=== PATIENT | male | born 1985 | race Caucasian/White ===

== ENCOUNTER 2016-10-29 08:37 | Outpatient (CLI) | payer BC ==
[~2016-10-29] VITALS: Ht 182.9 cm; Wt 132.0 kg
[~2016-10-29 08:37] MED LIST: BENZ-13 PO; CALC-80 PO; CEFD300C3 PO; CLON0.123 PO; CLON0.5T60 PO; D-ME118S7 PO; LAMO150T3 PO; LEVE100015 PO; LEVE750T16 PO; LEVO50TA PO; ONDA4TAB8 PO; PHEN-633 PO
[2016-10-29 08:52] VITALS: BP 123/71
[2016-10-29] MEDS ORDERED: CLON0.5T3 PO (09:10)
[2016-10-29] MEDS ORDERED: DOXY25TA50 PO (09:10)
[2016-10-29] MEDS ORDERED: OMG1KC PO (09:10)
[2016-10-29] MEDS ORDERED: METF500T4 PO (09:10)
[2016-10-29 09:19] LABS: BASOPHILS % (AUTO) 1 % (0-10); EOSINOPHILS # (AUTO) 0.1 10^3/uL (0.0-0.3); EOSINOPHILS % (AUTO) 2 % (0-10); LYMPHOCYTES # (AUTO) 1.7 X 10^3 (1.0-4.0); LYMPHOCYTES % (AUTO) 26 % (12-44); MEAN CORPUSCULAR HEMOGLOBIN 28 PG (25-34); MEAN CORPUSCULAR HGB CONC 34 G/DL (32-36); MEAN CORPUSCULAR VOLUME 84 FL (80-99); MEAN PLATELET VOLUME 9.5 FL (7.4-10.4); MONOCYTES # (AUTO) 0.6 X 10^3 (0.0-1.0); MONOCYTES % (AUTO) 9 % (0-12); NEUTROPHILS # (AUTO) 4.1 X 10^3 (1.8-7.8); NEUTROPHILS % (AUTO) 62 % (42-75); PLATELET COUNT 314 10^3/uL (130-400); RED BLOOD COUNT 4.58 10^6/uL (4.35-5.85); WHITE BLOOD COUNT 6.6 10^3/uL (4.3-11.0)
== END 2016-10-29 09:05 | disposition home or self-care (01) ==
LOC: PREOP 08:37
PROVIDERS: ATTEND Surgery
DX: Z01.812 Encounter for preprocedural laboratory examination (principal); Z11.2 Encounter for screening for other bacterial diseases; K42.9 Umbilical hernia without obstruction or gangrene
CPT/HCPCS: 36415; 85025; 87081

== ENCOUNTER 2016-10-31 09:27 | Day surgery (SDC) | payer BC ==
[~2016-10-31] VITALS: Ht 182.9 cm; Wt 132.0 kg
[~2016-10-31 09:27] MED LIST changes: +CLON0.5T3 PO; +DOXY25TA50 PO; +METF500T4 PO; +OMG1KC PO
[2016-10-31] MEDS ORDERED: ceFAZolin 2 GM/NS 50 ML IV ONE (09:45)
[2016-10-31 09:49] VITALS: BP 129/81
--- OUTSIDE RECORDS SUMMARY | 2016-10-31 09:51 | XMS REPORT | Continuity of Care Document ---
Author Author [facility] Organization [facility] Address Unknown Phone Unavailable Care Team Providers Care Paper Roll Machine Operator Name Role Phone GAVI HAAS MD PCP Insurance Providers Payer Name Policy Number Subscriber Name Relationship [facility] [id number] Gianni Tna 18 Self / Same As Patient Advance Directives Directive Response Recorded Date/Time Advance Directives No 10/29/16 8:49am Resuscitation Status Full Code 10/29/16 8:49am Problems Active Problems Medical Problem Onset Date Status Bronchitis Unknown Acute Facial contusion Unknown Acute Hypothyroidism Unknown Acute Nausea & vomiting Unknown Acute Seizure Unknown Acute Seizure Unknown Acute Subtherapeutic serum dilantin level Unknown Acute Thyroid dysfunction Unknown Acute Upper respiratory infection Unknown Acute Medications Current Home Medications Medication Dose Units Route Directions Days/Qty Instructions Start Date Lamotrigine 150 Mg 150 Mg Oral Every 12 Hours 09/12/15 Levothyroxine Sodium 50 Mcg 50 Mcg Oral Daily 09/12/15 Levetiracetam 1,000 Mg 1,000 Mg Oral Twice A Day take with 5oomg tab for 1500mg total 12/19/15 Clonazepam 0.5 Mg 0.5-1 Mg Oral Twice A Day take 1 (.5mg) tab in am take 2 (.5mg) tab in pm 10/29/16 Metformin Hcl 500 Mg 500 Mg Oral Twice A Day 10/29/16 Doxylamine Succinate 25 Mg 25 Mg Oral Bedtime 10/29/16 [place] 3 Polyunsat Fatty Acids 1,000 Mg 1,000 Mg Oral Twice A Day Past Home Medications Medication Directions Ordered Status Clonazepam (Klonopin) 0.125 Mg/Tab Tab.rapdis, 1 Each Oral Three Times A Day 03/18/14 Discontinued Levetiracetam 750 Mg Tablet, 1 Each Oral Twice A Day 03/18/14 Discontinued Levetiracetam 1,000 Mg Tablet, 1 Each Oral Twice A Day for Seizure Activity 03/18/14 Discontinued Clonazepam (Klonopin 0.5 Mg) 0.5 Mg/Tab Tab.rapdis, 1 Each Oral Three Times A Day for Seizure Activity 03/18/14 Discontinued Cefdinir (Omnicef) 300 Mg Capsule, 300 Mg Oral Twice A Day for For Infection 09/12/15 Discontinued Benzonatate 100 Mg Capsule, 1-2 Tab Oral Three Times A Day for Cough Discontinued D-Methorphan Hb/Prometh Hcl 118 Ml Syrup, 1-2 Tsp Oral Every 4HRS for Cough 09/12/15 Discontinued Ondansetron 4 Mg Tab.rapdis, 4 Mg Oral Every 6 Hours as needed for Nausea Discontinued Social History Social History Problem Response Recorded Date/Time Alcohol Use Denies Use 01/27/2016 9:00pm Recreational Drug Use No 01/27/2016 9:00pm Recent Foreign Travel No 10/29/2016 8:53am Recent Infectious Disease Exposure No 10/29/2016 8:53am Sexually Transmitted Disease No 10/29/2016 8:49am Smoking Status Former Smoker 10/29/2016 8:49am Recent Hopitalizations No 10/29/2016 8:49am Sexually Transmitted Disease No 10/29/2016 8:49am Query Response Start Date Stop Date Smoking Status Former Smoker Hospital Discharge Instructions No hospital discharge instructions. Plan of Care Discharge Date 10/29/16 9:05am Prescriptions See Medication Section Functional Status No functional status results. Allergies, Adverse Reactions, Alerts No known allergies. Immunizations No immunization records. Vital Signs Acute Vital Signs Vital Response Date/Time Pulse Rate (adult) 71 bpm (60 - 90) 10/29/2016 8:52am O2 Sat by Pulse Oximetry 97 % (88 - 100) 10/29/2016 8:52am Blood Pressure 123/71 mm Hg 10/29/2016 8:52am Blood Pressure Mean 88 mm Hg 10/29/2016 8:52am Pain Numeric Pain Scale 0-No Pain 10/29/2016 8:52am Height (Feet) 6 feet 10/29/2016 8:53am Height (Inches) 0.00 inches 10/29/2016 8:53am Height (Calculated Centimeters) 182.348197 cm 10/29/2016 8:53am Weight (Pounds) 291 pounds 10/29/2016 8:53am Weight (Ounces) 0.0 oz 10/29/2016 8:53am Weight (Calculated Grams) 987454.38 gm 10/29/2016 8:53am Weight (Calculated Kilograms) 131.727355 kilograms 10/29/2016 8:53am Calculated BMI 39.5 10/29/2016 8:53am Results No known relevant diagnostic tests, laboratory data and/or discharge summary. Procedures No known history of procedures. Encounters Encounter Location Arrival/Admit Date Discharge/Depart Date Attending Provider Departed Clinic [facility] 10/29/16 8:37am 10/29/16 9: 05am ROMERO SANFORD DO
--- OUTSIDE RECORDS SUMMARY | 2016-10-31 09:51 | XMS REPORT | Continuity of Care Document ---
Author Author [facility] Organization [facility] Address Unknown Phone Unavailable Care Team Providers Care Chairman & Ceo Name Role Phone GAVI HAAS MD PCP Insurance Providers Payer Name Policy Number Subscriber Name Relationship [facility] [id number] Gianni Tan 18 Self / Same As Patient Advance [...] 25 Mg 25 Mg Oral Bedtime 10/29/16 [place] 3 Polyunsat Fatty Acids 1,000 Mg 1,000 [...] 0.00 inches 10/29/2016 8:53am Height (Calculated Centimeters) 182.483984 cm 10/29/2016 8:53am Weight (Pounds) 291 pounds 10/29/2016 8:53am Weight (Ounces) 0.0 oz 10/29/2016 8:53am Weight (Calculated Grams) 755900.38 gm 10/29/2016 8:53am Weight (Calculated Kilograms) 131.650293 kilograms 10/29/2016 8:53am Calculated BMI 39.5 10/29/2016 8:53am Results No known relevant diagnostic tests, laboratory data and/or discharge summary. Procedures No known history of procedures. Encounters Encounter Location Arrival/Admit Date Discharge/Depart Date Attending Provider Departed Clinic [facility] 10/29/16 8:37am 10/29/16 9: 05am ROMERO SANFORD DO
[2016-10-31] MEDS ORDERED: BUPIVACAINE 0.5% 30 ML (SENSORCAINE) VIAL ONE (10:05)
[2016-10-31] MEDS ORDERED: LIDOCAINE 1% INJ 20 ML (XYLOCAINE) VIAL ONE (10:06)
[2016-10-31] MEDS ORDERED: LACTATED RINGERS 1,000 ML IV PRN (10:17)
[2016-10-31] MEDS ORDERED: ROCURONIUM 50 MG/5 ML (ZEMURON) VIAL IV ONE ×2 (10:59→11:21)
[2016-10-31] MEDS ORDERED: ONDANSETRON 4 MG/2 ML (SDV) Z0FRAN ONE (10:59)
[2016-10-31] MEDS ORDERED: fentaNYL INJECTION 250 MCG/5 ML AMP ONE (10:59)
[2016-10-31] MEDS ORDERED: MIDAZOLAM 2 MG/2 ML (VERSED) VIAL ONE (10:59)
[2016-10-31] MEDS ORDERED: LACTATED RINGERS 1,000 ML IV ONE ×2 (10:59→12:27)
[2016-10-31] MEDS ORDERED: proPOfol 200 MG/20 ML (DIPRIVAN) VIAL IV ONE (10:59)
--- NOTE | 2016-10-31 11:22 | Progress Note-Pre Operative ---
Pre-Operative Progress Note H&P Reviewed The H&P was reviewed, patient examined and no changes noted. Date H&P Reviewed: Oct 31, 2016 Time H&P Reviewed: 11:00 Pre-Operative Diagnosis: umbilical hernia ROMERO SANFORD DO Oct 31, 2016 11:22 am
--- NOTE | 2016-10-31 12:25 | Progress Note-Post Operative ---
Post-Operative Progess Note Seal Extrusion Operator Marino Patricia Pre-Operative Diagnosis umbilical hernia Post-Operative Diagnosis same Post-Op Procedure Note Date of Procedure: Oct 31, 2016 Name of Procedure: laparoscopic umbilical hernia repair Procedure Note/Findings see note Anesthesia Type general Estimated blood loss (mL): ROMERO Marquez DO Oct 31, 2016 12:25
[2016-10-31] MEDS ORDERED: DOCU-143 PO (12:26)
[2016-10-31] MEDS ORDERED: HYDR-3812 PO (12:26)
[2016-10-31] MEDS ORDERED: SEVOFLURANE (ULTANE) 15 ML INHAL SOLN ONE (12:27)
--- NOTE | 2016-10-31 12:28 | Discharge Inst-Simple/Standard ---
Discharge Inst-Standard Discharge Medications New, Converted or Re-Newed RX: RX on Chart Patient Instructions/Follow Up Plan of Care/Instructions/FU: 2-3 weeks Jason Activity as Tolerated: No Discharge Diet: Regular Diet Other Inst to Patient Follow up Appt: Make appointment for 2-3 week. Instructions: No lifting greater than 10 pounds. No strenuous activity. May shower in 24 hours, no tub bath or soaking. Use incentive spirometer at home as directed. No Smoking Skin/Wound Care: May remove bandages in 48 hours. You need to leave the white strips over incision on they will fall off on their own. Symptoms to Report: Appetite Changes, Extremity Discoloration, Numbness/Tingling, Swelling Increased , Bleeding Excessive, Eyesight Changes, Pain Increased, Urine Color Change, Constipation(Persistent), Fever over 101 degree F, Pain/Pressure in chest, Urinating Difficulty, Cough Up/Vomit Blood, Heart Beat Irreg/Pounding, Pain/ Pressure in jaw, Vaginal Bleeding Increase, Cramps in feet or legs, Lightheadedness, Pain/Pressure in shoulder, Diarrhea(Persistent), Memory Changes Suddenly, Questions/Concerns, Weight gain consecutive days, Dizziness/ Fainting, Nausea/Vomiting, Shortness of Breath, Weight gain over 2 pounds If questions or concerns contact your physician Or seek help at emergency department. ROMERO SANFORD DO Oct 31, 2016 12:27
[2016-10-31] MEDS ORDERED: HYDROcodone/APAP 5 MG/325 MG (LORTAB) TAB PO PRN (12:30)
[2016-10-31] MEDS ORDERED: ONDANSETRON 4 MG/2 ML (SDV) Z0FRAN IV PRN (12:45)
[2016-10-31] MEDS ORDERED: KETOROLAC 30 MG/ML VIAL IV SCH (12:45)
[2016-10-31] MEDS: morphine INJ 10 MG/ML 1ML (SYR OR VIAL) IV PRN ×2 (12:54→13:04)
[2016-10-31 13:35] VITALS: BP 130/70
[2016-10-31 14:05] VITALS: BP 130/71
[2016-10-31 14:35] VITALS: BP 137/71
[2016-10-31 14:50] VITALS: BP 137/71
--- NOTE | 2016-11-04 08:13 | OPERATIVE REPORT ---
PROCEDURE PHYSICIAN: ROMERO GOMEZ DATE OF PROCEDURE: 10/31/2016 PREOPERATIVE DIAGNOSIS: Umbilical hernia. POSTOPERATIVE DIAGNOSIS: Umbilical hernia. PROCEDURE: Laparoscopic incisional hernia repair using 4.5 inch Echo mesh. SURGEON: Dr. Gomez. PASTEURIZER: Nuria Patricia to assist in retraction, dissection, and closure. ANESTHESIA: General. ESTIMATED BLOOD LOSS: Minimal. COMPLICATIONS: None. INDICATIONS: The patient is a 31-year-old male with an umbilical hernia, which has continued to increase in size and cause discomfort. The patient was explained the risk and benefits of the procedure and wished to proceed with the procedure. Consent was signed on the chart. PROCEDURE: The patient was taken to the operating suite. He was prepped and draped in sterile fashion. A surgical pause was performed. A 5 mm incision was made in the left upper quadrant. Veress needle was inserted into the abdomen and pneumoperitoneum was achieved. Under direct visualization of the laparoscope, a 12 mm trocar was placed in the left lower quadrant and a 5 mm trocars was placed in the right upper quadrant. The hernia defect was visualized at the umbilicus. Harmonic was used to take down the peritoneum and also of the falciform ligament. Using 0 Vicryl and the Del-Sabina, the umbilical defect was closed through a stab incision. The 4.5 Echo mesh was inserted in the abdomen and grasped with the Del-Sabina through the stab incision at the umbilicus. The balloon was insufflated using the secure tacker, a peripheral ring was created. Once this was done the balloon was removed and an inner crown was placed on the mesh as well. Adequate coverage was present. The 12 mm trocar was then removed. The defect was closed using 0 Vicryl with Endo Close. The abdomen was irrigated with copious amounts of irrigation. The abdomen was desufflated and the trocars were removed. The trocars were removed. Total of 20 mL of 0.5% Marcaine and 1% lidocaine 50:50 ratio was used to anesthetize the trocar sites. The skin was then closed using 4-0 Vicryl in a subcuticular fashion. The abdomen was then washed and dried and Mastisol and Steri-Strips were applied. Sterile bandages were applied. The patient tolerated the procedure well without any complications and taken to recovery room in stable condition. Job ID: [id number] Dictated Date: 10/31/2016 14:32:30 Hand Paint Mixer Date: 11/04/2016 08:04:33 / kathryn
== END 2016-10-31 14:50 | disposition home or self-care (01) ==
LOC: SDC 09:27
PROVIDERS: ATTEND Surgery
DX: K42.9 Umbilical hernia without obstruction or gangrene (principal); E11.9 Type 2 diabetes mellitus without complications; Z79.84 Long term (current) use of oral hypoglycemic drugs
CPT/HCPCS: 82962; 94664

== ENCOUNTER 2016-12-12 20:24 | Emergency (ER) | payer BC ==
[~2016-12-12] VITALS: Ht 182.9 cm; Wt 127.5 kg
[~2016-12-12 20:24] MED LIST changes: +DOCU-143 PO; +HYDR-3812 PO
--- OUTSIDE RECORDS SUMMARY | 2016-12-12 20:28 | XMS REPORT | Continuity of Care Document ---
Author Author [facility] Organization [facility] Address Unknown Phone Unavailable Care Team Providers Care Gun Numberer Name Role Phone GAVI HAAS MD PCP Insurance Providers Payer Name Policy Number Subscriber Name Relationship [facility] [id number] Gianni Tan 18 Self / Same As [...] 25 Mg 25 Mg Oral Bedtime 10/29/16 [place] 3 Polyunsat Fatty Acids 1,000 Mg 1,000 [...] 0.00 inches 10/29/2016 8:53am Height (Calculated Centimeters) 182.048818 cm 10/29/2016 8:53am Weight (Pounds) 291 pounds 10/29/2016 8:53am Weight (Ounces) 0.0 oz 10/29/2016 8:53am Weight (Calculated Grams) 918176.38 gm 10/29/2016 8:53am Weight (Calculated Kilograms) 131.810068 kilograms 10/29/2016 8:53am Calculated BMI 39.5 10/29/2016 8:53am Results No known relevant diagnostic tests, laboratory data and/or discharge summary. Procedures No known history of procedures. Encounters Encounter Location Arrival/Admit Date Discharge/Depart Date Attending Provider Departed Clinic [facility] 10/29/16 8:37am 10/29/16 9: 05am ROMERO SANFORD DO
[2016-12-12] MEDS ORDERED: NS IV 1000 ML 1,000 ML IV ONE (20:34)
[2016-12-12 20:54] LABS: BASOPHILS % (AUTO) 0 % (0-10); EOSINOPHILS # (AUTO) 0.1 10^3/uL (0.0-0.3); EOSINOPHILS % (AUTO) 1 % (0-10); LYMPHOCYTES # (AUTO) 1.5 X 10^3 (1.0-4.0); LYMPHOCYTES % (AUTO) 16 % (12-44); MEAN CORPUSCULAR HEMOGLOBIN 28 PG (25-34); MEAN CORPUSCULAR HGB CONC 34 G/DL (32-36); MEAN CORPUSCULAR VOLUME 82 FL (80-99); MEAN PLATELET VOLUME 9.5 FL (7.4-10.4); MONOCYTES # (AUTO) 0.6 X 10^3 (0.0-1.0); MONOCYTES % (AUTO) 6 % (0-12); NEUTROPHILS # (AUTO) 7.3 X 10^3 (1.8-7.8); NEUTROPHILS % (AUTO) 76 % (42-75); PLATELET COUNT 355 10^3/uL (130-400); RED BLOOD COUNT 4.86 10^6/uL (4.35-5.85); RED CELL DISTRIBUTION WIDTH 13.5 % (10.0-14.5); WHITE BLOOD COUNT 9.5 10^3/uL (4.3-11.0)
--- NOTE | 2016-12-12 21:07 | Diagnostic Imaging Report ---
Procedure: CT head without contrast. Technique: Multiple contiguous axial images were obtained through the brain without the use of intravenous contrast. Indication: Headache, possible seizure. Comparison: 01/27/2016. Discussion: No adverse interval change. No intracranial hemorrhage, mass, midline shift, or hydrocephalus. The ventricles and sulci are normal size and configuration for age. The visualized orbits, paranasal sinuses, mastoid air cells, and calvarium are unremarkable. Impression: Negative head CT. Dictated by: Dictated on workstation # [id number]
--- NOTE | 2016-12-12 21:12 | ED Neurological Problem ---
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 REPORTS CAME HOME ET FOUND ON FLOOR. REPORTS SHE ASKED HIM WHY HE WAS ON THE FLOOR ET PT REPORTED "I THOUGHT I'D LAY DOWN" BUT DOES NOT REMEMBER LYING DOWN. REPORTS PT FORGOT TO TAKE MEDS THIS AM. PETECHIAE NOTED AROUND EYES. REPORTS PT DID TAKE A DOSE AT 1930 ET IS DUE FOR ANOTHER DOSE AT 2130. Nursing Sepsis Screen: No Definite Risk Source: patient Exam Limitations: no limitations History of Present Illness Time seen by provider: 20:50 Initial Comments Here with report of possible seizure. found him on the floor. He missed his morning dose of seizure medicines. He does note that he has bruising to the bilateral edges of the tongue consistent with seizures. He does have a seizure disorder. Denies any pain or other concerns. is concerned because she did not witness the seizure and patient admits that he probably did hit his head. Denies nausea or vomiting. He did take his seizure medicines now and is feeling better. He has medications at home. reports he was confused for a little while but is more macular normal. She reports that all of this is consistent with his seizures. Timing/Duration: 1 hour Severity: mild Associated Symptoms: No confusion, No fever/chills, No muscle spasms, No nausea /vomiting, seizuresNo slurred speech, No weakness Allergies and Home Medications Allergies Coded Allergies: No Known Drug Allergies (Unverified , 03/18/14) Home Medications Clonazepam 0.5 Mg Tablet 0.5-1 MG PO BID (Reported) take 1 (.5mg) tab in am take 2 (.5mg) tab in pm Docusate Sodium 100 Mg Capsule #60 100 MG PO BID Prescribed by: ROMERO SANFORD on 10/31/16 1226 Hydrocodone/Acetaminophen 1 Each Tablet #30 1-2 TAB PO Q6H PRN PRN Prescribed by: ROMERO SANFORD on 10/31/16 1226 Lamotrigine 150 Mg Tablet 150 MG PO Q12H (Reported) Levetiracetam 1,000 Mg Tablet 1,000 MG PO BID (Reported) take with 5oomg tab for 1500mg total Levothyroxine Sodium 50 Mcg Tablet 50 MCG PO DAILY (Reported) Metformin HCl 500 Mg Tablet 500 MG PO BID (Reported) [place] 3 Polyunsat Fatty Acids 1,000 Mg Cap 1,000 MG PO BID (Reported) Constitutional: see HPINo chills, No fever Ears, Nose, Mouth, Throat: see HPI Respiratory: no symptoms reported Cardiovascular: no symptoms reported Gastrointestinal: no symptoms reported Musculoskeletal: no symptoms reported Skin: no symptoms reported Psychiatric/Neurological: See HPI Headache Tonic Clonic Seizures All Other Systems Reviewed Negative Unless Noted: Yes Past Pxnbork-Gbdeta-Fgzjxa Hx Patient Social History Alcohol Use: Denies Use Recreational Drug Use: No Smoking Status: Former Smoker Recent Foreign Travel: No Contact w/Someone Who Travel: No Recent Infectious Disease Expo: No Recent Hopitalizations: No Immunizations Up To Date Tetanus Booster (TDap): Unknown Date of Influenza Vaccine: May 30, 2015 Seasonal Allergies Seasonal Allergies: Yes Surgeries HX Surgeries: No Respiratory Hx Respiratory Disorders: Yes Respiratory Disorders: Sleep Apnea Cardiovascular Hx Cardiac Disorders: No Neurological Hx Neurological Disorders: Yes (last seizure one yr ago) Neurological Disorders: Seizure Disorder Reproductive System Hx Reproductive Disorders: No Sexually Transmitted Disease: No Genitourinary Hx Genitourinary Disorders: No Gastrointestinal Hx Gastrointestinal Disorders: No (umb hernia) Musculoskeletal Hx Musculoskeletal Disorders: No Endocrine Hx Endocrine Disorders: Yes (pre=diabetes) Endocrine Disorders: Hypothyroidsim, Diabetes, Non-Insulin dep HEENT HX ENT Disorders: No Cancer Hx Cancer: No Psychosocial Hx Psychiatric Problems: Yes Behavioral Health Disorders: Anxiety Integumentary HX Skin/Integumentary Disorder: No Blood Transfusions Hx Blood Disorders: No Reviewed Nursing Assessment Reviewed/Agree w Nursing PMH: Yes Family Medical History Significant Family History: No Pertinent Family Hx Physical Exam Vital Signs Vital Sign - Last 12Hours 12/12/16 20:26 Temp 98.2 Pulse 90 Resp 20 B/P 119/82 Pulse Ox 97 O2 Delivery Room Air Capillary Refill : Less Than 3 Seconds General Appearance: WD/WN no apparent distress HEENT: PERRL/EOMI pharynx normal other (abrasion/bruising to the lateral edge of the tongue bilaterally.) Neck: full range of motion supple Respiratory: lungs clear normal breath sounds Cardiovascular: regular rate, rhythm no murmur Gastrointestinal: non tender soft Back: normal inspection no CVA tenderness no vertebral tenderness Extremities: non-tender normal inspection 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: alert normal mood/affect oriented x 3 Crainal Nerves: normal hearing normal speech Motor/Sensory: no motor deficit no sensory deficit Skin: normal color warm/dry Focused Exam Lactic Acid Level Laboratory Tests Test 12/12/16 20:45 Alanine Aminotransferase (ALT/SGPT) 101U/L (0-55) H Albumin 4.5G/DL (3.2-4.5) Alkaline Phosphatase 116U/L (40-136) Anion Gap 11MMOL/L (5-14) Aspartate Amino Transf (AST/SGOT) 47U/L (5-34) H BUN/Creatinine Ratio 17 Blood Urea Nitrogen 15MG/DL (7-18) Calcium Level 9.6MG/DL (8.5-10.1) Carbon Dioxide Level 22MMOL/L (21-32) Chloride Level 106MMOL/L (98-107) Creatinine 0.87MG/DL (0.60-1.30) Estimat Glomerular Filtration Rate > 60 Glucose Level 165MG/DL (70-105) H Magnesium Level 2.4MG/DL (1.8-2.4) Potassium Level 4.3MMOL/L (3.6-5.0) Sodium Level 139MMOL/L (135-145) Total Bilirubin 0.2MG/DL (0.1-1.0) Total Protein 7.6G/DL (6.4-8.2) Progress/Results/Core Measures Results/Orders Lab Results Laboratory Tests Test 12/12/16 20:45 Range/Units Alanine Aminotransferase (ALT/SGPT) 101 H 0-55 U/L Albumin 4.5 3.2-4.5 G/DL Alkaline Phosphatase 116 40-136 U/L Anion Gap 11 5-14 MMOL/L Aspartate Amino Transf (AST/SGOT) 47 H 5-34 U/L BUN/Creatinine Ratio 17 Basophils # (Auto) 0.0 0.0-0.1 10^3/uL Basophils (%) (Auto) 0 0-10 % Blood Urea Nitrogen 15 7-18 MG/DL Calcium Level 9.6 8.5-10.1 MG/DL Carbon Dioxide Level 22 21-32 MMOL/L Chloride Level 106 98-107 MMOL/L Creatinine 0.87 0.60-1.30 MG/DL Eosinophils # (Auto) 0.1 0.0-0.3 10^3/uL Eosinophils (%) (Auto) 1 0-10 % Estimat Glomerular Filtration Rate > 60 Glucose Level 165 H 70-105 MG/DL Hematocrit 40 40-54 % Hemoglobin 13.5 13.3-17.7 G/DL Lymphocytes # (Auto) 1.5 1.0-4.0 X 10^3 Lymphocytes (%) (Auto) 16 12-44 % Magnesium Level 2.4 1.8-2.4 MG/DL Mean Corpuscular Hemoglobin 28 25-34 PG Mean Corpuscular Hemoglobin Concent 34 32-36 G/DL Mean Corpuscular Volume 82 80-99 FL Mean Platelet Volume 9.5 7.4-10.4 FL Monocytes # (Auto) 0.6 0.0-1.0 X 10^3 Monocytes (%) (Auto) 6 0-12 % Neutrophils # (Auto) 7.3 1.8-7.8 X 10^3 Neutrophils (%) (Auto) 76 H 42-75 % Platelet Count 355 130-400 10^3/uL Potassium Level 4.3 3.6-5.0 MMOL/L Red Blood Count 4.86 4.35-5.85 10^6/uL Red Cell Distribution Width 13.5 10.0-14.5 % Sodium Level 139 135-145 MMOL/L Total Bilirubin 0.2 0.1-1.0 MG/DL Total Protein 7.6 6.4-8.2 G/DL White Blood Count 9.5 4.3-11.0 10^3/uL My Orders Orders-EDUAR URIARTE MD Cbc With Automated Diff (12/12/16 20:34) Comprehensive Metabolic Panel (12/12/16 20:34) Magnesium (12/12/16 20:34) Ct Head Wo (12/12/16 20:34) Saline Lock/Iv-Start (12/12/16 20:34) Ns Iv 1000 Ml (Sodium Chloride 0.9%) (12/12/16 20:34) Medications Given in ED Current Medications Medications Dose Ordered Sig/Warren Route Start Time Stop Time Status Last Admin Dose Admin Sodium Chloride 1,000 ml @ 0 mls/hr Q0M ONCE IV 12/12/16 20:34 12/12/16 20:35 DC 12/12/16 20:47 1,000 MLS/HR Vital Signs/I&O Vital Sign - Last 12Hours 12/12/16 20:26 Temp 98.2 Pulse 90 Resp 20 B/P 119/82 Pulse Ox 97 O2 Delivery Room Air Blood Pressure Mean: 94 Progress Note : Progress Note Seen and evaluated. IV, labs, normal saline [address] head ordered. Monitor patient. No return of seizures. Discharged home with return precautions. Patient and family verbalize understanding instructions and agreement with plan. Diagnostic Imaging Diagonstic Imaging: CT Plain Films/CT/US/NM/MRI: head Comments NAME: HAFSA GOSS [facility] REC#: [id number] PT STATUS: REG ER : 1985 PHYSICIAN: EDUAR URIARTE MD ADMIT DATE: 12/12/16/ER Signed Date of Exam: 12/12/16 CT HEAD WO Procedure: CT head without contrast. Technique: Multiple contiguous axial images were obtained through the brain without the use of intravenous contrast. Indication: Headache, possible seizure. Comparison: 01/27/2016. Discussion: No adverse interval change. No intracranial hemorrhage, mass, midline shift, or hydrocephalus. The ventricles and sulci are normal size and configuration for age. The visualized orbits, paranasal sinuses, mastoid air cells, and calvarium are unremarkable. Impression: Negative head CT. Dictated by: Dictated on workstation # [id number] Dict: 12/12/162102 Trans: 12/12/162141 [facility] [id number] Interpreted by: RED HSU MD Electronically signed by:RED HSU MD 12/12/162143 Departure Impression Impression: Primary Impression: Seizure Disposition: 01 HOME, SELF-CARE Condition: Improved Departure-Patient Inst. Decision time for Depature: 21:11 Referrals: GAVI HAAS MD (PCP/Family) Primary Care Physician Patient Instructions: Epilepsy in Adults Add. Discharge Instructions: All discharge instructions reviewed with patient and/or family. Voiced understanding. Take your medications as directed. Drink plenty of fluids. Follow-up with your doctor in a few days for recheck. Return for worse pain, fever, vomiting, weakness, breathing problems, persistent seizures or other concerns as needed. EDUAR URIARTE MD Dec 12, 2016 21:12
[2016-12-12 21:13] LABS: ALANINE AMINOTRANSFERASE 101 U/L (0-55); ALBUMIN 4.5 G/DL (3.2-4.5); ANION GAP 11 MMOL/L (5-14); ASPARTATE AMINO TRANSFERASE 47 U/L (5-34); BILIRUBIN,TOTAL 0.2 MG/DL (0.1-1.0); BLOOD UREA NITROGEN 15 MG/DL (7-18); BUN/CREATININE RATIO 17; CALCIUM 9.6 MG/DL (8.5-10.1); CARBON DIOXIDE 22 MMOL/L (21-32); CHLORIDE 106 MMOL/L (98-107); CREATININE SERUM 0.87 MG/DL (0.60-1.30); GFR ESTIMATED > 60; GLUCOSE 165 MG/DL (70-105); MAGNESIUM 2.4 MG/DL (1.8-2.4); POTASSIUM 4.3 MMOL/L (3.6-5.0); SODIUM 139 MMOL/L (135-145); TOTAL PROTEIN 7.6 G/DL (6.4-8.2)
[2016-12-12 22:02] VITALS: BP 126/68
== END 2016-12-12 22:02 | disposition home or self-care (01) ==
LOC: EDUNIT# 20:24 → ER 20:25
DX: G40.909 Epilepsy, unspecified, not intractable, without status epilepticus (principal); E11.9 Type 2 diabetes mellitus without complications; Z79.84 Long term (current) use of oral hypoglycemic drugs; Z79.899 Other long term (current) drug therapy
CPT/HCPCS: 36415; 70450; 80053; 83735; 85025; 96360

== ENCOUNTER 2017-05-06 21:56 | Emergency (ER) | payer BC ==
[~2017-05-06] VITALS: Ht 182.9 cm; Wt 129.3 kg
--- NOTE | 2017-05-06 22:19 | ED Neurological Problem ---
General Chief Complaint: Neurological Problems Stated Complaint: SEIZURE Source: patient, EMS Exam Limitations: no limitations History of Present Illness Time seen by provider: 22:10 Initial Comments Patient presents to the ER by EMS with chief complaint of found down at the back room of [facility] where he was working ton[employer]INTOIT. No one witnessed him go down but he does have a pertinent history of seizure disorder. EMS reports that they checked a blood sugar of 188 [address] route and he was postictal but coming around by the time they arrived. 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 He is seen by a neurologist at [place] and his primary doctor is in [place]. He reports no recent cough cold fevers chills shortness of breath nausea or diarrhea. His gives a history that he has not had his meds tonight because her still work and he is on Lamictal 150 mg, clonazepam twice a day 1 mg, Keppra 1500 mg. He has been on these meds for a few years stable. He has an appointment to see his neurologist in 2 days. She also was not aware of any changes in his health recently. He is also prediabetic. Patient states he did chip a tooth a few weeks ago and is been trying to find a dentist to treat this but it does not hurt last several days and is had no fevers chills or discharge from the mouth. It is not tender presently. Allergies and Home Medications Allergies Coded Allergies: No Known Drug Allergies (Unverified , 03/18/14) Home Medications Clonazepam 0.5 Mg Tablet, 0.5-1 MG PO BID, (Reported) take 1 (.5mg) tab in am take 2 (.5mg) tab in pm Lamotrigine 150 Mg Tablet, 150 MG PO Q12H, (Reported) Levetiracetam 1,000 Mg Tablet, 1,000 MG PO BID, (Reported) take with 5oomg tab for 1500mg total Levothyroxine Sodium 50 Mcg Tablet, 50 MCG PO DAILY, (Reported) Metformin HCl 500 Mg Tablet, 500 MG PO BID, (Reported) [place] 3 Polyunsat Fatty Acids 1,000 Mg Cap, 1,000 MG PO BID, (Reported) Constitutional: No chills, No diaphoresis, No dizziness, No fever, No malaise, No weakness Eyes: Denies Blindness, Denies Blurred Vision Ears, Nose, Mouth, Throat: denies ear pain, denies nose pain, denies nose discharge Respiratory: No cough, No short of breath Cardiovascular: No chest pain, No palpitations Gastrointestinal: No constipation, No diarrhea, No nausea, No vomiting Genitourinary: No discharge, No dysuria Musculoskeletal: No back pain, No joint pain Skin: No pruritus, No rash Psychiatric/Neurological: Denies Headache, Denies Numbness Past Eoejvmy-Sfgfuo-Czjfjq Hx Patient Social History Alcohol Use: Denies Use Recreational Drug Use: No Smoking Status: Former Smoker Recent Hopitalizations: No Immunizations Up To Date Tetanus Booster (TDap): Unknown Date of Influenza Vaccine: May 30, 2015 Seasonal Allergies Seasonal Allergies: Yes Surgeries HX Surgeries: No Respiratory Hx Respiratory Disorders: Yes Respiratory Disorders: Sleep Apnea Cardiovascular Hx Cardiac Disorders: No Neurological Hx Neurological Disorders: Yes (last seizure one yr ago) Neurological Disorders: Seizure Disorder Reproductive System Hx Reproductive Disorders: No Sexually Transmitted Disease: No Genitourinary Hx Genitourinary Disorders: No Gastrointestinal Hx Gastrointestinal Disorders: No (umb hernia) Musculoskeletal Hx Musculoskeletal Disorders: No Endocrine Hx Endocrine Disorders: Yes (pre=diabetes) Endocrine Disorders: Hypothyroidsim, Diabetes, Non-Insulin dep HEENT HX ENT Disorders: No Cancer Hx Cancer: No Psychosocial Hx Psychiatric Problems: Yes Behavioral Health Disorders: Anxiety Integumentary HX Skin/Integumentary Disorder: No Blood Transfusions Hx Blood Disorders: No Family Medical History Significant Family History: No Pertinent Family Hx Physical Exam Vital Signs Vital Sign - Last 12Hours 05/06/17 22:10 Temp 98.0 Pulse 91 Resp 18 B/P (MAP) 136/84 Pulse Ox 97 O2 Delivery Room Air Capillary Refill : General Appearance: WD/WN, no apparent distress HEENT: PERRL/EOMI, normal ENT inspection, pharynx normal Neck: non-tender, supple, normal inspection Respiratory: lungs clear, normal breath sounds Cardiovascular: normal peripheral pulses, regular rate, rhythm Gastrointestinal: non tender, soft Extremities: non-tender, normal capillary refill 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: alert, oriented x 3 Skin: normal color, warm/dry Progress/Results/Core Measures Results/Orders Lab Results Laboratory Tests Test 05/06/17 22:00 Range/Units White Blood Count 8.7 4.3-11.0 10^3/uL Red Blood Count 4.68 4.35-5.85 10^6/uL Hemoglobin 13.0 L 13.3-17.7 G/DL Hematocrit 39 L 40-54 % Mean Corpuscular Volume 84 80-99 FL Mean Corpuscular Hemoglobin 28 25-34 PG Mean Corpuscular Hemoglobin Concent 33 32-36 G/DL Red Cell Distribution Width 12.9 10.0-14.5 % Platelet Count 368 130-400 10^3/uL Mean Platelet Volume 10.0 7.4-10.4 FL Neutrophils (%) (Auto) 55 42-75 % Lymphocytes (%) (Auto) 35 12-44 % Monocytes (%) (Auto) 8 0-12 % Eosinophils (%) (Auto) 1 0-10 % Basophils (%) (Auto) 1 0-10 % Neutrophils # (Auto) 4.8 1.8-7.8 X 10^3 Lymphocytes # (Auto) 3.1 1.0-4.0 X 10^3 Monocytes # (Auto) 0.7 0.0-1.0 X 10^3 Eosinophils # (Auto) 0.1 0.0-0.3 10^3/uL Basophils # (Auto) 0.0 0.0-0.1 10^3/uL Sodium Level 141 135-145 MMOL/L Potassium Level 3.9 3.6-5.0 MMOL/L Chloride Level 109 H 98-107 MMOL/L Carbon Dioxide Level 15 L 21-32 MMOL/L Anion Gap 17 H 5-14 MMOL/L Blood Urea Nitrogen 13 7-18 MG/DL Creatinine 0.82 0.60-1.30 MG/DL Estimat Glomerular Filtration Rate > 60 BUN/Creatinine Ratio 16 Glucose Level 168 H 70-105 MG/DL Calcium Level 9.6 8.5-10.1 MG/DL Total Bilirubin 0.3 0.1-1.0 MG/DL Aspartate Amino Transf (AST/SGOT) 22 5-34 U/L Alanine Aminotransferase (ALT/SGPT) 48 0-55 U/L Alkaline Phosphatase 99 40-136 U/L Total Protein 7.6 6.4-8.2 GM/DL Albumin 4.4 3.2-4.5 GM/DL Phenytoin (Dilantin) Level < 0.5 L 10.0-20.0 UG/ML My Orders Orders - ASHU MATSON Waqas Cbc With Automated Diff (05/06/17 22:11) Comprehensive Metabolic Panel (05/06/17 22:11) Phenytoin (Dilantin) (05/06/17 22:11) Chest Pa/Lat (2 View) (05/06/17 22:11) Lamotrigine Tablet (Lamictal Tablet) (05/06/17 22:45) Levetiracetam Tablet (Keppra Tablet) (05/06/17 22:45) Clonazepam Tablet (Klonopin Tablet) (05/06/17 22:45) Medications Given in ED Current Medications Medications Dose Ordered Sig/Warren Route Start Time Stop Time Status Last Admin Dose Admin Clonazepam 1 mg ONCE ONCE PO 05/06/17 22:45 05/06/17 22:47 DC 05/06/17 23:03 1 MG Lamotrigine 150 mg ONCE ONCE PO 05/06/17 22:45 05/06/17 22:47 DC 05/06/17 23:03 150 MG Levetiracetam 1,500 mg ONCE ONCE PO 05/06/17 22:45 05/06/17 22:47 DC 05/06/17 23:03 1,500 MG Vital Signs/I&O Vital Sign - Last 12Hours 05/06/17 22:10 Temp 98.0 Pulse 91 Resp 18 B/P (MAP) 136/84 Pulse Ox 97 O2 Delivery Room Air Progress Note : Time: 23:24 Progress Note Patient's back to baseline he has a planned visit with his neurologist less than 2 days. We'll leave his medicine doses alone and let him follow-up with neurology. No evidence on his labs of anything acutely concerning. Diagnostic Imaging Diagonstic Imaging: Xray Plain Films/CT/US/NM/MRI: chest Comments No acute cardiopulmonary processes Reviewed: Reviewed by Me Departure Impression Impression: Primary Impression: Seizures Disposition: HOME, SELF-CARE Condition: Improved Departure-Patient Inst. Decision time for Depature: 23:24 Referrals: GAVI HAAS MD (PCP/Family) Primary Care Physician Patient Instructions: Seizures, Adult (DC) Add. Discharge Instructions: Follow-up with the neurologist at your planned appointment on , . Return to the ER if you're having any further worsening symptoms. All discharge instructions reviewed with patient and/or family. Voiced understanding. Work/School Note: Work Release Form Date Seen in the Emergency Department: May 06, 2017 Return to Work: May 07, 2017 Restrictions: No Restrictions Copy Copies To 1: GAVI HAAS MD, TITUS J May 06, 2017 22:19
[2017-05-06 22:23] LABS: BASOPHILS % (AUTO) 1 % (0-10); EOSINOPHILS # (AUTO) 0.1 10^3/uL (0.0-0.3); EOSINOPHILS % (AUTO) 1 % (0-10); LYMPHOCYTES # (AUTO) 3.1 X 10^3 (1.0-4.0); LYMPHOCYTES % (AUTO) 35 % (12-44); MEAN CORPUSCULAR HEMOGLOBIN 28 PG (25-34); MEAN CORPUSCULAR HGB CONC 33 G/DL (32-36); MEAN CORPUSCULAR VOLUME 84 FL (80-99); MONOCYTES # (AUTO) 0.7 X 10^3 (0.0-1.0); MONOCYTES % (AUTO) 8 % (0-12); NEUTROPHILS # (AUTO) 4.8 X 10^3 (1.8-7.8); NEUTROPHILS % (AUTO) 55 % (42-75); PLATELET COUNT 368 10^3/uL (130-400); RED BLOOD COUNT 4.68 10^6/uL (4.35-5.85); RED CELL DISTRIBUTION WIDTH 12.9 % (10.0-14.5); WHITE BLOOD COUNT 8.7 10^3/uL (4.3-11.0)
[2017-05-06 22:33] LABS: ALANINE AMINOTRANSFERASE 48 U/L (0-55); ALBUMIN 4.4 GM/DL (3.2-4.5); ANION GAP 17 MMOL/L (5-14); ASPARTATE AMINO TRANSFERASE 22 U/L (5-34); BILIRUBIN,TOTAL 0.3 MG/DL (0.1-1.0); BLOOD UREA NITROGEN 13 MG/DL (7-18); BUN/CREATININE RATIO 16; CALCIUM 9.6 MG/DL (8.5-10.1); CARBON DIOXIDE 15 MMOL/L (21-32); CHLORIDE 109 MMOL/L (98-107); CREATININE SERUM 0.82 MG/DL (0.60-1.30); GFR ESTIMATED > 60; GLUCOSE 168 MG/DL (70-105); POTASSIUM 3.9 MMOL/L (3.6-5.0); SODIUM 141 MMOL/L (135-145); TOTAL PROTEIN 7.6 GM/DL (6.4-8.2)
[2017-05-06] MEDS ORDERED: clonazePAM 1 MG (KlonoPIN) TAB PO ONE (22:45)
[2017-05-06] MEDS ORDERED: LEVETIRACETAM 1,000 MG (KEPPRA) TABLET PO ONE (22:45)
[2017-05-06 23:30] VITALS: BP 133/80
--- NOTE | 2017-05-07 06:06 | Diagnostic Imaging Report ---
INDICATION: Seizure. COMPARISON: None FINDINGS: 2 views of the chest are obtained. Heart size is normal. The pulmonary vessels appear unremarkable. There is no pneumothorax, mediastinal widening or pleural fluid. The lungs are clear. The osseous structures appear unremarkable. IMPRESSION: Negative chest. Dictated by: Dictated on workstation # [id number]
== END 2017-05-06 23:30 | disposition home or self-care (01) ==
LOC: EDUNIT# 21:56 → ER 21:56
DX: G40.909 Epilepsy, unspecified, not intractable, without status epilepticus (principal); G47.30 Sleep apnea, unspecified; E03.9 Hypothyroidism, unspecified; E11.9 Type 2 diabetes mellitus without complications; F41.9 Anxiety disorder, unspecified; Z79.84 Long term (current) use of oral hypoglycemic drugs; Z87.891 Personal history of nicotine dependence
CPT/HCPCS: 36415; 71020; 80053; 80185; 85025; 99283

== ENCOUNTER 2017-06-22 16:36 | Emergency (ER) | payer BC ==
[~2017-06-22] VITALS: Ht 182.9 cm; Wt 136.1 kg
[2017-06-22] MEDS ORDERED: LORazepam 1 MG (ATIVAN) TAB PO ONE (17:30)
[2017-06-22] MEDS ORDERED: LEVETIRACETAM 1,000 MG (KEPPRA) TABLET PO ONE (17:30)
--- NOTE | 2017-06-22 17:58 | ED General ---
General Chief Complaint: Neurological Problems Stated Complaint: SEIZURE Nursing Triage Note: PT STATES HAD SEIZURE AT ABOUT 1600 TODAY, PT HAS HX SEIZURES, STATES MISSED LAST NITES AND THIS AM DOSE OF MEDS. Nursing Sepsis Screen: No Definite Risk Source of Information: Patient Exam Limitations: No Limitations History of Present Illness Time Seen by Provider: 17:52 Initial Comments This [age] white male presents after having had 2 seizures today. The patient did not take his normal Lamictal, Keppra, and benzodiazepine. Patient is in the process of leaving his home as his is him and he was under significant stress today. Patient denies associated headache, stiff neck, photophobia, shortness of breath , productive cough, palpitations, chest pain, nausea, vomiting, or diarrhea. The patient has been in good control of his seizures when he takes his medication. Allergies and Home Medications Allergies Coded Allergies: No Known Drug Allergies (Unverified , 03/18/14) Home Medications Clonazepam 0.5 Mg Tablet, 0.5-1 MG PO BID, (Reported) take 1 (.5mg) tab in am take 2 (.5mg) tab in pm Lamotrigine 150 Mg Tablet, 150 MG PO Q12H, (Reported) Levetiracetam 1,000 Mg Tablet, 1,000 MG PO BID, (Reported) take with 5oomg tab for 1500mg total Levothyroxine Sodium 50 Mcg Tablet, 50 MCG PO DAILY, (Reported) Metformin HCl 500 Mg Tablet, 500 MG PO BID, (Reported) [place] 3 Polyunsat Fatty Acids 1,000 Mg Cap, 1,000 MG PO BID, (Reported) Constitutional: No chills, No fever EENTM: No vision loss Respiratory: No cough Cardiovascular: No chest pain Gastrointestinal: No abdominal pain Genitourinary: no symptoms reported Musculoskeletal: No back pain, No muscle pain Skin: No change in color Psychiatric/Neurological: Anxiety, Seizure Hematologic/Lymphatic: No Symptoms Reported Immunological/Allergic: no symptoms reported Past Rrwuuop-Yofiur-Ocuopx Hx Patient Social History Alcohol Use: Denies Use Recreational Drug Use: No Smoking Status: Former Smoker Former Smoker, Quit: Oct 29, 2009 Recent Foreign Travel: No Contact w/Someone Who Travel: No Recent Infectious Disease Expo: No Recent Hopitalizations: No Physical Abuse: No Sexual Abuse: No Immunizations Up To Date Tetanus Booster (TDap): Unknown Date of Influenza Vaccine: May 30, 2015 Seasonal Allergies Seasonal Allergies: Yes Surgeries History of Surgeries: No Respiratory History of Respiratory Disorde: Yes Respiratory Disorders: Sleep Apnea Currently Using CPAP: Yes Cardiovascular History of Cardiac Disorders: No Neurological History of Neurological Disord: Yes Neurological Disorders: Seizure Disorder Reproductive System Hx Reproductive Disorders: No Sexually Transmitted Disease: No Genitourinary History of Genitourinary Disor: No Gastrointestinal History of Gastrointestinal Di: No (umb hernia) Musculoskeletal History of Musculoskeletal Dis: No Endocrine History of Endocrine Disorders: Yes (pre=diabetes) Endocrine Disorders: Hypothyroidsim, Diabetes, Non-Insulin dep HEENT History of HEENT Disorders: No Cancer History of Cancer: No Psychosocial History of Psychiatric Problem: Yes Behavioral Health Disorders: Anxiety Suicide Risk Score: 0 Integumentary History of Skin or Integumenta: No Blood Transfusions History of Blood Disorders: No Reviewed Nursing Assessment Reviewed/Agree w Nursing PMH: Yes Family Medical History Significant Family History: No Pertinent Family Hx Physical Exam Vital Signs Vital Sign - Last 12Hours 06/22/17 17:00 Temp 95.5 Pulse 75 Resp 18 B/P (MAP) 131/81 Pulse Ox 95 Capillary Refill : Less Than 3 Seconds General Appearance: No Apparent Distress, WD/WN, Anxious Eyes: Bilateral Eye Normal Inspection HEENT: PERRL/EOMI, Normal ENT Inspection Neck: Normal Inspection Cardiovascular: Regular Rate, Rhythm Extremity: Normal Capillary Refill 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: Alert, Oriented x3, No Motor/Sensory Deficits, Normal Mood/Affect Skin: Normal Color, Warm/Dry Progress/Results/Core Measures Results/Orders My Orders Orders - CARLOS MEDLEY MD Levetiracetam Tablet (Keppra Tablet) (06/22/17 17:30) Lorazepam Tablet (Ativan Tablet) (06/22/17 17:30) Lamotrigine Tablet (Lamictal Tablet) (06/22/17 17:30) Medications Given in ED Current Medications Medications Dose Ordered Sig/Warren Route Start Time Stop Time Status Last Admin Dose Admin Lamotrigine 100 mg ONCE ONCE PO 06/22/17 17:30 06/22/17 17:31 DC 06/22/17 17:50 100 MG Levetiracetam 1,000 mg ONCE ONCE PO 06/22/17 17:30 06/22/17 17:31 DC 06/22/17 17:50 1,000 MG Lorazepam 1 mg ONCE ONCE PO 06/22/17 17:30 06/22/17 17:31 DC 06/22/17 17:50 1 MG Vital Signs/I&O Vital Sign - Last 12Hours 06/22/17 17:00 Temp 95.5 Pulse 75 Resp 18 B/P (MAP) 131/81 Pulse Ox 95 Blood Pressure Mean: 98 Progress Note : Time: 17:55 Progress Note Patient was given doses of his Keppra, Lamictal, and a dose of benzodiazepine ( m 1 mg). Departure Impression Impression: Primary Impression: Seizure Disposition: 01 HOME, SELF-CARE Condition: Improved Departure-Patient Inst. Decision time for Depature: 17:57 Referrals: GAVI HAAS MD (PCP/Family) Primary Care Physician Patient Instructions: Seizures, Adult (DC) Add. Discharge Instructions: Take your evening seizure medications as prescribed. Continue with her seizure medications as prescribed tomorrow. All discharge instructions reviewed with patient and/or family. Voiced understanding. CARLOS MEDLEY MD Jun 22, 2017 17:57
[2017-06-22 18:04] VITALS: BP 128/72
== END 2017-06-22 18:07 | disposition home or self-care (01) ==
LOC: EDUNIT# 16:36 → ER 16:39
DX: G40.909 Epilepsy, unspecified, not intractable, without status epilepticus (principal); F41.9 Anxiety disorder, unspecified; E03.9 Hypothyroidism, unspecified; E11.9 Type 2 diabetes mellitus without complications; G47.30 Sleep apnea, unspecified; Z91.14 Patient's other noncompliance with medication regimen; Z87.891 Personal history of nicotine dependence; Z79.84 Long term (current) use of oral hypoglycemic drugs
CPT/HCPCS: 99283

== ENCOUNTER 2017-08-23 13:58 | Emergency (ER) | payer BC ==
[~2017-08-23] VITALS: Ht 182.9 cm; Wt 127.0 kg
[2017-08-23] MEDS ORDERED: NS IV 1000 ML 1,000 ML IV ONE (14:06)
--- NOTE | 2017-08-23 14:14 | ED Neurological Problem ---
General Chief Complaint: Neurological Problems Stated Complaint: SEIZURE Source: patient, EMS Exam Limitations: no limitations History of Present Illness Time seen by provider: 14:00 Initial Comments Patient present to ER by EMS with chief complaint that EMS was called to scene because he was found laying face down in a ditch unresponsive. EMS was on a arrived he was acting postictal not really answering much his blood sugar is 164. Patient gives history that he is with a history of seizures and on lamotrigine, Keppra and lorazepam. He states that today he forgot to take his medications. He does not member where he was going or what he was doing or where he was. He says his face is a little tender and his tongue feels swollen like he bit it. No incontinence of urine. He is a smoker and states she has a regular cough but has not been short of breath or anything unusual. He says that he has diarrhea but he's had that for years. He thinks he has asthma although is states she's never been formally diagnosed with this. He does not use any kind of breathing treatments. He is on metformin for diabetes. Allergies and Home Medications Allergies Coded Allergies: No Known Drug Allergies (Unverified , 03/18/14) Home Medications Clonazepam 0.5 Mg Tablet, 0.5-1 MG PO BID, (Reported) take 1 (.5mg) tab in am take 2 (.5mg) tab in pm Lamotrigine 150 Mg Tablet, 150 MG PO Q12H, (Reported) Levetiracetam 1,000 Mg Tablet, 1,000 MG PO BID, (Reported) take with 5oomg tab for 1500mg total Levothyroxine Sodium 50 Mcg Tablet, 50 MCG PO DAILY, (Reported) Metformin HCl 500 Mg Tablet, 500 MG PO BID, (Reported) [place] 3 Polyunsat Fatty Acids 1,000 Mg Cap, 1,000 MG PO BID, (Reported) Constitutional: No chills, No diaphoresis, No fever, No malaise Eyes: Denies Blindness, Denies Blurred Vision, Denies Drainage Ears, Nose, Mouth, Throat: denies ear pain, denies ear discharge Respiratory: cough, No phlegm, No short of breath Cardiovascular: No chest pain, No palpitations Gastrointestinal: No abdominal pain, No constipation, diarrhea, No nausea, No vomiting Genitourinary: No discharge, No dysuria Musculoskeletal: No back pain, No joint pain Skin: No pruritus, No rash Past Wswwcax-Gammhv-Qugaxi Hx Patient Social History Smoking Status: Current Everyday Smoker Type Used: Cigarettes Former Smoker, Quit: Oct 29, 2009 Recent Hopitalizations: No Immunizations Up To Date Tetanus Booster (TDap): Unknown Date of Influenza Vaccine: May 30, 2015 Seasonal Allergies Seasonal Allergies: Yes Surgeries History of Surgeries: No Respiratory History of Respiratory Disorde: Yes Respiratory Disorders: Sleep Apnea Currently Using CPAP: Yes Cardiovascular History of Cardiac Disorders: No Neurological History of Neurological Disord: Yes Neurological Disorders: Seizure Disorder Reproductive System Hx Reproductive Disorders: No Sexually Transmitted Disease: No Genitourinary History of Genitourinary Disor: No Gastrointestinal History of Gastrointestinal Di: No (umb hernia) Musculoskeletal History of Musculoskeletal Dis: No Endocrine History of Endocrine Disorders: Yes (pre=diabetes) Endocrine Disorders: Hypothyroidsim, Diabetes, Non-Insulin dep HEENT History of HEENT Disorders: No Cancer History of Cancer: No Psychosocial History of Psychiatric Problem: Yes Behavioral Health Disorders: Anxiety Integumentary History of Skin or Integumenta: No Blood Transfusions History of Blood Disorders: No Family Medical History Significant Family History: No Pertinent Family Hx Physical Exam Vital Signs Vital Sign - Last 12Hours 08/23/17 13:58 Temp 97.1 Pulse 84 Resp 18 B/P (MAP) 175/70 Pulse Ox 94 Capillary Refill : General Appearance: WD/WN (slightly postictal appearing), no apparent distress HEENT: PERRL/EOMI, normal ENT inspection, TMs normal, pharynx normal Neck: non-tender, normal inspection Respiratory: chest non-tender, lungs clear, normal breath sounds Cardiovascular: normal peripheral pulses, regular rate, rhythm, no edema Peripheral Pulses: 2+ Radial Pulses (R), 2+ Radial Pulses (L) Gastrointestinal: normal bowel sounds, non tender, soft Extremities: normal range of motion, non-tender, normal inspection, no pedal edema 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: alert, oriented x 3, other Crainal Nerves: normal hearing, normal speech, PERRL Coordination/Gait: normal finger to nose, normal gait Motor/Sensory: no motor deficit, no sensory deficit Skin: other (few scattered small abrasions superficially to the face and some bruising face. All very minor and no tenderness to palpation.) Progress/Results/Core Measures Results/Orders Lab Results Laboratory Tests Test 08/23/17 14:25 08/23/17 15:02 Range/Units White Blood Count 8.4 4.3-11.0 10^3/uL Red Blood Count 4.68 4.35-5.85 10^6/uL Hemoglobin 13.2 L 13.3-17.7 G/DL Hematocrit 39 L 40-54 % Mean Corpuscular Volume 84 80-99 FL Mean Corpuscular Hemoglobin 28 25-34 PG Mean Corpuscular Hemoglobin Concent 34 32-36 G/DL Red Cell Distribution Width 13.1 10.0-14.5 % Platelet Count 330 130-400 10^3/uL Mean Platelet Volume 9.7 7.4-10.4 FL Neutrophils (%) (Auto) 80 H 42-75 % Lymphocytes (%) (Auto) 11 L 12-44 % Monocytes (%) (Auto) 8 0-12 % Eosinophils (%) (Auto) 1 0-10 % Basophils (%) (Auto) 0 0-10 % Neutrophils # (Auto) 6.7 1.8-7.8 X 10^3 Lymphocytes # (Auto) 1.0 1.0-4.0 X 10^3 Monocytes # (Auto) 0.6 0.0-1.0 X 10^3 Eosinophils # (Auto) 0.1 0.0-0.3 10^3/uL Basophils # (Auto) 0.0 0.0-0.1 10^3/uL Sodium Level 137 135-145 MMOL/L Potassium Level 4.4 3.6-5.0 MMOL/L Chloride Level 105 98-107 MMOL/L Carbon Dioxide Level 19 L 21-32 MMOL/L Anion Gap 13 5-14 MMOL/L Blood Urea Nitrogen 13 7-18 MG/DL Creatinine 0.80 0.60-1.30 MG/DL Estimat Glomerular Filtration Rate > 60 BUN/Creatinine Ratio 16 Glucose Level 139 H 70-105 MG/DL Calcium Level 9.5 8.5-10.1 MG/DL Total Bilirubin 0.5 0.1-1.0 MG/DL Aspartate Amino Transf (AST/SGOT) 16 5-34 U/L Alanine Aminotransferase (ALT/SGPT) 25 0-55 U/L Alkaline Phosphatase 87 40-136 U/L Total Protein 7.5 6.4-8.2 GM/DL Albumin 4.2 3.2-4.5 GM/DL Urine Color YELLOW Urine Clarity CLEAR Urine pH 6 5-9 Urine Specific [place] 1.020 1.016-1.022 Urine Protein 2+ H NEGATIVE Urine Glucose (UA) NEGATIVE NEGATIVE Urine Ketones NEGATIVE NEGATIVE Urine Nitrite NEGATIVE NEGATIVE Urine Bilirubin NEGATIVE NEGATIVE Urine Urobilinogen NORMAL NORMAL MG/DL Urine Leukocyte Esterase NEGATIVE NEGATIVE Urine RBC (Auto) 1+ H NEGATIVE Urine RBC 0-2 /HPF Urine WBC NONE /HPF Urine Squamous Epithelial Cells 0-2 /HPF Urine Crystals NONE /LPF Urine Bacteria NONE /HPF Urine Casts NONE /LPF Urine Mucus NEGATIVE /LPF Urine Culture Indicated NO Urine Opiates Screen NEGATIVE NEGATIVE Urine Oxycodone Screen NEGATIVE NEGATIVE Urine Methadone Screen NEGATIVE NEGATIVE Urine Propoxyphene Screen NEGATIVE NEGATIVE Urine Barbiturates Screen NEGATIVE NEGATIVE Ur Tricyclic Antidepressants Screen NEGATIVE NEGATIVE Urine Phencyclidine Screen NEGATIVE NEGATIVE Urine Amphetamines Screen NEGATIVE NEGATIVE Urine Methamphetamines Screen NEGATIVE NEGATIVE Urine Benzodiazepines Screen NEGATIVE NEGATIVE Urine Cocaine Screen NEGATIVE NEGATIVE Urine Cannabinoids Screen NEGATIVE NEGATIVE My Orders Orders - ASHU MATSON Cbc With Automated Diff (08/23/17 14:06) Comprehensive Metabolic Panel (08/23/17 14:06) Drug Screen Stat (Urine) (08/23/17 14:06) Ua Culture If Indicated (08/23/17 14:06) Chest Pa/Lat (2 View) (08/23/17 14:06) Saline Lock/Iv-Start (08/23/17 14:06) Ns Iv 1000 Ml (Sodium Chloride 0.9%) (08/23/17 14:06) Levetiracetam Injection (Keppra Injectio (08/23/17 18:00) Levetiracetam Injection (Keppra Injectio (08/23/17 14:30) Medications Given in ED Current Medications Medications Dose Ordered Sig/Warren Route Start Time Stop Time Status Last Admin Dose Admin Levetiracetam 1000 mg/Sodium Chloride 110 ml @ 440 mls/hr PC ONCE IV 08/23/17 18:00 08/23/17 18:14 08/23/17 14:49 440 MLS/HR Sodium Chloride 1,000 ml @ 0 mls/hr Q0M ONCE IV 08/23/17 14:06 08/23/17 14:09 DC 08/23/17 14:49 1,000 MLS/HR Vital Signs/I&O Vital Sign - Last 12Hours 08/23/17 13:58 Temp 97.1 Pulse 84 Resp 18 B/P (MAP) 175/70 Pulse Ox 94 Intake and Output 08/24/17 00:00 Intake Total 1506 ml Balance 1506 ml Progress Note #1: Time: 14:14 Progress Note Consistent with having a seizure unattended. His injuries seem low energy and a per EMS with a fall from standing only. We'll obtain chest x-ray blood work looking for evidence of any infection amount of pushed him over the edge but his history of missing his medications this morning might explain it. Progress Note #2: Time: 15:52 Progress Note Mental status now back to baseline per family at the bedside. He is received his Keppra IV. He has scripts for refills and plan to follow up with primary care physician. Diagnostic Imaging Diagonstic Imaging: Xray Plain Films/CT/US/NM/MRI: chest (2v) Comments VIA [place], [place] NAME: HAFSA GOSS [facility] REC#: [id number] PT STATUS: REG ER : 1985 PHYSICIAN: ASHU MATSON MD ADMIT DATE: 08/23/17/ER Draft Date of Exam:08/23/17 CHEST PA/LAT (2 VIEW) Indication: Seizure EXAMINATION: PA and lateral views of the chest. FINDINGS: The heart size and vascularity are normal. Lungs are clear. There is no effusion. There is no acute bony abnormality. IMPRESSION: No acute abnormality is seen. There is no change from 05/06/2017. Dictated on workstation # [id number] Dict: 08/23/17 1433 Trans: 08/23/17 1435 [facility] [id number] Interpreted by: FRANKLYN DRAKE MD Electronically signed by: Reviewed: Reviewed by Me Departure Impression Impression: Primary Impression: Seizure Disposition: 01 HOME, SELF-CARE Condition: Improved Departure-Patient Inst. Decision time for Depature: 15:58 Referrals: GAVI HAAS MD (PCP/Family) Primary Care Physician Patient Instructions: Seizures, Adult (DC) Add. Discharge Instructions: Continue taking her medications as prescribed. Drink plenty of fluids. On the morning call Dr. Haas's office and get an appointment to be seen to discuss medication dosages as well as your thyroid questions. Return to the ER if you have any concerns stitches chest pain shortness of breath or fever above 102.5. All discharge instructions reviewed with patient and/or family. Voiced understanding. Copy Copies To 1: GAVI HAAS MD, TITUS J Aug 23, 2017 14:14
[2017-08-23] MEDS ORDERED: LEVETIRACETAM 500 MG/5 ML (KEPPRA) VIAL IV ONE (14:30)
--- NOTE | 2017-08-23 14:35 | Diagnostic Imaging Report ---
Indication: Seizure EXAMINATION: PA and lateral views of the chest. FINDINGS: The heart size and vascularity are normal. Lungs are clear. There is no effusion. There is no acute bony abnormality. IMPRESSION: No acute abnormality is seen. There is no change from 05/06/2017. Dictated by: Dictated on workstation # [id number]
[2017-08-23 14:36] LABS: BASOPHILS % (AUTO) 0 % (0-10); EOSINOPHILS # (AUTO) 0.1 10^3/uL (0.0-0.3); EOSINOPHILS % (AUTO) 1 % (0-10); LYMPHOCYTES % (AUTO) 11 % (12-44); MEAN CORPUSCULAR HEMOGLOBIN 28 PG (25-34); MEAN CORPUSCULAR HGB CONC 34 G/DL (32-36); MEAN CORPUSCULAR VOLUME 84 FL (80-99); MEAN PLATELET VOLUME 9.7 FL (7.4-10.4); MONOCYTES # (AUTO) 0.6 X 10^3 (0.0-1.0); MONOCYTES % (AUTO) 8 % (0-12); NEUTROPHILS # (AUTO) 6.7 X 10^3 (1.8-7.8); NEUTROPHILS % (AUTO) 80 % (42-75); PLATELET COUNT 330 10^3/uL (130-400); RED BLOOD COUNT 4.68 10^6/uL (4.35-5.85); RED CELL DISTRIBUTION WIDTH 13.1 % (10.0-14.5); WHITE BLOOD COUNT 8.4 10^3/uL (4.3-11.0)
[2017-08-23 15:04] LABS: ALANINE AMINOTRANSFERASE 25 U/L (0-55); ALBUMIN 4.2 GM/DL (3.2-4.5); ANION GAP 13 MMOL/L (5-14); ASPARTATE AMINO TRANSFERASE 16 U/L (5-34); BILIRUBIN,TOTAL 0.5 MG/DL (0.1-1.0); BLOOD UREA NITROGEN 13 MG/DL (7-18); BUN/CREATININE RATIO 16; CALCIUM 9.5 MG/DL (8.5-10.1); CARBON DIOXIDE 19 MMOL/L (21-32); CHLORIDE 105 MMOL/L (98-107); GFR ESTIMATED > 60; GLUCOSE 139 MG/DL (70-105); POTASSIUM 4.4 MMOL/L (3.6-5.0); SODIUM 137 MMOL/L (135-145); TOTAL PROTEIN 7.5 GM/DL (6.4-8.2)
[2017-08-23 15:10] LABS: BILIRUBIN,URINE NEGATIVE (NEGATIVE); KETONES,URINE NEGATIVE (NEGATIVE); LEUKOCYTE ESTERASE ,URINE NEGATIVE (NEGATIVE); NITRITE,URINE NEGATIVE (NEGATIVE); PH,URINE 6 (5-9); PROTEIN,URINE 2+ (NEGATIVE); UROBILINOGEN,URINE NORMAL (NORMAL)
[2017-08-23 15:17] LABS: SQUAMOUS EPITHELIAL CELL,UR 0-2 /HPF
[2017-08-23 16:00] VITALS: BP 175/70
[2017-08-23] MEDS ORDERED: LEVETIRACETAM INJECTION 1,000 MG in NS (IVPB) 100 ML IV ONE (18:00)
== END 2017-08-23 16:00 ==
LOC: ER 13:58 → EDUNIT# 13:58 → ER 16:00
DX: G40.909 Epilepsy, unspecified, not intractable, without status epilepticus (principal); G47.30 Sleep apnea, unspecified; E03.9 Hypothyroidism, unspecified; E11.9 Type 2 diabetes mellitus without complications; F41.9 Anxiety disorder, unspecified; F17.210 Nicotine dependence, cigarettes, uncomplicated; Z79.84 Long term (current) use of oral hypoglycemic drugs
CPT/HCPCS: 36415; 71020; 80053; 80306; 81000; 85025

== ENCOUNTER 2017-09-10 10:27 | Emergency (ER) | payer BC ==
[~2017-09-10] VITALS: Ht 177.8 cm; Wt 113.4 kg
[2017-09-10] MEDS ORDERED: NS IV 1000 ML 1,000 ML IV ONE (10:47)
[2017-09-10 10:52] LABS: BASOPHILS % (AUTO) 0 % (0-10); EOSINOPHILS # (AUTO) 0.3 10^3/uL (0.0-0.3); EOSINOPHILS % (AUTO) 3 % (0-10); LYMPHOCYTES # (AUTO) 3.4 X 10^3 (1.0-4.0); LYMPHOCYTES % (AUTO) 31 % (12-44); MEAN CORPUSCULAR HEMOGLOBIN 29 PG (25-34); MEAN CORPUSCULAR HGB CONC 33 G/DL (32-36); MEAN CORPUSCULAR VOLUME 86 FL (80-99); MEAN PLATELET VOLUME 10.1 FL (7.4-10.4); MONOCYTES # (AUTO) 0.9 X 10^3 (0.0-1.0); MONOCYTES % (AUTO) 8 % (0-12); NEUTROPHILS # (AUTO) 6.4 X 10^3 (1.8-7.8); NEUTROPHILS % (AUTO) 58 % (42-75); PLATELET COUNT 402 10^3/uL (130-400); RED BLOOD COUNT 4.95 10^6/uL (4.35-5.85); RED CELL DISTRIBUTION WIDTH 13.2 % (10.0-14.5)
[2017-09-10] MEDS ORDERED: lamoTRIgine 25 MG (LaMICtal) TAB PO ONE (11:00)
[2017-09-10 11:06] LABS: ALANINE AMINOTRANSFERASE 24 U/L (0-55); ALBUMIN 4.4 GM/DL (3.2-4.5); ALCOHOL < 10 MG/DL (<10); ANION GAP 19 MMOL/L (5-14); ASPARTATE AMINO TRANSFERASE 16 U/L (5-34); BILIRUBIN,TOTAL 0.2 MG/DL (0.1-1.0); BLOOD UREA NITROGEN 13 MG/DL (7-18); BUN/CREATININE RATIO 15; CALCIUM 9.7 MG/DL (8.5-10.1); CARBON DIOXIDE 16 MMOL/L (21-32); CHLORIDE 102 MMOL/L (98-107); CREATINE KINASE 120 U/L (30-200); CREATININE SERUM 0.89 MG/DL (0.60-1.30); GFR ESTIMATED > 60; GLUCOSE 148 MG/DL (70-105); POTASSIUM 4.6 MMOL/L (3.6-5.0); SODIUM 137 MMOL/L (135-145); TOTAL PROTEIN 8.1 GM/DL (6.4-8.2)
[2017-09-10 11:27] LABS: THYROID STIMULATING HORMONE 4.27 UIU/ML (0.35-4.94)
[2017-09-10 12:19] LABS: BILIRUBIN,URINE NEGATIVE (NEGATIVE); KETONES,URINE 1+ (NEGATIVE); LEUKOCYTE ESTERASE ,URINE NEGATIVE (NEGATIVE); NITRITE,URINE NEGATIVE (NEGATIVE); PH,URINE 5 (5-9); PROTEIN,URINE 2+ (NEGATIVE); UROBILINOGEN,URINE NORMAL (NORMAL)
[2017-09-10 12:20] LABS: SQUAMOUS EPITHELIAL CELL,UR RARE /HPF
--- NOTE | 2017-09-10 13:37 | ED Neurological Problem ---
General Chief Complaint: Neurological Problems Stated Complaint: SEIZURE Nursing Triage Note: ARRIVED VIA EMS FROM FRIENDS HOME. PT HAD AN APPX 3 MIN GRANDMAL SIIZURE. ALERT UPON ARRIVAL ET SLOW TO ANSWER. STATES HE HAS NOT TAKEN HIS MEDICATION TODAY OR YESTERDAY. DENIES PAIN. PETICHIAE NOTICED ON TOP OF HEAD. Nursing Sepsis Screen: No Definite Risk Source: patient, EMS, old records Exam Limitations: no limitations History of Present Illness Time seen by provider: 10:31 Initial Comments This 31-year-old young man presents to the emergency room via EMS after having a seizure at a friend's home. He has known seizure history and takes medication for it. However, he did not take his medication yesterday or today stating he misplaced it. Patient was also seen a few weeks ago for the same presentation and was noncompliant with his medications at that time as well. The seizure was generalized and lasted about 3 minutes. It occurred in the bathroom. Patient denies any injury. EMS reports no evidence of injury on their assessment or by assessment of the scene. EMS reports patient was extremely postictal upon their arrival but his mentation has improved in route. Patient is noted to have petechiae on his face and scalp. He is fully alert and oriented on arrival. Patient was not hypoglycemic per EMS. Allergies and Home Medications Allergies Coded Allergies: No Known Drug Allergies (Unverified , 03/18/14) Home Medications Clonazepam 0.5 Mg Tablet, 0.5-1 MG PO BID, (Reported) take 1 (.5mg) tab in am take 2 (.5mg) tab in pm Lamotrigine 150 Mg Tablet, 150 MG PO Q12H, (Reported) Levetiracetam 1,000 Mg Tablet, 1,000 MG PO BID, (Reported) take with 5oomg tab for 1500mg total Levothyroxine Sodium 50 Mcg Tablet, 50 MCG PO DAILY, (Reported) Metformin HCl 500 Mg Tablet, 500 MG PO BID, (Reported) Lovilia 3 Polyunsat Fatty Acids 1,000 Mg Cap, 1,000 MG PO BID, (Reported) Constitutional: no symptoms reported Eyes: No Symptoms Reported Ears, Nose, Mouth, Throat: no symptoms reported Respiratory: no symptoms reported Cardiovascular: no symptoms reported Gastrointestinal: no symptoms reported Genitourinary: no symptoms reported Musculoskeletal: no symptoms reported Skin: see HPI Psychiatric/Neurological: See HPI Endocrine: No Symptoms Reported Past Cokrlmj-Dpjush-Auecnu Hx Patient Social History Type Used: Cigarettes Former Smoker, Quit: Oct 29, 2009 Recent Foreign Travel: No Contact w/Someone Who Travel: No Recent Infectious Disease Expo: No Recent Hopitalizations: No Immunizations Up To Date Tetanus Booster (TDap): Unknown Date of Influenza Vaccine: May 30, 2015 Seasonal Allergies Seasonal Allergies: Yes Surgeries History of Surgeries: No Respiratory History of Respiratory Disorde: Yes Respiratory Disorders: Sleep Apnea Currently Using CPAP: Yes Cardiovascular History of Cardiac Disorders: No Neurological History of Neurological Disord: Yes Neurological Disorders: Seizure Disorder Reproductive System Hx Reproductive Disorders: No Sexually Transmitted Disease: No Genitourinary History of Genitourinary Disor: No Gastrointestinal History of Gastrointestinal Di: Yes (umb hernia) Musculoskeletal History of Musculoskeletal Dis: No Endocrine History of Endocrine Disorders: Yes (pre=diabetes) Endocrine Disorders: Hypothyroidsim, Diabetes, Non-Insulin dep HEENT History of HEENT Disorders: No Cancer History of Cancer: No Psychosocial History of Psychiatric Problem: Yes Behavioral Health Disorders: Anxiety Integumentary History of Skin or Integumenta: No Blood Transfusions History of Blood Disorders: No Family Medical History Significant Family History: No Pertinent Family Hx Physical Exam Vital Signs Vital Sign - Last 12Hours 09/10/17 10:27 Temp 98.0 Pulse 84 Resp 18 B/P (MAP) 125/86 (99) Pulse Ox 92 Capillary Refill : Less Than 3 Seconds General Appearance: WD/WN, no apparent distress HEENT: PERRL/EOMI, pharynx normal, other (petechiae on the face and scalp) Neck: normal inspection Respiratory: lungs clear, normal breath sounds, no respiratory distress, no accessory muscle use Cardiovascular: regular rate, rhythm, no edema, no murmur Gastrointestinal: normal bowel sounds, non tender, soft Extremities: normal inspection, no pedal edema 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, no motor/sensory deficits, alert, normal mood/affect, oriented x 3 Crainal Nerves: normal hearing, normal speech, PERRL Motor/Sensory: no motor deficit, no sensory deficit Skin: normal color, warm/dry Progress/Results/Core Measures Results/Orders Lab Results Laboratory Tests Test 09/10/17 10:34 09/10/17 11:55 Range/Units White Blood Count 11.0 4.3-11.0 10^3/uL Red Blood Count 4.95 4.35-5.85 10^6/uL Hemoglobin 14.1 13.3-17.7 G/DL Hematocrit 43 40-54 % Mean Corpuscular Volume 86 80-99 FL Mean Corpuscular Hemoglobin 29 25-34 PG Mean Corpuscular Hemoglobin Concent 33 32-36 G/DL Red Cell Distribution Width 13.2 10.0-14.5 % Platelet Count 402 H 130-400 10^3/uL Mean Platelet Volume 10.1 7.4-10.4 FL Neutrophils (%) (Auto) 58 42-75 % Lymphocytes (%) (Auto) 31 12-44 % Monocytes (%) (Auto) 8 0-12 % Eosinophils (%) (Auto) 3 0-10 % Basophils (%) (Auto) 0 0-10 % Neutrophils # (Auto) 6.4 1.8-7.8 X 10^3 Lymphocytes # (Auto) 3.4 1.0-4.0 X 10^3 Monocytes # (Auto) 0.9 0.0-1.0 X 10^3 Eosinophils # (Auto) 0.3 0.0-0.3 10^3/uL Basophils # (Auto) 0.0 0.0-0.1 10^3/uL Sodium Level 137 135-145 MMOL/L Potassium Level 4.6 3.6-5.0 MMOL/L Chloride Level 102 98-107 MMOL/L Carbon Dioxide Level 16 L 21-32 MMOL/L Anion Gap 19 H 5-14 MMOL/L Blood Urea Nitrogen 13 7-18 MG/DL Creatinine 0.89 0.60-1.30 MG/DL Estimat Glomerular Filtration Rate > 60 BUN/Creatinine Ratio 15 Glucose Level 148 H 70-105 MG/DL Calcium Level 9.7 8.5-10.1 MG/DL Total Bilirubin 0.2 0.1-1.0 MG/DL Aspartate Amino Transf (AST/SGOT) 16 5-34 U/L Alanine Aminotransferase (ALT/SGPT) 24 0-55 U/L Alkaline Phosphatase 89 40-136 U/L Total Creatine Kinase 120 30-200 U/L Total Protein 8.1 6.4-8.2 GM/DL Albumin 4.4 3.2-4.5 GM/DL Thyroid Stimulating Hormone (TSH) 4.27 0.35-4.94 UIU/ML Free Thyroxine 0.94 0.70-1.48 NG/DL TSH [facility] Testing 4.27 0.35-4.94 UIU/ML Serum Alcohol < 10 <10 MG/DL Urine Color YELLOW Urine Clarity CLEAR Urine pH 5 5-9 Urine Specific [place] 1.025 H 1.016-1.022 Urine Protein 2+ H NEGATIVE Urine Glucose (UA) NEGATIVE NEGATIVE Urine Ketones 1+ H NEGATIVE Urine Nitrite NEGATIVE NEGATIVE Urine Bilirubin NEGATIVE NEGATIVE Urine Urobilinogen NORMAL NORMAL MG/DL Urine Leukocyte Esterase NEGATIVE NEGATIVE Urine RBC (Auto) 2+ H NEGATIVE Urine RBC 0-2 /HPF Urine WBC NONE /HPF Urine Squamous Epithelial Cells RARE /HPF Urine Crystals NONE /LPF Urine Bacteria NEGATIVE /HPF Urine Casts NONE /LPF Urine Mucus NEGATIVE /LPF Urine Culture Indicated NO Urine Opiates Screen NEGATIVE NEGATIVE Urine Oxycodone Screen NEGATIVE NEGATIVE Urine Methadone Screen NEGATIVE NEGATIVE Urine Propoxyphene Screen NEGATIVE NEGATIVE Urine Barbiturates Screen NEGATIVE NEGATIVE Ur Tricyclic Antidepressants Screen NEGATIVE NEGATIVE Urine Phencyclidine Screen NEGATIVE NEGATIVE Urine Amphetamines Screen POSITIVE H NEGATIVE Urine Methamphetamines Screen NEGATIVE NEGATIVE Urine Benzodiazepines Screen POSITIVE H NEGATIVE Urine Cocaine Screen NEGATIVE NEGATIVE Urine Cannabinoids Screen POSITIVE H NEGATIVE My Orders Orders - CHAPO ESCALANTE MD Levetiracetam Injection (Keppra Injectio (09/10/17 21:00) Lamotrigine Tablet (Lamictal Tablet) (09/10/17 10:45) Saline Lock/Iv-Start (09/10/17 10:47) Ns Iv 1000 Ml (Sodium Chloride 0.9%) (09/10/17 10:47) Alcohol (09/10/17 10:47) Cbc With Automated Diff (09/10/17 10:47) Comprehensive Metabolic Panel (09/10/17 10:47) Creatine Kinase (09/10/17 10:47) Drug Screen Stat (Urine) (09/10/17 10:47) Thyroid Analyzer (09/10/17 10:47) Ua Culture If Indicated (09/10/17 10:47) Thyroid Stimulating Hormone (09/10/17 10:49) Free T4 (Free Thyroxine) (09/10/17 10:49) Lamotrigine Tablet (Lamictal Tablet) (09/10/17 11:00) Lamotrigine Tablet (Lamictal Tablet) (09/10/17 11:00) Medications Given in ED Current Medications Medications Dose Ordered Sig/Warren Route Start Time Stop Time Status Last Admin Dose Admin Levetiracetam 1000 mg/Sodium Chloride 110 ml @ 440 mls/hr Q12HR ONCE IV 09/10/17 21:00 09/10/17 21:00 DC 09/10/17 11:01 440 MLS/HR Vital Signs/I&O Vital Sign - Last 12Hours 09/10/17 09/10/17 10:27 13:45 Temp 98.0 Pulse 84 75 Resp 18 20 B/P (MAP) 125/86 (99) Pulse Ox 92 98 Blood Pressure Mean: 99 Progress Note : Progress Note Patient was given an IV dose of Keppra and an oral dose of Lamictal to prevent recurrent seizure. Patient states he does know where his medication is and can restart it today. There was no further seizure like activity in the emergency room. She also received a liter of IV fluids. Workup was unremarkable with the exception of positive marijuana drug screen. Departure Impression Impression: Primary Impression: Seizure Disposition: 01 HOME, SELF-CARE Condition: Improved Departure-Patient Inst. Decision time for Depature: 13:36 Referrals: GAVI HAAS MD (PCP/Family) Primary Care Physician Patient Instructions: Seizures, Adult (DC) Add. Discharge Instructions: Follow-up with your primary care provider and/or neurologist as soon as possible. Stay strictly compliant with your medication regimen. Return to care if you have any problems or concerns. All discharge instructions reviewed with patient and/or family. Voiced understanding. Copy Copies To 1: GAVI HAAS MD, JOSHUA T MD Sep 10, 2017 13:37
[2017-09-10 13:45] VITALS: BP 120/80
[2017-09-10] MEDS ORDERED: LEVETIRACETAM INJECTION 1,000 MG in NS (IVPB) 100 ML IV ONE (21:00)
== END 2017-09-10 13:45 | disposition home or self-care (01) ==
LOC: EDUNIT# 10:27 → ER 10:31
DX: G40.909 Epilepsy, unspecified, not intractable, without status epilepticus (principal); E03.9 Hypothyroidism, unspecified; E11.9 Type 2 diabetes mellitus without complications; G47.30 Sleep apnea, unspecified; F41.9 Anxiety disorder, unspecified; Z87.19 Personal history of other diseases of the digestive system; Z87.891 Personal history of nicotine dependence; Z79.84 Long term (current) use of oral hypoglycemic drugs
CPT/HCPCS: 36415; 80053; 80306; 80320; 81000; 82550; 84439; 84443; 85025

== ENCOUNTER 2017-10-12 20:36 | Emergency (ER) | payer OTHER, BC ==
[~2017-10-12] VITALS: Ht 182.9 cm; Wt 113.4 kg
[~2017-10-12 20:36] MED LIST changes: +ACHD5005 PO; -HYDR-3812 PO
--- OUTSIDE RECORDS SUMMARY | 2017-10-12 21:01 | XMS REPORT | Continuity of Care Document ---
Author Author [facility] Organization [facility] Address Unknown Phone Unavailable Allergies Active Description Code Type Severity Reaction Onset Reported/Identified Relationship to Patient Clinical Status Yes No Known Drug Allergies [id number] Drug Allergy Unknown N/A 03/18/2014 Medications There is no data. Problems Date Dx Coded Attending Type Code Diagnosis Diagnosed By 03/18/2014 KITA OSCAR DO Ot 780.39 05/05/2015 Ot 246.9 DISORDER OF THYROID NOS 05/05/2015 Ot 345.90 EPILEPSY UNSPEC W/O MENTION INTRACTABLE 05/05/2015 Ot V58.69 OTH MED,LT, CURRENT USE 09/12/2015 GAVI ACEVEDO DO Ot J06.9 ACUTE UPPER RESPIRATORY INFECTION, UNSPE 09/12/2015 GAVI ACEVEDO DO Ot J40 BRONCHITIS, NOT SPECIFIED ACUTE OR CH 10/06/2015 KAREN HUNTER DO Ot N46.9 10/18/2015 KAREN HUNTER DO Ot N46.9 11/18/2015 DANNA DELGADO, SAYDA Jimenez Ot G40.909 EPILEPSY, UNSP, NOT INTRACTABLE, WITHOUT 11/18/2015 DANNA DELGADO, SAYDA Jimenez Ot G47.33 OBSTRUCTIVE SLEEP APNEA (ADULT) (PEDIATR 12/19/2015 BORIS DELGADO, CHAPO T Ot E03.9 HYPOTHYROIDISM, UNSPECIFIED 12/19/2015 CHAPO ESCALANTE MD T Ot G40.909 EPILEPSY, UNSP, NOT INTRACTABLE, WITHOUT 12/19/2015 CHAPO ESCALANTE MD Ot Z79.899 OTHER NURSING HOME (CURRENT) DRUG THERAPY 12/19/2015 KAREN HUNTER DO Ot N46.9 12/20/2015 CHAPO ESCALANTE MD Ot E03.9 12/20/2015 CHAPO ESCALANTE MD Ot G40.909 12/20/2015 CHAPO ESCALANTE MD Ot Z79.899 12/21/2015 BORIS DELGADO, CHAPO [place] Ot E03.9 12/21/2015 BORIS DELGADO, CHAPO [place] Ot G40.909 12/21/2015 BORIS DELGADO, CHAPO T Ot Z79.899 01/27/2016 CECILE DELGADO, JAYSHREE A Ot G40.409 OTH GENERALIZED EPILEPSY, NOT INTRACTABL 01/27/2016 CECILE DELGADO, JAYSHREE A Ot S00.512A ABRASION OF ORAL CAVITY, INITIAL ENCOUNT 01/27/2016 CECILE DELGADO, JAYSHREE A Ot S00.81XA ABRASION OF OTHER PART OF HEAD, INITIAL 01/27/2016 CECILE DELGADO, JAYSHREE A Ot W19.XXXA UNSPECIFIED FALL, INITIAL ENCOUNTER 01/27/2016 CECILE DELGADO, JAYSHREE A Ot Y92.[address] SING[facility]ILY [facility] 01/27/2016 CECILE DELGADO, JAYSHREE A Ot Y99.8 OTHER EXTERNAL CAUSE STATUS 01/29/2016 JAYSHREE HUBER MD A Ot G40.409 OTH GENERALIZED EPILEPSY, NOT INTRACTABL 01/29/2016 CECILE DELGADO, JAYSHREE A Ot S00.512A ABRASION OF ORAL CAVITY, INITIAL ENCOUNT 01/29/2016 CECILE DELGADO, JAYSHREE A Ot S00.81XA ABRASION OF OTHER PART OF HEAD, INITIAL 01/29/2016 CECILE DELGADO, JAYSHREE A Ot W19.XXXA UNSPECIFIED FALL, INITIAL ENCOUNTER 01/29/2016 CECILE DELGADO, JAYSHREE A Ot Y92.[address] SINGLE[facility]ILY [facility] 01/29/2016 CECILE DELGADO, JAYSHREE A Ot Y99.8 OTHER EXTERNAL CAUSE STATUS 02/03/2016 DANNA DELGADO, SAYDA Jimenez Ot G47.33 OBSTRUCTIVE SLEEP APNEA (ADULT) (PEDIATR 02/07/2016 SAYDA CLAY MD Ot G47.33 OBSTRUCTIVE SLEEP APNEA (ADULT) (PEDIATR 02/10/2016 SAYDA CLAY MD Ot G47.33 OBSTRUCTIVE SLEEP APNEA (ADULT) (PEDIATR 08/19/2016 KAREN HUNTER DO Ot N46.9 MALE INFERTILITY, UNSPECIFIED 08/19/2016 DANO DELGADO, ASHU Alan Ot E03.9 HYPOTHYROIDISM, UNSPECIFIED 08/19/2016 DANO DELGADO, ASHU Alan Ot E78.5 HYPERLIPIDEMIA, UNSPECIFIED 08/19/2016 DANO DELGADO, ASHU J Ot G40.909 EPILEPSY, UNSP, NOT INTRACTABLE, WITHOUT 08/19/2016 DANO DELGADO, ASHU J Ot G47.30 SLEEP APNEA, UNSPECIFIED 08/19/2016 DANO DELGADO, ASHU J Ot R11.2 NAUSEA WITH VOMITING, UNSPECIFIED 08/19/2016 KALI MATSON MDUS J Ot R73.03 PREDIABETES 08/19/2016 DANO DELGADO, ASHU J Ot Z79.899 OTHER NURSING HOME (CURRENT) DRUG THERAPY 08/21/2016 KALI MATSON MDUS J Ot E03.9 HYPOTHYROIDISM, UNSPECIFIED 08/21/2016 DANO DELGADO, ASHU J Ot E78.5 HYPERLIPIDEMIA, UNSPECIFIED 08/21/2016 KALI MATSON MDUS J Ot G40.909 EPILEPSY, UNSP, NOT INTRACTABLE, WITHOUT 08/21/2016 DANO DELGADO, ASHU J Ot G47.30 SLEEP APNEA, UNSPECIFIED 08/21/2016 KALI MATSON MDUS J Ot R11.2 NAUSEA WITH VOMITING, UNSPECIFIED 08/21/2016 KALI MATSON MDUS J Ot R73.03 PREDIABETES 08/21/2016 KALI MATSON MDUS J Ot Z79.899 OTHER PERITONEAL DIALYSIS REGISTERED NURSE (CURRENT) DRUG THERAPY 10/29/2016 ROMERO SANFORD DO Ot K42.9 UMBILICAL HERNIA WITHOUT OBSTRUCTION OR 10/29/2016 ROMERO SANFORD DO Ot Z01.812 ENCOUNTER FOR PREPROCEDURAL LABORATORY E 10/29/2016 ROMERO SANFORD DO Ot Z11.2 ENCOUNTER FOR SCREENING FOR OTHER BACTER 10/30/2016 ROMERO SANFORD DO Ot K42.9 UMBILICAL HERNIA WITHOUT OBSTRUCTION OR 10/30/2016 ROMERO SANFORD DO Ot Z01.812 ENCOUNTER FOR PREPROCEDURAL LABORATORY E 10/30/2016 ROMERO SANFORD DO Ot Z11.2 ENCOUNTER FOR SCREENING FOR OTHER BACTER 10/31/2016 ROMERO SANFORD DO Ot E11.9 TYPE 2 DIABETES MELLITUS WITHOUT COMPLIC 10/31/2016 ROMERO SANFORD DO Ot K42.9 UMBILICAL HERNIA WITHOUT OBSTRUCTION OR 10/31/2016 ROMERO SANFORD DO Ot Z79.84 NURSING HOME (CURRENT) USE OF ORAL HYPOGLYC 11/04/2016 ROMERO SANFORD DO Ot E11.9 TYPE 2 DIABETES MELLITUS WITHOUT COMPLIC 11/04/2016 SANFORD DO, ROMERO D Ot K42.9 UMBILICAL HERNIA WITHOUT OBSTRUCTION OR 11/04/2016 SANFORD DO, ROMERO D Ot Z79.84 NURSING HOME (CURRENT) USE OF ORAL HYPOGLYC 11/05/2016 SANFORD DO, ROMERO D Ot E11.9 TYPE 2 DIABETES MELLITUS WITHOUT COMPLIC 11/05/2016 SANFORD DO, ROMERO D Ot K42.9 UMBILICAL HERNIA WITHOUT OBSTRUCTION OR 11/05/2016 SANFORD DO, ROMERO D Ot Z79.84 NURSING HOME (CURRENT) USE OF ORAL HYPOGLYC 11/22/2016 HUNTER DO, KAREN C Ot N46.9 MALE INFERTILITY, UNSPECIFIED 12/11/2016 HUNTER DO, KAREN C Ot N46.9 MALE INFERTILITY, UNSPECIFIED 12/12/2016 HUNTER DO, KAREN C Ot N46.9 MALE INFERTILITY, UNSPECIFIED 12/12/2016 EDUAR URIARTE MD, Ot E11.9 TYPE 2 DIABETES MELLITUS WITHOUT COMPLIC 12/12/2016 EDUAR URIARTE MD Ot G40.909 EPILEPSY, UNSP, NOT INTRACTABLE, WITHOUT 12/12/2016 EDUAR URIARTE MD Ot Z79.84 NURSING HOME (CURRENT) USE OF ORAL HYPOGLYC 12/12/2016 EDUAR URIARTE MD Ot Z79.899 OTHER NURSING HOME (CURRENT) DRUG THERAPY 12/16/2016 EDUAR URIARTE MD, Ot E11.9 TYPE 2 DIABETES MELLITUS WITHOUT COMPLIC 12/16/2016 EDUAR URIARTE MD Ot G40.909 EPILEPSY, UNSP, NOT INTRACTABLE, WITHOUT 12/16/2016 EDUAR URIARTE MD Ot Z79.84 PERITONEAL DIALYSIS REGISTERED NURSE (CURRENT) USE OF ORAL HYPOGLYC 12/16/2016 EDUAR URIARTE MD Ot Z79.899 OTHER NURSING HOME (CURRENT) DRUG THERAPY 02/03/2017 HUNTER DO, KAREN C Ot N46.9 MALE INFERTILITY, UNSPECIFIED 03/21/2017 HUNTER DO, KAREN C Ot N46.9 MALE INFERTILITY, UNSPECIFIED 05/06/2017 HUNTER DO, KAREN C Ot N46.9 MALE INFERTILITY, UNSPECIFIED 05/06/2017 DANO DELGADO, ASHU Alan Ot E03.9 HYPOTHYROIDISM, UNSPECIFIED 05/06/2017 ASHU MATSON MD Ot E11.9 TYPE 2 DIABETES MELLITUS WITHOUT COMPLIC 05/06/2017 DANO DELGADO, ASHU Alan Ot F41.9 ANXIETY DISORDER, UNSPECIFIED 05/06/2017 DANO DELGADO, ASHU Alan Ot G40.909 EPILEPSY, UNSP, NOT INTRACTABLE, WITHOUT 05/06/2017 DANO DELGADO, ASHU Alan Ot G47.30 SLEEP APNEA, UNSPECIFIED 05/06/2017 DANO DELGADO, ASHU Alan Ot R56.9 UNSPECIFIED CONVULSIONS 05/06/2017 DANO DELGADO, ASHU Alan Ot Z79.84 NURSING HOME (CURRENT) USE OF ORAL HYPOGLYC 05/06/2017 ASHU MATSON MD Ot Z87.891 PERSONAL HISTORY OF NICOTINE DEPENDENCE 05/06/2017 HUNTER DO KAREN C Ot N46.9 MALE INFERTILITY, UNSPECIFIED 05/11/2017 HUNTER DO KAREN C Ot N46.9 MALE INFERTILITY, UNSPECIFIED 05/26/2017 HUNETR DO KAREN C Ot N46.9 MALE INFERTILITY, UNSPECIFIED 06/22/2017 FRANKLIN HUNTER DOA C Ot N46.9 MALE INFERTILITY, UNSPECIFIED 06/22/2017 GALINDO DELGADO, CARLOS Tavera Ot E03.9 HYPOTHYROIDISM, UNSPECIFIED 06/22/2017 GALINDO DELGADO, CARLOS Tavera Ot E11.9 TYPE 2 DIABETES MELLITUS WITHOUT COMPLIC 06/22/2017 GALINDO DELGADO, CARLOS Tavera Ot F41.9 ANXIETY DISORDER, UNSPECIFIED 06/22/2017 GALINDO DELGADO, CARLOS Tavera Ot G40.909 EPILEPSY, UNSP, NOT INTRACTABLE, WITHOUT 06/22/2017 GALINDO DELGADO, CALROS Tavera Ot G47.30 SLEEP APNEA, UNSPECIFIED 06/22/2017 GALINDO DELGADO, CARLOS Tavera Ot R56.9 UNSPECIFIED CONVULSIONS 06/22/2017 GALINDO DELGADO, CARLOS Taevra Ot Z79.84 PERITONEAL DIALYSIS REGISTERED NURSE (CURRENT) USE OF ORAL HYPOGLYC 06/22/2017 GALINDO DELGADO, CARLOS Tavera Ot Z87.891 PERSONAL HISTORY OF NICOTINE DEPENDENCE 06/22/2017 GALINDO DELGADO, CARLOS Tavera Ot Z91.14 PATIENT'S OTHER NONCOMPLIANCE WITH MEDIC 06/22/2017 DALE ROBERTS KAREN C Ot N46.9 MALE INFERTILITY, UNSPECIFIED 08/23/2017 ASHU MATSON MD Ot E03.9 HYPOTHYROIDISM, UNSPECIFIED 08/23/2017 ASHU MATSON MD Ot E11.9 TYPE 2 DIABETES MELLITUS WITHOUT COMPLIC 08/23/2017 ASHU MATSON MD Ot F17.210 NICOTINE DEPENDENCE, CIGARETTES, UNCOMPL 08/23/2017 ASHU MATSON MD Ot F41.9 ANXIETY DISORDER, UNSPECIFIED 08/23/2017 ASHU MATSON MD Ot G40.909 EPILEPSY, UNSP, NOT INTRACTABLE, WITHOUT 08/23/2017 ASHU MATSON MD J Ot G47.30 SLEEP APNEA, UNSPECIFIED 08/23/2017 ASHU MATSON MD Ot R41.89 OTH SYMPTOMS AND SIGNS W COGNITIVE FUNCT 08/23/2017 ASHU MATSON MD Ot Z79.84 NURSING HOME (CURRENT) USE OF ORAL HYPOGLYC 08/26/2017 ASHU MATSON MD Ot E03.9 HYPOTHYROIDISM, UNSPECIFIED 08/26/2017 ASHU MATSON MD Ot E11.9 TYPE 2 DIABETES MELLITUS WITHOUT COMPLIC 08/26/2017 ASHU MATSON MD Ot F17.210 NICOTINE DEPENDENCE, CIGARETTES, UNCOMPL 08/26/2017 ASHU MATSON MD Ot F41.9 ANXIETY DISORDER, UNSPECIFIED 08/26/2017 ASHU MATSON MD Ot G40.909 EPILEPSY, UNSP, NOT INTRACTABLE, WITHOUT 08/26/2017 ASHU MATSON MD Ot G47.30 SLEEP APNEA, UNSPECIFIED 08/26/2017 ASHU MATSON MD Ot R41.89 OTH SYMPTOMS AND SIGNS W COGNITIVE FUNCT 08/26/2017 ASHU MATSON MD Ot Z79.84 NURSING HOME (CURRENT) USE OF ORAL HYPOGLYC 09/10/2017 CHAPO ESCALANTE MD Ot E03.9 HYPOTHYROIDISM, UNSPECIFIED 09/10/2017 CHAPO ESCALANTE MD Ot E11.9 TYPE 2 DIABETES MELLITUS WITHOUT COMPLIC 09/10/2017 CHAPO ESCALANTE MD Ot F41.9 ANXIETY DISORDER, UNSPECIFIED 09/10/2017 CHAPO ESCALANTE MD T Ot G40.909 EPILEPSY, UNSP, NOT INTRACTABLE, WITHOUT 09/10/2017 CHAPO ESCALANTE MD T Ot G47.30 SLEEP APNEA, UNSPECIFIED 09/10/2017 CHAPO ESCALANTE MD, Ot R56.9 UNSPECIFIED CONVULSIONS 09/10/2017 CHAPO ESCALANTE MD, Ot Z79.84 NURSING HOME (CURRENT) USE OF ORAL HYPOGLYC 09/10/2017 CHAPO ESCALANTE MD, Ot Z87.19 PERSONAL HISTORY OF OTHER DISEASES OF TH 09/10/2017 CHAPO ESCALANTE MD, Ot Z87.891 PERSONAL HISTORY OF NICOTINE DEPENDENCE 09/10/2017 KAREN HUNTER DO Ot N46.9 MALE INFERTILITY, UNSPECIFIED Procedures There is no data. Results Test Result Range Complete blood count (CBC) with automated white blood cell (WBC) differential - 08/19/16 12:57 Blood leukocytes automated count (number/volume) 7.3 10*3/uL 4.3-11.0 Blood erythrocytes automated count (number/volume) 4.54 10*6/uL 4.35-5.85 Venous blood hemoglobin measurement (mass/volume) 12.9 g/dL 13.3-17.7 Blood hematocrit (volume fraction) 38 % 40-54 Automated erythrocyte mean corpuscular volume 84 [foz_us] 80-99 Automated erythrocyte mean corpuscular hemoglobin (mass per erythrocyte) 28 pg 25-34 Automated erythrocyte mean corpuscular hemoglobin concentration measurement ( mass/volume) 34 g/dL 32-36 Automated erythrocyte distribution width ratio 13.2 % 10.0-14.5 Automated blood platelet count (count/volume) 308 10*3/uL 130-400 Automated blood platelet mean volume measurement 9.3 [foz_us] 7.4-10.4 Automated blood neutrophils/100 leukocytes 66 % 42-75 Automated blood lymphocytes/100 leukocytes 23 % 12-44 Blood monocytes/100 leukocytes 9 % 0-12 Automated blood eosinophils/100 leukocytes 2 % 0-10 Automated blood basophils/100 leukocytes 0 % 0-10 Blood neutrophils automated count (number/volume) 4.8 10*3 1.8-7.8 Blood lymphocytes automated count (number/volume) 1.7 10*3 1.0-4.0 Blood monocytes automated count (number/volume) 0.6 10*3 0.0-1.0 Automated eosinophil count 0.1 10*3/uL 0.0-0.3 Automated blood basophil count (count/volume) 0.0 10*3/uL 0.0-0.1 Influenza virus A and B antigen detection - 08/19/16 12:57 FLU RESULT NEGATIVE FOR INFLUENZA A AND B ANTIGENS BY IA [facility] Comprehensive metabolic panel - 08/19/16 12:57 Serum or plasma sodium measurement (moles/volume) 139 mmol/L 135-145 Serum or plasma potassium measurement (moles/volume) 4.4 mmol/L 3.6-5.0 Serum or plasma chloride measurement (moles/volume) 107 mmol/L 98-107 Carbon dioxide 24 mmol/L 21-32 Serum or plasma anion gap determination (moles/volume) 8 mmol/L 5-14 Serum or plasma urea nitrogen measurement (mass/volume) 13 mg/dL 7-18 Serum or plasma creatinine measurement (mass/volume) 0.79 mg/dL 0.60-1.30 Serum or plasma urea nitrogen/creatinine mass ratio 16 [facility] Serum or plasma creatinine measurement with calculation of estimated glomerular filtration rate > [facility] Serum or plasma glucose measurement (mass/volume) 167 mg/dL 70-105 Serum or plasma calcium measurement (mass/volume) 9.2 mg/dL 8.5-10.1 Serum or plasma total bilirubin measurement (mass/volume) 0.3 mg/dL 0.1-1.0 Serum or plasma alkaline phosphatase measurement (enzymatic activity/volume) 76 U/L 40-136 Serum or plasma aspartate aminotransferase measurement (enzymatic activity/ volume) 45 U/L 5-34 Serum or plasma alanine aminotransferase measurement (enzymatic activity/volume ) 84 U/L 0-55 Serum or plasma protein measurement (mass/volume) 6.8 g/dL 6.4-8.2 Serum or plasma albumin measurement (mass/volume) 4.3 g/dL 3.2-4.5 Serum or plasma C reactive protein measurement (mass/volume) - 08/19/16 12:57 Serum or plasma C reactive protein measurement (mass/volume) 0.53 mg /dL 0.00-0.50 THYROID STIMULATING HORMONE - 08/19/16 12:57 THYROID STIMULATING HORMONE 2.05 u[iU]/mL 0.35-4.94 Serum or plasma thyroxine (T4) free measurement (mass/volume) - 08/19/16 12:57 Serum or plasma thyroxine (T4) free measurement (mass/volume) 1.10 ng/dL 0.70-1.48 Complete urinalysis with reflex to culture - 08/19/16 13:00 Urine color determination YELLOW NRG Urine clarity determination CLEAR NRG Urine pH measurement by test strip 7 5-9 Specific gravity of urine by test strip 1.015 1.016- 1.022 Urine protein assay by test strip, semi-quantitative NEGATIVE NEGATIVE Urine glucose detection by automated test strip 2+ NEGATIVE Erythrocytes detection in urine sediment by light microscopy NEGATIVE NEGATIVE Urine ketones detection by automated test strip NEGATIVE NEGATIVE Urine nitrite detection by test strip NEGATIVE NEGATIVE Urine total bilirubin detection by test strip NEGATIVE NEGATIVE Urine urobilinogen measurement by automated test strip (mass/volume) NORMAL NORMAL Urine leukocyte esterase detection by dipstick NEGATIVE NEGATIVE Automated urine sediment erythrocyte count by microscopy (number/high power field) [HPF] NRG Automated urine sediment leukocyte count by microscopy (number/high power field ) NONE NRG Bacteria detection in urine sediment by light microscopy TRACE NRG Squamous epithelial cells detection in urine sediment by light microscopy RARE NRG Crystals detection in urine sediment by light microscopy PRESENT NRG Casts detection in urine sediment by light microscopy NONE NRG Mucus detection in urine sediment by light microscopy NEGATIVE NRG Complete urinalysis with reflex to culture YES NRG Yeast detection in urine sediment by light microscopy FEW NRG Amorphous sediment detection in urine sediment by light microscopy FEW CAMERON PHOSPHATE NRG Other elements identification in urine sediment by light microscopy FEW SPERM NRG Bacterial urine culture - 08/19/16 13:00 Bacterial urine culture NG NRG Complete blood count (CBC) with automated white blood cell (WBC) differential - 10/29/16 09:10 Blood leukocytes automated count (number/volume) 6.6 10*3/uL 4.3-11.0 Blood erythrocytes automated count (number/volume) 4.58 10*6/uL 4.35-5.85 Venous blood hemoglobin measurement (mass/volume) 13.0 g/dL 13.3-17.7 Blood hematocrit (volume fraction) 39 % 40-54 Automated erythrocyte mean corpuscular volume 84 [foz_us] 80-99 Automated erythrocyte mean corpuscular hemoglobin (mass per erythrocyte) 28 pg 25-34 Automated erythrocyte mean corpuscular hemoglobin concentration measurement ( mass/volume) 34 g/dL 32-36 Automated erythrocyte distribution width ratio 13.0 % 10.0-14.5 Automated blood platelet count (count/volume) 314 10*3/uL 130-400 Automated blood platelet mean volume measurement 9.5 [foz_us] 7.4-10.4 Automated blood neutrophils/100 leukocytes 62 % 42-75 Automated blood lymphocytes/100 leukocytes 26 % 12-44 Blood monocytes/100 leukocytes 9 % 0-12 Automated blood eosinophils/100 leukocytes 2 % 0-10 Automated blood basophils/100 leukocytes 1 % 0-10 Blood neutrophils automated count (number/volume) 4.1 10*3 1.8-7.8 Blood lymphocytes automated count (number/volume) 1.7 10*3 1.0-4.0 Blood monocytes automated count (number/volume) 0.6 10*3 0.0-1.0 Automated eosinophil count 0.1 10*3/uL 0.0-0.3 Automated blood basophil count (count/volume) 0.0 10*3/uL 0.0-0.1 Methicillin resistant Staphylococcus aureus (MRSA) screening culture - 09:10 Methicillin resistant Staphylococcus aureus (MRSA) screening culture NEG NRG Capillary blood glucose measurement by glucometer (mass/volume) - 10/31/16 09: 43 Capillary blood glucose measurement by glucometer (mass/volume) 157 mg/dL 70-110 Complete blood count (CBC) with automated white blood cell (WBC) differential - 12/12/16 20:45 Blood leukocytes automated count (number/volume) 9.5 10*3/uL 4.3-11.0 Blood erythrocytes automated count (number/volume) 4.86 10*6/uL 4.35-5.85 Venous blood hemoglobin measurement (mass/volume) 13.5 g/dL 13.3-17.7 Blood hematocrit (volume fraction) 40 % 40-54 Automated erythrocyte mean corpuscular volume 82 [foz_us] 80-99 Automated erythrocyte mean corpuscular hemoglobin (mass per erythrocyte) 28 pg 25-34 Automated erythrocyte mean corpuscular hemoglobin concentration measurement ( mass/volume) 34 g/dL 32-36 Automated erythrocyte distribution width ratio 13.5 % 10.0-14.5 Automated blood platelet count (count/volume) 355 10*3/uL 130-400 Automated blood platelet mean volume measurement 9.5 [foz_us] 7.4-10.4 Automated blood neutrophils/100 leukocytes 76 % 42-75 Automated blood lymphocytes/100 leukocytes 16 % 12-44 Blood monocytes/100 leukocytes 6 % 0-12 Automated blood eosinophils/100 leukocytes 1 % 0-10 Automated blood basophils/100 leukocytes 0 % 0-10 Blood neutrophils automated count (number/volume) 7.3 10*3 1.8-7.8 Blood lymphocytes automated count (number/volume) 1.5 10*3 1.0-4.0 Blood monocytes automated count (number/volume) 0.6 10*3 0.0-1.0 Automated eosinophil count 0.1 10*3/uL 0.0-0.3 Automated blood basophil count (count/volume) 0.0 10*3/uL 0.0-0.1 Comprehensive metabolic panel - 12/12/16 20:45 Serum or plasma sodium measurement (moles/volume) 139 mmol/L 135-145 Serum or plasma potassium measurement (moles/volume) 4.3 mmol/L 3.6-5.0 Serum or plasma chloride measurement (moles/volume) 106 mmol/L 98-107 Carbon dioxide 22 mmol/L 21-32 Serum or plasma anion gap determination (moles/volume) 11 mmol/L 5-14 Serum or plasma urea nitrogen measurement (mass/volume) 15 mg/dL 7-18 Serum or plasma creatinine measurement (mass/volume) 0.87 mg/dL 0.60-1.30 Serum or plasma urea nitrogen/creatinine mass ratio 17 NRG Serum or plasma creatinine measurement with calculation of estimated glomerular filtration rate > NRG Serum or plasma glucose measurement (mass/volume) 165 mg/dL 70-105 Serum or plasma calcium measurement (mass/volume) 9.6 mg/dL 8.5-10.1 Serum or plasma total bilirubin measurement (mass/volume) 0.2 mg/dL 0.1-1.0 Serum or plasma alkaline phosphatase measurement (enzymatic activity/volume) 116 U/L 40-136 Serum or plasma aspartate aminotransferase measurement (enzymatic activity/ volume) 47 U/L 5-34 Serum or plasma alanine aminotransferase measurement (enzymatic activity/volume ) 101 U/L 0-55 Serum or plasma protein measurement (mass/volume) 7.6 g/dL 6.4-8.2 Serum or plasma albumin measurement (mass/volume) 4.5 g/dL 3.2-4.5 Magnesium - 12/12/16 20:45 Magnesium 2.4 mg/dL 1.8-2.4 Complete blood count (CBC) with automated white blood cell (WBC) differential - 05/06/17 22:00 Blood leukocytes automated count (number/volume) 8.7 10*3/uL 4.3-11.0 Blood erythrocytes automated count (number/volume) 4.68 10*6/uL 4.35-5.85 Venous blood hemoglobin measurement (mass/volume) 13.0 g/dL 13.3-17.7 Blood hematocrit (volume fraction) 39 % 40-54 Automated erythrocyte mean corpuscular volume 84 [foz_us] 80-99 Automated erythrocyte mean corpuscular hemoglobin (mass per erythrocyte) 28 pg 25-34 Automated erythrocyte mean corpuscular hemoglobin concentration measurement ( mass/volume) 33 g/dL 32-36 Automated erythrocyte distribution width ratio 12.9 % 10.0-14.5 Automated blood platelet count (count/volume) 368 10*3/uL 130-400 Automated blood platelet mean volume measurement 10.0 [foz_us] 7.4-10.4 Automated blood neutrophils/100 leukocytes 55 % 42-75 Automated blood lymphocytes/100 leukocytes 35 % 12-44 Blood monocytes/100 leukocytes 8 % 0-12 Automated blood eosinophils/100 leukocytes 1 % 0-10 Automated blood basophils/100 leukocytes 1 % 0-10 Blood neutrophils automated count (number/volume) 4.8 10*3 1.8-7.8 Blood lymphocytes automated count (number/volume) 3.1 10*3 1.0-4.0 Blood monocytes automated count (number/volume) 0.7 10*3 0.0-1.0 Automated eosinophil count 0.1 10*3/uL 0.0-0.3 Automated blood basophil count (count/volume) 0.0 10*3/uL 0.0-0.1 Comprehensive metabolic panel - 05/06/17 22:00 Serum or plasma sodium measurement (moles/volume) 141 mmol/L 135-145 Serum or plasma potassium measurement (moles/volume) 3.9 mmol/L 3.6-5.0 Serum or plasma chloride measurement (moles/volume) 109 mmol/L 98-107 Carbon dioxide 15 mmol/L 21-32 Serum or plasma anion gap determination (moles/volume) 17 mmol/L 5-14 Serum or plasma urea nitrogen measurement (mass/volume) 13 mg/dL 7-18 Serum or plasma creatinine measurement (mass/volume) 0.82 mg/dL 0.60-1.30 Serum or plasma urea nitrogen/creatinine mass ratio 16 NRG Serum or plasma creatinine measurement with calculation of estimated glomerular filtration rate > NRG Serum or plasma glucose measurement (mass/volume) 168 mg/dL 70-105 Serum or plasma calcium measurement (mass/volume) 9.6 mg/dL 8.5-10.1 Serum or plasma total bilirubin measurement (mass/volume) 0.3 mg/dL 0.1-1.0 Serum or plasma alkaline phosphatase measurement (enzymatic activity/volume) 99 U/L 40-136 Serum or plasma aspartate aminotransferase measurement (enzymatic activity/ volume) 22 U/L 5-34 Serum or plasma alanine aminotransferase measurement (enzymatic activity/volume ) 48 U/L 0-55 Serum or plasma protein measurement (mass/volume) 7.6 g/dL 6.4-8.2 Serum or plasma albumin measurement (mass/volume) 4.4 g/dL 3.2-4.5 Serum or plasma phenytoin measurement (mass/volume) - 05/06/17 22:00 Serum or plasma phenytoin measurement (mass/volume) < ug/mL 10.0-20.0 Complete blood count (CBC) with automated white blood cell (WBC) differential - 08/23/17 14:25 Blood leukocytes automated count (number/volume) 8.4 10*3/uL 4.3-11.0 Blood erythrocytes automated count (number/volume) 4.68 10*6/uL 4.35-5.85 Venous blood hemoglobin measurement (mass/volume) 13.2 g/dL 13.3-17.7 Blood hematocrit (volume fraction) 39 % 40-54 Automated erythrocyte mean corpuscular volume 84 [foz_us] 80-99 Automated erythrocyte mean corpuscular hemoglobin (mass per erythrocyte) 28 pg 25-34 Automated erythrocyte mean corpuscular hemoglobin concentration measurement ( mass/volume) 34 g/dL 32-36 Automated erythrocyte distribution width ratio 13.1 % 10.0-14.5 Automated blood platelet count (count/volume) 330 10*3/uL 130-400 Automated blood platelet mean volume measurement 9.7 [foz_us] 7.4-10.4 Automated blood neutrophils/100 leukocytes 80 % 42-75 Automated blood lymphocytes/100 leukocytes 11 % 12-44 Blood monocytes/100 leukocytes 8 % 0-12 Automated blood eosinophils/100 leukocytes 1 % 0-10 Automated blood basophils/100 leukocytes 0 % 0-10 Blood neutrophils automated count (number/volume) 6.7 10*3 1.8-7.8 Blood lymphocytes automated count (number/volume) 1.0 10*3 1.0-4.0 Blood monocytes automated count (number/volume) 0.6 10*3 0.0-1.0 Automated eosinophil count 0.1 10*3/uL 0.0-0.3 Automated blood basophil count (count/volume) 0.0 10*3/uL 0.0-0.1 Comprehensive metabolic panel - 08/23/17 14:25 Serum or plasma sodium measurement (moles/volume) 137 mmol/L 135-145 Serum or plasma potassium measurement (moles/volume) 4.4 mmol/L 3.6-5.0 Serum or plasma chloride measurement (moles/volume) 105 mmol/L 98-107 Carbon dioxide 19 mmol/L 21-32 Serum or plasma anion gap determination (moles/volume) 13 mmol/L 5-14 Serum or plasma urea nitrogen measurement (mass/volume) 13 mg/dL 7-18 Serum or plasma creatinine measurement (mass/volume) 0.80 mg/dL 0.60-1.30 Serum or plasma urea nitrogen/creatinine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
--- NOTE | 2017-10-13 00:16 | ED Lower Extremity ---
General Chief Complaint: Lower Extremity Stated Complaint: R FOOT INJ Nursing Triage Note: PT REPORTS RAN OVER RIGHT FOOT WITH A FORK LIFT AT WORK THIS EVENING. PT REPORTS BRUISING NOTED TO 2ND DIGIT AND UP FOOT. PT AMB INTO EXAM WITHOUT DIFFICULTY BUT STATES PAIN INCREASES WITH AMBULATION. Nursing Sepsis Screen: No Definite Risk Source: patient Exam Limitations: no limitations History of Present Illness Time seen by provider: 23:55 Allergies and Home Medications Allergies Coded Allergies: No Known Drug Allergies (Unverified , 03/18/14) Home Medications Clonazepam 0.5 Mg Tablet, 0.5-1 MG PO BID, (Reported) take 1 (.5mg) tab in am take 2 (.5mg) tab in pm Lamotrigine 150 Mg Tablet, 150 MG PO Q12H, (Reported) Levetiracetam 1,000 Mg Tablet, 1,000 MG PO BID, (Reported) take with 5oomg tab for 1500mg total Levothyroxine Sodium 50 Mcg Tablet, 50 MCG PO DAILY, (Reported) Metformin HCl 500 Mg Tablet, 500 MG PO BID, (Reported) [place] 3 Polyunsat Fatty Acids 1,000 Mg Cap, 1,000 MG PO BID, (Reported) Past [id number]-[id number]-[id number] Hx Patient Social History Alcohol Use: Denies Use Recreational Drug Use: No Smoking Status: Former Smoker Type Used: Cigarettes Former Smoker, Quit: Oct 29, 2009 Recent Foreign Travel: No Contact w/Someone Who Travel: No Recent Infectious Disease Expo: No Recent Hopitalizations: No Physical Abuse: No Sexual Abuse: No Mistreated: No Fear: No Immunizations Up To Date Tetanus Booster (TDap): More than 5yrs Date of Influenza Vaccine: May 30, 2015 Seasonal Allergies Seasonal Allergies: Yes Surgeries History of Surgeries: No Respiratory History of Respiratory Disorde: Yes Respiratory Disorders: Sleep Apnea Currently Using CPAP: Yes Cardiovascular History of Cardiac Disorders: No Neurological History of Neurological Disord: Yes Neurological Disorders: Seizure Disorder Reproductive System Hx Reproductive Disorders: No Sexually Transmitted Disease: No Genitourinary History of Genitourinary Disor: No Gastrointestinal History of Gastrointestinal Di: Yes (umb hernia) Musculoskeletal History of Musculoskeletal Dis: No Endocrine History of Endocrine Disorders: Yes (pre=diabetes) Endocrine Disorders: Hypothyroidsim, Diabetes, Non-Insulin dep HEENT History of HEENT Disorders: No Cancer History of Cancer: No Psychosocial History of Psychiatric Problem: Yes Behavioral Health Disorders: Anxiety Suicide Risk Score: 1 Integumentary History of Skin or Integumenta: No Blood Transfusions History of Blood Disorders: No Family Medical History Significant Family History: No Pertinent Family Hx Physical Exam Vital Signs Vital Sign - Last 12Hours 10/12/17 21:03 Temp 98.1 Pulse 62 Resp 18 B/P (MAP) 125/70 (88) Pulse Ox 96 O2 Delivery Room Air Capillary Refill : Less Than 3 Seconds Progress/Results/Core Measures Results/Orders My Orders Orders - LUIS POWERS (10/13/17 00:17) Rx-Hydrocodone/Apap 5-325 Mg (Rx-Vicodin (10/13/17 00:30) Vital Signs/I&O Vital Sign - Last 12Hours 10/12/17 21:03 Temp 98.1 Pulse 62 Resp 18 B/P (MAP) 125/70 (88) Pulse Ox 96 O2 Delivery Room Air Blood Pressure Mean: 88 Departure Impression Impression: Primary Impression: Fracture of second toe, right, closed Qualified Codes: S92.501A - Displaced unspecified fracture of right lesser toe (s), initial encounter for closed fracture Additional Impressions: Fracture of third toe, right, closed Qualified Codes: S92.501A - Displaced unspecified fracture of right lesser toe (s), initial encounter for closed fracture Contusion of foot Qualified Codes: S90.31XA - Contusion of right foot, initial encounter Disposition: 01 HOME, SELF-CARE Condition: Improved Departure-Patient Inst. Referrals: GAVI HAAS MD (PCP/Family) Primary Care Physician Patient Instructions: Toe Fracture (DC), Contusion (DC) Add. Discharge Instructions: All discharge instructions reviewed with patient and/or family. Voiced understanding. Medications as directed. No ibuprofen or Aleve. Elevate the right foot on pillows as much as possible. Ice pack for 20 minute intervals as needed. You may remove the boot at nighttime and to shower. Crutches if needed. Follow-up with Dr. Reese as an outpatient for recheck within the next 7 days, call for appointment time. Follow-up with occupational health as an outpatient. Return to the emergency department for worsened symptoms or any other concerns. Scripts Hydrocodone/Acetaminophen (Hydrocodone-Acetamin 5-325 mg) 1 Each Tablet 1 EACH PO Q4H Y for PAIN-MODERATE TO SEVERE, #20 TAB 0 Refills Prov: LUIS POWERS 10/13/17 LUIS POWERS Oct 13, 2017 00:16
[2017-10-13] MEDS ORDERED: RX-HYDROCODONE/APAP 5/325 MG #4 TAB PK PO ONE (00:18)
[2017-10-13] MEDS ORDERED: HYDR-3812 PO (00:26)
[2017-10-13] MEDS ORDERED: RX-HYDROCODONE/APAP 5/325 MG #4 TAB PK PO PRN (00:30)
[2017-10-13 00:36] VITALS: BP 125/70
--- NOTE | 2017-10-13 06:35 | Diagnostic Imaging Report ---
INDICATION: Pain. COMPARISON: None FINDINGS: 3 views of the right foot are obtained. There is a comminuted nondisplaced fracture through the tuft of the distal phalanx of the second toe. No additional fracture or malalignment is seen. IMPRESSION: Comminuted nondisplaced fracture through the tuft of the distal phalanx of the right second toe. Dictated by: Dictated on workstation # [id number]
== END 2017-10-13 00:36 | disposition home or self-care (01) ==
LOC: EDUNIT# 20:36 → ER 20:39
DX: S92.534A Nondisplaced fracture of distal phalanx of right lesser toe(s), initial encounter for closed fracture (principal); S92.501A Displaced unspecified fracture of right lesser toe(s), initial encounter for closed fracture; S90.31XA Contusion of right foot, initial encounter; F41.9 Anxiety disorder, unspecified; E03.9 Hypothyroidism, unspecified; E11.9 Type 2 diabetes mellitus without complications; G40.909 Epilepsy, unspecified, not intractable, without status epilepticus; G47.30 Sleep apnea, unspecified; Z79.84 Long term (current) use of oral hypoglycemic drugs; Z87.891 Personal history of nicotine dependence; V09.29XA Pedestrian injured in traffic accident involving other motor vehicles, initial encounter; Y92.59 Other trade areas as the place of occurrence of the external cause; Y99.0 Civilian activity done for income or pay
CPT/HCPCS: 73630; 99283

== ENCOUNTER 2017-10-30 21:25 | Emergency (ER) | payer BC, OTHER ==
[~2017-10-30] VITALS: Ht 175.3 cm; Wt 113.4 kg
[~2017-10-30 21:25] MED LIST changes: +HYDR-3812 PO
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
--- NOTE | 2017-10-30 21:34 | ED Neurological Problem ---
General Chief Complaint: Neurological Problems Stated Complaint: SEIZURE Source: patient Exam Limitations: no limitations History of Present Illness Date Seen by Provider: Oct 30, 2017 Time Seen by Provider: 21:32 Initial Comments To ER per EMS from home with reports of seizure-like activity. EMS was called to the [facility] couple of hours ago for seizure-like activity. Patient refused transport at that time. He then had another seizure this evening and family called EMS and had him transported. Patient does have a known seizure disorder and takes clonazepam, Keppra, Lamictal for seizures. He forgot to take these this morning and has not had any seizure medication yet today. He feels generally poorly at this time that he states has pretty typical after a seizure. Otherwise he is not had any recent illnesses. Severity: moderate Allergies and Home Medications Allergies Coded Allergies: No Known Drug Allergies (Unverified , 03/18/14) Home Medications Clonazepam 0.5 Mg Tablet, 0.5-1 MG PO BID, (Reported) take 1 (.5mg) tab in am take 2 (.5mg) tab in pm Hydrocodone/Acetaminophen 1 Each Tablet, 1 EACH PO Q4H PRN for PAIN-MODERATE TO SEVERE, #20 Ref 0 Prescribed by: LUIS POWERS on 10/13/17 0026 Lamotrigine 150 Mg Tablet, 150 MG PO Q12H, (Reported) Levetiracetam 1,000 Mg Tablet, 1,000 MG PO BID, (Reported) take with 5oomg tab for 1500mg total Levothyroxine Sodium 50 Mcg Tablet, 50 MCG PO DAILY, (Reported) Metformin HCl 500 Mg Tablet, 500 MG PO BID, (Reported) [place] 3 Polyunsat Fatty Acids 1,000 Mg Cap, 1,000 MG PO BID, (Reported) Constitutional: see HPI, No chills, No fever Eyes: No Symptoms Reported Ears, Nose, Mouth, Throat: no symptoms reported Respiratory: no symptoms reported Cardiovascular: no symptoms reported Genitourinary: no symptoms reported Musculoskeletal: no symptoms reported Skin: no symptoms reported Psychiatric/Neurological: See HPI, Tonic Clonic Seizures Endocrine: No Symptoms Reported Hematologic/Lymphatic: No Symptoms Reported Past Uqeuaoi-Yqqrbg-Cinchd Hx Patient Social History Type Used: Cigarettes Former Smoker, Quit: Oct 29, 2009 Recent Hopitalizations: No Immunizations Up To Date Tetanus Booster (TDap): More than 5yrs Date of Influenza Vaccine: May 30, 2015 Seasonal Allergies Seasonal Allergies: Yes Surgeries History of Surgeries: No Respiratory History of Respiratory Disorde: Yes Respiratory Disorders: Sleep Apnea Currently Using CPAP: Yes Cardiovascular History of Cardiac Disorders: No Neurological History of Neurological Disord: Yes Neurological Disorders: Seizure Disorder Reproductive System Hx Reproductive Disorders: No Sexually Transmitted Disease: No Genitourinary History of Genitourinary Disor: No Gastrointestinal History of Gastrointestinal Di: Yes (umb hernia) Musculoskeletal History of Musculoskeletal Dis: No Endocrine History of Endocrine Disorders: Yes (pre=diabetes) Endocrine Disorders: Hypothyroidsim, Diabetes, Non-Insulin dep HEENT History of HEENT Disorders: No Cancer History of Cancer: No Psychosocial History of Psychiatric Problem: Yes Behavioral Health Disorders: Anxiety Integumentary History of Skin or Integumenta: No Blood Transfusions History of Blood Disorders: No Family Medical History Significant Family History: No Pertinent Family Hx Physical Exam Vital Signs Vital Sign - Last 12Hours 10/30/17 21:25 Temp 97.8 Pulse 84 Resp 18 B/P (MAP) 124/74 (91) Pulse Ox 94 Capillary Refill : General Appearance: WD/WN, no apparent distress HEENT: PERRL/EOMI, normal ENT inspection Neck: non-tender, full range of motion Respiratory: normal breath sounds, no respiratory distress, no accessory muscle use Cardiovascular: regular rate, rhythm, no murmur Gastrointestinal: normal bowel sounds, non tender, soft 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: alert, normal mood/affect, oriented x 3 Skin: normal color, warm/dry Comments He is alert and oriented at this time. Progress/Results/Core Measures Results/Orders Lab Results Laboratory Tests Test 10/30/17 21:34 10/30/17 21:39 Range/Units White Blood Count 16.6 H 4.3-11.0 10^3/uL Red Blood Count 4.97 4.35-5.85 10^6/uL Hemoglobin 14.2 13.3-17.7 G/DL Hematocrit 41 40-54 % Mean Corpuscular Volume 83 80-99 FL Mean Corpuscular Hemoglobin 29 25-34 PG Mean Corpuscular Hemoglobin Concent 35 32-36 G/DL Red Cell Distribution Width 13.2 10.0-14.5 % Platelet Count 423 H 130-400 10^3/uL Mean Platelet Volume 9.9 7.4-10.4 FL Neutrophils (%) (Auto) 73 42-75 % Lymphocytes (%) (Auto) 18 12-44 % Monocytes (%) (Auto) 9 0-12 % Eosinophils (%) (Auto) 1 0-10 % Basophils (%) (Auto) 0 0-10 % Neutrophils # (Auto) 12.0 H 1.8-7.8 X 10^3 Lymphocytes # (Auto) 3.1 1.0-4.0 X 10^3 Monocytes # (Auto) 1.4 H 0.0-1.0 X 10^3 Eosinophils # (Auto) 0.1 0.0-0.3 10^3/uL Basophils # (Auto) 0.0 0.0-0.1 10^3/uL Neutrophils % (Manual) 66 % Lymphocytes % (Manual) 24 % Monocytes % (Manual) 6 % Eosinophils % (Manual) 1 % Basophils % (Manual) 1 % Band Neutrophils 2 % Blood Morphology Comment NORMAL Sodium Level 137 135-145 MMOL/L Potassium Level 4.8 3.6-5.0 MMOL/L Chloride Level 107 98-107 MMOL/L Carbon Dioxide Level 12 L 21-32 MMOL/L Anion Gap 18 H 5-14 MMOL/L Blood Urea Nitrogen 17 7-18 MG/DL Creatinine 0.89 0.60-1.30 MG/DL Estimat Glomerular Filtration Rate > 60 BUN/Creatinine Ratio 19 Glucose Level 109 H 70-105 MG/DL Calcium Level 10.0 8.5-10.1 MG/DL Total Bilirubin 0.3 0.1-1.0 MG/DL Aspartate Amino Transf (AST/SGOT) 18 5-34 U/L Alanine Aminotransferase (ALT/SGPT) 21 0-55 U/L Alkaline Phosphatase 78 40-136 U/L Total Protein 8.2 6.4-8.2 GM/DL Albumin 4.5 3.2-4.5 GM/DL Serum Alcohol < 10 <10 MG/DL Urine Color YELLOW Urine Clarity CLEAR Urine pH 5 5-9 Urine Specific Flushing 1.025 H 1.016-1.022 Urine Protein 2+ H NEGATIVE Urine Glucose (UA) NEGATIVE NEGATIVE Urine Ketones NEGATIVE NEGATIVE Urine Nitrite NEGATIVE NEGATIVE Urine Bilirubin NEGATIVE NEGATIVE Urine Urobilinogen NORMAL NORMAL MG/DL Urine Leukocyte Esterase NEGATIVE NEGATIVE Urine RBC (Auto) 2+ H NEGATIVE Urine RBC 0-2 /HPF Urine WBC NONE /HPF Urine Crystals PRESENT H /LPF Urine Amorphous Sediment MOD CAMERON URATES H /LPF Urine Bacteria NONE /HPF Urine Casts NONE /LPF Urine Mucus NEGATIVE /LPF Urine Culture Indicated NO Urine Opiates Screen NEGATIVE NEGATIVE Urine Oxycodone Screen NEGATIVE NEGATIVE Urine Methadone Screen NEGATIVE NEGATIVE Urine Propoxyphene Screen NEGATIVE NEGATIVE Urine Barbiturates Screen NEGATIVE NEGATIVE Ur Tricyclic Antidepressants Screen NEGATIVE NEGATIVE Urine Phencyclidine Screen NEGATIVE NEGATIVE Urine Amphetamines Screen NEGATIVE NEGATIVE Urine Methamphetamines Screen NEGATIVE NEGATIVE Urine Benzodiazepines Screen NEGATIVE NEGATIVE Urine Cocaine Screen NEGATIVE NEGATIVE Urine Cannabinoids Screen NEGATIVE NEGATIVE My Orders Orders - JAYLENE LOYA CROSSCUTTER Cbc With Automated Diff (10/30/17 21:29) Comprehensive Metabolic Panel (10/30/17 21:29) Ua Culture If Indicated (10/30/17 21:29) Drug Screen Stat (Urine) (10/30/17 21:29) Alcohol (10/30/17 21:29) Saline Lock/Iv-Start (10/30/17 21:29) Levetiracetam Tablet (Keppra Tablet) (10/30/17 21:45) Clonazepam Tablet (Klonopin Tablet) (10/30/17 21:45) Lamotrigine Tablet (Lamictal Tablet) (10/30/17 21:45) Lamotrigine Tablet (Lamictal Tablet) (10/30/17 21:45) Manual Differential (10/30/17 21:34) Chest 1 View, Ap/Pa Only (10/30/17 21:46) Ns Iv 1000 Ml (Sodium Chloride 0.9%) (10/30/17 22:15) Lamotrigine Tablet (Lamictal Tablet) (10/30/17 22:30) Medications Given in ED Current Medications Medications Dose Ordered Sig/Warren Route Start Time Stop Time Status Last Admin Dose Admin Clonazepam 0.5 mg ONCE ONCE PO 10/30/17 21:45 10/30/17 21:46 DC 10/30/17 22:28 0.5 MG Lamotrigine 50 mg ONCE ONCE PO 10/30/17 22:30 10/30/17 22:32 DC 10/30/17 22:28 50 MG Lamotrigine 100 mg ONCE ONCE PO 10/30/17 21:45 10/30/17 21:46 DC 10/30/17 22:28 100 MG Levetiracetam 1,000 mg ONCE ONCE PO 10/30/17 21:45 10/30/17 21:46 DC 10/30/17 22:28 1,000 MG Vital Signs/I&O Vital Sign - Last 12Hours 10/30/17 21:25 Temp 97.8 Pulse 84 Resp 18 B/P (MAP) 124/74 (91) Pulse Ox 94 Departure Impression Impression: Primary Impression: Seizure disorder Disposition: HOME, SELF-CARE Condition: Stable Departure-Patient Inst. Decision time for Depature: 22:36 Referrals: GAVI HAAS MD (PCP/Family) Primary Care Physician Patient Instructions: Seizures, Adult (DC) Add. Discharge Instructions: 1. Return to ER for any concerns 2. Follow-up with your doctor next week 3. All discharge instructions reviewed with patient and/or family. Voiced understanding. Work/School Note: Work Release Form Date Seen in the Emergency Department: Oct 30, 2017 Return to Work: Nov 01, 2017 JAYLENE LOYA APRN Oct 30, 2017 21:33
[2017-10-30 21:44] LABS: BASOPHILS % (AUTO) 0 % (0-10); EOSINOPHILS # (AUTO) 0.1 10^3/uL (0.0-0.3); EOSINOPHILS % (AUTO) 1 % (0-10); HEMATOCRIT 41 % (40-54); HEMOGLOBIN 14.2 G/DL (13.3-17.7); LYMPHOCYTES # (AUTO) 3.1 X 10^3 (1.0-4.0); LYMPHOCYTES % (AUTO) 18 % (12-44); MEAN CORPUSCULAR HEMOGLOBIN 29 PG (25-34); MEAN CORPUSCULAR HGB CONC 35 G/DL (32-36); MEAN CORPUSCULAR VOLUME 83 FL (80-99); MEAN PLATELET VOLUME 9.9 FL (7.4-10.4); MONOCYTES # (AUTO) 1.4 X 10^3 (0.0-1.0); MONOCYTES % (AUTO) 9 % (0-12); NEUTROPHILS % (AUTO) 73 % (42-75); PLATELET COUNT 423 10^3/uL (130-400); RED BLOOD COUNT 4.97 10^6/uL (4.35-5.85); RED CELL DISTRIBUTION WIDTH 13.2 % (10.0-14.5); WHITE BLOOD COUNT 16.6 10^3/uL (4.3-11.0)
[2017-10-30] MEDS ORDERED: LEVETIRACETAM 1,000 MG (KEPPRA) TABLET PO ONE (21:45)
[2017-10-30] MEDS ORDERED: clonazePAM 0.5 MG (KlonoPIN) TAB PO ONE (21:45)
[2017-10-30] MEDS ORDERED: lamoTRIgine 25 MG (LaMICtal) TAB PO ONE (21:45)
[2017-10-30 21:55] LABS: BILIRUBIN,URINE NEGATIVE (NEGATIVE); CLARITY,URINE CLEAR; COLOR,URINE YELLOW; GLUCOSE, URINE (UA) NEGATIVE (NEGATIVE); KETONES,URINE NEGATIVE (NEGATIVE); LEUKOCYTE ESTERASE ,URINE NEGATIVE (NEGATIVE); NITRITE,URINE NEGATIVE (NEGATIVE); PH,URINE 5 (5-9); PROTEIN,URINE 2+ (NEGATIVE); UROBILINOGEN,URINE NORMAL (NORMAL)
[2017-10-30 22:02] LABS: AMORPHOUS SEDIMENT,UR MOD AMOR URATES /LPF; RBC,URINE 0-2 /HPF
[2017-10-30 22:10] LABS: AMPHETAMINE SCREEN, URINE NEGATIVE (NEGATIVE); BARBITURATE SCREEN URINE NEGATIVE (NEGATIVE); BENZODIAZEPINES SCREEN URINE NEGATIVE (NEGATIVE); CANNABINOID SCREEN, URINE NEGATIVE (NEGATIVE); COCAINE SCREEN URINE NEGATIVE (NEGATIVE); METHADONE STAT NEGATIVE (NEGATIVE); METHAMPHETAMINE SCREEN URINE S NEGATIVE (NEGATIVE); OPIATE SCREEN URINE NEGATIVE (NEGATIVE); OXYCODONE STAT NEGATIVE (NEGATIVE); PROPOXYPHENE STAT NEGATIVE (NEGATIVE); TRICYCLIC ANTIDEPRESSANTS SCRE NEGATIVE (NEGATIVE)
[2017-10-30 22:13] LABS: BAND NEUTROPHILS 2 %; BASOPHILS % (MANUAL) 1 %; EOSINOPHILS % (MANUAL) 1 %; LYMPHOCYTES % (MANUAL) 24 %; MONOCYTES % (MANUAL) 6 %; NEUTROPHILS % (MANUAL) 66 %; RBC MORPH NORMAL
[2017-10-30] MEDS ORDERED: NS IV 1000 ML 1,000 ML IV SCH (22:15)
[2017-10-30 22:16] LABS: ALANINE AMINOTRANSFERASE 21 U/L (0-55); ALBUMIN 4.5 GM/DL (3.2-4.5); ALKALINE PHOSPHATASE 78 U/L (40-136); BILIRUBIN,TOTAL 0.3 MG/DL (0.1-1.0); BUN/CREATININE RATIO 19; CARBON DIOXIDE 12 MMOL/L (21-32); CHLORIDE 107 MMOL/L (98-107); CREATININE SERUM 0.89 MG/DL (0.60-1.30); GFR ESTIMATED > 60; GLUCOSE 109 MG/DL (70-105); POTASSIUM 4.8 MMOL/L (3.6-5.0); SODIUM 137 MMOL/L (135-145); TOTAL PROTEIN 8.2 GM/DL (6.4-8.2)
[2017-10-30 23:42] VITALS: BP 125/72
--- NOTE | 2017-10-31 06:44 | Diagnostic Imaging Report ---
INDICATION: Seizure. Comparison is made with prior examination from 08/23/17. FINDINGS: The heart size, mediastinal configuration, and pulmonary vascularity are within normal limits. There is no pleural effusion, pneumothorax, or pneumonia. The osseous structures are unremarkable. IMPRESSION: No acute cardiopulmonary abnormality. Dictated by: Dictated on workstation # [id number]
== END 2017-10-30 23:42 | disposition home or self-care (01) ==
LOC: EDUNIT# 21:27 → ER 21:28
DX: G40.909 Epilepsy, unspecified, not intractable, without status epilepticus (principal); F41.9 Anxiety disorder, unspecified; E03.9 Hypothyroidism, unspecified; E11.9 Type 2 diabetes mellitus without complications; G47.9 Sleep disorder, unspecified; Z87.891 Personal history of nicotine dependence; Z79.84 Long term (current) use of oral hypoglycemic drugs
CPT/HCPCS: 36415; 71045; 80053; 80306; 80320; 81000; 85007; 85027; 96360

== ENCOUNTER 2017-11-20 14:05 | Emergency (ER) | payer BC ==
[~2017-11-20] VITALS: Ht 175.3 cm; Wt 117.9 kg
--- OUTSIDE RECORDS SUMMARY | 2017-11-20 14:12 | XMS REPORT | Continuity of Care Document ---
Author Author [facility] Organization [facility] Address Unknown Phone Unavailable Allergies Active Description Code Type Severity Reaction Onset Reported/Identified Relationship to Patient Clinical Status Yes No Known Drug Allergies [id number] Drug Allergy Unknown N/A 03/18/2014 Medications There [...] 12/19/2015 CHAPO ESCALANTE MD Ot Z79.899 OTHER TUBE FILLER (CURRENT) DRUG THERAPY 12/19/2015 KAREN HUNTER DO [...] A Ot Y92.[address] TO SINGLE-FAMILY ([facility] [facility] [facility] 01/27/2016 CECILE DELGADO, JAYSHREE A Ot Y99.8 [...] A Ot Y92.[address] TO SINGLE-FAMILY ([place] [facility] [facility] 01/29/2016 CECILE DELGADO, JAYSHREE A Ot Y99.8 [...] DANO DELGADO, ASHU J Ot Z79.899 OTHER HALF-WAY (CURRENT) DRUG THERAPY 08/21/2016 KALI MATSON MDUS [...] KALI MATSON MDUS J Ot Z79.899 OTHER TUBE FILLER (CURRENT) DRUG THERAPY 10/29/2016 ROMERO SANFORD DO [...] OR 10/31/2016 ROMERO SANFORD DO Ot Z79.84 TUBE FILLER (CURRENT) USE OF ORAL HYPOGLYC 11/04/2016 ROMERO SANFORD DO Ot E11.9 TYPE 2 DIABETES MELLITUS WITHOUT COMPLIC 11/04/2016 SANFORD DO, ROMERO D Ot K42.9 UMBILICAL HERNIA WITHOUT OBSTRUCTION OR 11/04/2016 SANFORD DO, ROMERO D Ot Z79.84 TUBE FILLER (CURRENT) USE OF ORAL HYPOGLYC 11/05/2016 SANFORD DO, ROMERO D Ot E11.9 TYPE 2 DIABETES MELLITUS WITHOUT COMPLIC 11/05/2016 SANFORD DO, ROMERO D Ot K42.9 UMBILICAL HERNIA WITHOUT OBSTRUCTION OR 11/05/2016 SANFORD DO, ROMERO D Ot Z79.84 HALF-WAY (CURRENT) USE OF ORAL HYPOGLYC 11/22/2016 HUNTER [...] WITHOUT 12/12/2016 EDUAR URIARTE MD Ot Z79.84 HALF-WAY (CURRENT) USE OF ORAL HYPOGLYC 12/12/2016 EDUAR URIARTE MD Ot Z79.899 OTHER HALF-WAY (CURRENT) DRUG THERAPY 12/16/2016 EDUAR URIARTE MD, Ot E11.9 TYPE 2 DIABETES MELLITUS WITHOUT COMPLIC 12/16/2016 EDUAR URIARTE MD Ot G40.909 EPILEPSY, UNSP, NOT INTRACTABLE, WITHOUT 12/16/2016 EDUAR URIARTE MD Ot Z79.84 HALF-WAY (CURRENT) USE OF ORAL HYPOGLYC 12/16/2016 EDUAR URIARTE MD Ot Z79.899 OTHER HALF-WAY (CURRENT) DRUG THERAPY 02/03/2017 HUNTER DO, KAREN C Ot N46.9 MALE INFERTILITY, UNSPECIFIED 03/21/2017 HUNTER DO, KAREN C Ot N46.9 MALE INFERTILITY, UNSPECIFIED 05/06/2017 HUNTER DO, KAREN C Ot N46.9 MALE INFERTILITY, UNSPECIFIED 05/06/2017 ADNO DELGADO, ASHU Alan Ot E03.9 HYPOTHYROIDISM, UNSPECIFIED [...] 05/06/2017 DANO DELGADO, ASHU Alan Ot Z79.84 HALF-WAY (CURRENT) USE OF ORAL HYPOGLYC 05/06/2017 ASHU [...] 06/22/2017 GALINDO DELGADO, CARLOS Tavera Ot Z79.84 TUBE FILLER (CURRENT) USE OF ORAL HYPOGLYC 06/22/2017 GALINDO [...] FUNCT 08/23/2017 ASHU MATSON MD Ot Z79.84 TUBE FILLER (CURRENT) USE OF ORAL HYPOGLYC 08/26/2017 ASHU [...] FUNCT 08/26/2017 ASHU MATSON MD Ot Z79.84 HALF-WAY (CURRENT) USE OF ORAL HYPOGLYC 09/10/2017 CHAPO [...] CONVULSIONS 09/10/2017 CHAPO ESCALANTE MD Ot Z79.84 TUBE FILLER (CURRENT) USE OF ORAL HYPOGLYC 09/10/2017 CHAPO [...] Ot G47.30 SLEEP APNEA, UNSPECIFIED 10/13/2017 LUIS GATES Ot M79.671 PAIN IN RIGHT FOOT 10/13/2017 [...] OR PAY 10/13/2017 LUIS GATES Ot Z79.84 HALF-WAY (CURRENT) USE OF ORAL HYPOGLYC 10/13/2017 LUIS [...] INVOLVING OT 10/14/2017 LUIS GATES Ot Y92.59 [facility] 10/14/2017 LUIS GATES Ot Y99.0 CIVILIAN ACTIVITY DONE FOR INCOME OR PAY 10/14/2017 LUIS GATES Ot Z79.84 HALF-WAY (CURRENT) USE OF ORAL HYPOGLYC 10/14/2017 LUIS GATES Ot Z87.891 PERSONAL HISTORY OF NICOTINE DEPENDENCE 10/25/2017 KAREN HUNTER DO Ot N46.9 MALE INFERTILITY, UNSPECIFIED 10/31/2017 KAREN HUNTER DO Ot N46.9 MALE INFERTILITY, [...] INFLUENZA A AND B ANTIGENS BY IA [facility] Comprehensive metabolic panel - 08/19/16 12:57 Serum [...] calculation of estimated glomerular filtration rate > [facility] Serum or plasma glucose measurement (mass/volume) 167 [...] automated white blood cell (WBC) differential - 11/25/17 14:25 Blood leukocytes automated count (number/volume) 8.4 [...] urinalysis with reflex to culture NO NRG Complete blood count (CBC) with automated white blood cell (WBC) differential - 10/30/17 21:34 Blood leukocytes automated count (number/volume) 16.6 10*3/uL 4.3-11.0 Blood erythrocytes automated count (number/volume) 4.97 10*6/uL 4.35-5.85 Venous blood hemoglobin measurement (mass/volume) 14.2 g/dL 13.3-17.7 Blood hematocrit (volume fraction) 41 % 40-54 Automated erythrocyte mean corpuscular volume 83 [foz_us] 80-99 Automated erythrocyte mean corpuscular hemoglobin (mass per erythrocyte) 29 pg 25-34 Automated erythrocyte mean corpuscular hemoglobin concentration measurement ( mass/volume) 35 g/dL 32-36 Automated erythrocyte distribution width ratio 13.2 % 10.0-14.5 Automated blood platelet count (count/volume) 423 10*3/uL 130-400 Automated blood platelet mean volume measurement 9.9 [foz_us] 7.4-10.4 Automated blood neutrophils/100 leukocytes 73 % 42-75 Automated blood lymphocytes/100 leukocytes 18 % 12-44 Blood monocytes/100 leukocytes 9 % 0-12 Automated blood eosinophils/100 leukocytes 1 % 0-10 Automated blood basophils/100 leukocytes 0 % 0-10 Blood neutrophils automated count (number/volume) 12.0 10*3 1.8-7.8 Blood lymphocytes automated count (number/volume) 3.1 10*3 1.0-4.0 Blood monocytes automated count (number/volume) 1.4 10*3 0.0-1.0 Automated eosinophil count 0.1 10*3/uL 0.0-0.3 Automated blood basophil count (count/volume) 0.0 10*3/uL 0.0-0.1 Blood manual differential performed detection - 10/30/17 21:34 Blood monocytes/100 leukocytes 6 % NRG Manual blood segmented neutrophils/100 leukocytes 66 % NRG Blood band neutrophils/100 leukocytes 2 % NRG Manual blood lymphocytes/100 leukocytes 24 % NRG Manual eosinophils/100 leukocytes in nose 1 % NRG Manual blood basophils/100 leukocytes 1 % NRG Blood erythrocyte morphology finding identification NORMAL [facility] Comprehensive metabolic panel - 10/30/17 21:34 Serum or plasma sodium measurement (moles/volume) 137 mmol/L 135-145 Serum or plasma potassium measurement (moles/volume) 4.8 mmol/L 3.6-5.0 Serum or plasma chloride measurement (moles/volume) 107 mmol/L 98-107 Carbon dioxide 12 mmol/L 21-32 Serum or plasma anion gap determination (moles/volume) 18 mmol/L 5-14 Serum or plasma urea nitrogen measurement (mass/volume) 17 mg/dL 7-18 Serum or plasma creatinine measurement (mass/volume) 0.89 mg/dL 0.60-1.30 Serum or plasma urea nitrogen/creatinine mass ratio 19 NRG Serum or plasma creatinine measurement with calculation of estimated glomerular filtration rate > NRG Serum or plasma glucose measurement (mass/volume) 109 mg/dL 70-105 Serum or plasma calcium measurement (mass/volume) 10.0 mg/dL 8.5-10.1 Serum or plasma total bilirubin measurement (mass/volume) 0.3 mg/dL 0.1-1.0 Serum or plasma alkaline phosphatase measurement (enzymatic activity/volume) 78 U/L 40-136 Serum or plasma aspartate aminotransferase measurement (enzymatic activity/ volume) 18 U/L 5-34 Serum or plasma alanine aminotransferase measurement (enzymatic activity/volume ) 21 U/L 0-55 Serum or plasma protein measurement (mass/volume) 8.2 g/dL 6.4-8.2 Serum or plasma albumin measurement (mass/volume) 4.5 g/dL 3.2-4.5 Serum or plasma ethanol measurement (mass/volume) - 10/30/17 21:34 Serum or plasma ethanol measurement (mass/volume) < mg/dL <10 Complete urinalysis with reflex to culture - 10/30/17 21:39 Urine color determination YELLOW NRG Urine clarity [...] urine sediment by light microscopy NONE NRG Crystals detection in urine sediment by light microscopy PRESENT NRG Casts detection in urine sediment by light microscopy NONE NRG Mucus detection in urine sediment by light microscopy NEGATIVE NRG Complete urinalysis with reflex to culture NO NRG Amorphous sediment detection in urine sediment by light microscopy MOD CAMERON URATES NRG Urine drug screening test - 10/30/17 21:39 Urine phencyclidine detection by screening method NEGATIVE [...] NEGATIVE NEGATIVE Urine propoxyphene detection NEGATIVE NEGATIVE Encounters ACCT No. Visit Date/Time Discharge Status Pt. Type Provider Facility Loc./Unit Complaint [id number] 10/30/2017 21:28:00 10/30/2017 23:42:00 DIS Emergency JAYLENE LOYA APRN [facility] ER SEIZURE [id number] 10/12/2017 20:39:00 10/13/2017 00:36:00 DIS Emergency LUIS GATES [facility] ER R FOOT INJ [id number] 09/10/2017 10:31:00 09/10/2017 13:45:00 DIS Emergency CHAPO ESCALANTE MD [facility] ER SEIZURE [id number] 08/23/2017 13:58:00 08/23/2017 16:00:00 DIS Emergency ASHU MATSON MD [facility] ER SEIZURE [id number] 06/22/2017 16:39:00 06/22/2017 18:07:00 DIS Emergency GALINDO DELGADO, CARLOS Tavera [facility] ER SEIZURE [id number] 05/06/2017 21:56:00 05/06/2017 23:30:00 DIS Emergency ASHU MATSON MD [facility] ER SEIZURE-FALL [id number] 12/12/2016 20:25:00 12/12/2016 22:02:00 DIS Emergency EDUAR URIARTE MD [facility] ER POSSIBLE SEIZURE [id number] 10/31/2016 09:27:00 10/31/2016 14:50:00 DIS Outpatient ROMERO SANFORD DO [facility] SDC UMBILICAL HERNIA [id number] 10/29/2016 08:37:00 10/29/2016 09:05:00 DIS Outpatient ROMERO SANFORD DO [facility] PREOP UMBILICAL HERNIA [id number] 08/19/2016 11:19:00 08/19/2016 14:50:00 DIS Emergency DANO DELGADO, ASHU Waqas [facility] ER LIGHTHEADED NAUSEA [id number] 02/02/2016 20:45:00 02/03/2016 06:40:00 DIS Outpatient DANNA DELGADO, SAYDA Jimenez [facility] SLEEP OBSTRUCTIVE SLEEP APNEA [id number] 01/27/2016 21:02:00 01/27/2016 22:31:00 DIS Emergency CECILE DELGADO, JAYSHREE An [facility] ER SEIZURE/FALL [id number] 12/19/2015 21:50:00 12/19/2015 23:31:00 DIS Emergency BORIS DELGADO, CHAPO Dover [facility] ER SEIZURE [id number] 11/17/2015 20:50:00 11/18/2015 06:50:00 DIS Outpatient DANNA DELGADO, SAYDA Jimenez [facility] SLEEP OBSERVED APNEAS,SNORING ,SEIZURE,ABN LIMB MOVEMENT [id number] 10/04/2015 13:44:00 10/04/2015 23:59:59 CLS Outpatient KAREN HUNTER DO [facility] LAB INFERTILITY [id number] 09/12/2015 20:42:00 09/12/2015 21:58:00 DIS Emergency GAVI ACEVEDO DO [facility] ER CONGESTION [id number] 03/18/2014 20:01:00 03/18/2014 22:13:00 DIS Emergency KITA OSCAR DO [facility] ER [id number] 05/04/2015 22:47:00 Document Registration
[2017-11-20] MEDS ORDERED: NS IV 1000 ML 1,000 ML IV SCH (14:15)
[2017-11-20] MEDS ORDERED: clonazePAM 0.5 MG (KlonoPIN) TAB PO ONE (14:15)
[2017-11-20] MEDS ORDERED: LEVETIRACETAM 500 MG (KEPPRA) TAB PO ONE (14:15)
--- NOTE | 2017-11-20 14:16 | ED Neurological Problem ---
General Chief Complaint: Neurological Problems Stated Complaint: SEIZURE Source: patient Exam Limitations: no limitations History of Present Illness Date Seen by Provider: Nov 20, 2017 Time Seen by Provider: 14:14 Initial Comments To ER with reports of a seizure. This lasted about 1 minute. He was at work at [employer] when this happened. He takes Keppra and Lamictal and Klonopin for seizures as he has a known seizure disorder. He states however that he forgot to take his dose of these this morning. Did not hit his head when he fell. No injuries from the fall. Feels back to normal now. Alert and oriented. Timing/Duration: 1-3 hours Severity: moderate Associated Symptoms: seizures Allergies and Home Medications Allergies Coded Allergies: No Known Drug Allergies (Unverified , 03/18/14) Home Medications Clonazepam 0.5 Mg Tablet, 0.5-1 MG PO BID, (Reported) take 1 (.5mg) tab in am take 2 (.5mg) tab in pm Hydrocodone/Acetaminophen 1 Each Tablet, 1 EACH PO Q4H PRN for PAIN-MODERATE TO SEVERE, #20 Ref 0 Prescribed by: LUIS POWERS on 10/13/17 0026 Lamotrigine 150 Mg Tablet, 150 MG PO Q12H, (Reported) Levetiracetam 1,000 Mg Tablet, 1,000 MG PO BID, (Reported) take with 5oomg tab for 1500mg total Levothyroxine Sodium 50 Mcg Tablet, 50 MCG PO DAILY, (Reported) Metformin HCl 500 Mg Tablet, 500 MG PO BID, (Reported) [place] 3 Polyunsat Fatty Acids 1,000 Mg Cap, 1,000 MG PO BID, (Reported) Constitutional: see HPI Eyes: No Symptoms Reported Ears, Nose, Mouth, Throat: no symptoms reported Respiratory: no symptoms reported Cardiovascular: no symptoms reported Genitourinary: no symptoms reported Musculoskeletal: no symptoms reported Skin: no symptoms reported Psychiatric/Neurological: See HPI, Tonic Clonic Seizures Endocrine: No Symptoms Reported Past Mccfaux-Jejtnb-Ewjdws Hx Patient Social History Type Used: Cigarettes Former Smoker, Quit: Oct 29, 2009 Recent Hopitalizations: No Immunizations Up To Date Tetanus Booster (TDap): More than 5yrs Date of Influenza Vaccine: May 30, 2015 Seasonal Allergies Seasonal Allergies: Yes Surgeries History of Surgeries: No Respiratory History of Respiratory Disorde: Yes Respiratory Disorders: Sleep Apnea Currently Using CPAP: Yes Cardiovascular History of Cardiac Disorders: No Neurological History of Neurological Disord: Yes Neurological Disorders: Seizure Disorder Reproductive System Hx Reproductive Disorders: No Sexually Transmitted Disease: No Genitourinary History of Genitourinary Disor: No Gastrointestinal History of Gastrointestinal Di: Yes (umb hernia) Musculoskeletal History of Musculoskeletal Dis: No Endocrine History of Endocrine Disorders: Yes (pre=diabetes) Endocrine Disorders: Hypothyroidsim, Diabetes, Non-Insulin dep HEENT History of HEENT Disorders: No Cancer History of Cancer: No Psychosocial History of Psychiatric Problem: Yes Behavioral Health Disorders: Anxiety Integumentary History of Skin or Integumenta: No Blood Transfusions History of Blood Disorders: No Family Medical History Significant Family History: No Pertinent Family Hx Physical Exam Vital Signs Capillary Refill : General Appearance: WD/WN, no apparent distress HEENT: PERRL/EOMI, normal ENT inspection Neck: non-tender, full range of motion Respiratory: no respiratory distress, no accessory muscle use Cardiovascular: regular rate, rhythm, no murmur Gastrointestinal: normal bowel sounds, non tender Extremities: normal range of motion, non-tender 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: alert, normal mood/affect, oriented x 3 Crainal Nerves: normal hearing, normal speech, PERRL Coordination/Gait: normal finger to nose, normal gait Motor/Sensory: no motor deficit, no sensory deficit Skin: normal color, warm/dry Departure Impression Impression: Primary Impression: Seizure Disposition: 01 HOME, SELF-CARE Condition: Stable Departure-Patient Inst. Decision time for Depature: 14:16 Referrals: GAVI HAAS MD (PCP/Family) Primary Care Physician Patient Instructions: Seizures, Adult (DC) JAYLENE LOYA APRN Nov 20, 2017 14:16
[2017-11-20 14:17] LABS: BASOPHILS % (AUTO) 0 % (0-10); EOSINOPHILS # (AUTO) 0.2 10^3/uL (0.0-0.3); EOSINOPHILS % (AUTO) 2 % (0-10); HEMATOCRIT 41 % (40-54); LYMPHOCYTES # (AUTO) 4.1 X 10^3 (1.0-4.0); LYMPHOCYTES % (AUTO) 42 % (12-44); MEAN CORPUSCULAR HEMOGLOBIN 29 PG (25-34); MEAN CORPUSCULAR HGB CONC 34 G/DL (32-36); MEAN CORPUSCULAR VOLUME 85 FL (80-99); MEAN PLATELET VOLUME 9.6 FL (7.4-10.4); MONOCYTES # (AUTO) 0.6 X 10^3 (0.0-1.0); MONOCYTES % (AUTO) 6 % (0-12); NEUTROPHILS # (AUTO) 4.9 X 10^3 (1.8-7.8); NEUTROPHILS % (AUTO) 50 % (42-75); PLATELET COUNT 376 10^3/uL (130-400); RED BLOOD COUNT 4.84 10^6/uL (4.35-5.85); RED CELL DISTRIBUTION WIDTH 13.2 % (10.0-14.5); WHITE BLOOD COUNT 9.8 10^3/uL (4.3-11.0)
[2017-11-20 14:36] LABS: ALANINE AMINOTRANSFERASE 41 U/L (0-55); ALBUMIN 4.5 GM/DL (3.2-4.5); ALKALINE PHOSPHATASE 74 U/L (40-136); BILIRUBIN,TOTAL 0.3 MG/DL (0.1-1.0); BUN/CREATININE RATIO 21; CALCIUM 9.5 MG/DL (8.5-10.1); CARBON DIOXIDE 14 MMOL/L (21-32); CHLORIDE 104 MMOL/L (98-107); CREATININE SERUM 1.04 MG/DL (0.60-1.30); GFR ESTIMATED > 60; GLUCOSE 150 MG/DL (70-105); POTASSIUM 4.5 MMOL/L (3.6-5.0); SODIUM 137 MMOL/L (135-145); TOTAL PROTEIN 8.2 GM/DL (6.4-8.2)
[2017-11-20 15:27] LABS: BILIRUBIN,URINE NEGATIVE (NEGATIVE); CLARITY,URINE CLEAR; COLOR,URINE YELLOW; GLUCOSE, URINE (UA) NEGATIVE (NEGATIVE); KETONES,URINE 1+ (NEGATIVE); LEUKOCYTE ESTERASE ,URINE NEGATIVE (NEGATIVE); NITRITE,URINE NEGATIVE (NEGATIVE); PH,URINE 6.5 (5-9); PROTEIN,URINE 2+ (NEGATIVE); UROBILINOGEN,URINE NORMAL (NORMAL)
[2017-11-20 15:40] LABS: SQUAMOUS EPITHELIAL CELL,UR RARE /HPF
[2017-11-20 15:47] VITALS: BP 129/66
== END 2017-11-20 15:47 | disposition home or self-care (01) ==
LOC: EDUNIT# 14:05 → ER 14:07
DX: G40.909 Epilepsy, unspecified, not intractable, without status epilepticus (principal); G47.30 Sleep apnea, unspecified; E03.9 Hypothyroidism, unspecified; E11.9 Type 2 diabetes mellitus without complications; F41.9 Anxiety disorder, unspecified; Z79.84 Long term (current) use of oral hypoglycemic drugs; Z87.891 Personal history of nicotine dependence
CPT/HCPCS: 36415; 80053; 81000; 85025; 96360

== ENCOUNTER → 2017-12-02 | Emergency (ER) | payer BC ==
[~2017-12-02] VITALS: Ht 172.7 cm; Wt 90.7 kg
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
[2017-12-02 13:49] VITALS: BP 128/83
--- NOTE | 2017-12-02 13:56 | ED General ---
General Chief Complaint: Neurological Problems Stated Complaint: HEAD PAIN,HIP PAIN Source of Information: Patient Exam Limitations: No Limitations History of Present Illness Date Seen by Provider: Dec 02, 2017 Time Seen by Provider: 13:53 Initial Comments A bump on his head and left hip pain after a seizure yesterday morning. He has a history of seizures and takes Keppra, lamictal and clonazepam. Has not missed any doses. He denies any headache other than in the area where he struck his head which is confined to a half dollar sized area, no dizziness, no nausea, no confusion. He is ambulatory to the thigh but complains of left hip pain with certain movements Timing/Duration: 1-2 Days Severity: Moderate Allergies and Home Medications Allergies Coded Allergies: No Known Drug Allergies (Unverified , 03/18/14) Home Medications Clonazepam 0.5 Mg Tablet, 0.5-1 MG PO BID, (Reported) take 1 (.5mg) tab in am take 2 (.5mg) tab in pm Hydrocodone/Acetaminophen 1 Each Tablet, 1 EACH PO Q4H PRN for PAIN-MODERATE TO SEVERE Prescribed by: LUIS POWERS on 10/13/17 0026 Lamotrigine 150 Mg Tablet, 150 MG PO Q12H, (Reported) Levetiracetam 1,000 Mg Tablet, 1,000 MG PO BID, (Reported) take with 5oomg tab for 1500mg total Levothyroxine Sodium 50 Mcg Tablet, 50 MCG PO DAILY, (Reported) Metformin HCl 500 Mg Tablet, 500 MG PO BID, (Reported) Speer 3 Polyunsat Fatty Acids 1,000 Mg Cap, 1,000 MG PO BID, (Reported) Patient Home Medication List Home Medication List Reviewed: Yes Constitutional: see HPI EENTM: see HPI Respiratory: no symptoms reported Cardiovascular: no symptoms reported Genitourinary: no symptoms reported Musculoskeletal: see HPI, joint pain Skin: no symptoms reported Psychiatric/Neurological: See HPI, Seizure Hematologic/Lymphatic: No Symptoms Reported Past Yccocor-Irwtkd-Cdnacu Hx Patient Social History Type Used: Cigarettes Former Smoker, Quit: Oct 29, 2009 Recent Foreign Travel: No Contact w/Someone Who Travel: No Recent Hopitalizations: No Immunizations Up To Date Tetanus Booster (TDap): More than 5yrs Date of Influenza Vaccine: May 30, 2015 Seasonal Allergies Seasonal Allergies: Yes Surgeries History of Surgeries: Yes (hernia repair) Respiratory History of Respiratory Disorde: Yes Respiratory Disorders: Sleep Apnea Currently Using CPAP: Yes Cardiovascular History of Cardiac Disorders: No Neurological History of Neurological Disord: Yes Neurological Disorders: Seizure Disorder Reproductive System Hx Reproductive Disorders: No Sexually Transmitted Disease: No Genitourinary History of Genitourinary Disor: No Gastrointestinal History of Gastrointestinal Di: Yes (umb hernia) Musculoskeletal History of Musculoskeletal Dis: No Endocrine History of Endocrine Disorders: Yes (pre=diabetes) Endocrine Disorders: Hypothyroidsim, Diabetes, Non-Insulin dep HEENT History of HEENT Disorders: No Cancer History of Cancer: No Psychosocial History of Psychiatric Problem: Yes Behavioral Health Disorders: Anxiety Integumentary History of Skin or Integumenta: No Blood Transfusions History of Blood Disorders: No Family Medical History Significant Family History: No Pertinent Family Hx Physical Exam Vital Signs Vital Signs - First Documented 12/02/17 13:49 Temp 96.4 Pulse 82 Resp 16 B/P (MAP) 128/83 (98) Pulse Ox 98 O2 Delivery Room Air Capillary Refill : General Appearance: No Apparent Distress, WD/WN Eyes: Bilateral Eye Normal Inspection, Bilateral Eye PERRL, Bilateral Eye EOMI HEENT: PERRL/EOMI, TMs Normal, Other (there is a small hematoma at the hairline right side of the forehead. This is about quarter size.) Neck: Full Range of Motion, Normal Inspection Respiratory: Normal Breath Sounds, No Accessory Muscle Use, No Respiratory Distress Cardiovascular: Regular Rate, Rhythm, Normal Peripheral Pulses Gastrointestinal: Normal Bowel Sounds, Non Tender, Soft Extremity: Normal Capillary Refill, Normal Inspection 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: Alert, Oriented x3 Skin: Normal Color, Warm/Dry Progress/Results/Core Measures Suspected Sepsis SIRS Temperature: Pulse: Respiratory Rate: Blood Pressure / Mean: Results/Orders My Orders Orders - JAYLENE LOAY APRN Hip, Left, 2 Views (12/02/17 13:53) Vital Signs/I&O Vital Sign - Last 12Hours 12/02/17 13:49 Temp 96.4 Pulse 82 Resp 16 B/P (MAP) 128/83 (98) Pulse Ox 98 O2 Delivery Room Air Capillary Refill : Departure Communication (Admissions) Progress Notes I will not scan his head because his GCS is 15, this was a frontal head injury, no headache, no dizziness Impression Impression: Primary Impression: Seizure disorder Additional Impression: Hip sprain Disposition: HOME, SELF-CARE Condition: Stable Departure-Patient Inst. Decision time for Depature: 13:55 Referrals: GAVI HAAS MD (PCP/Family) Primary Care Physician Patient Instructions: NO INSTRUCTIONS GIVEN Add. Discharge Instructions: 1. Continue to take your current medications 2. Follow-up with your doctor next week 3. All discharge instructions reviewed with patient and/or family. Voiced understanding. Work/School Note: Work Release Form Date Seen in the Emergency Department: Dec 02, 2017 Return to Work: Dec 03, 2017 Restrictions: No Restrictions JAYLENE LOYA APRN Dec 02, 2017 13:56
--- NOTE | 2017-12-02 14:21 | Diagnostic Imaging Report ---
INDICATION: Seizure and left hip pain. Time of exam 2:13 PM 2 views of the left hip were obtained. Femoral acetabular alignment is normal. The hip joint space is well maintained. Femoral head and neck are intact. No fractures are seen. The superior and inferior pubic rami are unremarkable. The symphysis is not widened. IMPRESSION: No acute bony abnormality is detected. Dictated by: Dictated on workstation # [id number]
== END | disposition home or self-care (01) ==
LOC: EDUNIT# 13:30 → ER 13:31
DX: S73.102A Unspecified sprain of left hip, initial encounter (principal); G40.909 Epilepsy, unspecified, not intractable, without status epilepticus; F41.9 Anxiety disorder, unspecified; E03.9 Hypothyroidism, unspecified; E11.9 Type 2 diabetes mellitus without complications; G47.30 Sleep apnea, unspecified; Z87.891 Personal history of nicotine dependence; Z79.84 Long term (current) use of oral hypoglycemic drugs; X58.XXXA Exposure to other specified factors, initial encounter
CPT/HCPCS: 73502; 99283

== ENCOUNTER 2017-12-27 20:57 | Emergency (ER) | payer BC ==
[~2017-12-27] VITALS: Ht 182.9 cm; Wt 113.4 kg
[2017-12-27] MEDS ORDERED: LEVETIRACETAM 1,000 MG (KEPPRA) TABLET PO ONE (21:15)
[2017-12-27] MEDS ORDERED: lamoTRIgine 25 MG (LaMICtal) TAB PO ONE (21:15)
[2017-12-27] MEDS ORDERED: LEVETIRACETAM 500 MG (KEPPRA) TAB PO ONE (21:15)
--- NOTE | 2017-12-27 21:31 | Diagnostic Imaging Report ---
PROCEDURE: CT head without contrast. TECHNIQUE: Multiple contiguous axial images were obtained through the brain without the use of intravenous contrast. INDICATION: Seizure. Head injury. COMPARISON: CT head without contrast, 12/12/2016. FINDINGS: No intracranial hemorrhage, mass effect, hydrocephalus or extra-axial fluid collections. No CT evidence of acute infarction. Osseous structures are intact. The paranasal sinuses and mastoids are clear. Small scalp contusion overlying the left frontal bone. IMPRESSION: 1. No acute intracranial CT findings. 2. Small scalp contusion overlying the left frontal bone. No underlying fractures. Dictated by: Dictated on workstation # [id number]
--- NOTE | 2017-12-27 21:35 | ED Neurological Problem ---
General Chief Complaint: Neurological Problems Stated Complaint: INJ Nursing Triage Note: PT BROUGHT IN BY EMS WITH COMPLAINT OF SEIZURE AND HEAD LAC. PT HAS KNOWN HISTORY SEIZURES. STATES HE HAD A SEIZURE TONIGHT AND HIT HIS HEAD ON HIS COUNTER. PT HAS LAC ABOVE HIS LEFT EYE. Nursing Sepsis Screen: No Definite Risk Source: patient, EMS Exam Limitations: no limitations History of Present Illness Date Seen by Provider: Dec 27, 2017 Time Seen by Provider: 20:57 Initial Comments Here with report of seizure. Apparently he was doing dishes when he fell out and he hit the corner you piece of his left upper eyelid on the counter. Has known seizures. He ran out of his medicines but got his meds filled today. He took a dose this morning but is not sure which one. He has not had his evening dose. He does not always have seizures when he runs out of his meds but sometimes. Denies any other new problems or concerns. Here by EMS. Timing/Duration: 1/2 hour Severity: moderate Associated Symptoms: confusion, No nausea/vomiting, seizures Allergies and Home Medications Allergies Coded Allergies: No Known Drug Allergies (Unverified , 03/18/14) Home Medications Clonazepam 0.5 Mg Tablet, 0.5-1 MG PO BID, (Reported) take 1 (.5mg) tab in am take 2 (.5mg) tab in pm Hydrocodone/Acetaminophen 1 Each Tablet, 1 EACH PO Q4H PRN for PAIN-MODERATE TO SEVERE Prescribed by: LUIS POWERS on 10/13/17 0026 Lamotrigine 150 Mg Tablet, 150 MG PO Q12H, (Reported) Levetiracetam 1,000 Mg Tablet, 1,000 MG PO BID, (Reported) take with 5oomg tab for 1500mg total Levothyroxine Sodium 50 Mcg Tablet, 50 MCG PO DAILY, (Reported) Metformin HCl 500 Mg Tablet, 500 MG PO BID, (Reported) [place] 3 Polyunsat Fatty Acids 1,000 Mg Cap, 1,000 MG PO BID, (Reported) Patient Home Medication List Home Medication List Reviewed: Yes Constitutional: see HPI, No chills, No fever Eyes: See HPI, Other (left upper lid injury) Ears, Nose, Mouth, Throat: no symptoms reported Respiratory: no symptoms reported Cardiovascular: no symptoms reported Gastrointestinal: no symptoms reported Genitourinary: no symptoms reported Musculoskeletal: no symptoms reported Skin: see HPI, lesions, No rash Psychiatric/Neurological: Denies Anxiety, Tonic Clonic Seizures All Other Systems Reviewed Negative Unless Noted: Yes Past Gqofeuz-Lvkpov-Fsohzu Hx Patient Social History Alcohol Use: Denies Use Recreational Drug Use: No Smoking Status: Former Smoker Type Used: Cigarettes Former Smoker, Quit: Oct 29, 2009 Recent Foreign Travel: No Contact w/Someone Who Travel: No Recent Infectious Disease Expo: No Recent Hopitalizations: No Immunizations Up To Date Tetanus Booster (TDap): More than 5yrs Date of Influenza Vaccine: May 30, 2015 Seasonal Allergies Seasonal Allergies: Yes Surgeries History of Surgeries: Yes (hernia repair) Respiratory History of Respiratory Disorde: Yes Respiratory Disorders: Sleep Apnea Currently Using CPAP: Yes Cardiovascular History of Cardiac Disorders: No Neurological History of Neurological Disord: Yes Neurological Disorders: Seizure Disorder Reproductive System Hx Reproductive Disorders: No Sexually Transmitted Disease: No Genitourinary History of Genitourinary Disor: No Gastrointestinal History of Gastrointestinal Di: Yes (umb hernia) Musculoskeletal History of Musculoskeletal Dis: No Endocrine History of Endocrine Disorders: Yes (pre=diabetes) Endocrine Disorders: Hypothyroidsim, Diabetes, Non-Insulin dep HEENT History of HEENT Disorders: No Cancer History of Cancer: No Psychosocial History of Psychiatric Problem: Yes Behavioral Health Disorders: Anxiety Integumentary History of Skin or Integumenta: No Blood Transfusions History of Blood Disorders: No Reviewed Nursing Assessment Reviewed/Agree w Nursing PMH: Yes Family Medical History Significant Family History: No Pertinent Family Hx Physical Exam Vital Signs Vital Signs - First Documented 12/27/17 20:57 Temp 98.0 Pulse 103 Resp 20 B/P (MAP) 124/76 (92) Pulse Ox 93 O2 Delivery Room Air Capillary Refill : Less Than 3 Seconds General Appearance: WD/WN, no apparent distress HEENT: PERRL/EOMI, pharynx normal, other (the upper lid with small half centimeter laceration) Neck: full range of motion, supple Respiratory: lungs clear, normal breath sounds Cardiovascular: regular rate, rhythm, no murmur Gastrointestinal: non tender, soft Back: normal inspection, no CVA tenderness, no vertebral tenderness Extremities: non-tender, normal inspection 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: alert, oriented x 3 Crainal Nerves: normal hearing, normal speech, PERRL Motor/Sensory: no motor deficit, no sensory deficit Skin: warm/dry, other (laceration as noted above.) Progress/Results/Core Measures Results/Orders My Orders Orders - EDUAR URIARTE MD Lamotrigine Tablet (Lamictal Tablet) (12/27/17 21:15) Levetiracetam Tablet (Keppra Tablet) (12/27/17 21:15) Levetiracetam Tablet (Keppra Tablet) (12/27/17 21:15) Lamotrigine Tablet (Lamictal Tablet) (12/27/17 21:15) Ct Head Wo (12/27/17 21:15) Medications Given in ED Current Medications Medications Dose Ordered Sig/Warren Route Start Time Stop Time Status Last Admin Dose Admin Lamotrigine 50 mg ONCE ONCE PO 12/27/17 21:15 12/27/17 21:16 DC 12/27/17 21:32 50 MG Lamotrigine 100 mg ONCE ONCE PO 12/27/17 21:15 12/27/17 21:16 DC 12/27/17 21:32 100 MG Levetiracetam 500 mg ONCE ONCE PO 12/27/17 21:15 12/27/17 21:16 DC 12/27/17 21:31 500 MG Levetiracetam 1,000 mg ONCE ONCE PO 12/27/17 21:15 12/27/17 21:16 DC 12/27/17 21:31 1,000 MG Vital Signs/I&O Vital Sign - Last 12Hours 12/27/17 20:57 Temp 98.0 Pulse 103 Resp 20 B/P (MAP) 124/76 (92) Pulse Ox 93 O2 Delivery Room Air Blood Pressure Mean: 92 Progress Note : Progress Note Seen and evaluated. Keppra 1500 mg by mouth ordered. Lamotrigine [address] head ordered. Laceration repaired with glue. Discharged home with return precautions. Patient verbalize understanding instructions and agreement with plan. Tetanus updated Departure Impression Impression: Primary Impression: Seizure Additional Impression: Face lacerations Qualified Codes: S01.81XA - Laceration without foreign body of other part of head, initial encounter Disposition: 01 HOME, SELF-CARE Condition: Improved Departure-Patient Inst. Decision time for Depature: 23:00 Referrals: GAVI HAAS MD (PCP/Family) Primary Care Physician Patient Instructions: Laceration Repair With Glue (DC), Seizures, Adult (DC) Add. Discharge Instructions: All discharge instructions reviewed with patient and/or family. Voiced understanding. Keep area of laceration clean and dry. Take medications as previously prescribed. Follow-up with your doctor this week for recheck and further evaluation. Return for worsening, fever, vomiting, weakness, breathing problems or other concerns as needed. You may return to work on Friday. Work/School Note: Work Release Form Date Seen in the Emergency Department: Dec 27, 2017 Return to Work: Dec 29, 2017 Restrictions: No Restrictions EDUAR URIARTE MD Dec 27, 2017 21:35
[2017-12-27] MEDS ORDERED: TETANUS,DIPTH,PERTUSS P/F (BOOSTRIX) 0.5 ML VIAL IM STA (22:57)
[2017-12-27 23:12] VITALS: BP 124/76
--- OUTSIDE RECORDS SUMMARY | 2017-12-28 05:12 | XMS REPORT | Continuity of Care Document ---
Author Author [facility] Organization [facility] Address Unknown Phone Unavailable Allergies Active Description Code Type Severity Reaction Onset Reported/Identified Relationship to Patient Clinical Status Yes No Known Drug Allergies [id number] Drug Allergy Unknown N/A 03/18/2014 Medications There [...] 12/19/2015 CHAPO ESCALANTE MD Ot Z79.899 OTHER ANIMAL TAXONOMIST (CURRENT) DRUG THERAPY 12/19/2015 KAREN HUNTER DO Ot N46.9 12/20/2015 CHAPO ESCALANTE MD Ot E03.9 12/20/2015 CHAPO ESCALANTE MD Ot G40.909 12/20/2015 CHAPO ESCALANTE MD T Ot Z79.899 12/21/2015 BORIS DELGADO, CHAPO [place] [...] A Ot Y92.[address] TO SINGLE-FAMILY [facility] 01/27/2016 CECILE DELGADO, JAYSHREE A Ot [...] A Ot Y92.[address] TO SINGLE-FAMILY ([facility] 01/29/2016 CECILE DELGADO, JAYSHREE A Ot Y99.8 OTHER EXTERNAL CAUSE STATUS 02/03/2016 DANNA DELGADO, SAYDA Jimenez Ot G47.33 OBSTRUCTIVE SLEEP APNEA (ADULT) (PEDIATR 02/07/2016 SAYDA CLAY MD Ot G47.33 OBSTRUCTIVE SLEEP APNEA (ADULT) (PEDIATR 02/10/2016 SAYDA CLAY MD Ot G47.33 OBSTRUCTIVE SLEEP APNEA (ADULT) (PEDIATR 08/19/2016 KAREN HUNTER DO Ot N46.9 MALE INFERTILITY, UNSPECIFIED 08/19/2016 DANO DELGADO, ASUH Alan Ot E03.9 HYPOTHYROIDISM, UNSPECIFIED 08/19/2016 DANO DELGADO, ASHU Alan Ot E78.5 HYPERLIPIDEMIA, UNSPECIFIED 08/19/2016 DANO DELGADO, ASHU J Ot G40.909 EPILEPSY, UNSP, NOT INTRACTABLE, WITHOUT 08/19/2016 DANO DELGADO, ASHU J Ot G47.30 SLEEP APNEA, UNSPECIFIED 08/19/2016 DANO DELGADO, ASHU J Ot R11.2 NAUSEA WITH VOMITING, UNSPECIFIED 08/19/2016 KALI MATSON MDUS J Ot R73.03 PREDIABETES 08/19/2016 DANO DELGADO, ASHU J Ot Z79.899 OTHER CUSTODIAL (CURRENT) DRUG THERAPY 08/21/2016 KALI MATSON MDUS [...] KALI MATSON MDUS J Ot Z79.899 OTHER ANIMAL TAXONOMIST (CURRENT) DRUG THERAPY 10/29/2016 ROMERO SANFORD DO [...] OR 10/31/2016 ROMERO SANFORD DO Ot Z79.84 ANIMAL TAXONOMIST (CURRENT) USE OF ORAL HYPOGLYC 11/04/2016 ROMERO SANFORD DO Ot E11.9 TYPE 2 DIABETES MELLITUS WITHOUT COMPLIC 11/04/2016 SANFORD DO, ROMERO D Ot K42.9 UMBILICAL HERNIA WITHOUT OBSTRUCTION OR 11/04/2016 SANFORD DO, ROMERO D Ot Z79.84 ANIMAL TAXONOMIST (CURRENT) USE OF ORAL HYPOGLYC 11/05/2016 SANFORD DO, ROMERO D Ot E11.9 TYPE 2 DIABETES MELLITUS WITHOUT COMPLIC 11/05/2016 SANFORD DO, ROMERO D Ot K42.9 UMBILICAL HERNIA WITHOUT OBSTRUCTION OR 11/05/2016 SANFORD DO, ROMERO D Ot Z79.84 CUSTODIAL (CURRENT) USE OF ORAL HYPOGLYC 11/22/2016 HUNTER [...] WITHOUT 12/12/2016 EDUAR URIARTE MD Ot Z79.84 CUSTODIAL (CURRENT) USE OF ORAL HYPOGLYC 12/12/2016 EDUAR URIARTE MD Ot Z79.899 OTHER CUSTODIAL (CURRENT) DRUG THERAPY 12/16/2016 EDUAR URIARTE MD, Ot E11.9 TYPE 2 DIABETES MELLITUS WITHOUT COMPLIC 12/16/2016 EDUAR URIARTE MD Ot G40.909 EPILEPSY, UNSP, NOT INTRACTABLE, WITHOUT 12/16/2016 EDUAR URIARTE MD Ot Z79.84 CUSTODIAL (CURRENT) USE OF ORAL HYPOGLYC 12/16/2016 EDUAR URIARTE MD Ot Z79.899 OTHER CUSTODIAL (CURRENT) DRUG THERAPY 02/03/2017 HUNTER DO, KAREN [...] 05/06/2017 DANO DELGADO, ASHU Alan Ot Z79.84 CUSTODIAL (CURRENT) USE OF ORAL HYPOGLYC 05/06/2017 ASHU [...] 06/22/2017 GALINDO DELGADO, CARLOS Tavera Ot Z79.84 ANIMAL TAXONOMIST (CURRENT) USE OF ORAL HYPOGLYC 06/22/2017 GALINDO [...] FUNCT 08/23/2017 ASHU MATSON MD Ot Z79.84 ANIMAL TAXONOMIST (CURRENT) USE OF ORAL HYPOGLYC 08/26/2017 ASHU [...] FUNCT 08/26/2017 ASHU MATSON MD Ot Z79.84 CUSTODIAL (CURRENT) USE OF ORAL HYPOGLYC 09/10/2017 CHAPO [...] CONVULSIONS 09/10/2017 CHAPO ESCALANTE MD Ot Z79.84 ANIMAL TAXONOMIST (CURRENT) USE OF ORAL HYPOGLYC 09/10/2017 CHAPO [...] OR PAY 10/13/2017 LUIS GATES Ot Z79.84 CUSTODIAL (CURRENT) USE OF ORAL HYPOGLYC 10/13/2017 LUIS [...] OR PAY 10/14/2017 LUIS GATES Ot Z79.84 CUSTODIAL (CURRENT) USE OF ORAL HYPOGLYC 10/14/2017 LUIS [...] UNSPECIFIED 10/30/2017 JAYLENE LOYA APRN Ot Z79.84 CUSTODIAL (CURRENT) USE OF ORAL HYPOGLYC 10/30/2017 JAYLENE LOYA APRN Ot Z87.891 PERSONAL HISTORY OF NICOTINE DEPENDENCE 10/31/2017 KAREN HUNTER DO Ot N46.9 MALE INFERTILITY, UNSPECIFIED 11/20/2017 JAYLENE LOYA APRN Ot E03.9 HYPOTHYROIDISM, UNSPECIFIED 11/20/2017 JAYLENE LOYA APRN Ot E11.9 TYPE 2 DIABETES MELLITUS WITHOUT COMPLIC 11/20/2017 JAYLENE LOYA APRN Ot F41.9 ANXIETY DISORDER, UNSPECIFIED 11/20/2017 JAYLENE LOYA APRN Ot G40.909 EPILEPSY, UNSP, NOT INTRACTABLE, WITHOUT 11/20/2017 JAYLENE LOYA APRN Ot G47.30 SLEEP APNEA, UNSPECIFIED 11/20/2017 JAYLENE LOYA APRN Ot R56.9 UNSPECIFIED CONVULSIONS 11/20/2017 JAYLENE LOYA APRN Ot Z79.84 ANIMAL TAXONOMIST (CURRENT) USE OF ORAL HYPOGLYC 11/20/2017 JAYLENE LOYA APRN Ot Z87.891 PERSONAL HISTORY OF NICOTINE DEPENDENCE 11/24/2017 JAYLENE LOYA APRN Ot E03.9 HYPOTHYROIDISM, UNSPECIFIED 11/24/2017 JAYLENE LOYA APRN Ot E11.9 TYPE 2 DIABETES MELLITUS WITHOUT COMPLIC 11/24/2017 JAYLENE LOYA APRN Ot F41.9 ANXIETY DISORDER, UNSPECIFIED 11/24/2017 JAYLENE LOYA APRN Ot G40.909 EPILEPSY, UNSP, NOT INTRACTABLE, WITHOUT 11/24/2017 JAYLENE LOYA APRN Ot G47.30 SLEEP APNEA, UNSPECIFIED 11/24/2017 JAYLENE LOYA APRN Ot R56.9 UNSPECIFIED CONVULSIONS 11/24/2017 JAYLENE LOYA APRN Ot Z79.84 CUSTODIAL (CURRENT) USE OF ORAL HYPOGLYC 11/24/2017 JAYLENE LOYA APRN Ot Z87.891 PERSONAL HISTORY OF NICOTINE DEPENDENCE 12/02/2017 JAYLENE LOYA APRN Ot E03.9 HYPOTHYROIDISM, UNSPECIFIED 12/02/2017 JAYLENE LOYA APRN Ot E11.9 TYPE 2 DIABETES MELLITUS WITHOUT COMPLIC 12/02/2017 JAYLENE LOYA APRN Ot F41.9 ANXIETY DISORDER, UNSPECIFIED 12/02/2017 JAYLENE LOYA APRN Ot G40.909 EPILEPSY, UNSP, NOT INTRACTABLE, WITHOUT 12/02/2017 JAYLENE LOYA APRN Ot G47.30 SLEEP APNEA, UNSPECIFIED 12/02/2017 JAYLENE LOYA APRN Ot M25.552 PAIN IN LEFT HIP 12/02/2017 JAYLENE LOYA APRN Ot S73.102A UNSPECIFIED SPRAIN OF LEFT HIP, INITIAL 12/02/2017 JAYLENE LOYA APRN Ot X58.XXXA EXPOSURE TO OTHER SPECIFIED FACTORS, INI 12/02/2017 JAYLENE LOYA APRN Ot Z79.84 ANIMAL TAXONOMIST (CURRENT) USE OF ORAL HYPOGLYC 12/02/2017 JAYLENE LOYA APRN Ot Z87.891 PERSONAL HISTORY [...] A AND B ANTIGENS BY IA [facility] Comprehensive metabolic panel - 08/19/16 [...] plasma urea nitrogen/creatinine mass ratio 16 [facility] Serum or plasma creatinine measurement with calculation of estimated glomerular filtration rate > [facility] Serum or plasma glucose measurement [...] NRG Blood erythrocyte morphology finding identification NORMAL NR Comprehensive metabolic panel - 10/30/17 21:34 Serum [...] Status Pt. Type Provider Facility Loc./Unit Complaint [id number] 12/02/2017 13:31:00 12/02/2017 15:07:00 DIS Emergency JAYLENE LOYA APRN [facility] ER HEAD PAIN,HIP PAIN [id number] 11/20/2017 14:07:00 11/20/2017 15:47:00 DIS Emergency JAYLENE LOYA NETWORK RELAY TESTER [facility] ER SEIZURE [id number] 10/30/2017 21:28:00 10/30/2017 23:42:00 DIS Emergency JAYLENE LOYA APRN [facility] ER SEIZURE [id number] 10/12/2017 20:39:00 10/13/2017 00:36:00 DIS Emergency LUIS GATES [facility] ER R FOOT INJ [id number] 09/10/2017 10:31:00 09/10/2017 13:45:00 DIS Emergency CHAPO ESCALANTE MD [facility] ER SEIZURE [id number] 08/23/2017 13:58:00 08/23/2017 16:00:00 DIS Emergency DANO DELGADO, ASHU Alan [facility] ER SEIZURE [id number] 06/22/2017 16:39:00 06/22/2017 18:07:00 DIS Emergency GALINDO DELGADO, CARLOS Tavera [facility] ER SEIZURE [id number] 05/06/2017 21:56:00 05/06/2017 23:30:00 DIS Emergency ASHU MATSON MD [facility] ER SEIZURE-FALL [id number] 12/12/2016 20:25:00 12/12/2016 22:02:00 DIS Emergency EDUAR URIARTE MD [facility] ER POSSIBLE SEIZURE [id number] 10/31/2016 09:27:00 10/31/2016 14:50:00 DIS Outpatient ROMERO SANFORD DO [facility] SDC UMBILICAL HERNIA [id number] 10/29/2016 08:37:00 10/29/2016 09:05:00 DIS Outpatient ROMERO SANFORD DO [facility] PREOP UMBILICAL HERNIA [id number] 08/19/2016 11:19:00 08/19/2016 14:50:00 DIS Emergency ASHU MATSON MD [facility] ER LIGHTHEADED NAUSEA [id number] 02/02/2016 20:45:00 02/03/2016 06:40:00 DIS Outpatient SAYDA CLAY MD [facility] SLEEP OBSTRUCTIVE SLEEP APNEA [id number] 01/27/2016 21:02:00 01/27/2016 22:31:00 DIS Emergency JAYSHREE HUBER MD [facility] ER SEIZURE/FALL [id number] 12/19/2015 21:50:00 12/19/2015 23:31:00 DIS Emergency CHAPO ESCALANTE MD [facility] ER SEIZURE [id number] 11/17/2015 20:50:00 11/18/2015 06:50:00 DIS Outpatient DANNA DELGADO, SAYDA Jimenez [facility] SLEEP OBSERVED APNEAS,SNORING ,SEIZURE,ABN LIMB MOVEMENT [id number] 10/04/2015 13:44:00 10/04/2015 23:59:59 CLS Outpatient KAREN HUNTER DO [facility] LAB INFERTILITY [id number] 09/12/2015 20:42:00 09/12/2015 21:58:00 DIS Emergency GAVI ACEVEDO DO [facility] ER CONGESTION [id number] 03/18/2014 20:01:00 03/18/2014 22:13:00 DIS Emergency KITA OSCAR DO [facility] ER [id number] 05/04/2015 22:47:00 Document Registration
== END 2017-12-27 23:12 | disposition home or self-care (01) ==
LOC: EDUNIT# 20:57 → ER 20:58
DX: S01.111A Laceration without foreign body of right eyelid and periocular area, initial encounter (principal); G40.909 Epilepsy, unspecified, not intractable, without status epilepticus; F41.9 Anxiety disorder, unspecified; E03.9 Hypothyroidism, unspecified; E11.9 Type 2 diabetes mellitus without complications; G47.9 Sleep disorder, unspecified; Z87.891 Personal history of nicotine dependence; Z79.84 Long term (current) use of oral hypoglycemic drugs; W01.198A Fall on same level from slipping, tripping and stumbling with subsequent striking against other object, initial encounter
CPT/HCPCS: 70450; 90471; 90715

== ENCOUNTER 2018-03-01 21:48 | Emergency (ER) | payer BC ==
[~2018-03-01] VITALS: Ht 177.8 cm; Wt 136.1 kg
[~2018-03-01 21:48] MED LIST changes: -METF500T4 PO; +METF500T5 PO
--- OUTSIDE RECORDS SUMMARY | 2018-03-01 21:55 | XMS REPORT | Continuity of Care Document ---
Author Author [facility] Organization [facility] Address Unknown Phone Unavailable Allergies Active Description Code Type Severity Reaction Onset Reported/Identified Relationship to Patient Clinical Status Yes No Known Drug Allergies [id number] Drug Allergy Unknown N/A 03/18/2014 Medications There [...] 12/19/2015 CHAPO ESCALANTE MD Ot Z79.899 OTHER DIRECTOR OF THE BIOPHYSICS FACILITY (CURRENT) DRUG THERAPY 12/19/2015 KAREN HUNTER DO [...] A Ot Y92.[address] TO S[facility] 01/27/2016 CECILE DELGADO, JAYSHREE A [...] A Ot Y92.[address] SINGLE-FAMILY ([facility] 01/29/2016 CECILE DELGADO, JAYSHREE A [...] DANO DELGADO, ASHU J Ot Z79.899 OTHER SKILLED NURSING (CURRENT) DRUG THERAPY 08/21/2016 KALI MATSON MDUS [...] KALI MATSON MDUS J Ot Z79.899 OTHER DIRECTOR OF THE BIOPHYSICS FACILITY (CURRENT) DRUG THERAPY 10/29/2016 ROMERO SANFORD DO Ot K42.9 UMBILICAL HERNIA WITHOUT OBSTRUCTION OR 10/29/2016 ROMERO SANFORD DO Ot Z01.812 ENCOUNTER FOR PREPROCEDURAL LABORATORY E 10/29/2016 ROMERO SANOFRD DO Ot Z11.2 ENCOUNTER FOR SCREENING FOR [...] OR 10/31/2016 ROMERO SANFORD DO Ot Z79.84 DIRECTOR OF THE BIOPHYSICS FACILITY (CURRENT) USE OF ORAL HYPOGLYC 11/04/2016 ROMERO SANFORD DO Ot E11.9 TYPE 2 DIABETES MELLITUS WITHOUT COMPLIC 11/04/2016 SANFORD DO, ROMERO D Ot K42.9 UMBILICAL HERNIA WITHOUT OBSTRUCTION OR 11/04/2016 SANFORD DO, ROMERO D Ot Z79.84 DIRECTOR OF THE BIOPHYSICS FACILITY (CURRENT) USE OF ORAL HYPOGLYC 11/05/2016 SANFORD DO, ROMERO D Ot E11.9 TYPE 2 DIABETES MELLITUS WITHOUT COMPLIC 11/05/2016 SANFORD DO, ROMERO D Ot K42.9 UMBILICAL HERNIA WITHOUT OBSTRUCTION OR 11/05/2016 SANFORD DO, ROMERO D Ot Z79.84 SKILLED NURSING (CURRENT) USE OF ORAL HYPOGLYC 11/22/2016 HUNTER [...] WITHOUT 12/12/2016 EDUAR URIARTE MD Ot Z79.84 SKILLED NURSING (CURRENT) USE OF ORAL HYPOGLYC 12/12/2016 EDUAR URIARTE MD Ot Z79.899 OTHER SKILLED NURSING (CURRENT) DRUG THERAPY 12/16/2016 EDUAR URIARTE MD, Ot E11.9 TYPE 2 DIABETES MELLITUS WITHOUT COMPLIC 12/16/2016 EDUAR URIARTE MD Ot G40.909 EPILEPSY, UNSP, NOT INTRACTABLE, WITHOUT 12/16/2016 EDUAR URIARTE MD Ot Z79.84 SKILLED NURSING (CURRENT) USE OF ORAL HYPOGLYC 12/16/2016 EDUAR URIARTE MD Ot Z79.899 OTHER SKILLED NURSING (CURRENT) DRUG THERAPY 02/03/2017 HUNTER DO, KAREN [...] 05/06/2017 DANO DELGADO, ASHU Alan Ot Z79.84 SKILLED NURSING (CURRENT) USE OF ORAL HYPOGLYC 05/06/2017 ASHU [...] 06/22/2017 GALINDO DELGADO, CARLOS Tavera Ot Z79.84 DIRECTOR OF THE BIOPHYSICS FACILITY (CURRENT) USE OF ORAL HYPOGLYC 06/22/2017 GALINDO [...] FUNCT 08/23/2017 ASHU MATSON MD Ot Z79.84 DIRECTOR OF THE BIOPHYSICS FACILITY (CURRENT) USE OF ORAL HYPOGLYC 08/26/2017 ASHU [...] FUNCT 08/26/2017 ASHU MATSON MD Ot Z79.84 SKILLED NURSING (CURRENT) USE OF ORAL HYPOGLYC 09/10/2017 CHAPO [...] CONVULSIONS 09/10/2017 CHAPO ESCALANTE MD Ot Z79.84 DIRECTOR OF THE BIOPHYSICS FACILITY (CURRENT) USE OF ORAL HYPOGLYC 09/10/2017 CHAPO [...] OR PAY 10/13/2017 LUIS GATES Ot Z79.84 SKILLED NURSING (CURRENT) USE OF ORAL HYPOGLYC 10/13/2017 LUIS [...] OR PAY 10/14/2017 LUIS GATES Ot Z79.84 SKILLED NURSING (CURRENT) USE OF ORAL HYPOGLYC 10/14/2017 LUIS [...] UNSPECIFIED 10/30/2017 JAYLENE LOYA APRN Ot Z79.84 SKILLED NURSING (CURRENT) USE OF ORAL HYPOGLYC 10/30/2017 JAYLENE [...] CONVULSIONS 11/20/2017 JAYLENE LOYA APRN Ot Z79.84 DIRECTOR OF THE BIOPHYSICS FACILITY (CURRENT) USE OF ORAL HYPOGLYC 11/20/2017 JAYLENE [...] CONVULSIONS 11/24/2017 JAYLENE LOYA APRN Ot Z79.84 SKILLED NURSING (CURRENT) USE OF ORAL HYPOGLYC 11/24/2017 JAYLENE [...] G47.30 SLEEP APNEA, UNSPECIFIED 12/02/2017 JAYLENE LOYA GLASS LATHE OPERATOR Ot M25.552 PAIN IN LEFT HIP 12/02/2017 JAYLENE LOYA GLASS LATHE OPERATOR Ot S73.102A UNSPECIFIED SPRAIN OF LEFT HIP, INITIAL 12/02/2017 JAYLENE LOYA GLASS LATHE OPERATOR Ot X58.XXXA EXPOSURE TO OTHER SPECIFIED FACTORS, INI 12/02/2017 JAYLEEN LOYA GLASS LATHE OPERATOR Ot Z79.84 DIRECTOR OF THE BIOPHYSICS FACILITY (CURRENT) USE OF ORAL HYPOGLYC 12/02/2017 JAYLENE LOYA GLASS LATHE OPERATOR Ot Z87.891 PERSONAL HISTORY OF NICOTINE DEPENDENCE 12/27/2017 EDUAR URIARTE MD Ot E03.9 HYPOTHYROIDISM, UNSPECIFIED 12/27/2017 EDUAR URIARTE MD Ot E11.9 TYPE 2 DIABETES MELLITUS WITHOUT COMPLIC 12/27/2017 EDUAR URIARTE MD Ot F41.9 ANXIETY DISORDER, UNSPECIFIED 12/27/2017 EDUAR URIARTE MD Ot G40.909 EPILEPSY, UNSP, NOT INTRACTABLE, WITHOUT 12/27/2017 EDUAR URIARTE MD Ot G47.9 SLEEP DISORDER, UNSPECIFIED 12/27/2017 EDUAR URIARTE MD Ot S01.111A LACERATION W/O FB OF RIGHT EYELID AND PE 12/27/2017 EDUAR URIARTE MD Ot W01.198A FALL SAME LEV FROM SLIP/TRIP W STRIKE AG 12/27/2017 EDUAR URIARTE MD Ot Z79.84 SKILLED NURSING (CURRENT) USE OF ORAL HYPOGLYC 12/27/2017 EDUAR URIARTE MD Ot Z87.891 PERSONAL HISTORY OF NICOTINE DEPENDENCE 12/29/2017 EDUAR URIARTE MD Ot E03.9 HYPOTHYROIDISM, UNSPECIFIED 12/29/2017 EDUAR URIARTE MD Ot E11.9 TYPE 2 DIABETES MELLITUS WITHOUT COMPLIC 12/29/2017 EDUAR URIARTE MD Ot F41.9 ANXIETY DISORDER, UNSPECIFIED 12/29/2017 EDUAR URIARTE MD Ot G40.909 EPILEPSY, UNSP, NOT INTRACTABLE, WITHOUT 12/29/2017 EDUAR URIARTE MD Ot G47.9 SLEEP DISORDER, UNSPECIFIED 12/29/2017 EDUAR URIARTE MD Ot S01.111A LACERATION W/O FB OF RIGHT EYELID AND PE 12/29/2017 EDUAR URIARTE MD Ot W01.198A FALL SAME LEV FROM SLIP/TRIP W STRIKE AG 12/29/2017 EDUAR URIARTE MD Ot Z79.84 DIRECTOR OF THE BIOPHYSICS FACILITY (CURRENT) USE OF ORAL HYPOGLYC 12/29/2017 EDUAR URIARTE MD Ot Z87.891 PERSONAL HISTORY OF NICOTINE DEPENDENCE 01/02/2018 EDUAR URIARTE MD Ot E03.9 HYPOTHYROIDISM, UNSPECIFIED 01/02/2018 EDUAR URIARTE MD Ot E11.9 TYPE 2 DIABETES MELLITUS WITHOUT COMPLIC 01/02/2018 EDUAR URIARTE MD Ot F41.9 ANXIETY DISORDER, UNSPECIFIED 01/02/2018 EDUAR URIARTE MD Ot G40.909 EPILEPSY, UNSP, NOT INTRACTABLE, WITHOUT 01/02/2018 EDUAR URIARTE MD Ot G47.9 SLEEP DISORDER, UNSPECIFIED 01/02/2018 EDUAR URIARTE MD Ot S01.111A LACERATION W/O FB OF RIGHT EYELID AND PE 01/02/2018 EDUAR URIARTE MD Ot W01.198A FALL SAME LEV FROM SLIP/TRIP W STRIKE AG 01/02/2018 EDUAR URIARTE MD, Ot Z79.84 DIRECTOR OF THE BIOPHYSICS FACILITY (CURRENT) USE OF ORAL HYPOGLYC 01/02/2018 EDUAR URIARTE MD Ot Z87.891 PERSONAL HISTORY OF NICOTINE DEPENDENCE 01/14/2018 KAREN HUNTER DO Ot N46.9 MALE INFERTILITY, UNSPECIFIED 02/07/2018 KAREN HUNTER DO Ot N46.9 MALE INFERTILITY, UNSPECIFIED 02/07/2018 JAYLENE LOYA APRN Ot E03.9 HYPOTHYROIDISM, UNSPECIFIED 02/07/2018 JAYLENE LOYA APRN Ot E11.9 TYPE 2 DIABETES MELLITUS WITHOUT COMPLIC 02/07/2018 JAYLENE LOYA APRN Ot F41.9 ANXIETY DISORDER, UNSPECIFIED 02/07/2018 JAYLENE LOYA APRN Ot G40.909 EPILEPSY, UNSP, NOT INTRACTABLE, WITHOUT 02/07/2018 JAYLENE LOYA APRN Ot Z79.84 DIRECTOR OF THE BIOPHYSICS FACILITY (CURRENT) USE OF ORAL HYPOGLYC 02/07/2018 JAYLENE LOYA APRN Ot Z87.891 PERSONAL HISTORY OF NICOTINE DEPENDENCE 02/09/2018 JAYLENE LOYA GLASS LATHE OPERATOR Ot E03.9 HYPOTHYROIDISM, UNSPECIFIED 02/09/2018 JAYLENE LOYA APRN Ot E11.9 TYPE 2 DIABETES MELLITUS WITHOUT COMPLIC 02/09/2018 LOYA JAYLENE Waqas KIRKPATRICK Ot F41.9 ANXIETY DISORDER, UNSPECIFIED 02/09/2018 JAYLENE LOYA APRN Ot G40.909 EPILEPSY, UNSP, NOT INTRACTABLE, WITHOUT 02/09/2018 JAYLENE LOYA APRN Ot Z79.84 DIRECTOR OF THE BIOPHYSICS FACILITY (CURRENT) USE OF ORAL HYPOGLYC 02/09/2018 JAYLENE LOYA APRN Ot Z87.891 PERSONAL HISTORY [...] INFLUENZA A AND B ANTIGENS BY IA [facility] Comprehensive metabolic panel - 08/19/16 12:57 [...] or plasma urea nitrogen/creatinine mass ratio 16 [facility] Serum or plasma creatinine measurement with calculation of estimated glomerular filtration rate > [facility] Serum or plasma glucose measurement (mass/volume) [...] Status Pt. Type Provider Facility Loc./Unit Complaint [id number] 02/07/2018 22:44:00 02/07/2018 23:16:00 DIS Emergency JAYLENE LOYA GLASS LATHE OPERATOR [facility] ER SEIZURE [id number] 12/27/2017 20:58:00 12/27/2017 23:12:00 DIS Emergency EDUAR URIARTE MD [facility] ER INJ FROM SEIZURE [id number] 12/02/2017 13:31:00 12/02/2017 15:07:00 DIS Emergency JAYLENE LOYA APRN [facility] ER HEAD PAIN,HIP PAIN [id number] 11/20/2017 14:07:00 11/20/2017 15:47:00 DIS Emergency JAYLENE LOYA GLASS LATHE OPERATOR [facility] ER SEIZURE [id number] 10/30/2017 21:28:00 10/30/2017 23:42:00 DIS Emergency JAYLENE LOYA GLASS LATHE OPERATOR [facility] ER SEIZURE [id number] 10/12/2017 20:39:00 10/13/2017 00:36:00 DIS Emergency LUIS GATES [facility] ER R FOOT INJ [id number] 09/10/2017 10:31:00 09/10/2017 13:45:00 DIS Emergency CHAPO ESCALANTE MD [facility] ER SEIZURE [id number] 08/23/2017 13:58:00 08/23/2017 16:00:00 DIS Emergency ASHU MATSON MD [facility] ER SEIZURE [id number] 06/22/2017 16:39:00 06/22/2017 18:07:00 DIS Emergency GALINDO DELGADO, CARLOS Tavera [facility] ER SEIZURE [id number] 05/06/2017 21:56:00 05/06/2017 23:30:00 DIS Emergency ASHU MATSON MD [facility] ER SEIZURE-FALL [id number] 12/12/2016 20:25:00 12/12/2016 22:02:00 DIS Emergency EDUAR URIARTE MD [facility] ER POSSIBLE SEIZURE [id number] 10/31/2016 09:27:00 10/31/2016 14:50:00 DIS Outpatient ROMERO SANFORD DO [facility] SDC UMBILICAL HERNIA [id number] 10/29/2016 08:37:00 10/29/2016 09:05:00 DIS Outpatient ROMERO SANFORD DO [facility] PREOP UMBILICAL HERNIA [id number] 08/19/2016 11:19:00 08/19/2016 14:50:00 DIS Emergency ASHU MATSON MD [facility] ER LIGHTHEADED NAUSEA [id number] 02/02/2016 20:45:00 02/03/2016 06:40:00 DIS Outpatient DANNA DELGADO, SAYDA Jimenez [facility] SLEEP OBSTRUCTIVE SLEEP APNEA [id number] 01/27/2016 21:02:00 01/27/2016 22:31:00 DIS Emergency CECILE DELGADO, JAYSHREE An [facility] ER SEIZURE/FALL [id number] 12/19/2015 21:50:00 12/19/2015 23:31:00 DIS Emergency BORIS DELGADO, CHAPO [place] [facility] ER SEIZURE [id number] 11/17/2015 20:50:00 11/18/2015 06:50:00 DIS Outpatient DANNA DELGADO, SAYDA Jimenez [facility] SLEEP OBSERVED APNEAS,SNORING ,SEIZURE,ABN LIMB MOVEMENT [id number] 10/04/2015 13:44:00 10/04/2015 23:59:59 CLS Outpatient KAREN HUNTER DO [facility] LAB INFERTILITY [id number] 09/12/2015 20:42:00 09/12/2015 21:58:00 DIS Emergency GAVI ACEVEDO DO [facility] ER CONGESTION [id number] 03/18/2014 20:01:00 03/18/2014 22:13:00 DIS Emergency KITA OSCAR DO [facility] ER [id number] 05/04/2015 22:47:00 Document Registration
--- NOTE | 2018-03-01 21:57 | ED Neurological Problem ---
General Stated Complaint: SEIZURE Source: patient Exam Limitations: no limitations History of Present Illness Date Seen by Provider: Mar 01, 2018 Time Seen by Provider: 21:45 Initial Comments The patient presents the ER with EMS with a chief complaint that he was at work at [employer] and had a grand mal described seizure by his coworkers. By the time EMS arrived he was postictal. They brought him here where he states that he ran short of 2 of the 3 medicines he uses for his seizures about 2 days ago and got sorted out and picked up today but has not started taking them. He takes Klonopin half a milligram twice a day, Keppra 1500 mg twice a day and lamotrigine. Lamotrigine is the medicine that he did not run out of. He had the medicines with him at [facility] and his plan was to take them [facility] but he had a seizure first. He's having some pain in his upper back but none in his head. He is not on any blood thinners or aspirin. He does not want anything for the pain. He is not having any nausea. He did bite his tongue and he did not have any incontinence of bowel or bladder. He denies giving out any doses, taking any extra doses or suicidal/homicidal intention or ideation. Allergies and Home Medications Allergies Coded Allergies: No Known Drug Allergies (Unverified , 03/18/14) Home Medications Clonazepam 0.5 Mg Tablet, 0.5-1 MG PO BID, (Reported) take 1 (.5mg) tab in am take 2 (.5mg) tab in pm Hydrocodone/Acetaminophen 1 Each Tablet, 1 EACH PO Q4H PRN for PAIN-MODERATE TO SEVERE Prescribed by: LUIS POWERS on 10/13/17 0026 Lamotrigine 150 Mg Tablet, 150 MG PO Q12H, (Reported) Levetiracetam 1,000 Mg Tablet, 1,000 MG PO BID, (Reported) take with 5oomg tab for 1500mg total Levothyroxine Sodium 50 Mcg Tablet, 50 MCG PO DAILY, (Reported) Metformin HCl 500 Mg Tablet, 500 MG PO BID, (Reported) [place] 3 Polyunsat Fatty Acids 1,000 Mg Cap, 1,000 MG PO BID, (Reported) Patient Home Medication List Home Medication List Reviewed: Yes Review of Systems Constitutional: No chills, No diaphoresis Eyes: Denies Blindness, Denies Blurred Vision Ears, Nose, Mouth, Throat: denies ear pain, denies ear discharge, denies nose pain, denies nose discharge, denies epistaxis Respiratory: No cough, No dyspnea on exertion, No short of breath Cardiovascular: No chest pain, No Hx of Intervention, No palpitations Gastrointestinal: No abdominal pain, No constipation, No diarrhea, No nausea Genitourinary: No discharge, No dysuria Musculoskeletal: back pain; No joint pain Skin: No dryness, No pruritus Psychiatric/Neurological: Denies Cognitive Dysfunction, Denies Headache, Denies Numbness; Tonic Clonic Seizures Past Rmlaiog-Oegyqg-Exgarq Hx Patient Social History Alcohol Use: Denies Use Recreational Drug Use: No Smoking Status: Former Smoker Type Used: Cigarettes Former Smoker, Quit: Oct 29, 2009 Recent Hopitalizations: No Immunizations Up To Date Tetanus Booster (TDap): More than 5yrs Date of Influenza Vaccine: May 30, 2015 Seasonal Allergies Seasonal Allergies: Yes Past Medical History Surgeries: Yes (hernia repair) Respiratory: Yes Sleep Apnea Currently Using CPAP: Yes Cardiac: No Neurological: Yes Seizure Disorder Reproductive Disorders: No Sexually Transmitted Disease: No Genitourinary: No Gastrointestinal: Yes (umb hernia) Musculoskeletal: No Endocrine: Yes (pre=diabetes) Hypothyroidsim, Diabetes, Non-Insulin dep HEENT: No Cancer: No Psychosocial: Yes Anxiety Integumentary: No Blood Disorders: No Family Medical History No Pertinent Family Hx Physical Exam Vital Signs Capillary Refill : General Appearance: WD/WN, no apparent distress HEENT: PERRL/EOMI, normal ENT inspection, TMs normal, pharynx normal, other ( no hemotympanum, Rankin sign or raccoon eyes.) Neck: non-tender, full range of motion, supple, normal inspection Respiratory: chest non-tender, lungs clear, normal breath sounds, no respiratory distress, no accessory muscle use Cardiovascular: normal peripheral pulses, regular rate, rhythm, no edema Peripheral Pulses: 2+ Radial Pulses (R), 2+ Radial Pulses (L) Gastrointestinal: normal bowel sounds, non tender, soft Back: normal inspection, no vertebral tenderness Extremities: normal range of motion, non-tender, normal inspection, normal capillary refill 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: alert, normal mood/affect, oriented x 3 Crainal Nerves: normal hearing, normal speech, PERRL Coordination/Gait: normal gait Motor/Sensory: no motor deficit, no sensory deficit Skin: normal color, warm/dry Progress/Results/Core Measures Results/Orders Lab Results Laboratory Tests Test 03/01/18 21:52 Range/Units White Blood Count 10.9 4.3-11.0 10^3/uL Red Blood Count 4.79 4.35-5.85 10^6/uL Hemoglobin 13.8 13.3-17.7 G/DL Hematocrit 40 40-54 % Mean Corpuscular Volume 84 80-99 FL Mean Corpuscular Hemoglobin 29 25-34 PG Mean Corpuscular Hemoglobin Concent 34 32-36 G/DL Red Cell Distribution Width 13.2 10.0-14.5 % Platelet Count 381 130-400 10^3/uL Mean Platelet Volume 9.6 7.4-10.4 FL Neutrophils (%) (Auto) 58 42-75 % Lymphocytes (%) (Auto) 32 12-44 % Monocytes (%) (Auto) 8 0-12 % Eosinophils (%) (Auto) 1 0-10 % Basophils (%) (Auto) 0 0-10 % Neutrophils # (Auto) 6.3 1.8-7.8 X 10^3 Lymphocytes # (Auto) 3.5 1.0-4.0 X 10^3 Monocytes # (Auto) 0.9 0.0-1.0 X 10^3 Eosinophils # (Auto) 0.1 0.0-0.3 10^3/uL Basophils # (Auto) 0.0 0.0-0.1 10^3/uL Sodium Level 141 135-145 MMOL/L Potassium Level 4.2 3.6-5.0 MMOL/L Chloride Level 109 H 98-107 MMOL/L Carbon Dioxide Level 11 L 21-32 MMOL/L Anion Gap 21 H 5-14 MMOL/L Blood Urea Nitrogen 15 7-18 MG/DL Creatinine 1.07 0.60-1.30 MG/DL Estimat Glomerular Filtration Rate > 60 BUN/Creatinine Ratio 14 Glucose Level 141 H 70-105 MG/DL Calcium Level 9.5 8.5-10.1 MG/DL Total Bilirubin 0.3 0.1-1.0 MG/DL Aspartate Amino Transf (AST/SGOT) 15 5-34 U/L Alanine Aminotransferase (ALT/SGPT) 24 0-55 U/L Alkaline Phosphatase 78 40-136 U/L Total Protein 8.2 6.4-8.2 GM/DL Albumin 4.7 H 3.2-4.5 GM/DL My Orders Orders - ASHU MATSON Cbc With Automated Diff (03/01/18 21:51) Comprehensive Metabolic Panel (03/01/18 21:51) Levetiracetam Tablet (Keppra Tablet) (03/01/18 22:00) Medications Given in ED Current Medications Medications Dose Ordered Sig/Warren Route Start Time Stop Time Status Last Admin Dose Admin Levetiracetam 2,000 mg ONCE ONCE PO 03/01/18 22:00 03/01/18 22:01 DC 03/01/18 22:14 2,000 MG Progress Progress Note : Time: 21:57 Progress Note We'll check some basic labs give him 2 g of Keppra which would help catch him up on his missed doses in and have him restart his Klonopin when he gets home and his Keppra tomorrow morning. Plan to follow up with in the next few weeks. Departure Impression Primary Impression: Seizure Disposition: 01 HOME, SELF-CARE Condition: Improved Departure-Patient Inst. Decision time for Depature: 22:32 Referrals: GAVI HAAS MD (PCP/Family) Primary Care Physician Patient Instructions: Seizures, Adult (DC) Add. Discharge Instructions: Take your Klonopin when you get home. Resume your other medications normal dosing starting tomorrow morning. Work/School Note: Work Release Form Date Seen in the Emergency Department: Mar 01, 2018 Return to Work: Mar 03, 2018 Restrictions: No Restrictions ASHU MATSON Mar 01, 2018 21:57
[2018-03-01 22:00] LABS: BASOPHILS % (AUTO) 0 % (0-10); EOSINOPHILS # (AUTO) 0.1 10^3/uL (0.0-0.3); EOSINOPHILS % (AUTO) 1 % (0-10); HEMATOCRIT 40 % (40-54); HEMOGLOBIN 13.8 G/DL (13.3-17.7); LYMPHOCYTES # (AUTO) 3.5 X 10^3 (1.0-4.0); LYMPHOCYTES % (AUTO) 32 % (12-44); MEAN CORPUSCULAR HEMOGLOBIN 29 PG (25-34); MEAN CORPUSCULAR HGB CONC 34 G/DL (32-36); MEAN CORPUSCULAR VOLUME 84 FL (80-99); MEAN PLATELET VOLUME 9.6 FL (7.4-10.4); MONOCYTES # (AUTO) 0.9 X 10^3 (0.0-1.0); MONOCYTES % (AUTO) 8 % (0-12); NEUTROPHILS # (AUTO) 6.3 X 10^3 (1.8-7.8); NEUTROPHILS % (AUTO) 58 % (42-75); PLATELET COUNT 381 10^3/uL (130-400); RED BLOOD COUNT 4.79 10^6/uL (4.35-5.85); RED CELL DISTRIBUTION WIDTH 13.2 % (10.0-14.5); WHITE BLOOD COUNT 10.9 10^3/uL (4.3-11.0)
[2018-03-01] MEDS ORDERED: LEVETIRACETAM 1,000 MG (KEPPRA) TABLET PO ONE (22:00)
[2018-03-01 22:20] LABS: ALANINE AMINOTRANSFERASE 24 U/L (0-55); ALBUMIN 4.7 GM/DL (3.2-4.5); ALKALINE PHOSPHATASE 78 U/L (40-136); BILIRUBIN,TOTAL 0.3 MG/DL (0.1-1.0); BUN/CREATININE RATIO 14; CALCIUM 9.5 MG/DL (8.5-10.1); CARBON DIOXIDE 11 MMOL/L (21-32); CHLORIDE 109 MMOL/L (98-107); CREATININE SERUM 1.07 MG/DL (0.60-1.30); GFR ESTIMATED > 60; GLUCOSE 141 MG/DL (70-105); POTASSIUM 4.2 MMOL/L (3.6-5.0); SODIUM 141 MMOL/L (135-145); TOTAL PROTEIN 8.2 GM/DL (6.4-8.2)
[2018-03-01 22:41] VITALS: BP 129/79
== END 2018-03-01 22:41 | disposition home or self-care (01) ==
LOC: EDUNIT# 21:48 → ER 21:50
DX: G40.909 Epilepsy, unspecified, not intractable, without status epilepticus (principal); G47.30 Sleep apnea, unspecified; E03.9 Hypothyroidism, unspecified; F41.9 Anxiety disorder, unspecified; E11.9 Type 2 diabetes mellitus without complications; Z87.19 Personal history of other diseases of the digestive system; Z87.891 Personal history of nicotine dependence; Z79.84 Long term (current) use of oral hypoglycemic drugs
CPT/HCPCS: 36415; 80053; 85025; 99283

== ENCOUNTER 2018-05-29 11:51 | Emergency (ER) | payer BC ==
[~2018-05-29] VITALS: Ht 177.8 cm; Wt 136.1 kg
[~2018-05-29 11:51] MED LIST changes: -BENZ-13 PO; +BENZ100C18 PO; +CLON0.5T13 PO; -CLON0.5T3 PO; +METF-397 PO; -METF500T5 PO
--- OUTSIDE RECORDS SUMMARY | 2018-05-29 11:58 | XMS REPORT | Continuity of Care Document ---
Author Author [facility] Organization [facility] Address Unknown Phone Unavailable Allergies Active Description Code Type Severity Reaction Onset Reported/Identified Relationship to Patient Clinical Status Yes No Known Drug Allergies [id number] Drug Allergy Unknown N/A 03/18/2014 Medications There [...] 12/19/2015 CHAPO ESCALANTE MD Ot Z79.899 OTHER WELDER PRODUCTION LINE COMBINATION (CURRENT) DRUG THERAPY 12/19/2015 KAREN HUNTER DO [...] A Ot Y92.[address] TO SING[facility]FAMILY [facility] 01/27/2016 CECILE DELGADO, JAYSHREE A Ot [...] A Ot Y92.[address] SING[facility]-FAMILY ([facility] 01/29/2016 CECILE DELGADO, JAYSHREE A Ot [...] DANO DELGADO, ASHU J Ot Z79.899 OTHER CORRECTION (CURRENT) DRUG THERAPY 08/21/2016 KALI MATSON MDUS [...] KALI MATSON MDUS J Ot Z79.899 OTHER WELDER PRODUCTION LINE COMBINATION (CURRENT) DRUG THERAPY 10/29/2016 ROMERO SANFORD DO [...] OR 10/31/2016 ROMERO SANFORD DO Ot Z79.84 WELDER PRODUCTION LINE COMBINATION (CURRENT) USE OF ORAL HYPOGLYC 11/04/2016 ROMERO SANFORD DO Ot E11.9 TYPE 2 DIABETES MELLITUS WITHOUT COMPLIC 11/04/2016 SANFORD DO, ROMERO D Ot K42.9 UMBILICAL HERNIA WITHOUT OBSTRUCTION OR 11/04/2016 SANFORD DO, ROMERO D Ot Z79.84 WELDER PRODUCTION LINE COMBINATION (CURRENT) USE OF ORAL HYPOGLYC 11/05/2016 SANFORD DO, ROMERO D Ot E11.9 TYPE 2 DIABETES MELLITUS WITHOUT COMPLIC 11/05/2016 SANFORD DO, ROMERO D Ot K42.9 UMBILICAL HERNIA WITHOUT OBSTRUCTION OR 11/05/2016 SANFORD DO, ROMERO D Ot Z79.84 CORRECTION (CURRENT) USE OF ORAL HYPOGLYC 11/22/2016 HUNTER [...] WITHOUT 12/12/2016 EDUAR URIARTE MD Ot Z79.84 CORRECTION (CURRENT) USE OF ORAL HYPOGLYC 12/12/2016 EDUAR URIARTE MD Ot Z79.899 OTHER CORRECTION (CURRENT) DRUG THERAPY 12/16/2016 EDUAR URIARTE MD, Ot E11.9 TYPE 2 DIABETES MELLITUS WITHOUT COMPLIC 12/16/2016 EDUAR URIARTE MD Ot G40.909 EPILEPSY, UNSP, NOT INTRACTABLE, WITHOUT 12/16/2016 EDUAR URIARTE MD Ot Z79.84 CORRECTION (CURRENT) USE OF ORAL HYPOGLYC 12/16/2016 EDUAR URIARTE MD Ot Z79.899 OTHER CORRECTION (CURRENT) DRUG THERAPY 02/03/2017 HUNTER DO, KAREN [...] 05/06/2017 DANO DELGADO, ASHU Alan Ot Z79.84 CORRECTION (CURRENT) USE OF ORAL HYPOGLYC 05/06/2017 ASHU [...] 06/22/2017 GALINDO DELGADO, CARLOS Tavera Ot Z79.84 WELDER PRODUCTION LINE COMBINATION (CURRENT) USE OF ORAL HYPOGLYC 06/22/2017 GALINDO [...] FUNCT 08/23/2017 ASHU MATSON MD Ot Z79.84 WELDER PRODUCTION LINE COMBINATION (CURRENT) USE OF ORAL HYPOGLYC 08/26/2017 ASHU [...] FUNCT 08/26/2017 ASHU MATSON MD Ot Z79.84 CORRECTION (CURRENT) USE OF ORAL HYPOGLYC 09/10/2017 CHAPO [...] CONVULSIONS 09/10/2017 CHAPO ESCALANTE MD Ot Z79.84 WELDER PRODUCTION LINE COMBINATION (CURRENT) USE OF ORAL HYPOGLYC 09/10/2017 CHAPO [...] OR PAY 10/13/2017 LUIS GATES Ot Z79.84 CORRECTION (CURRENT) USE OF ORAL HYPOGLYC 10/13/2017 LUIS [...] OR PAY 10/14/2017 LUIS GATES Ot Z79.84 CORRECTION (CURRENT) USE OF ORAL HYPOGLYC 10/14/2017 LUIS [...] UNSPECIFIED 10/30/2017 JAYLENE LOYA APRN Ot Z79.84 CORRECTION (CURRENT) USE OF ORAL HYPOGLYC 10/30/2017 JAYLENE [...] CONVULSIONS 11/20/2017 JAYLENE LOYA APRN Ot Z79.84 WELDER PRODUCTION LINE COMBINATION (CURRENT) USE OF ORAL HYPOGLYC 11/20/2017 JAYLENE [...] CONVULSIONS 11/24/2017 JAYLENE LOYA APRN Ot Z79.84 CORRECTION (CURRENT) USE OF ORAL HYPOGLYC 11/24/2017 JAYLENE LYOA APRN Ot Z87.891 PERSONAL HISTORY OF NICOTINE DEPENDENCE 12/02/2017 JAYLENE LOYA APRN Ot E03.9 HYPOTHYROIDISM, UNSPECIFIED 12/02/2017 JAYLENE LOYA APRN Ot E11.9 TYPE 2 DIABETES MELLITUS WITHOUT COMPLIC 12/02/2017 JAYLENE LOYA APRN Ot F41.9 ANXIETY DISORDER, UNSPECIFIED 12/02/2017 JAYLENE LOYA APRN Ot G40.909 EPILEPSY, UNSP, NOT INTRACTABLE, WITHOUT 12/02/2017 JAYLENE LOYA APRN Ot G47.30 SLEEP APNEA, UNSPECIFIED 12/02/2017 JAYLENE LOYA RELIGIOUS ACTIVITIES DIRECTOR Ot M25.552 PAIN IN LEFT HIP 12/02/2017 JAYLENE LOYA RELIGIOUS ACTIVITIES DIRECTOR Ot S73.102A UNSPECIFIED SPRAIN OF LEFT HIP, INITIAL 12/02/2017 JAYLENE LOYA RELIGIOUS ACTIVITIES DIRECTOR Ot X58.XXXA EXPOSURE TO OTHER SPECIFIED FACTORS, INI 12/02/2017 JAYLENE LOYA RELIGIOUS ACTIVITIES DIRECTOR Ot Z79.84 WELDER PRODUCTION LINE COMBINATION (CURRENT) USE OF ORAL HYPOGLYC 12/02/2017 JAYLENE LOYA RELIGIOUS ACTIVITIES DIRECTOR Ot Z87.891 PERSONAL HISTORY OF NICOTINE DEPENDENCE 12/27/2017 EDUAR UIRARTE MD Ot E03.9 HYPOTHYROIDISM, UNSPECIFIED 12/27/2017 EDUAR [...] AG 12/27/2017 EDUAR URIARTE MD Ot Z79.84 CORRECTION (CURRENT) USE OF ORAL HYPOGLYC 12/27/2017 EDUAR [...] AG 12/29/2017 EDUAR URIARTE MD Ot Z79.84 WELDER PRODUCTION LINE COMBINATION (CURRENT) USE OF ORAL HYPOGLYC 12/29/2017 EDUAR [...] AG 01/02/2018 EDUAR URIARTE MD, Ot Z79.84 WELDER PRODUCTION LINE COMBINATION (CURRENT) USE OF ORAL HYPOGLYC 01/02/2018 EDUAR [...] WITHOUT 02/07/2018 JAYLENE LOYA APRN Ot Z79.84 WELDER PRODUCTION LINE COMBINATION (CURRENT) USE OF ORAL HYPOGLYC 02/07/2018 JAYLENE LOYA APRN Ot Z87.891 PERSONAL HISTORY OF NICOTINE DEPENDENCE 02/09/2018 JAYLENE LOYA RELIGIOUS ACTIVITIES DIRECTOR Ot E03.9 HYPOTHYROIDISM, UNSPECIFIED 02/09/2018 JAYLENE LOYA RELIGIOUS ACTIVITIES DIRECTOR Ot E11.9 TYPE 2 DIABETES MELLITUS WITHOUT COMPLIC 02/09/2018 JAYLENE LOYA RELIGIOUS ACTIVITIES DIRECTOR Ot F41.9 ANXIETY DISORDER, UNSPECIFIED 02/09/2018 JAYLENE LOYA RELIGIOUS ACTIVITIES DIRECTOR Ot G40.909 EPILEPSY, UNSP, NOT INTRACTABLE, WITHOUT 02/09/2018 JAYLENE LOYA RELIGIOUS ACTIVITIES DIRECTOR Ot Z79.84 WELDER PRODUCTION LINE COMBINATION (CURRENT) USE OF ORAL HYPOGLYC 02/09/2018 JAYLENE LOYA RELIGIOUS ACTIVITIES DIRECTOR Ot Z87.891 PERSONAL HISTORY OF NICOTINE DEPENDENCE 03/01/2018 ASHU MATSON MD Ot E03.9 HYPOTHYROIDISM, UNSPECIFIED 03/01/2018 ASHU MATSON MD J Ot E11.9 TYPE 2 DIABETES MELLITUS WITHOUT COMPLIC 03/01/2018 ASHU MATSON MD Ot F41.9 ANXIETY DISORDER, UNSPECIFIED 03/01/2018 ASHU MATSON MD J Ot G40.909 EPILEPSY, UNSP, NOT INTRACTABLE, WITHOUT 03/01/2018 ASHU MATSON MD J Ot G47.30 SLEEP APNEA, UNSPECIFIED 03/01/2018 ASHU MATSON MD Ot Z79.84 CORRECTION (CURRENT) USE OF ORAL HYPOGLYC 03/01/2018 ASHU MATSON MD J Ot Z87.19 PERSONAL HISTORY OF OTHER DISEASES OF TH 03/01/2018 ASHU MATSON MD J Ot Z87.891 PERSONAL HISTORY OF NICOTINE DEPENDENCE 03/03/2018 ASHU MATSON MD Ot E03.9 HYPOTHYROIDISM, UNSPECIFIED 03/03/2018 ASHU MATSON MD J Ot E11.9 TYPE 2 DIABETES MELLITUS WITHOUT COMPLIC 03/03/2018 ASHU MATSON MD Ot F41.9 ANXIETY DISORDER, UNSPECIFIED 03/03/2018 ASHU MATSON MD J Ot G40.909 EPILEPSY, UNSP, NOT INTRACTABLE, WITHOUT 03/03/2018 ASHU MATSON MD J Ot G47.30 SLEEP APNEA, UNSPECIFIED 03/03/2018 ASHU MATSON MD J Ot Z79.84 CORRECTION (CURRENT) USE OF ORAL HYPOGLYC 03/03/2018 ASHU MATSON MD Ot Z87.19 PERSONAL HISTORY OF OTHER DISEASES OF 03/03/2018 DANO DELGADO, ASHU Alan Ot Z87.891 PERSONAL HISTORY OF NICOTINE DEPENDENCE [...] FOR INFLUENZA A AND B ANTIGENS BY [facility] Comprehensive metabolic panel - 08/19/16 [...] NRG Serum or plasma glucose measurement (mass/volume) 167 [...] NRG Blood erythrocyte morphology finding identification [facility] Comprehensive metabolic panel - 10/30/17 21:34 Serum [...] automated white blood cell (WBC) differential - 03/01/18 21:52 Blood leukocytes automated count (number/volume) 10.9 10*3/uL 4.3-11.0 Blood erythrocytes automated count (number/volume) 4.79 10*6/uL 4.35-5.85 Venous blood hemoglobin measurement (mass/volume) 13.8 g/dL 13.3-17.7 Blood hematocrit (volume fraction) 40 % 40-54 Automated erythrocyte mean corpuscular volume 84 [foz_us] 80-99 Automated erythrocyte mean corpuscular hemoglobin (mass per erythrocyte) 29 pg 25-34 Automated erythrocyte mean corpuscular hemoglobin concentration measurement ( mass/volume) 34 g/dL 32-36 Automated erythrocyte distribution width ratio 13.2 % 10.0-14.5 Automated blood platelet count (count/volume) 381 10*3/uL 130-400 Automated blood platelet mean volume measurement 9.6 [foz_us] 7.4-10.4 Automated blood neutrophils/100 leukocytes 58 % 42-75 Automated blood lymphocytes/100 leukocytes 32 % 12-44 Blood monocytes/100 leukocytes 8 % 0-12 Automated blood eosinophils/100 leukocytes 1 % 0-10 Automated blood basophils/100 leukocytes 0 % 0-10 Blood neutrophils automated count (number/volume) 6.3 10*3 1.8-7.8 Blood lymphocytes automated count (number/volume) 3.5 10*3 1.0-4.0 Blood monocytes automated count (number/volume) 0.9 10*3 0.0-1.0 Automated eosinophil count 0.1 10*3/uL 0.0-0.3 Automated blood basophil count (count/volume) 0.0 10*3/uL 0.0-0.1 Comprehensive metabolic panel - 03/01/18 21:52 Serum or plasma sodium measurement (moles/volume) 141 mmol/L 135-145 Serum or plasma potassium measurement (moles/volume) 4.2 mmol/L 3.6-5.0 Serum or plasma chloride measurement (moles/volume) 109 mmol/L 98-107 Carbon dioxide 11 mmol/L 21-32 Serum or plasma anion gap determination (moles/volume) 21 mmol/L 5-14 Serum or plasma urea nitrogen measurement (mass/volume) 15 mg/dL 7-18 Serum or plasma creatinine measurement (mass/volume) 1.07 mg/dL 0.60-1.30 Serum or plasma urea nitrogen/creatinine mass ratio 14 NRG Serum or plasma creatinine measurement with calculation of estimated glomerular filtration rate > NRG Serum or plasma glucose measurement (mass/volume) 141 mg/dL 70-105 Serum or plasma calcium measurement (mass/volume) 9.5 mg/dL 8.5-10.1 Serum or plasma total bilirubin measurement (mass/volume) 0.3 mg/dL 0.1-1.0 Serum or plasma alkaline phosphatase measurement (enzymatic activity/volume) 78 U/L 40-136 Serum or plasma aspartate aminotransferase measurement (enzymatic activity/ volume) 15 U/L 5-34 Serum or plasma alanine aminotransferase measurement (enzymatic activity/volume ) 24 U/L 0-55 Serum or plasma protein measurement (mass/volume) 8.2 g/dL 6.4-8.2 Serum or plasma albumin measurement (mass/volume) 4.7 g/dL 3.2-4.5 Encounters ACCT No. Visit Date/Time Discharge Status Pt. Type Provider Facility Loc./Unit Complaint [id number] 03/01/2018 21:50:00 03/01/2018 22:41:00 DIS Emergency DANO DELGADO, ASHU Alan [facility] ER SEIZURE [id number] 02/07/2018 22:44:00 02/07/2018 23:16:00 DIS Emergency JAYLENE LOYA RELIGIOUS ACTIVITIES DIRECTOR [facility] ER SEIZURE [id number] 12/27/2017 20:58:00 12/27/2017 23:12:00 DIS Emergency EDUAR URIARTE MD [facility] ER INJ FROM SEIZURE [id number] 12/02/2017 13:31:00 12/02/2017 15:07:00 DIS Emergency JAYLENE LOYA APRN [facility] ER HEAD PAIN,HIP PAIN [id number] 11/20/2017 14:07:00 11/20/2017 15:47:00 DIS Emergency JAYLENE LOYA APRN [facility] ER SEIZURE [id number] 10/30/2017 21:28:00 10/30/2017 23:42:00 DIS Emergency JAYLENE LOYA APRN [facility] ER SEIZURE [id number] 10/12/2017 20:39:00 10/13/2017 00:36:00 DIS Emergency LUIS GATES [facility] ER R FOOT INJ [id number] 09/10/2017 10:31:00 09/10/2017 13:45:00 DIS Emergency CHAPO ESCALANTE MD [facility] ER SEIZURE [id number] 08/23/2017 13:58:00 08/23/2017 16:00:00 DIS Emergency ASHU MATSON MD [facility] ER SEIZURE [id number] 06/22/2017 16:39:00 06/22/2017 18:07:00 DIS Emergency GALINDO DELGADO, CARLOS Tavera [facility] ER SEIZURE [id number] 05/06/2017 21:56:00 05/06/2017 23:30:00 DIS Emergency ASHU MATSON MD [facility] ER SEIZURE-FALL [id number] 12/12/2016 20:25:00 12/12/2016 22:02:00 DIS Emergency EDUAR URIARTE MD [facility] ER POSSIBLE SEIZURE [id number] 10/31/2016 09:27:00 10/31/2016 14:50:00 DIS Outpatient ROMERO SANFORD DO [facility] SDC UMBILICAL HERNIA [id number] 10/29/2016 08:37:00 10/29/2016 09:05:00 DIS Outpatient ROMERO SANFORD DO [facility] PREOP UMBILICAL HERNIA [id number] 08/19/2016 11:19:00 08/19/2016 14:50:00 DIS Emergency DANO DELGADO, ASHU lAan [facility] ER LIGHTHEADED NAUSEA [id number] 02/02/2016 20:45:00 02/03/2016 06:40:00 DIS Outpatient DANNA DELGADO, SAYDA Jimenez [facility] SLEEP OBSTRUCTIVE SLEEP APNEA [id number] 01/27/2016 21:02:00 01/27/2016 22:31:00 DIS Emergency CECILE DELGADO, JAYSHREE An [facility] ER SEIZURE/FALL [id number] 12/19/2015 21:50:00 12/19/2015 23:31:00 DIS Emergency BORIS DELGADO, CHAPO Dover [facility] ER SEIZURE [id number] 11/17/2015 20:50:00 11/18/2015 06:50:00 DIS Outpatient DANNA DELGADO, SAYDA Jimenez [facility] SLEEP OBSERVED APNEAS,SNORING ,SEIZURE,ABN LIMB MOVEMENT [id number] 10/04/2015 13:44:00 10/04/2015 23:59:59 CLS Outpatient KAREN HUNTER DO [facility] LAB INFERTILITY [id number] 09/12/2015 20:42:00 09/12/2015 21:58:00 DIS Emergency GAVI ACEVEDO DO [facility] ER CONGESTION [id number] 03/18/2014 20:01:00 03/18/2014 22:13:00 DIS Emergency KITA OSCAR DO [facility] ER [id number] 05/04/2015 22:47:00 Document Registration
[2018-05-29 12:21] LABS: BASOPHILS % (AUTO) 0 % (0-10); EOSINOPHILS # (AUTO) 0.2 10^3/uL (0.0-0.3); EOSINOPHILS % (AUTO) 3 % (0-10); HEMATOCRIT 40 % (40-54); HEMOGLOBIN 13.6 G/DL (13.3-17.7); LYMPHOCYTES # (AUTO) 1.8 X 10^3 (1.0-4.0); LYMPHOCYTES % (AUTO) 27 % (12-44); MEAN CORPUSCULAR HEMOGLOBIN 29 PG (25-34); MEAN CORPUSCULAR HGB CONC 34 G/DL (32-36); MEAN CORPUSCULAR VOLUME 85 FL (80-99); MEAN PLATELET VOLUME 9.8 FL (7.4-10.4); MONOCYTES # (AUTO) 0.5 X 10^3 (0.0-1.0); MONOCYTES % (AUTO) 7 % (0-12); NEUTROPHILS # (AUTO) 4.1 X 10^3 (1.8-7.8); NEUTROPHILS % (AUTO) 63 % (42-75); PLATELET COUNT 363 10^3/uL (130-400); RED BLOOD COUNT 4.74 10^6/uL (4.35-5.85); RED CELL DISTRIBUTION WIDTH 13.1 % (10.0-14.5); WHITE BLOOD COUNT 6.5 10^3/uL (4.3-11.0)
[2018-05-29 12:36] LABS: ALANINE AMINOTRANSFERASE 23 U/L (0-55); ALBUMIN 4.3 GM/DL (3.2-4.5); ALKALINE PHOSPHATASE 76 U/L (40-136); BILIRUBIN,TOTAL 0.3 MG/DL (0.1-1.0); BUN/CREATININE RATIO 19; CALCIUM 9.4 MG/DL (8.5-10.1); CARBON DIOXIDE 15 MMOL/L (21-32); CHLORIDE 108 MMOL/L (98-107); GFR ESTIMATED > 60; GLUCOSE 155 MG/DL (70-105); MAGNESIUM 2.5 MG/DL (1.8-2.4); SODIUM 136 MMOL/L (135-145); TOTAL PROTEIN 7.8 GM/DL (6.4-8.2)
[2018-05-29 12:57] LABS: FREE T4 (FREE THYROXINE) 0.93 NG/DL (0.70-1.48)
--- NOTE | 2018-05-29 13:22 | ED Neurological Problem ---
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 REPORTS IS TAKING HIS MEDS FOR SEIZURE. Nursing Sepsis Screen: No Definite Risk Source: patient, EMS, old records Exam Limitations: no limitations History of Present Illness Date Seen by Provider: May 29, 2018 Time Seen by Provider: 11:50 Initial Comments This 32-year-old young man presents to the emergency room via EMS after having a seizure in his home. He reports his last seizure was about 3 months ago. His seizures usually happen when he is late taking his medications. He did take his medications a little late this morning. Blood sugar for EMS was 135. They report he was in a post ictal state upon their initial assessment. He appears perhaps slightly postictal at this time but is alert and oriented. Patient takes clonazepam, Lamictal, Keppra, and metformin. He denies any symptoms or signs of illness prior to the seizure. There is no obvious injury. Patient denies any pain at this time. Seizure occurred in the kitchen. He has a small laceration/skin avulsion adjacent to the toenail on the right great toe. Allergies and Home Medications Allergies Coded Allergies: No Known Drug Allergies (Unverified , 03/18/14) Home Medications Clonazepam 0.5 Mg Tablet, 0.5-1 MG PO BID, (Reported) take 1 (.5mg) tab in am take 2 (.5mg) tab in pm Hydrocodone/Acetaminophen 1 Each Tablet, 1 EACH PO Q4H PRN for PAIN-MODERATE TO SEVERE Prescribed by: LUIS POWERS on 10/13/17 0026 Lamotrigine 150 Mg Tablet, 150 MG PO Q12H, (Reported) Levetiracetam 1,000 Mg Tablet, 1,000 MG PO BID, (Reported) take with 5oomg tab for 1500mg total Levothyroxine Sodium 50 Mcg Tablet, 50 MCG PO DAILY, (Reported) Metformin HCl 500 Mg Tablet, 500 MG PO BID, (Reported) Bells 3 Polyunsat Fatty Acids 1,000 Mg Cap, 1,000 MG PO BID, (Reported) Patient Home Medication List Home Medication List Reviewed: Yes Review of Systems Review of Systems Constitutional: no symptoms reported Eyes: No Symptoms Reported Ears, Nose, Mouth, Throat: no symptoms reported Respiratory: no symptoms reported Cardiovascular: no symptoms reported Gastrointestinal: no symptoms reported Genitourinary: no symptoms reported Musculoskeletal: no symptoms reported Skin: other (Petechiae over the face and upper chest) Psychiatric/Neurological: See HPI Endocrine: No Symptoms Reported Hematologic/Lymphatic: No Symptoms Reported Past Kusfkhw-Vzrtgr-Vbiasg Hx Past Med/Social Hx: Reviewed Nursing Past Med/Soc Hx Patient Social History Alcohol Use: Denies Use Recreational Drug Use: No Smoking Status: Former Smoker Type Used: Cigarettes Former Smoker, Quit: Oct 29, 2009 Recent Foreign Travel: No Contact w/Someone Who Travel: No Recent Infectious Disease Expo: No Recent Hopitalizations: No Immunizations Up To Date Tetanus Booster (TDap): More than 5yrs Date of Influenza Vaccine: May 30, 2015 Seasonal Allergies Seasonal Allergies: Yes Past Medical History Surgeries: Yes (hernia repair) Respiratory: Yes Sleep Apnea Currently Using CPAP: Yes Cardiac: No Neurological: Yes Seizure Disorder Reproductive Disorders: No Sexually Transmitted Disease: No Genitourinary: No Gastrointestinal: Yes (umb hernia) Musculoskeletal: No Endocrine: Yes (pre=diabetes) Hypothyroidsim, Diabetes, Non-Insulin dep HEENT: No Cancer: No Psychosocial: Yes Anxiety Integumentary: No Blood Disorders: No Family Medical History Reviewed Nursing Family Hx No Pertinent Family Hx Physical Exam Vital Signs Vital Signs - First Documented 05/29/18 05/29/18 11:51 13:30 Temp 97.2 Pulse 86 Resp 18 B/P (MAP) 125/79 (94) Pulse Ox 97 O2 Delivery Room Air Capillary Refill : Less Than 3 Seconds Height, Weight, BMI Height: 5'10.00" Weight: 300lbs. 0.0oz. 136.053614bt; 39.5 BMI Method:Stated General Appearance: WD/WN, no apparent distress HEENT: PERRL/EOMI, pharynx normal, other (No dental injury. Subtle petechiae over the face) Neck: normal inspection Respiratory: lungs clear, normal breath sounds, no respiratory distress, no accessory muscle use Cardiovascular: regular rate, rhythm, no edema, no murmur Gastrointestinal: normal bowel sounds, non tender, soft Extremities: no pedal edema, other (Small skin avulsion adjacent to the toenail on the right great toe. 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 as tested, no motor/sensory deficits, alert, normal mood/affect, oriented x 3 Crainal Nerves: normal hearing, normal speech, PERRL Motor/Sensory: no motor deficit, no sensory deficit Skin: normal color, warm/dry, other (Subtle petechiae over the face and upper chest) Progress/Results/Core Measures Results/Orders Lab Results Laboratory Tests Test 05/29/18 12:05 Range/Units White Blood Count 6.5 4.3-11.0 10^3/uL Red Blood Count 4.74 4.35-5.85 10^6/uL Hemoglobin 13.6 13.3-17.7 G/DL Hematocrit 40 40-54 % Mean Corpuscular Volume 85 80-99 FL Mean Corpuscular Hemoglobin 29 25-34 PG Mean Corpuscular Hemoglobin Concent 34 32-36 G/DL Red Cell Distribution Width 13.1 10.0-14.5 % Platelet Count 363 130-400 10^3/uL Mean Platelet Volume 9.8 7.4-10.4 FL Neutrophils (%) (Auto) 63 42-75 % Lymphocytes (%) (Auto) 27 12-44 % Monocytes (%) (Auto) 7 0-12 % Eosinophils (%) (Auto) 3 0-10 % Basophils (%) (Auto) 0 0-10 % Neutrophils # (Auto) 4.1 1.8-7.8 X 10^3 Lymphocytes # (Auto) 1.8 1.0-4.0 X 10^3 Monocytes # (Auto) 0.5 0.0-1.0 X 10^3 Eosinophils # (Auto) 0.2 0.0-0.3 10^3/uL Basophils # (Auto) 0.0 0.0-0.1 10^3/uL Sodium Level 136 135-145 MMOL/L Potassium Level 5.0 3.6-5.0 MMOL/L Chloride Level 108 H 98-107 MMOL/L Carbon Dioxide Level 15 L 21-32 MMOL/L Anion Gap 13 5-14 MMOL/L Blood Urea Nitrogen 15 7-18 MG/DL Creatinine 0.80 0.60-1.30 MG/DL Estimat Glomerular Filtration Rate > 60 BUN/Creatinine Ratio 19 Glucose Level 155 H 70-105 MG/DL Calcium Level 9.4 8.5-10.1 MG/DL Corrected Calcium 9.2 8.5-10.1 MG/DL Magnesium Level 2.5 H 1.8-2.4 MG/DL Total Bilirubin 0.3 0.1-1.0 MG/DL Aspartate Amino Transf (AST/SGOT) 20 5-34 U/L Alanine Aminotransferase (ALT/SGPT) 23 0-55 U/L Alkaline Phosphatase 76 40-136 U/L Total Protein 7.8 6.4-8.2 GM/DL Albumin 4.3 3.2-4.5 GM/DL Thyroid Stimulating Hormone (TSH) 3.06 0.35-4.94 UIU/ML Free Thyroxine 0.93 0.70-1.48 NG/DL My Orders Orders - CHAPO ESCALANTE MD Cbc With Automated Diff (05/29/18 12:14) Comprehensive Metabolic Panel (05/29/18 12:14) Magnesium (05/29/18 12:14) Thyroid Stimulating Hormone (05/29/18 12:14) Saline Lock/Iv-Start (05/29/18 12:14) Free T4 (Free Thyroxine) (05/29/18 12:14) Lamotrigine Level (05/29/18 12:14) Vital Signs/I&O 05/29/18 05/29/18 11:51 13:30 Temp 97.2 98.4 Pulse 86 81 Resp 18 15 B/P (MAP) 125/79 (94) 133/83 Pulse Ox 97 O2 Delivery Room Air Blood Pressure Mean: 94 Progress Progress Note : Progress Note Labs reviewed and patient was observed. There were no significant abnormalities noted and workup. Patient was at baseline at the time of dismissal. Lamotrigine level was drawn and patient was instructed to follow-up on that level with his prescribing provider. Loose skin was trimmed off the avulsion of the toe. Direct pressure was applied to control bleeding. Antibiotic ointment was applied and a light pressure dressing was applied with Coban and. Patient reports he is up-to-date on tetanus immunization. Departure Impression Primary Impression: Seizure Additional Impression: Avulsion of skin of toe Qualified Codes: S91.109A - Unspecified open wound of unspecified toe(s) without damage to nail, initial encounter Disposition: 01 HOME, SELF-CARE Condition: Improved Departure-Patient Inst. Decision time for Depature: 13:21 Referrals: GAVI HAAS MD (PCP/Family) Primary Care Physician Patient Instructions: Seizures, Adult (DC) Add. Discharge Instructions: Drink plenty of clear liquids. Take your medications as prescribed. Follow-up with the prescriber of your lamotrigine next week and review the blood levels drawn in the ER. Return to the emergency room if you have worsening symptoms. All discharge instructions reviewed with patient and/or family. Voiced understanding. Copy Copies To 1: GAVI HAAS MD, JOSHUA T MD May 29, 2018 13:22
[2018-05-29 13:30] VITALS: BP 133/83
== END 2018-05-29 13:30 | disposition home or self-care (01) ==
LOC: EDUNIT# 11:51 → ER 11:52
DX: S91.111A Laceration without foreign body of right great toe without damage to nail, initial encounter (principal); G40.909 Epilepsy, unspecified, not intractable, without status epilepticus; E03.9 Hypothyroidism, unspecified; E11.9 Type 2 diabetes mellitus without complications; F41.9 Anxiety disorder, unspecified; G47.30 Sleep apnea, unspecified; Z79.84 Long term (current) use of oral hypoglycemic drugs; Z87.891 Personal history of nicotine dependence; Z87.19 Personal history of other diseases of the digestive system; Z98.890 Other specified postprocedural states; X58.XXXA Exposure to other specified factors, initial encounter
CPT/HCPCS: 36415; 80053; 80175; 83735; 84439; 84443; 85025

== ENCOUNTER 2018-06-02 12:49 | Emergency (ER) | payer BC ==
[~2018-06-02] VITALS: Ht 182.9 cm; Wt 112.5 kg
--- OUTSIDE RECORDS SUMMARY | 2018-06-02 12:55 | XMS REPORT | Continuity of Care Document ---
Author Author [facility] Organization [facility] Address Unknown Phone Unavailable Allergies Active Description Code Type Severity Reaction Onset Reported/Identified Relationship to Patient Clinical Status Yes No Known Drug Allergies [id number] Drug Allergy Unknown N/A 03/18/2014 Medications There [...] 12/19/2015 CHAPO ESCALANTE MD Ot Z79.899 OTHER INVESTIGATOR CASH SHORTAGE (CURRENT) DRUG THERAPY 12/19/2015 KAREN HUNTER DO [...] Ot Y92.[address] TO SINGLE-FAMILY ([facility] 01/27/2016 CECILE DELGADO, JAYSHREE A Ot Y99.8 [...] Ot Y92.[address] SINGLE-FAMILY ([facility] 01/29/2016 CECILE DELGADO, JAYSHREE A Ot Y99.8 [...] DANO DELGADO, ASHU J Ot Z79.899 OTHER JAIL (CURRENT) DRUG THERAPY 08/21/2016 KALI MATSON MDUS [...] MDUS J Ot R73.03 PREDIABETES 08/21/2016 KALI AMTSON MDUS J Ot Z79.899 OTHER INVESTIGATOR CASH SHORTAGE (CURRENT) DRUG THERAPY 10/29/2016 ROMERO SANFORD DO Ot K42.9 UMBILICAL HERNIA WITHOUT OBSTRUCTION OR 10/29/2016 ROMERO SANFORD DO Ot Z01.812 ENCOUNTER FOR PREPROCEDURAL LABORATORY E 10/29/2016 ROMERO SANFORD DO Ot Z11.2 ENCOUNTER FOR SCREENING FOR OTHER BACTER 10/30/2016 ROMERO SANFORD DO Ot K42.9 UMBILICAL HERNIA WITHOUT OBSTRUCTION OR 10/30/2016 ROMEOR SANFORD DO Ot Z01.812 ENCOUNTER FOR PREPROCEDURAL LABORATORY E 10/30/2016 ROMERO SANFORD DO Ot Z11.2 ENCOUNTER FOR SCREENING FOR OTHER BACTER 10/31/2016 ROMERO SANFORD DO Ot E11.9 TYPE 2 DIABETES MELLITUS WITHOUT COMPLIC 10/31/2016 ROMERO SANFORD DO Ot K42.9 UMBILICAL HERNIA WITHOUT OBSTRUCTION OR 10/31/2016 ROMERO SANFORD DO Ot Z79.84 INVESTIGATOR CASH SHORTAGE (CURRENT) USE OF ORAL HYPOGLYC 11/04/2016 ROMERO SANFORD DO Ot E11.9 TYPE 2 DIABETES MELLITUS WITHOUT COMPLIC 11/04/2016 SANFORD DO, ROMEOR D Ot K42.9 UMBILICAL HERNIA WITHOUT OBSTRUCTION OR 11/04/2016 SANFORD DO, ROMERO D Ot Z79.84 INVESTIGATOR CASH SHORTAGE (CURRENT) USE OF ORAL HYPOGLYC 11/05/2016 SANFORD DO, ROMERO D Ot E11.9 TYPE 2 DIABETES MELLITUS WITHOUT COMPLIC 11/05/2016 SANFORD DO, ROMERO D Ot K42.9 UMBILICAL HERNIA WITHOUT OBSTRUCTION OR 11/05/2016 SANFORD DO, ROMERO D Ot Z79.84 JAIL (CURRENT) USE OF ORAL HYPOGLYC 11/22/2016 HUNTER [...] WITHOUT 12/12/2016 EDUAR URIARTE MD Ot Z79.84 JAIL (CURRENT) USE OF ORAL HYPOGLYC 12/12/2016 EDUAR URIARTE MD Ot Z79.899 OTHER JAIL (CURRENT) DRUG THERAPY 12/16/2016 EDUAR URIARTE MD, Ot E11.9 TYPE 2 DIABETES MELLITUS WITHOUT COMPLIC 12/16/2016 EDUAR URIARTE MD Ot G40.909 EPILEPSY, UNSP, NOT INTRACTABLE, WITHOUT 12/16/2016 EDUAR URIARTE MD Ot Z79.84 JAIL (CURRENT) USE OF ORAL HYPOGLYC 12/16/2016 EDUAR URIARTE MD Ot Z79.899 OTHER JAIL (CURRENT) DRUG THERAPY 02/03/2017 HUNTER DO, KAREN [...] 05/06/2017 DANO DELGADO, ASHU Alan Ot Z79.84 JAIL (CURRENT) USE OF ORAL HYPOGLYC 05/06/2017 ASHU [...] G47.30 SLEEP APNEA, UNSPECIFIED 06/22/2017 GALINDO DELGADO, CAROLS Tavera Ot R56.9 UNSPECIFIED CONVULSIONS 06/22/2017 GALINDO DELGADO, CARLOS Tavera Ot Z79.84 INVESTIGATOR CASH SHORTAGE (CURRENT) USE OF ORAL HYPOGLYC 06/22/2017 GALINDO [...] FUNCT 08/23/2017 ASHU MATSON MD Ot Z79.84 INVESTIGATOR CASH SHORTAGE (CURRENT) USE OF ORAL HYPOGLYC 08/26/2017 ASHU [...] FUNCT 08/26/2017 ASHU MATSON MD Ot Z79.84 JAIL (CURRENT) USE OF ORAL HYPOGLYC 09/10/2017 CHAPO [...] CONVULSIONS 09/10/2017 CHAPO ESCALANTE MD Ot Z79.84 INVESTIGATOR CASH SHORTAGE (CURRENT) USE OF ORAL HYPOGLYC 09/10/2017 CHAPO [...] GATES Ot G47.30 SLEEP APNEA, UNSPECIFIED 10/13/2017 LUSI GATES Ot M79.671 PAIN IN RIGHT FOOT [...] OR PAY 10/13/2017 LUIS GATES Ot Z79.84 JAIL (CURRENT) USE OF ORAL HYPOGLYC 10/13/2017 LUIS [...] OR PAY 10/14/2017 LUIS GATES Ot Z79.84 JAIL (CURRENT) USE OF ORAL HYPOGLYC 10/14/2017 LUIS [...] UNSPECIFIED 10/30/2017 JAYLENE LOYA APRN Ot Z79.84 JAIL (CURRENT) USE OF ORAL HYPOGLYC 10/30/2017 JAYLENE [...] CONVULSIONS 11/20/2017 JAYLENE LOYA APRN Ot Z79.84 INVESTIGATOR CASH SHORTAGE (CURRENT) USE OF ORAL HYPOGLYC 11/20/2017 JAYLENE [...] CONVULSIONS 11/24/2017 JAYLENE LOYA APRN Ot Z79.84 JAIL (CURRENT) USE OF ORAL HYPOGLYC 11/24/2017 JAYLENE [...] G47.30 SLEEP APNEA, UNSPECIFIED 12/02/2017 JAYLENE LOYA CARRIAGE DOGGER Ot M25.552 PAIN IN LEFT HIP 12/02/2017 JALYENE LOYA CARRIAGE DOGGER Ot S73.102A UNSPECIFIED SPRAIN OF LEFT HIP, INITIAL 12/02/2017 JAYLENE LOYA CARRIAGE DOGGER Ot X58.XXXA EXPOSURE TO OTHER SPECIFIED FACTORS, INI 12/02/2017 JAYLENE LOYA CARRIAGE DOGGER Ot Z79.84 INVESTIGATOR CASH SHORTAGE (CURRENT) USE OF ORAL HYPOGLYC 12/02/2017 JAYLENE LOYA CARRIAGE DOGGER Ot Z87.891 PERSONAL HISTORY OF NICOTINE DEPENDENCE [...] OF RIGHT EYELID AND PE 12/27/2017 EDUAR URIATRE MD Ot W01.198A FALL SAME LEV FROM SLIP/TRIP W STRIKE AG 12/27/2017 EDUAR URIARTE MD Ot Z79.84 JAIL (CURRENT) USE OF ORAL HYPOGLYC 12/27/2017 EDUAR [...] AG 12/29/2017 EDUAR URIARTE MD Ot Z79.84 INVESTIGATOR CASH SHORTAGE (CURRENT) USE OF ORAL HYPOGLYC 12/29/2017 EDUAR [...] AG 01/02/2018 EDUAR URIARTE MD, Ot Z79.84 INVESTIGATOR CASH SHORTAGE (CURRENT) USE OF ORAL HYPOGLYC 01/02/2018 EDUAR [...] WITHOUT 02/07/2018 JAYLENE LOYA APRN Ot Z79.84 INVESTIGATOR CASH SHORTAGE (CURRENT) USE OF ORAL HYPOGLYC 02/07/2018 JAYLENE LOYA APRN Ot Z87.891 PERSONAL HISTORY OF NICOTINE DEPENDENCE 02/09/2018 JAYLENE LOYA CARRIAGE DOGGER Ot E03.9 HYPOTHYROIDISM, UNSPECIFIED 02/09/2018 JAYLENE LOYA CARRIAGE DOGGER Ot E11.9 TYPE 2 DIABETES MELLITUS WITHOUT COMPLIC 02/09/2018 JAYLENE LOYA CARRIAGE DOGGER Ot F41.9 ANXIETY DISORDER, UNSPECIFIED 02/09/2018 JAYLENE LOYA CARRIAGE DOGGER Ot G40.909 EPILEPSY, UNSP, NOT INTRACTABLE, WITHOUT 02/09/2018 JAYLENE LOYA CARRIAGE DOGGER Ot Z79.84 INVESTIGATOR CASH SHORTAGE (CURRENT) USE OF ORAL HYPOGLYC 02/09/2018 JAYLENE LOYA CARRIAGE DOGGER Ot Z87.891 PERSONAL HISTORY OF NICOTINE DEPENDENCE [...] UNSPECIFIED 03/01/2018 ASHU MATSON MD Ot Z79.84 JAIL (CURRENT) USE OF ORAL HYPOGLYC 03/01/2018 ASHU [...] 03/03/2018 ASHU MATSON MD J Ot Z79.84 JAIL (CURRENT) USE OF ORAL HYPOGLYC 03/03/2018 ASHU [...] FOR INFLUENZA A AND B ANTIGENS BY [facility] Comprehensive metabolic panel - 08/19/16 12:57 Serum [...] Blood erythrocyte morphology finding identification [facility] Comprehensive metabolic panel - 10/30/17 [...] Status Pt. Type Provider Facility Loc./Unit Complaint [id number] 03/01/2018 21:50:00 03/01/2018 22:41:00 DIS Emergency DANO DELGADO, ASHU Alan [facility] ER SEIZURE [id number] 02/07/2018 22:44:00 02/07/2018 23:16:00 DIS Emergency JAYLENE LOYA CARRIAGE DOGGER [facility] ER SEIZURE [id number] 12/27/2017 20:58:00 12/27/2017 23:12:00 DIS Emergency EDUAR URIARTE MD [facility] ER INJ FROM SEIZURE [id number] 12/02/2017 13:31:00 12/02/2017 15:07:00 DIS Emergency JAYLENE LOYA APRN [facility] ER HEAD PAIN,HIP PAIN [id number] 11/20/2017 14:07:00 11/20/2017 15:47:00 DIS Emergency JAYLENE LOYA APRN [facility] ER SEIZURE [id number] 10/30/2017 21:28:00 10/30/2017 23:42:00 DIS Emergency JAYLENE LOYA APRN [facility] ER SEIZURE [id number] 10/12/2017 20:39:00 10/13/2017 00:36:00 DIS Emergency LUIS GATES [facility] ER R FOOT INJ [id number] 09/10/2017 10:31:00 09/10/2017 13:45:00 DIS Emergency CHAPO ESCALANTE MD [facility] ER SEIZURE [id number] 08/23/2017 13:58:00 08/23/2017 16:00:00 DIS Emergency ASHU MATSON MD [facility] ER SEIZURE [id number] 06/22/2017 16:39:00 06/22/2017 18:07:00 DIS Emergency GALINDO DELGADO, CARLOS Tavera [facility] ER SEIZURE [id number] 05/06/2017 21:56:00 05/06/2017 23:30:00 DIS Emergency ASHU MATSON MD [facility] ER SEIZURE-FALL [id number] 12/12/2016 20:25:00 12/12/2016 22:02:00 DIS Emergency EDUAR URIARTE MD [facility] ER POSSIBLE SEIZURE [id number] 10/31/2016 09:27:00 10/31/2016 14:50:00 DIS Outpatient ROMERO SANFORD DO [facility] SDC UMBILICAL HERNIA [id number] 10/29/2016 08:37:00 10/29/2016 09:05:00 DIS Outpatient ROMERO SANFORD DO [facility] PREOP UMBILICAL HERNIA [id number] 08/19/2016 11:19:00 08/19/2016 14:50:00 DIS Emergency DANO DELGADO, ASHU Alan [facility] ER LIGHTHEADED NAUSEA [id number] 02/02/2016 20:45:00 02/03/2016 06:40:00 DIS Outpatient DANNA DELGADO, SAYDA Jimenez [facility] SLEEP OBSTRUCTIVE SLEEP APNEA [id number] 01/27/2016 21:02:00 01/27/2016 22:31:00 DIS Emergency CECILE DELGADO, JAYSHREE An [facility] ER SEIZURE/FALL [id number] 12/19/2015 21:50:00 12/19/2015 23:31:00 DIS Emergency BORIS DELGADO, CHAPO Dover [facility] ER SEIZURE [id number] 11/17/2015 20:50:00 11/18/2015 06:50:00 DIS Outpatient DANNA DELGADO, SAYDA Jimenez [facility] SLEEP OBSERVED APNEAS,SNORING ,SEIZURE,ABN LIMB MOVEMENT [id number] 10/04/2015 13:44:00 10/04/2015 23:59:59 CLS Outpatient KAREN HUNTER DO [facility] LAB INFERTILITY [id number] 09/12/2015 20:42:00 09/12/2015 21:58:00 DIS Emergency GAVI ACEVEDO DO [facility] ER CONGESTION [id number] 03/18/2014 20:01:00 03/18/2014 22:13:00 DIS Emergency KITA OSCAR DO [facility] ER [id number] 05/04/2015 22:47:00 Document Registration
[2018-06-02] MEDS ORDERED: LEVETIRACETAM 1,000 MG (KEPPRA) TABLET PO ONE (13:00)
--- NOTE | 2018-06-02 13:04 | ED Neurological Problem ---
General Stated Complaint: SEIZURE Source: patient, EMS Exam Limitations: no limitations History of Present Illness Date Seen by Provider: Jun 02, 2018 Time Seen by Provider: 12:52 Initial Comments Patient presents to the ER by EMS with a chief complaint that family heard him make the sounds he makes before he has a seizure while he was in the shower. EMS had to push the door open because he did fall against it to get to him. By the time they got there he was alert but postictal. They said he's come around more since they got there and they've not seen any active seizure activity. Patient says he did not take his Keppra this morning. He is also on Lamictal and has benzos available but did not take any since family couldn't get to him this morning. He's had a cold the last couple days with nasal congestion ears popping but no fevers chills. His cough is occasionally productive. No wheezing or history of asthma or COPD. He is not having any pain in his head or neck or anywhere else. He has no nausea. Allergies and Home Medications Allergies Coded Allergies: No Known Drug Allergies (Unverified , 03/18/14) Home Medications Clonazepam 0.5 Mg Tablet, 0.5-1 MG PO BID, (Reported) take 1 (.5mg) tab in am take 2 (.5mg) tab in pm Hydrocodone/Acetaminophen 1 Each Tablet, 1 EACH PO Q4H PRN for PAIN-MODERATE TO SEVERE Prescribed by: LUIS POWERS on 10/13/17 0026 Lamotrigine 150 Mg Tablet, 150 MG PO Q12H, (Reported) Levetiracetam 1,000 Mg Tablet, 1,000 MG PO BID, (Reported) take with 5oomg tab for 1500mg total Levothyroxine Sodium 50 Mcg Tablet, 50 MCG PO DAILY, (Reported) Metformin HCl 500 Mg Tablet, 500 MG PO BID, (Reported) [place] 3 Polyunsat Fatty Acids 1,000 Mg Cap, 1,000 MG PO BID, (Reported) Patient Home Medication List Home Medication List Reviewed: Yes Review of Systems Review of Systems Constitutional: No chills, No diaphoresis, No fever; malaise Eyes: Denies Blindness, Denies Blurred Vision Ears, Nose, Mouth, Throat: denies ear pain, denies ear discharge Respiratory: cough, phlegm; No short of breath, No wheezing Cardiovascular: No chest pain, No palpitations Gastrointestinal: No abdominal pain, No constipation, No diarrhea, No nausea Genitourinary: No discharge, No dysuria Musculoskeletal: No back pain, No joint pain Past Ddhftmt-Knsebu-Gyovft Hx Patient Social History Alcohol Use: Denies Use Recreational Drug Use: No Smoking Status: Current Everyday Smoker Type Used: Cigarettes Former Smoker, Quit: Oct 29, 2009 Recent Hopitalizations: No Immunizations Up To Date Tetanus Booster (TDap): More than 5yrs Date of Influenza Vaccine: May 30, 2015 Seasonal Allergies Seasonal Allergies: Yes Past Medical History Surgeries: Yes (hernia repair) Respiratory: Yes Sleep Apnea Currently Using CPAP: Yes Cardiac: No Neurological: Yes Seizure Disorder Reproductive Disorders: No Sexually Transmitted Disease: No Genitourinary: No Gastrointestinal: Yes (umb hernia) Musculoskeletal: No Endocrine: Yes (pre=diabetes) Hypothyroidsim, Diabetes, Non-Insulin dep HEENT: No Cancer: No Psychosocial: Yes Anxiety Integumentary: No Blood Disorders: No Family Medical History No Pertinent Family Hx Physical Exam Vital Signs Vital Signs - First Documented 06/02/18 13:01 Temp 98.9 Pulse 92 Resp 16 B/P (MAP) 127/78 (94) Pulse Ox 95 Capillary Refill : Height, Weight, BMI Height: 5'10.00" Weight: 300lbs. 0.0oz. 136.850039do; 39.5 BMI Method:Stated General Appearance: WD/WN, no apparent distress HEENT: PERRL/EOMI, normal ENT inspection, TMs normal, pharynx normal, other Neck: non-tender, full range of motion, supple, normal inspection Respiratory: chest non-tender, lungs clear, normal breath sounds, no respiratory distress, no accessory muscle use Cardiovascular: normal peripheral pulses, regular rate, rhythm, no edema Gastrointestinal: non tender, soft 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: alert, normal mood/affect, oriented x 3 Crainal Nerves: normal hearing, normal speech, PERRL, other (patient has slow answers which is consistent with being postictal but he is completely alert and oriented 4. Tia Coma Scale 15 points) Skin: normal color, warm/dry Progress/Results/Core Measures Results/Orders Lab Results Laboratory Tests Test 06/02/18 12:54 06/02/18 12:55 Range/Units Glucometer 129 H 70-110 MG/DL White Blood Count 9.7 4.3-11.0 10^3/uL Red Blood Count 4.92 4.35-5.85 10^6/uL Hemoglobin 14.2 13.3-17.7 G/DL Hematocrit 42 40-54 % Mean Corpuscular Volume 85 80-99 FL Mean Corpuscular Hemoglobin 29 25-34 PG Mean Corpuscular Hemoglobin Concent 34 32-36 G/DL Red Cell Distribution Width 13.2 10.0-14.5 % Platelet Count 380 130-400 10^3/uL Mean Platelet Volume 9.9 7.4-10.4 FL Neutrophils (%) (Auto) 56 42-75 % Lymphocytes (%) (Auto) 31 12-44 % Monocytes (%) (Auto) 10 0-12 % Eosinophils (%) (Auto) 3 0-10 % Basophils (%) (Auto) 0 0-10 % Neutrophils # (Auto) 5.4 1.8-7.8 X 10^3 Lymphocytes # (Auto) 3.0 1.0-4.0 X 10^3 Monocytes # (Auto) 1.0 0.0-1.0 X 10^3 Eosinophils # (Auto) 0.3 0.0-0.3 10^3/uL Basophils # (Auto) 0.0 0.0-0.1 10^3/uL Sodium Level 138 135-145 MMOL/L Potassium Level 4.2 3.6-5.0 MMOL/L Chloride Level 106 98-107 MMOL/L Carbon Dioxide Level 13 L 21-32 MMOL/L Anion Gap 19 H 5-14 MMOL/L Blood Urea Nitrogen 16 7-18 MG/DL Creatinine 1.01 0.60-1.30 MG/DL Estimat Glomerular Filtration Rate > 60 BUN/Creatinine Ratio 16 Glucose Level 135 H 70-105 MG/DL Calcium Level 9.8 8.5-10.1 MG/DL Corrected Calcium 8.5-10.1 MG/DL Total Bilirubin 0.4 0.1-1.0 MG/DL Aspartate Amino Transf (AST/SGOT) 20 5-34 U/L Alanine Aminotransferase (ALT/SGPT) 27 0-55 U/L Alkaline Phosphatase 85 40-136 U/L C-Reactive Protein High Sensitivity 0.63 H 0.00-0.50 MG/DL Total Protein 8.0 6.4-8.2 GM/DL Albumin 4.7 H 3.2-4.5 GM/DL My Orders Orders - ASHU MATSON Alcohol (06/02/18 12:55) Cbc With Automated Diff (06/02/18 12:55) Comprehensive Metabolic Panel (06/02/18 12:55) Hs C Reactive Protein (06/02/18 12:55) Chest 1 View, Ap/Pa Only (06/02/18 12:55) Levetiracetam Tablet (Keppra Tablet) (06/02/18 13:00) Medications Given in ED Current Medications Medications Dose Ordered Sig/Warren Route Start Time Stop Time Status Last Admin Dose Admin Levetiracetam 1,500 mg ONCE ONCE PO 06/02/18 13:00 06/02/18 13:01 DC 06/02/18 13:22 1,500 MG Vital Signs/I&O 06/02/18 13:01 Temp 98.9 Pulse 92 Resp 16 B/P (MAP) 127/78 (94) Pulse Ox 95 Progress Progress Note #1: Time: 13:04 Progress Note He has an atraumatic head. We discussed imaging of his head and neck versus observation and he would prefer observation at this time. Because of his recent cold and productive cough we'll check a chest x-ray and some basic labs to rule out pneumonia or other more serious illness. We'll also give him 1500 mg of Keppra. He is now alert and able to swallow appropriately. Progress Note #2: Time: 13:48 Progress Note Labs and alcohol were normal. We gave him some Keppra. He is waking up more. We' ll allow him to go home. Diagnostic Imaging Diagonstic Imaging: Xray (1v) Plain Films/CT/US/NM/MRI: chest Comments No acute cardiopulmonary processes noted. Reviewed: Reviewed by Me Departure Impression Primary Impression: Seizure Additional Impression: URI, acute Disposition: 01 HOME, SELF-CARE Condition: Improved Departure-Patient Inst. Decision time for Depature: 13:49 Referrals: GAVI HAAS MD (PCP/Family) Primary Care Physician Patient Instructions: Seizures, Adult (DC) Add. Discharge Instructions: Remember to take your medications. You can use Flonase 1 puff each nostril twice a day for the next 2 weeks to help clear up the mucus is getting trapped in your middle ear. Right now seems to be either viral or allergies. Zyrtec or Claritin can also be helpful with the symptoms are experiencing with your cough and runny nose. Work/School Note: Work Release Form Date Seen in the Emergency Department: Jun 02, 2018 Return to Work: Jun 03, 2018 Restrictions: No Restrictions Copy Copies To 1: GAVI HAAS MD, TITUS J Jun 02, 2018 13:04
[2018-06-02 13:08] LABS: BASOPHILS % (AUTO) 0 % (0-10); EOSINOPHILS # (AUTO) 0.3 10^3/uL (0.0-0.3); EOSINOPHILS % (AUTO) 3 % (0-10); HEMATOCRIT 42 % (40-54); HEMOGLOBIN 14.2 G/DL (13.3-17.7); LYMPHOCYTES % (AUTO) 31 % (12-44); MEAN CORPUSCULAR HEMOGLOBIN 29 PG (25-34); MEAN CORPUSCULAR HGB CONC 34 G/DL (32-36); MEAN CORPUSCULAR VOLUME 85 FL (80-99); MEAN PLATELET VOLUME 9.9 FL (7.4-10.4); MONOCYTES % (AUTO) 10 % (0-12); NEUTROPHILS # (AUTO) 5.4 X 10^3 (1.8-7.8); NEUTROPHILS % (AUTO) 56 % (42-75); PLATELET COUNT 380 10^3/uL (130-400); RED BLOOD COUNT 4.92 10^6/uL (4.35-5.85); RED CELL DISTRIBUTION WIDTH 13.2 % (10.0-14.5); WHITE BLOOD COUNT 9.7 10^3/uL (4.3-11.0)
[2018-06-02 13:30] LABS: ALANINE AMINOTRANSFERASE 27 U/L (0-55); ALBUMIN 4.7 GM/DL (3.2-4.5); ALKALINE PHOSPHATASE 85 U/L (40-136); BILIRUBIN,TOTAL 0.4 MG/DL (0.1-1.0); BUN/CREATININE RATIO 16; CALCIUM 9.8 MG/DL (8.5-10.1); CARBON DIOXIDE 13 MMOL/L (21-32); CHLORIDE 106 MMOL/L (98-107); CREATININE SERUM 1.01 MG/DL (0.60-1.30); GFR ESTIMATED > 60; GLUCOSE 135 MG/DL (70-105); POTASSIUM 4.2 MMOL/L (3.6-5.0); SODIUM 138 MMOL/L (135-145)
--- NOTE | 2018-06-02 13:45 | Diagnostic Imaging Report ---
INDICATION: Seizure. TIME OF EXAM: 1:26 p.m. COMPARISON: Comparison is made with prior exam from 10/30/2017. The heart size is normal. The pulmonary vascularity is unremarkable. The lungs are clear. No infiltrate, effusion or pneumothorax is detected. IMPRESSION: No acute cardiopulmonary process is detected. Dictated by: Dictated on workstation # [id number]
[2018-06-02 14:06] VITALS: BP 114/66
== END 2018-06-02 14:06 | disposition home or self-care (01) ==
LOC: EDUNIT# 12:49 → ER 12:50
DX: R56.9 Unspecified convulsions (principal); J06.9 Acute upper respiratory infection, unspecified; G47.30 Sleep apnea, unspecified; G40.909 Epilepsy, unspecified, not intractable, without status epilepticus; E03.9 Hypothyroidism, unspecified; E11.9 Type 2 diabetes mellitus without complications; F41.9 Anxiety disorder, unspecified; F17.210 Nicotine dependence, cigarettes, uncomplicated; Z79.84 Long term (current) use of oral hypoglycemic drugs; Z87.19 Personal history of other diseases of the digestive system
CPT/HCPCS: 36415; 71045; 80053; 80320; 82962; 85025; 86141

== ENCOUNTER 2018-07-06 21:56 | Emergency (ER) | payer BC ==
[~2018-07-06] VITALS: Ht 177.8 cm; Wt 112.5 kg
--- OUTSIDE RECORDS SUMMARY | 2018-07-06 22:02 | XMS REPORT | Continuity of Care Document ---
Author Author [facility] Organization [facility] Address Unknown Phone Unavailable Allergies Active Description Code Type Severity Reaction Onset Reported/Identified Relationship to Patient Clinical Status Yes No Known Drug Allergies [id number] Drug Allergy Unknown N/A 03/18/2014 Medications There [...] 12/19/2015 CHAPO ESCALANTE MD Ot Z79.899 OTHER [employer]AM [employer]TAIN (CURRENT) DRUG THERAPY 12/19/2015 KAREN HUNTER DO [...] A Ot Y92.[address] TO SING[facility] 01/27/2016 CECILE DELGADO, JAYSHREE A [...] A Ot Y92.[address] SINGLE-FAMILY [facility] 01/29/2016 CECILE DELGADO, JAYSHREE A [...] DANO DELGADO, ASHU J Ot Z79.899 OTHER PRISON (CURRENT) DRUG THERAPY 08/21/2016 KALI MATSON MDUS [...] KALI MATSON MDUS J Ot Z79.899 OTHER [employer]TAIN (CURRENT) DRUG THERAPY 10/29/2016 ROMERO SANFORD DO [...] OR 10/31/2016 ROMERO SANFORD DO Ot Z79.84 CLAM [employer]TAIN (CURRENT) USE OF ORAL HYPOGLYC 11/04/2016 ROMERO SANFORD DO Ot E11.9 TYPE 2 DIABETES MELLITUS WITHOUT COMPLIC 11/04/2016 SANFORD DO, ROMERO D Ot K42.9 UMBILICAL HERNIA WITHOUT OBSTRUCTION OR 11/04/2016 SANFORD DO, ROMERO D Ot Z79.84 [employer] (CURRENT) USE OF ORAL HYPOGLYC 11/05/2016 SANFORD DO, ROMERO D Ot E11.9 TYPE 2 DIABETES MELLITUS WITHOUT COMPLIC 11/05/2016 SANFORD DO, ROMERO D Ot K42.9 UMBILICAL HERNIA WITHOUT OBSTRUCTION OR 11/05/2016 SANFORD DO, ROMERO D Ot Z79.84 PRISON (CURRENT) USE OF ORAL HYPOGLYC 11/22/2016 HUNTER [...] WITHOUT 12/12/2016 EDUAR URIARTE MD Ot Z79.84 PRISON (CURRENT) USE OF ORAL HYPOGLYC 12/12/2016 EDUAR URIARTE MD Ot Z79.899 OTHER PRISON (CURRENT) DRUG THERAPY 12/16/2016 EDUAR URIARTE MD, Ot E11.9 TYPE 2 DIABETES MELLITUS WITHOUT COMPLIC 12/16/2016 EDUAR URIARTE MD Ot G40.909 EPILEPSY, UNSP, NOT INTRACTABLE, WITHOUT 12/16/2016 EDUAR URIARTE MD Ot Z79.84 PRISON (CURRENT) USE OF ORAL HYPOGLYC 12/16/2016 EDUAR URIARTE MD Ot Z79.899 OTHER PRISON (CURRENT) DRUG THERAPY 02/03/2017 HUNTER DO, KAREN [...] 05/06/2017 DANO DELGADO, ASHU Alan Ot Z79.84 PRISON (CURRENT) USE OF ORAL HYPOGLYC 05/06/2017 ASHU MATSON MD Ot Z87.891 PERSONAL HISTORY OF NICOTINE DEPENDENCE 05/06/2017 HUNTER DO KAREN C Ot N46.9 MALE INFERTILITY, UNSPECIFIED 05/11/2017 HUNTER DO KAREN C Ot N46.9 MALE INFERTILITY, UNSPECIFIED 05/26/2017 HUNTER DO KAREN C Ot N46.9 MALE INFERTILITY, UNSPECIFIED 06/22/2017 FRANKLIN HUNTER DOA C Ot N46.9 MALE INFERTILITY, UNSPECIFIED 06/22/2017 GALINOD DELGADO, CARLOS Tavera Ot E03.9 HYPOTHYROIDISM, UNSPECIFIED 06/22/2017 GALINDO DELGADO, CARLOS Tavera Ot E11.9 TYPE 2 DIABETES MELLITUS WITHOUT COMPLIC 06/22/2017 GALINDO DELGADO, CARLOS Tavera Ot F41.9 ANXIETY DISORDER, UNSPECIFIED 06/22/2017 GALINDO DELGADO, CARLOS Tavera Ot G40.909 EPILEPSY, UNSP, NOT INTRACTABLE, WITHOUT 06/22/2017 GALINDO DELGADO, CARLOS Tavera Ot G47.30 SLEEP APNEA, UNSPECIFIED 06/22/2017 GALINDO DELGADO, CARLOS Tavrea Ot R56.9 UNSPECIFIED CONVULSIONS 06/22/2017 GALINDO DELGADO, CARLOS Tavera Ot Z79.84 [employer] (CURRENT) USE OF ORAL HYPOGLYC 06/22/2017 GALINDO [...] FUNCT 08/23/2017 ASHU MATSON MD Ot Z79.84 [employer] (CURRENT) USE OF ORAL HYPOGLYC 08/26/2017 ASHU [...] FUNCT 08/26/2017 ASHU MATSON MD Ot Z79.84 PRISON (CURRENT) USE OF ORAL HYPOGLYC 09/10/2017 CHAPO [...] CONVULSIONS 09/10/2017 CHAPO ESCALANTE MD Ot Z79.84 [employer] (CURRENT) USE OF ORAL HYPOGLYC 09/10/2017 CHAPO [...] OR PAY 10/13/2017 LUIS GATES Ot Z79.84 PRISON (CURRENT) USE OF ORAL HYPOGLYC 10/13/2017 LUIS [...] OR PAY 10/14/2017 LUIS GATES Ot Z79.84 PRISON (CURRENT) USE OF ORAL HYPOGLYC 10/14/2017 LUIS [...] UNSPECIFIED 10/30/2017 JAYLENE LOYA APRN Ot Z79.84 PRISON (CURRENT) USE OF ORAL HYPOGLYC 10/30/2017 JAYLENE [...] CONVULSIONS 11/20/2017 JAYLENE LOYA APRN Ot Z79.84 [employer] (CURRENT) USE OF ORAL HYPOGLYC 11/20/2017 JAYLENE [...] CONVULSIONS 11/24/2017 JAYLENE LOYA APRN Ot Z79.84 PRISON (CURRENT) USE OF ORAL HYPOGLYC 11/24/2017 JAYLENE [...] G47.30 SLEEP APNEA, UNSPECIFIED 12/02/2017 JAYLENE LOYA BUSINESS LAW TEACHER Ot M25.552 PAIN IN LEFT HIP 12/02/2017 JAYLENE LOYA BUSINESS LAW TEACHER Ot S73.102A UNSPECIFIED SPRAIN OF LEFT HIP, INITIAL 12/02/2017 JAYLENE LOYA BUSINESS LAW TEACHER Ot X58.XXXA EXPOSURE TO OTHER SPECIFIED FACTORS, INI 12/02/2017 JAYLENE LOYA BUSINESS LAW TEACHER Ot Z79.84 [employer] (CURRENT) USE OF ORAL HYPOGLYC 12/02/2017 JAYLENE LOYA BUSINESS LAW TEACHER Ot Z87.891 PERSONAL HISTORY OF NICOTINE DEPENDENCE [...] AG 12/27/2017 EDUAR URIARTE MD Ot Z79.84 PRISON (CURRENT) USE OF ORAL HYPOGLYC 12/27/2017 EDUAR [...] AG 12/29/2017 EDUAR URIARTE MD Ot Z79.84 [employer] (CURRENT) USE OF ORAL HYPOGLYC 12/29/2017 EDUAR [...] AG 01/02/2018 EDUAR URIARTE MD, Ot Z79.84 [employer] (CURRENT) USE OF ORAL HYPOGLYC 01/02/2018 EDUAR [...] WITHOUT 02/07/2018 JAYLENE LOYA APRN Ot Z79.84 [employer] (CURRENT) USE OF ORAL HYPOGLYC 02/07/2018 JAYLENE LOYA APRN Ot Z87.891 PERSONAL HISTORY OF NICOTINE DEPENDENCE 02/09/2018 JAYLENE LOYA BUSINESS LAW TEACHER Ot E03.9 HYPOTHYROIDISM, UNSPECIFIED 02/09/2018 JAYLENE LOYA BUSINESS LAW TEACHER Ot E11.9 TYPE 2 DIABETES MELLITUS WITHOUT COMPLIC 02/09/2018 JAYLENE LOYA BUSINESS LAW TEACHER Ot F41.9 ANXIETY DISORDER, UNSPECIFIED 02/09/2018 JAYLENE LOYA BUSINESS LAW TEACHER Ot G40.909 EPILEPSY, UNSP, NOT INTRACTABLE, WITHOUT 02/09/2018 JAYLENE LOYA BUSINESS LAW TEACHER Ot Z79.84 [employer] (CURRENT) USE OF ORAL HYPOGLYC 02/09/2018 JAYLENE LOYA BUSINESS LAW TEACHER Ot Z87.891 PERSONAL HISTORY OF NICOTINE DEPENDENCE [...] UNSPECIFIED 03/01/2018 ASHU MATSON MD Ot Z79.84 PRISON (CURRENT) USE OF ORAL HYPOGLYC 03/01/2018 ASHU [...] 03/03/2018 ASHU MATSON MD J Ot Z79.84 PRISON (CURRENT) USE OF ORAL HYPOGLYC 03/03/2018 ASHU MATSON MD Ot Z87.19 PERSONAL HISTORY OF OTHER DISEASES OF 03/03/2018 DANO DELGADO, ASHU Alan Ot Z87.891 PERSONAL HISTORY OF NICOTINE DEPENDENCE 05/29/2018 CHAPO ESCALANTE MD Ot E03.9 HYPOTHYROIDISM, UNSPECIFIED 05/29/2018 CHAPO ESCALANTE MD, Ot E11.9 TYPE 2 DIABETES MELLITUS WITHOUT COMPLIC 05/29/2018 CHAPO ESCALANTE MD Ot F41.9 ANXIETY DISORDER, UNSPECIFIED 05/29/2018 CHAPO ESCALANTE MD Ot G40.909 EPILEPSY, UNSP, NOT INTRACTABLE, WITHOUT 05/29/2018 CHAPO ESCALANTE MD Ot G47.30 SLEEP APNEA, UNSPECIFIED 05/29/2018 CHAPO ESCALANTE MD Ot R56.9 UNSPECIFIED CONVULSIONS 05/29/2018 CHAPO ESCALANTE MD Ot S91.111A LAC W/O FB OF RIGHT GREAT TOE W/O DAMAGE 05/29/2018 CHAPO ESCALANTE MD Ot X58.XXXA EXPOSURE TO OTHER SPECIFIED FACTORS, INI 05/29/2018 CHAPO ESCALANTE MD Ot Z79.84 [employer] (CURRENT) USE OF ORAL HYPOGLYC 05/29/2018 CHAPO ESCALANTE MD, Ot Z87.19 PERSONAL HISTORY OF OTHER DISEASES OF 05/29/2018 CHAPO ESCALANTE MD, Ot Z87.891 PERSONAL HISTORY OF NICOTINE DEPENDENCE 05/29/2018 CHAPO ESCALANTE MD Ot Z98.890 OTHER SPECIFIED POSTPROCEDURAL STATES 06/02/2018 CHAPO ESCALANTE MD Ot E03.9 HYPOTHYROIDISM, UNSPECIFIED 06/02/2018 CHAPO ESCALANTE MD Ot E11.9 TYPE 2 DIABETES MELLITUS WITHOUT COMPLIC 06/02/2018 CHAPO ESCALANTE MD, Ot F41.9 ANXIETY DISORDER, UNSPECIFIED 06/02/2018 CHAPO ESCALANTE MD Ot G40.909 EPILEPSY, UNSP, NOT INTRACTABLE, WITHOUT 06/02/2018 CHAPO ESCALANTE MD Ot G47.30 SLEEP APNEA, UNSPECIFIED 06/02/2018 CHAPO ESCALANTE MD Ot R56.9 UNSPECIFIED CONVULSIONS 06/02/2018 CHAPO ESCALANTE MD Ot S91.111A LAC W/O FB OF RIGHT GREAT TOE W/O DAMAGE 06/02/2018 CHAPO ESCALANTE MD Ot X58.XXXA EXPOSURE TO OTHER SPECIFIED FACTORS, INI 06/02/2018 CHAPO ESCALANTE MD Ot Z79.84 PRISON (CURRENT) USE OF ORAL HYPOGLYC 06/02/2018 CHAPO ESCALANTE MD Ot Z87.19 PERSONAL HISTORY OF OTHER DISEASES OF 06/02/2018 CHAPO ESCALANTE MD Ot Z87.891 PERSONAL HISTORY OF NICOTINE DEPENDENCE 06/02/2018 CHAPO ESCALANTE MD Ot Z98.890 OTHER SPECIFIED POSTPROCEDURAL STATES 06/02/2018 ASHU MATSON MD Ot E03.9 HYPOTHYROIDISM, UNSPECIFIED 06/02/2018 ASHU MATSON MD Ot E11.9 TYPE 2 DIABETES MELLITUS WITHOUT COMPLIC 06/02/2018 ASHU MATSON MD Ot F17.210 NICOTINE DEPENDENCE, CIGARETTES, UNCOMPL 06/02/2018 ASHU MATSON MD Ot F41.9 ANXIETY DISORDER, UNSPECIFIED 06/02/2018 ASHU MATSON MD Ot G40.909 EPILEPSY, UNSP, NOT INTRACTABLE, WITHOUT 06/02/2018 ASHU MATSON MD Ot G47.30 SLEEP APNEA, UNSPECIFIED 06/02/2018 ASHU MATSON MD Ot J06.9 ACUTE UPPER RESPIRATORY INFECTION, UNSPE 06/02/2018 ASHU MATSON MD Ot R56.9 UNSPECIFIED CONVULSIONS 06/02/2018 ASHU MATSON MD Ot Z79.84 [employer] (CURRENT) USE OF ORAL HYPOGLYC 06/02/2018 ASHU MATSON MD Ot Z87.19 PERSONAL HISTORY OF OTHER DISEASES OF 06/04/2018 ASHU MATSON MD Ot E03.9 HYPOTHYROIDISM, UNSPECIFIED 06/04/2018 ASHU MATSON MD Ot E11.9 TYPE 2 DIABETES MELLITUS WITHOUT COMPLIC 06/04/2018 ASHU MATSON MD Ot F17.210 NICOTINE DEPENDENCE, CIGARETTES, UNCOMPL 06/04/2018 ASHU MATSON MD Ot F41.9 ANXIETY DISORDER, UNSPECIFIED 06/04/2018 ASHU MATSON MD Ot G40.909 EPILEPSY, UNSP, NOT INTRACTABLE, WITHOUT 06/04/2018 ASHU MATSON MD, Ot G47.30 SLEEP APNEA, UNSPECIFIED 06/04/2018 ASHU MATSON MD, Ot J06.9 ACUTE UPPER RESPIRATORY INFECTION, UNSPE 06/04/2018 ASHU MATSON MD Ot R56.9 UNSPECIFIED CONVULSIONS 06/04/2018 ASHU MATSON MD, Ot Z79.84 [employer] (CURRENT) USE OF ORAL HYPOGLYC 06/04/2018 ASHU MATSON MD, Ot Z87.19 PERSONAL HISTORY OF OTHER DISEASES OF TH Procedures There is no data. Results Test [...] INFLUENZA A AND B ANTIGENS BY IA [facility] Comprehensive metabolic panel - 08/19/16 [...] or plasma urea nitrogen/creatinine mass ratio 16 [facility] Serum or plasma creatinine measurement with calculation of estimated glomerular filtration rate > [facility] Serum or plasma glucose measurement [...] plasma albumin measurement (mass/volume) 4.7 g/dL 3.2-4.5 Complete blood count (CBC) with automated white blood cell (WBC) differential - 05/29/18 12:05 Blood leukocytes automated count (number/volume) 6.5 10*3/uL 4.3-11.0 Blood erythrocytes automated count (number/volume) 4.74 10*6/uL 4.35-5.85 Venous blood hemoglobin measurement (mass/volume) 13.6 g/dL 13.3-17.7 Blood hematocrit (volume fraction) 40 % 40-54 Automated erythrocyte mean corpuscular volume 85 [foz_us] 80-99 Automated erythrocyte mean corpuscular hemoglobin (mass per erythrocyte) 29 pg 25-34 Automated erythrocyte mean corpuscular hemoglobin concentration measurement ( mass/volume) 34 g/dL 32-36 Automated erythrocyte distribution width ratio 13.1 % 10.0-14.5 Automated blood platelet count (count/volume) 363 10*3/uL 130-400 Automated blood platelet mean volume measurement 9.8 [foz_us] 7.4-10.4 Automated blood neutrophils/100 leukocytes 63 % 42-75 Automated blood lymphocytes/100 leukocytes 27 % 12-44 Blood monocytes/100 leukocytes 7 % 0-12 Automated blood eosinophils/100 leukocytes 3 % 0-10 Automated blood basophils/100 leukocytes 0 % 0-10 Blood neutrophils automated count (number/volume) 4.1 10*3 1.8-7.8 Blood lymphocytes automated count (number/volume) 1.8 10*3 1.0-4.0 Blood monocytes automated count (number/volume) 0.5 10*3 0.0-1.0 Automated eosinophil count 0.2 10*3/uL 0.0-0.3 Automated blood basophil count (count/volume) 0.0 10*3/uL 0.0-0.1 Comprehensive metabolic panel - 05/29/18 12:05 Serum or plasma sodium measurement (moles/volume) 136 mmol/L 135-145 Serum or plasma potassium measurement (moles/volume) 5.0 mmol/L 3.6-5.0 Serum or plasma chloride measurement (moles/volume) 108 mmol/L 98-107 Carbon dioxide 15 mmol/L 21-32 [...] NRG Serum or plasma glucose measurement (mass/volume) 155 mg/dL 70-105 Serum or plasma calcium measurement (mass/volume) 9.4 mg/dL 8.5-10.1 Serum or plasma total bilirubin measurement (mass/volume) 0.3 mg/dL 0.1-1.0 Serum or plasma alkaline phosphatase measurement (enzymatic activity/volume) 76 U/L 40-136 Serum or plasma aspartate aminotransferase measurement (enzymatic activity/ volume) 20 U/L 5-34 Serum or plasma alanine aminotransferase measurement (enzymatic activity/volume ) 23 U/L 0-55 Serum or plasma protein measurement (mass/volume) 7.8 g/dL 6.4-8.2 Serum or plasma albumin measurement (mass/volume) 4.3 g/dL 3.2-4.5 CALCIUM CORRECTED 9.2 mg/dL 8.5-10.1 Magnesium - 05/29/18 12:05 Magnesium 2.5 mg/dL 1.8-2.4 THYROID STIMULATING HORMONE - 05/29/18 12:05 THYROID STIMULATING HORMONE 3.06 u[iU]/mL 0.35-4.94 Serum or plasma thyroxine (T4) free measurement (mass/volume) - 05/29/18 12:05 Serum or plasma thyroxine (T4) free measurement (mass/volume) 0.93 ng/dL 0.70-1.48 LAMOTRIGINE LEVEL - 05/29/18 12:05 LAMOTRIGINE 3.2 % 2.5-15.0 Capillary blood glucose measurement by glucometer (mass/volume) - 06/02/18 12: 54 Capillary blood glucose measurement by glucometer (mass/volume) 129 mg/dL 70-110 Complete blood count (CBC) with automated white blood cell (WBC) differential - 06/02/18 12:55 Blood leukocytes automated count (number/volume) 9.7 10*3/uL 4.3-11.0 Blood erythrocytes automated count (number/volume) 4.92 10*6/uL 4.35-5.85 Venous blood hemoglobin measurement (mass/volume) 14.2 g/dL 13.3-17.7 Blood hematocrit (volume fraction) 42 % 40-54 Automated erythrocyte mean corpuscular volume 85 [foz_us] 80-99 Automated erythrocyte mean corpuscular hemoglobin (mass per erythrocyte) 29 pg 25-34 Automated erythrocyte mean corpuscular hemoglobin concentration measurement ( mass/volume) 34 g/dL 32-36 Automated erythrocyte distribution width ratio 13.2 % 10.0-14.5 Automated blood platelet count (count/volume) 380 10*3/uL 130-400 Automated blood platelet mean volume measurement 9.9 [foz_us] 7.4-10.4 Automated blood neutrophils/100 leukocytes 56 % 42-75 Automated blood lymphocytes/100 leukocytes 31 % 12-44 Blood monocytes/100 leukocytes 10 % 0-12 Automated blood eosinophils/100 leukocytes 3 % 0-10 Automated blood basophils/100 leukocytes 0 % 0-10 Blood neutrophils automated count (number/volume) 5.4 10*3 1.8-7.8 Blood lymphocytes automated count (number/volume) 3.0 10*3 1.0-4.0 Blood monocytes automated count (number/volume) 1.0 10*3 0.0-1.0 Automated eosinophil count 0.3 10*3/uL 0.0-0.3 Automated blood basophil count (count/volume) 0.0 10*3/uL 0.0-0.1 Comprehensive metabolic panel - 06/02/18 12:55 Serum or plasma sodium measurement (moles/volume) 138 mmol/L 135-145 Serum or plasma potassium measurement (moles/volume) 4.2 mmol/L 3.6-5.0 Serum or plasma chloride measurement (moles/volume) 106 mmol/L 98-107 Carbon dioxide 13 mmol/L 21-32 Serum or plasma anion gap determination (moles/volume) 19 mmol/L 5-14 Serum or plasma urea nitrogen measurement (mass/volume) 16 mg/dL 7-18 Serum or plasma creatinine measurement (mass/volume) 1.01 mg/dL 0.60-1.30 Serum or plasma urea nitrogen/creatinine mass ratio 16 NRG Serum or plasma creatinine measurement with calculation of estimated glomerular filtration rate > NRG Serum or plasma glucose measurement (mass/volume) 135 mg/dL 70-105 Serum or plasma calcium measurement (mass/volume) 9.8 mg/dL 8.5-10.1 Serum or plasma total bilirubin measurement (mass/volume) 0.4 mg/dL 0.1-1.0 Serum or plasma alkaline phosphatase measurement (enzymatic activity/volume) 85 U/L 40-136 Serum or plasma aspartate aminotransferase measurement (enzymatic activity/ volume) 20 U/L 5-34 Serum or plasma alanine aminotransferase measurement (enzymatic activity/volume ) 27 U/L 0-55 Serum or plasma protein measurement (mass/volume) 8.0 g/dL 6.4-8.2 Serum or plasma albumin measurement (mass/volume) 4.7 g/dL 3.2-4.5 Serum or plasma C reactive protein measurement (mass/volume) - 06/02/18 12:55 Serum or plasma C reactive protein measurement (mass/volume) 0.63 mg /dL 0.00-0.50 Serum or plasma ethanol measurement (mass/volume) - 06/02/18 12:55 Serum or plasma ethanol measurement (mass/volume) < mg/dL <10 Encounters ACCT No. Visit Date/Time Discharge Status Pt. Type Provider Facility Loc./Unit Complaint [id number] 06/02/2018 12:50:00 06/02/2018 14:06:00 DIS Emergency ASHU MATSON MD [facility] ER SEIZURE [id number] 05/29/2018 11:52:00 05/29/2018 13:30:00 DIS Emergency CHAPO ESCALANTE MD [facility] ER SEIZURE [id number] 03/01/2018 21:50:00 03/01/2018 22:41:00 DIS Emergency ASHU MATSON MD [facility] ER SEIZURE [id number] 02/07/2018 22:44:00 02/07/2018 23:16:00 DIS Emergency JAYLENE LOYA APRN [facility] ER SEIZURE [id number] 12/27/2017 20:58:00 12/27/2017 23:12:00 DIS Emergency EDUAR URIARTE MD [facility] ER INJ FROM SEIZURE [id number] 12/02/2017 13:31:00 12/02/2017 15:07:00 DIS Emergency JAYLENE LOYA APRN [facility] ER HEAD PAIN,HIP PAIN [id number] 11/20/2017 14:07:00 11/20/2017 15:47:00 DIS Emergency JAYLENE LOYA BUSINESS LAW TEACHER [facility] ER SEIZURE [id number] 10/30/2017 21:28:00 10/30/2017 23:42:00 DIS Emergency JAYLENE LOYA BUSINESS LAW TEACHER [facility] ER SEIZURE [id number] 10/12/2017 20:39:00 10/13/2017 00:36:00 DIS Emergency LUIS GATES [facility] ER R FOOT INJ [id number] 09/10/2017 10:31:00 09/10/2017 13:45:00 DIS Emergency BORIS DELGADO, CHAPO [place] [facility] ER SEIZURE [id number] 08/23/2017 13:58:00 08/23/2017 16:00:00 DIS Emergency DANO DELGADO, ASHU Alan [facility] ER SEIZURE [id number] 06/22/2017 16:39:00 06/22/2017 18:07:00 DIS Emergency GALINDO DELGADO, CARLOS Tavera [facility] ER SEIZURE [id number] 05/06/2017 21:56:00 05/06/2017 23:30:00 DIS Emergency DANO DELGADO, ASHU Alan [facility] ER SEIZURE-FALL [id number] 12/12/2016 20:25:00 12/12/2016 22:02:00 DIS Emergency CHAPITO DELGADO, EDUAR Iqbal [facility] ER POSSIBLE SEIZURE [id number] 10/31/2016 09:27:00 10/31/2016 14:50:00 DIS Outpatient ROMERO SANFORD DO [facility] SDC UMBILICAL HERNIA [id number] 10/29/2016 08:37:00 10/29/2016 09:05:00 DIS Outpatient ROMERO SANFORD DO [facility] PREOP UMBILICAL HERNIA [id number] 08/19/2016 11:19:00 08/19/2016 14:50:00 DIS Emergency DANO DELGADO, ASHU Alan [facility] ER LIGHTHEADED NAUSEA [id number] 02/02/2016 20:45:00 02/03/2016 06:40:00 DIS Outpatient DANNA DELGADO, SAYDA Jimenez [facility] SLEEP OBSTRUCTIVE SLEEP APNEA [id number] 01/27/2016 21:02:00 01/27/2016 22:31:00 DIS Emergency CECILE DELGADO, JAYSHREE An [facility] ER SEIZURE/FALL [id number] 12/19/2015 21:50:00 12/19/2015 23:31:00 DIS Emergency BORIS DELGADO, CHAPO [place] [facility] ER SEIZURE [id number] 11/17/2015 20:50:00 11/18/2015 06:50:00 DIS Outpatient DANNA DELGADO, SAYDA Jimenez [facility] SLEEP OBSERVED APNEAS,SNORING ,SEIZURE,ABN LIMB MOVEMENT [id number] 10/04/2015 13:44:00 10/04/2015 23:59:59 CLS Outpatient KAREN HUNTER DO [facility] LAB INFERTILITY [id number] 09/12/2015 20:42:00 09/12/2015 21:58:00 DIS Emergency GAVI ACEVEDO DO [facility] ER CONGESTION [id number] 03/18/2014 20:01:00 03/18/2014 22:13:00 DIS Emergency KITA OSCAR DO [facility] ER [id number] 07/06/2018 21:57:00 ACT Emergency KATINA JAZMINE [facility] ER SEIZURE [id number] 05/04/2015 22:47:00 Document Registration
[2018-07-06] MEDS ORDERED: NS IV 1000 ML 1,000 ML IV SCH (22:15)
[2018-07-06] MEDS ORDERED: ONDANSETRON 4 MG/2 ML (SDV) Z0FRAN IVP ONE (22:15)
[2018-07-06 22:16] LABS: BASOPHILS % (AUTO) 0 % (0-10); EOSINOPHILS # (AUTO) 0.1 10^3/uL (0.0-0.3); EOSINOPHILS % (AUTO) 1 % (0-10); HEMATOCRIT 40 % (40-54); HEMOGLOBIN 14.2 G/DL (13.3-17.7); LYMPHOCYTES # (AUTO) 2.7 X 10^3 (1.0-4.0); LYMPHOCYTES % (AUTO) 31 % (12-44); MEAN CORPUSCULAR HEMOGLOBIN 30 PG (25-34); MEAN CORPUSCULAR HGB CONC 36 G/DL (32-36); MEAN CORPUSCULAR VOLUME 83 FL (80-99); MONOCYTES # (AUTO) 0.7 X 10^3 (0.0-1.0); MONOCYTES % (AUTO) 8 % (0-12); NEUTROPHILS # (AUTO) 5.2 X 10^3 (1.8-7.8); NEUTROPHILS % (AUTO) 59 % (42-75); PLATELET COUNT 358 10^3/uL (130-400); RED CELL DISTRIBUTION WIDTH 12.6 % (10.0-14.5); WHITE BLOOD COUNT 8.8 10^3/uL (4.3-11.0)
[2018-07-06 22:33] LABS: ALANINE AMINOTRANSFERASE 24 U/L (0-55); ALBUMIN 4.8 GM/DL (3.2-4.5); ALKALINE PHOSPHATASE 72 U/L (40-136); BILIRUBIN,TOTAL 0.4 MG/DL (0.1-1.0); BUN/CREATININE RATIO 15; CALCIUM 9.9 MG/DL (8.5-10.1); CARBON DIOXIDE 12 MMOL/L (21-32); CHLORIDE 107 MMOL/L (98-107); CREATININE SERUM 1.03 MG/DL (0.60-1.30); GFR ESTIMATED > 60; GLUCOSE 153 MG/DL (70-105); POTASSIUM 4.5 MMOL/L (3.6-5.0); SODIUM 139 MMOL/L (135-145); TOTAL PROTEIN 8.2 GM/DL (6.4-8.2)
--- NOTE | 2018-07-06 22:39 | ED Neurological Problem ---
General Chief Complaint: Neurological Problems Stated Complaint: SEIZURE Source: patient Exam Limitations: no limitations History of Present Illness Date Seen by Provider: Jul 06, 2018 Time Seen by Provider: 21:50 Initial Comments Patient is a 32-year-old male who was brought to the emergency room by [facility] for reports of having a seizure at work. He has been brought in numerous times for seizures by EMS. He has a history of epilepsy and grand mal seizures. Reports hitting his head today complains of left-sided head pain. He is alert and oriented on arrival to the emergency room is no longer postictal. Timing/Duration: 1/2 hour Allergies and Home Medications Allergies Coded Allergies: No Known Drug Allergies (Unverified , 03/18/14) Home Medications Clonazepam 0.5 Mg Tablet, 0.5-1 MG PO BID, (Reported) take 1 (.5mg) tab in am take 2 (.5mg) tab in pm Hydrocodone/Acetaminophen 1 Each Tablet, 1 EACH PO Q4H PRN for PAIN-MODERATE TO SEVERE Prescribed by: LUIS POWERS on 10/13/17 0026 Lamotrigine 150 Mg Tablet, 150 MG PO Q12H, (Reported) Levetiracetam 1,000 Mg Tablet, 1,000 MG PO BID, (Reported) take with 5oomg tab for 1500mg total Levothyroxine Sodium 50 Mcg Tablet, 50 MCG PO DAILY, (Reported) Metformin HCl 500 Mg Tablet, 500 MG PO BID, (Reported) [place] 3 Polyunsat Fatty Acids 1,000 Mg Cap, 1,000 MG PO BID, (Reported) Patient Home Medication List Home Medication List Reviewed: Yes Review of Systems Review of Systems Constitutional: see HPI; No chills, No fever Psychiatric/Neurological: See HPI, Headache, Tonic Clonic Seizures All Other Systems Reviewed Negative Unless Noted: Yes Past Sbkztys-Ozxgyj-Bqhrzo Hx Past Med/Social Hx: Reviewed Nursing Past Med/Soc Hx Patient Social History Type Used: Cigarettes Former Smoker, Quit: Oct 29, 2009 Recent Hopitalizations: No Immunizations Up To Date Tetanus Booster (TDap): More than 5yrs Date of Influenza Vaccine: May 30, 2015 Seasonal Allergies Seasonal Allergies: Yes Past Medical History Surgeries: Yes (hernia repair) Respiratory: Yes Sleep Apnea Currently Using CPAP: Yes Cardiac: No Neurological: Yes Seizure Disorder Reproductive Disorders: No Sexually Transmitted Disease: No Genitourinary: No Gastrointestinal: Yes (umb hernia) Musculoskeletal: No Endocrine: Yes (pre=diabetes) Hypothyroidsim, Diabetes, Non-Insulin dep HEENT: No Cancer: No Psychosocial: Yes Anxiety Integumentary: No Blood Disorders: No Family Medical History Reviewed Nursing Family Hx No Pertinent Family Hx Physical Exam Vital Signs Vital Signs - First Documented 07/06/18 07/06/18 21:56 23:19 Temp 98.7 Pulse 72 Resp 19 B/P (MAP) 135/82 (99) Pulse Ox 95 Capillary Refill : Height, Weight, BMI Height: 6'10.00" Weight: 248lbs. 0.0oz. 112.881677ab; 39.5 BMI Method:Stated General Appearance: WD/WN, no apparent distress HEENT: PERRL/EOMI, normal ENT inspection, TMs normal Neck: non-tender, full range of motion, supple, normal inspection Respiratory: chest non-tender, lungs clear, normal breath sounds, no respiratory distress, no accessory muscle use, respiratory distress Cardiovascular: normal peripheral pulses, regular rate, rhythm, no edema, no gallop, no JVD, no murmur Gastrointestinal: normal bowel sounds, non tender, soft, no organomegaly, no pulsatile mass Back: normal inspection, no CVA tenderness, no vertebral tenderness 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: alert, normal mood/affect, oriented x 3 Crainal Nerves: normal hearing, normal speech, PERRL Coordination/Gait: normal finger to nose, normal gait Motor/Sensory: no motor deficit, no sensory deficit Skin: normal color, warm/dry Progress/Results/Core Measures Results/Orders Lab Results Laboratory Tests Test 07/06/18 22:00 Range/Units White Blood Count 8.8 4.3-11.0 10^3/uL Red Blood Count 4.80 4.35-5.85 10^6/uL Hemoglobin 14.2 13.3-17.7 G/DL Hematocrit 40 40-54 % Mean Corpuscular Volume 83 80-99 FL Mean Corpuscular Hemoglobin 30 25-34 PG Mean Corpuscular Hemoglobin Concent 36 32-36 G/DL Red Cell Distribution Width 12.6 10.0-14.5 % Platelet Count 358 130-400 10^3/uL Mean Platelet Volume 10.0 7.4-10.4 FL Neutrophils (%) (Auto) 59 42-75 % Lymphocytes (%) (Auto) 31 12-44 % Monocytes (%) (Auto) 8 0-12 % Eosinophils (%) (Auto) 1 0-10 % Basophils (%) (Auto) 0 0-10 % Neutrophils # (Auto) 5.2 1.8-7.8 X 10^3 Lymphocytes # (Auto) 2.7 1.0-4.0 X 10^3 Monocytes # (Auto) 0.7 0.0-1.0 X 10^3 Eosinophils # (Auto) 0.1 0.0-0.3 10^3/uL Basophils # (Auto) 0.0 0.0-0.1 10^3/uL Sodium Level 139 135-145 MMOL/L Potassium Level 4.5 3.6-5.0 MMOL/L Chloride Level 107 98-107 MMOL/L Carbon Dioxide Level 12 L 21-32 MMOL/L Anion Gap 20 H 5-14 MMOL/L Blood Urea Nitrogen 15 7-18 MG/DL Creatinine 1.03 0.60-1.30 MG/DL Estimat Glomerular Filtration Rate > 60 BUN/Creatinine Ratio 15 Glucose Level 153 H 70-105 MG/DL Calcium Level 9.9 8.5-10.1 MG/DL Corrected Calcium 8.5-10.1 MG/DL Total Bilirubin 0.4 0.1-1.0 MG/DL Aspartate Amino Transf (AST/SGOT) 17 5-34 U/L Alanine Aminotransferase (ALT/SGPT) 24 0-55 U/L Alkaline Phosphatase 72 40-136 U/L Total Protein 8.2 6.4-8.2 GM/DL Albumin 4.8 H 3.2-4.5 GM/DL My Orders Orders - JAZMINE AMBRIZ Cbc With Automated Diff (07/06/18 22:01) Comprehensive Metabolic Panel (07/06/18 22:01) Ns Iv 1000 Ml (Sodium Chloride 0.9%) (07/06/18 22:15) Ondansetron Injection (Zofran Injectio (07/06/18 22:15) Ct Head/Cervical Spine Wo (07/06/18 22:12) Medications Given in ED Vital Signs/I&O 07/06/18 07/06/18 21:56 23:19 Temp 98.7 98.7 Pulse 72 72 Resp 19 19 B/P (MAP) 135/82 (99) 135/82 (99) Pulse Ox 95 Progress Progress Note : Time: 22:40 Progress Note I have seen and evaluated patient. I informed him of normal CT imaging studies. He agrees with plans for discharge, return precautions were given. Diagnostic Imaging Diagonstic Imaging: CT Plain Films/CT/US/NM/MRI: c-spine, head Comments VIA [facility]. [place], [place] NAME: HAFSA GOSS [facility] REC#: [id number] PT STATUS: DEP ER : 1985 PHYSICIAN: JAZMINE AMBRIZ ADMIT DATE: 07/06/18/ER Draft Date of Exam:07/06/18 CT HEAD/CERVICAL SPINE WO PROCEDURE: CT head and CT cervical spine without contrast. TECHNIQUE: Multiple contiguous axial images were obtained through the brain and cervical spine without the use of intravenous contrast. Sagittal and coronal reformations through the cervical spine were then performed. INDICATION: Unwitnessed seizure, head pain. Head CT compared to 12/27/2017. Head: There is no hemorrhage, hydrocephalus, edema, mass or mass effect. No abnormal extra-axial collection. The basilar cisterns patent and sulci non-effaced. Orbits, sinuses and calvarium appeared nonacute. There has been no interval change. CT cervical spine: The neck is held in flexion, aside from positioning the alignment is otherwise unremarkable. Cervical vertebral statures are unremarkable. No substantial bony canal stenosis. No cervical fracture nor evidence for paravertebral hematoma. Facet relationships are within normal limits. Impression: CT head: Stable unremarkable CT head. CT cervical spine: No cervical fracture or traumatic malalignment. Dictated on workstation # [id number] Dict: 07/07/18 0744 Trans: 07/07/18 0758 [facility] [id number] Interpreted by: ZOIE SORTO Electronically signed by: Reviewed: Reviewed by Me Departure Impression Primary Impression: Seizure Disposition: 01 HOME, SELF-CARE Condition: Stable/Unchanged Departure-Patient Inst. Decision time for Depature: 22:49 Referrals: GAVI HAAS MD (PCP/Family) Primary Care Physician Patient Instructions: Epilepsy in Adults Add. Discharge Instructions: Continue your previously prescribed medications as directed. Follow-up with your primary care provider within 1 week for recheck. Return back to the emergency room for any worsening symptoms or concerns as needed. All discharge instructions reviewed with patient and/or family. Voiced understanding. JAZMINE AMBRIZ Jul 06, 2018 22:39
[2018-07-06 23:19] VITALS: BP 135/82
--- NOTE | 2018-07-07 07:59 | Diagnostic Imaging Report ---
PROCEDURE: CT head and CT cervical spine without contrast. TECHNIQUE: Multiple contiguous axial images were obtained through the brain and cervical spine without the use of intravenous contrast. Sagittal and coronal reformations through the cervical spine were then performed. INDICATION: Unwitnessed seizure, head pain. Head CT compared to 12/27/2017. Head: There is no hemorrhage, hydrocephalus, edema, mass or mass effect. No abnormal extra-axial collection. The basilar cisterns patent and sulci non-effaced. Orbits, sinuses and calvarium appeared nonacute. There has been no interval change. CT cervical spine: The neck is held in flexion, aside from positioning the alignment is otherwise unremarkable. Cervical vertebral statures are unremarkable. No substantial bony canal stenosis. No cervical fracture nor evidence for paravertebral hematoma. Facet relationships are within normal limits. Impression: CT head: Stable unremarkable CT head. CT cervical spine: No cervical fracture or traumatic malalignment. Dictated by: Dictated on workstation # [id number]
== END 2018-07-06 23:20 | disposition home or self-care (01) ==
LOC: EDUNIT# 21:56 → ER 21:57
DX: G40.909 Epilepsy, unspecified, not intractable, without status epilepticus (principal); G47.30 Sleep apnea, unspecified; E03.9 Hypothyroidism, unspecified; E11.9 Type 2 diabetes mellitus without complications; F41.9 Anxiety disorder, unspecified; Z87.19 Personal history of other diseases of the digestive system; Z79.84 Long term (current) use of oral hypoglycemic drugs; Z87.891 Personal history of nicotine dependence; Z98.890 Other specified postprocedural states
CPT/HCPCS: 36415; 70450; 72125; 80053; 85025

== ENCOUNTER 2018-08-24 09:55 | Emergency (ER) | payer BC ==
[~2018-08-24] VITALS: Ht 182.9 cm; Wt 113.4 kg
[2018-08-24] MEDS ORDERED: NS IV 1000 ML 1,000 ML IV ONE (10:05)
--- NOTE | 2018-08-24 10:12 | ED Neurological Problem ---
General Chief Complaint: Neurological Problems Stated Complaint: SEIZURE Nursing Triage Note: pt brought in by ems with complaint of seizure. pt has seizure disorder Nursing Sepsis Screen: No Definite Risk Source: patient Exam Limitations: no limitations History of Present Illness Date Seen by Provider: Aug 24, 2018 Time Seen by Provider: 09:56 Initial Comments Here by EMS with report of seizure at home. Apparently was found face down. He was actively seizing at home. EMS was summoned. They arrived his seizures had stopped. Currently postictal but improving. EMS unable to get IV visit I will signs and blood sugar normal. Patient has not taken his a.m. seizure medicines. Last seizure approximately 3 weeks ago. He is able to answer questions but is slow and slightly confused but follows commands. He denies current pain but states he may benefit his time because it feels a little sore. Timing/Duration: 1/2 hour Severity: moderate Associated Symptoms: confusion; No fever/chills, No nausea/vomiting; seizures Allergies and Home Medications Allergies Coded Allergies: No Known Drug Allergies (Unverified , 03/18/14) Home Medications Clonazepam 0.5 Mg Tablet, 0.5-1 MG PO BID, (Reported) take 1 (.5mg) tab in am take 2 (.5mg) tab in pm Hydrocodone/Acetaminophen 1 Each Tablet, 1 EACH PO Q4H PRN for PAIN-MODERATE TO SEVERE Prescribed by: LUIS POWERS on 10/13/17 0026 Lamotrigine 150 Mg Tablet, 150 MG PO Q12H, (Reported) Levetiracetam 1,000 Mg Tablet, 1,000 MG PO BID, (Reported) take with 5oomg tab for 1500mg total Levothyroxine Sodium 50 Mcg Tablet, 50 MCG PO DAILY, (Reported) Metformin HCl 500 Mg Tablet, 500 MG PO BID, (Reported) [place] 3 Polyunsat Fatty Acids 1,000 Mg Cap, 1,000 MG PO BID, (Reported) Patient Home Medication List Home Medication List Reviewed: Yes Review of Systems Review of Systems Constitutional: see HPI; No chills, No fever Eyes: No Symptoms Reported Ears, Nose, Mouth, Throat: no symptoms reported Respiratory: no symptoms reported Cardiovascular: No chest pain, No edema Gastrointestinal: No abdominal pain, No nausea, No vomiting Genitourinary: no symptoms reported Musculoskeletal: no symptoms reported Skin: no symptoms reported Psychiatric/Neurological: See HPI, Tonic Clonic Seizures; Denies Weakness All Other Systems Reviewed Negative Unless Noted: Yes Past Rzhbnza-Tawhqz-Obvkah Hx Past Med/Social Hx: Reviewed Nursing Past Med/Soc Hx Patient Social History Alcohol Use: Occasionally Uses Recreational Drug Use: No Smoking Status: Former Smoker Type Used: Cigarettes Former Smoker, Quit: Oct 29, 2009 Recent Foreign Travel: No Contact w/Someone Who Travel: No Recent Infectious Disease Expo: No Recent Hopitalizations: No Immunizations Up To Date Tetanus Booster (TDap): More than 5yrs Date of Influenza Vaccine: May 30, 2015 Seasonal Allergies Seasonal Allergies: Yes Past Medical History Surgeries: Yes (hernia repair) Respiratory: Yes Sleep Apnea Currently Using CPAP: Yes Cardiac: No Neurological: Yes Seizure Disorder Reproductive Disorders: No Sexually Transmitted Disease: No Genitourinary: No Gastrointestinal: Yes (umb hernia) Musculoskeletal: No Endocrine: Yes (pre=diabetes) Hypothyroidsim, Diabetes, Non-Insulin dep HEENT: No Cancer: No Psychosocial: Yes Anxiety Integumentary: No Blood Disorders: No Family Medical History Reviewed Nursing Family Hx No Pertinent Family Hx Physical Exam Vital Signs Vital Signs - First Documented 08/24/18 09:56 Temp 99.5 Pulse 95 Resp 20 B/P (MAP) 126/85 (99) Pulse Ox 95 O2 Delivery Room Air Capillary Refill : Less Than 3 Seconds Height, Weight, BMI Height: 6'0" Weight: 250lbs. 0.0oz. 113.891617el; 39.5 BMI Method:Stated General Appearance: WD/WN, no apparent distress HEENT: PERRL/EOMI, pharynx normal Neck: full range of motion, supple Respiratory: lungs clear, normal breath sounds Cardiovascular: regular rate, rhythm, no murmur Peripheral Pulses: 2+ Dorsalis Pedis (R), 2+ Left Dors-Pedis (L), 2+ Radial Pulses (R), 2+ Radial Pulses (L) Gastrointestinal: non tender, soft Back: normal inspection, no CVA tenderness, no vertebral tenderness Extremities: non-tender, normal inspection 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: alert, normal mood/affect Crainal Nerves: normal hearing, normal speech, PERRL Motor/Sensory: no motor deficit, no sensory deficit Skin: normal color, warm/dry Progress/Results/Core Measures Results/Orders Lab Results Laboratory Tests Test 08/24/18 10:05 Range/Units White Blood Count 8.3 4.3-11.0 10^3/uL Red Blood Count 4.84 4.35-5.85 10^6/uL Hemoglobin 14.1 13.3-17.7 G/DL Hematocrit 41 40-54 % Mean Corpuscular Volume 85 80-99 FL Mean Corpuscular Hemoglobin 29 25-34 PG Mean Corpuscular Hemoglobin Concent 34 32-36 G/DL Red Cell Distribution Width 13.0 10.0-14.5 % Platelet Count 398 130-400 10^3/uL Mean Platelet Volume 9.8 7.4-10.4 FL Neutrophils (%) (Auto) 55 42-75 % Lymphocytes (%) (Auto) 34 12-44 % Monocytes (%) (Auto) 8 0-12 % Eosinophils (%) (Auto) 2 0-10 % Basophils (%) (Auto) 1 0-10 % Neutrophils # (Auto) 4.6 1.8-7.8 X 10^3 Lymphocytes # (Auto) 2.8 1.0-4.0 X 10^3 Monocytes # (Auto) 0.7 0.0-1.0 X 10^3 Eosinophils # (Auto) 0.2 0.0-0.3 10^3/uL Basophils # (Auto) 0.0 0.0-0.1 10^3/uL Sodium Level 135 135-145 MMOL/L Potassium Level 4.8 3.6-5.0 MMOL/L Chloride Level 104 98-107 MMOL/L Carbon Dioxide Level 9 *L 21-32 MMOL/L Anion Gap 22 H 5-14 MMOL/L Blood Urea Nitrogen 20 H 7-18 MG/DL Creatinine 1.02 0.60-1.30 MG/DL Estimat Glomerular Filtration Rate > 60 BUN/Creatinine Ratio 20 Glucose Level 218 H 70-105 MG/DL Calcium Level 9.3 8.5-10.1 MG/DL Corrected Calcium 9.0 8.5-10.1 MG/DL Magnesium Level 2.6 H 1.8-2.4 MG/DL Total Bilirubin 0.3 0.1-1.0 MG/DL Aspartate Amino Transf (AST/SGOT) 22 5-34 U/L Alanine Aminotransferase (ALT/SGPT) 32 0-55 U/L Alkaline Phosphatase 84 40-136 U/L Total Protein 8.5 H 6.4-8.2 GM/DL Albumin 4.4 3.2-4.5 GM/DL My Orders Orders - EDUAR URIARTE MD Cbc With Automated Diff (08/24/18 10:05) Comprehensive Metabolic Panel (08/24/18 10:05) Magnesium (08/24/18 10:05) Ekg Tracing (08/24/18 10:05) Saline Lock/Iv-Start (08/24/18 10:05) Ns Iv 1000 Ml (Sodium Chloride 0.9%) (08/24/18 10:05) Levetiracetam Tablet (Keppra Tablet) (08/24/18 10:15) Levetiracetam Tablet (Keppra Tablet) (08/24/18 10:15) Lamotrigine Tablet (Lamictal Tablet) (08/24/18 10:15) Lamotrigine Tablet (Lamictal Tablet) (08/24/18 10:15) Clonazepam Tablet (Klonopin Tablet) (08/24/18 10:15) Accucheck Stat ONCE (08/24/18 11:36) Medications Given in ED Current Medications Medications Dose Ordered Sig/Warren Route Start Time Stop Time Status Last Admin Dose Admin Clonazepam 0.5 mg ONCE ONCE PO 08/24/18 10:15 08/24/18 10:16 DC 08/24/18 10:35 0.5 MG Lamotrigine 50 mg ONCE ONCE PO 08/24/18 10:15 08/24/18 10:16 DC 08/24/18 10:35 50 MG Lamotrigine 100 mg ONCE ONCE PO 08/24/18 10:15 08/24/18 10:16 DC 08/24/18 10:36 100 MG Levetiracetam 500 mg ONCE ONCE PO 08/24/18 10:15 08/24/18 10:16 DC 08/24/18 10:35 500 MG Levetiracetam 1,000 mg ONCE ONCE PO 08/24/18 10:15 08/24/18 10:16 DC 08/24/18 10:35 1,000 MG Sodium Chloride 1,000 ml @ 0 mls/hr Q0M ONCE IV 08/24/18 10:05 08/24/18 10:08 DC 08/24/18 10:25 1,000 MLS/HR Vital Signs/I&O 08/24/18 09:56 Temp 99.5 Pulse 95 Resp 20 B/P (MAP) 126/85 (99) Pulse Ox 95 O2 Delivery Room Air Blood Pressure Mean: 99 Progress Progress Note : Progress Note Seen and evaluated. IV, labs, normal saline 1 L bolus and EKG ordered. We will go ahead and give Lamictal 150 mg by mouth, Keppra 1500 mg by mouth and clonazepam 0.5 mg by mouth which is apparently his home dose. Monitor patient. 1130: Significant other at bedside and she'll get him home. No seizures return. Overall feeling much better. Chemistry abnormalities are likely indicative of recent seizure. Again patient feels back to normal. Discharged home with return precautions. Patient and family verbalize understanding instructions and agreement with plan. Initial ECG Impression Date: Aug 24, 2018 Initial ECG Impression Time: 09:58 Initial ECG Rate: 92 Initial ECG Rhythm: Normal Sinus Initial ECG Comparisson: Unchanged Comment Sinus rhythm with first degree AV block. No evidence of ST elevation DE. Similar to previous of 18 March 2014. Normal axis. Interpreted by me. Departure Impression Primary Impression: Seizure Disposition: 01 HOME, SELF-CARE Condition: Improved Departure-Patient Inst. Decision time for Depature: 11:34 Referrals: GAVI HAAS MD (PCP/Family) Primary Care Physician Patient Instructions: Seizures, Adult (DC) Add. Discharge Instructions: All discharge instructions reviewed with patient and/or family. Voiced understanding. Drink plenty of fluids. Follow-up with your DrAngelica this week for recheck and further evaluation. Your blood sugar seems to stay slightly above normal and may indicate the need for further evaluation and/or treatment for early diabetes. This also may be related to your seizure disorder and recent seizures. Discussed with your doctor regarding the blood sugar. Return for worse pain, fever, vomiting, weakness, breathing problems or other concerns as needed. Work/School Note: Work Release Form Date Seen in the Emergency Department: Aug 24, 2018 Return to Work: Aug 25, 2018 Restrictions: No Restrictions Copy Copies To 1: GAVI HAAS MD, TIMOTHY D MD Aug 24, 2018 10:12
[2018-08-24 10:13] LABS: BASOPHILS % (AUTO) 1 % (0-10); EOSINOPHILS # (AUTO) 0.2 10^3/uL (0.0-0.3); EOSINOPHILS % (AUTO) 2 % (0-10); HEMATOCRIT 41 % (40-54); HEMOGLOBIN 14.1 G/DL (13.3-17.7); LYMPHOCYTES # (AUTO) 2.8 X 10^3 (1.0-4.0); LYMPHOCYTES % (AUTO) 34 % (12-44); MEAN CORPUSCULAR HEMOGLOBIN 29 PG (25-34); MEAN CORPUSCULAR HGB CONC 34 G/DL (32-36); MEAN CORPUSCULAR VOLUME 85 FL (80-99); MEAN PLATELET VOLUME 9.8 FL (7.4-10.4); MONOCYTES # (AUTO) 0.7 X 10^3 (0.0-1.0); MONOCYTES % (AUTO) 8 % (0-12); NEUTROPHILS # (AUTO) 4.6 X 10^3 (1.8-7.8); NEUTROPHILS % (AUTO) 55 % (42-75); PLATELET COUNT 398 10^3/uL (130-400); RED BLOOD COUNT 4.84 10^6/uL (4.35-5.85); WHITE BLOOD COUNT 8.3 10^3/uL (4.3-11.0)
[2018-08-24] MEDS ORDERED: clonazePAM 0.5 MG (KlonoPIN) TAB PO ONE (10:15)
[2018-08-24] MEDS ORDERED: LEVETIRACETAM 500 MG (KEPPRA) TAB PO ONE (10:15)
[2018-08-24] MEDS ORDERED: LEVETIRACETAM 1,000 MG (KEPPRA) TABLET PO ONE (10:15)
[2018-08-24] MEDS ORDERED: lamoTRIgine 25 MG (LaMICtal) TAB PO ONE (10:15)
--- OUTSIDE RECORDS SUMMARY | 2018-08-24 10:26 | XMS REPORT | Continuity of Care Document ---
Author Author [facility] Organization [facility] Address Unknown Phone Unavailable Allergies Active Description Code Type Severity Reaction Onset Reported/Identified Relationship to Patient Clinical Status Yes No Known Drug Allergies [id number] Drug Allergy Unknown N/A 03/18/2014 Medications There [...] 12/19/2015 CHAPO ESCALANTE MD Ot Z79.899 OTHER FLAME BURNER (CURRENT) DRUG THERAPY 12/19/2015 KAREN HUNTER DO [...] A Ot Y92.[address] TO SINGLE-FAMILY ([facility] 01/27/2016 CECILE DELGADO, JAYSHREE A Ot Y99.8 [...] A Ot Y92.[address] TO SINGLE-FAMILY ([facility] 01/29/2016 CECILE DELGADO, JAYSHREE A Ot Y99.8 [...] KALI MATSON MDUS J Ot Z79.899 OTHER FLAME BURNER (CURRENT) DRUG THERAPY 10/29/2016 ROMERO SANFORD DO [...] OR 10/31/2016 ROMERO SANFORD DO Ot Z79.84 FLAME BURNER (CURRENT) USE OF ORAL HYPOGLYC 11/04/2016 ROMERO SANFORD DO Ot E11.9 TYPE 2 DIABETES MELLITUS WITHOUT COMPLIC 11/04/2016 SANFORD DO, ROMERO D Ot K42.9 UMBILICAL HERNIA WITHOUT OBSTRUCTION OR 11/04/2016 SANFORD DO, ROMERO D Ot Z79.84 FLAME BURNER (CURRENT) USE OF ORAL HYPOGLYC 11/05/2016 SANFORD [...] TYPE 2 DIABETES MELLITUS WITHOUT COMPLIC 12/16/2016 EDAUR URIARTE MD Ot G40.909 EPILEPSY, UNSP, NOT [...] 06/22/2017 GALINDO DELGADO, CARLOS Tavera Ot Z79.84 FLAME BURNER (CURRENT) USE OF ORAL HYPOGLYC 06/22/2017 GALINDO [...] MD Ot F41.9 ANXIETY DISORDER, UNSPECIFIED 08/23/2017 ASUH MATSON MD Ot G40.909 EPILEPSY, UNSP, NOT INTRACTABLE, WITHOUT 08/23/2017 ASHU MATSON MD J Ot G47.30 SLEEP APNEA, UNSPECIFIED 08/23/2017 ASHU MATSON MD Ot R41.89 OTH SYMPTOMS AND SIGNS W COGNITIVE FUNCT 08/23/2017 ASHU MATSON MD Ot Z79.84 FLAME BURNER (CURRENT) USE OF ORAL HYPOGLYC 08/26/2017 ASHU [...] CONVULSIONS 09/10/2017 CHAPO ESCALANTE MD Ot Z79.84 FLAME BURNER (CURRENT) USE OF ORAL HYPOGLYC 09/10/2017 CHAPO [...] CONVULSIONS 11/20/2017 JAYLENE LOYA APRN Ot Z79.84 FLAME BURNER (CURRENT) USE OF ORAL HYPOGLYC 11/20/2017 JAYLENE [...] G47.30 SLEEP APNEA, UNSPECIFIED 12/02/2017 JAYLENE LOYA INSTRUMENT MAN Ot M25.552 PAIN IN LEFT HIP 12/02/2017 JAYLENE LOYA INSTRUMENT MAN Ot S73.102A UNSPECIFIED SPRAIN OF LEFT HIP, INITIAL 12/02/2017 JAYLENE LOYA INSTRUMENT MAN Ot X58.XXXA EXPOSURE TO OTHER SPECIFIED FACTORS, INI 12/02/2017 JAYLENE LOYA INSTRUMENT MAN Ot Z79.84 FLAME BURNER (CURRENT) USE OF ORAL HYPOGLYC 12/02/2017 JAYLENE LOYA INSTRUMENT MAN Ot Z87.891 PERSONAL HISTORY OF NICOTINE DEPENDENCE [...] AG 12/29/2017 EDUAR URIARTE MD Ot Z79.84 FLAME BURNER (CURRENT) USE OF ORAL HYPOGLYC 12/29/2017 EDUAR [...] AG 01/02/2018 EDUAR URIARTE MD, Ot Z79.84 FLAME BURNER (CURRENT) USE OF ORAL HYPOGLYC 01/02/2018 EDUAR [...] WITHOUT 02/07/2018 JAYLENE LOYA APRN Ot Z79.84 FLAME BURNER (CURRENT) USE OF ORAL HYPOGLYC 02/07/2018 JAYLENE LOYA APRN Ot Z87.891 PERSONAL HISTORY OF NICOTINE DEPENDENCE 02/09/2018 JAYLENE LOYA INSTRUMENT MAN Ot E03.9 HYPOTHYROIDISM, UNSPECIFIED 02/09/2018 JAYLENE LOYA INSTRUMENT MAN Ot E11.9 TYPE 2 DIABETES MELLITUS WITHOUT COMPLIC 02/09/2018 JAYLENE LOYA INSTRUMENT MAN Ot F41.9 ANXIETY DISORDER, UNSPECIFIED 02/09/2018 JAYLENE LOYA INSTRUMENT MAN Ot G40.909 EPILEPSY, UNSP, NOT INTRACTABLE, WITHOUT 02/09/2018 JAYLENE LOYA INSTRUMENT MAN Ot Z79.84 FLAME BURNER (CURRENT) USE OF ORAL HYPOGLYC 02/09/2018 JAYLENE LOYA INSTRUMENT MAN Ot Z87.891 PERSONAL HISTORY OF NICOTINE DEPENDENCE [...] UNSPECIFIED 03/01/2018 ASHU MATSON MD Ot Z79.84 SKILLED NURSING (CURRENT) USE OF ORAL HYPOGLYC 03/01/2018 ASHU [...] 03/03/2018 ASHU MATSON MD J Ot Z79.84 SKILLED NURSING (CURRENT) USE OF ORAL HYPOGLYC 03/03/2018 ASHU [...] INI 05/29/2018 CHAPO ESCALANTE MD Ot Z79.84 FLAME BURNER (CURRENT) USE OF ORAL HYPOGLYC 05/29/2018 CHAPO [...] INI 06/02/2018 CHAPO ESCALANTE MD Ot Z79.84 SKILLED NURSING (CURRENT) USE OF ORAL HYPOGLYC 06/02/2018 CHAPO [...] CONVULSIONS 06/02/2018 ASHU MATSON MD Ot Z79.84 FLAME BURNER (CURRENT) USE OF ORAL HYPOGLYC 06/02/2018 ASHU MATSON MD Ot Z87.19 PERSONAL HISTORY OF OTHER DISEASES OF 06/04/2018 ASHU MATSON MD Ot E03.9 HYPOTHYROIDISM, UNSPECIFIED 06/04/2018 ASHU MATSON MD Ot E11.9 TYPE 2 DIABETES MELLITUS WITHOUT COMPLIC 06/04/2018 ASHU MATSON MD Ot F17.210 NICOTINE DEPENDENCE, CIGARETTES, UNCOMPL 06/04/2018 DANO MD, ASHU J Ot F41.9 ANXIETY DISORDER, UNSPECIFIED 06/04/2018 DANO DELGADO, ASHU J Ot G40.909 EPILEPSY, UNSP, NOT INTRACTABLE, WITHOUT 06/04/2018 DANO DELGADO, ASHU J Ot G47.30 SLEEP APNEA, UNSPECIFIED 06/04/2018 DANO DELGADO, ASHU J Ot J06.9 ACUTE UPPER RESPIRATORY INFECTION, UNSPE 06/04/2018 DANO DELGADO, ASHU J Ot R56.9 UNSPECIFIED CONVULSIONS 06/04/2018 DANO DELGADO, ASHU J Ot Z79.84 FLAME BURNER (CURRENT) USE OF ORAL HYPOGLYC 06/04/2018 ASHU MATSON MD J Ot Z87.19 PERSONAL HISTORY OF OTHER DISEASES OF 07/06/2018 BERNOT, JAZMINE Ot E03.9 HYPOTHYROIDISM, UNSPECIFIED 07/06/2018 BERNOT, JAZMINE Ot E11.9 TYPE 2 DIABETES MELLITUS WITHOUT COMPLIC 07/06/2018 BERNOT, JAZMINE Ot F41.9 ANXIETY DISORDER, UNSPECIFIED 07/06/2018 BERNOT, JAZMINE Ot G40.909 EPILEPSY, UNSP, NOT INTRACTABLE, WITHOUT 07/06/2018 BERNOT, JAZMINE Ot G47.30 SLEEP APNEA, UNSPECIFIED 07/06/2018 BERNOT, JAZMINE Ot Z79.84 FLAME BURNER (CURRENT) USE OF ORAL HYPOGLYC 07/06/2018 BERNOT, JAZMINE Ot Z87.19 PERSONAL HISTORY OF OTHER DISEASES OF 07/06/2018 BERNOT, JAZMINE Ot Z87.891 PERSONAL HISTORY OF NICOTINE DEPENDENCE 07/06/2018 BERNOT, JAZMINE Ot Z98.890 OTHER SPECIFIED POSTPROCEDURAL STATES 07/08/2018 BERNOT, JAZMINE Ot E03.9 HYPOTHYROIDISM, UNSPECIFIED 07/08/2018 BERNOT, JAZMINE Ot E11.9 TYPE 2 DIABETES MELLITUS WITHOUT COMPLIC 07/08/2018 BERNOT, JAZMINE Ot F41.9 ANXIETY DISORDER, UNSPECIFIED 07/08/2018 BERNOT, JAZMINE Ot G40.909 EPILEPSY, UNSP, NOT INTRACTABLE, WITHOUT 07/08/2018 BERNOT, JAZMINE Ot G47.30 SLEEP APNEA, UNSPECIFIED 07/08/2018 BERNOT, JAZMINE Ot Z79.84 FLAME BURNER (CURRENT) USE OF ORAL HYPOGLYC 07/08/2018 BERNOT, JAZMINE Ot Z87.19 PERSONAL HISTORY OF OTHER DISEASES OF TH 07/08/2018 JAZMINE AMBRIZ Ot Z87.891 PERSONAL HISTORY OF NICOTINE DEPENDENCE 07/08/2018 JAZMINE AMBRIZ Ot Z98.890 OTHER SPECIFIED POSTPROCEDURAL STATES 07/15/2018 KAREN HUNTER DO Ot N46.9 MALE INFERTILITY, [...] FOR INFLUENZA A AND B ANTIGENS BY [facility] Comprehensive metabolic panel - 08/19/16 [...] NRG Manual blood basophils/100 leukocytes 1 % NR Blood erythrocyte morphology finding identification [facility] Comprehensive metabolic panel - 10/30/17 21:34 Serum [...] ethanol measurement (mass/volume) < mg/dL <10 Complete blood count (CBC) with automated white blood cell (WBC) differential - 07/06/18 22:00 Blood leukocytes automated count (number/volume) 8.8 10*3/uL 4.3-11.0 Blood erythrocytes automated count (number/volume) 4.80 10*6/uL 4.35-5.85 Venous blood hemoglobin measurement (mass/volume) 14.2 g/dL 13.3-17.7 Blood hematocrit (volume fraction) 40 % 40-54 Automated erythrocyte mean corpuscular volume 83 [foz_us] 80-99 Automated erythrocyte mean corpuscular hemoglobin (mass per erythrocyte) 30 pg 25-34 Automated erythrocyte mean corpuscular hemoglobin concentration measurement ( mass/volume) 36 g/dL 32-36 Automated erythrocyte distribution width ratio 12.6 % 10.0-14.5 Automated blood platelet count (count/volume) 358 10*3/uL 130-400 Automated blood platelet mean volume measurement 10.0 [foz_us] 7.4-10.4 Automated blood neutrophils/100 leukocytes 59 % 42-75 Automated blood lymphocytes/100 leukocytes 31 % 12-44 Blood monocytes/100 leukocytes 8 % 0-12 Automated blood eosinophils/100 leukocytes 1 % 0-10 Automated blood basophils/100 leukocytes 0 % 0-10 Blood neutrophils automated count (number/volume) 5.2 10*3 1.8-7.8 Blood lymphocytes automated count (number/volume) 2.7 10*3 1.0-4.0 Blood monocytes automated count (number/volume) 0.7 10*3 0.0-1.0 Automated eosinophil count 0.1 10*3/uL 0.0-0.3 Automated blood basophil count (count/volume) 0.0 10*3/uL 0.0-0.1 Comprehensive metabolic panel - 07/06/18 22:00 Serum or plasma sodium measurement (moles/volume) 139 mmol/L 135-145 Serum or plasma potassium measurement (moles/volume) 4.5 mmol/L 3.6-5.0 Serum or plasma chloride measurement (moles/volume) 107 mmol/L 98-107 Carbon dioxide 12 mmol/L 21-32 Serum or plasma anion gap determination (moles/volume) 20 mmol/L 5-14 Serum or plasma urea nitrogen measurement (mass/volume) 15 mg/dL 7-18 Serum or plasma creatinine measurement (mass/volume) 1.03 mg/dL 0.60-1.30 Serum or plasma urea nitrogen/creatinine mass ratio 15 NRG Serum or plasma creatinine measurement with calculation of estimated glomerular filtration rate > NRG Serum or plasma glucose measurement (mass/volume) 153 mg/dL 70-105 Serum or plasma calcium measurement (mass/volume) 9.9 mg/dL 8.5-10.1 Serum or plasma total bilirubin measurement (mass/volume) 0.4 mg/dL 0.1-1.0 Serum or plasma alkaline phosphatase measurement (enzymatic activity/volume) 72 U/L 40-136 Serum or plasma aspartate aminotransferase measurement (enzymatic activity/ volume) 17 U/L 5-34 Serum or plasma alanine aminotransferase measurement (enzymatic activity/volume ) 24 U/L 0-55 Serum or plasma protein measurement (mass/volume) 8.2 g/dL 6.4-8.2 Serum or plasma albumin measurement (mass/volume) 4.8 g/dL 3.2-4.5 Encounters ACCT No. Visit Date/Time Discharge Status Pt. Type Provider Facility Loc./Unit Complaint [id number] 07/06/2018 21:57:00 07/06/2018 23:20:00 DIS Emergency JAZMINE AMBRIZ [facility] ER SEIZURE [id number] 06/02/2018 12:50:00 06/02/2018 14:06:00 DIS Emergency ASHU MATSON MD [facility] ER SEIZURE [id number] 05/29/2018 11:52:00 05/29/2018 13:30:00 DIS Emergency BORIS DELGADO, CHAPO [place] [facility] ER SEIZURE [id number] 03/01/2018 21:50:00 03/01/2018 22:41:00 DIS Emergency DANO DELGADO, ASHU [place] [facility] ER SEIZURE [id number] 02/07/2018 22:44:00 02/07/2018 23:16:00 DIS Emergency JAYLENE LOYA INSTRUMENT MAN [facility] ER SEIZURE [id number] 12/27/2017 20:58:00 12/27/2017 23:12:00 DIS Emergency EDUAR URIARTE MD [facility] ER INJ FROM SEIZURE [id number] 12/02/2017 13:31:00 12/02/2017 15:07:00 DIS Emergency JAYLENE LOYA APRN [facility] ER HEAD PAIN,HIP PAIN [id number] 11/20/2017 14:07:00 11/20/2017 15:47:00 DIS Emergency JAYLENE LOYA APRN [facility] ER SEIZURE [id number] 10/30/2017 21:28:00 10/30/2017 23:42:00 DIS Emergency JAYLENE LOYA APRN [facility] ER SEIZURE [id number] 10/12/2017 20:39:00 10/13/2017 00:36:00 DIS Emergency LUIS GATES [facility] ER R FOOT INJ [id number] 09/10/2017 10:31:00 09/10/2017 13:45:00 DIS Emergency BORIS DELGADO, CHAPO [place] [facility] ER SEIZURE [id number] 08/23/2017 13:58:00 08/23/2017 16:00:00 DIS Emergency DANO DELGADO, ASHU [place] [facility] ER SEIZURE [id number] 06/22/2017 16:39:00 06/22/2017 18:07:00 DIS Emergency CARLOS MEDLEY MD [facility] ER SEIZURE [id number] 05/06/2017 21:56:00 05/06/2017 23:30:00 DIS Emergency DANO DELGADO, ASHU [place] [facility] ER SEIZURE-FALL [id number] 12/12/2016 20:25:00 12/12/2016 22:02:00 DIS Emergency EDUAR URIARTE MD [facility] ER POSSIBLE SEIZURE [id number] 10/31/2016 09:27:00 10/31/2016 14:50:00 DIS Outpatient ROMERO SANFORD DO [facility] SDC UMBILICAL HERNIA [id number] 10/29/2016 08:37:00 10/29/2016 09:05:00 DIS Outpatient ROMERO SANFORD DO [facility] PREOP UMBILICAL HERNIA [id number] 08/19/2016 11:19:00 08/19/2016 14:50:00 DIS Emergency DANO DELGADO, ASHU Alan [facility] ER LIGHTHEADED NAUSEA [id number] 02/02/2016 20:45:00 02/03/2016 06:40:00 DIS Outpatient SAYDA CLAY MD [facility] SLEEP OBSTRUCTIVE SLEEP APNEA [id number] 01/27/2016 21:02:00 01/27/2016 22:31:00 DIS Emergency JAYSHREE HUBER MD [facility] ER SEIZURE/FALL [id number] 12/19/2015 21:50:00 12/19/2015 23:31:00 DIS Emergency CHAPO ESCALANTE MD [facility] ER SEIZURE [id number] 11/17/2015 20:50:00 11/18/2015 06:50:00 DIS Outpatient SAYDA CLAY MD [facility] SLEEP OBSERVED APNEAS,SNORING ,SEIZURE,ABN LIMB MOVEMENT [id number] 10/04/2015 13:44:00 10/04/2015 23:59:59 CLS Outpatient KAREN HUNTER DO [facility] LAB INFERTILITY [id number] 09/12/2015 20:42:00 09/12/2015 21:58:00 DIS Emergency GAVI ACEVEDO DO [facility] ER CONGESTION [id number] 03/18/2014 20:01:00 03/18/2014 22:13:00 DIS Emergency KITA OSCAR DO [facility] [id number] 05/04/2015 22:47:00 Document Registration
[2018-08-24 10:30] LABS: ALANINE AMINOTRANSFERASE 32 U/L (0-55); ALBUMIN 4.4 GM/DL (3.2-4.5); ALKALINE PHOSPHATASE 84 U/L (40-136); BILIRUBIN,TOTAL 0.3 MG/DL (0.1-1.0); BUN/CREATININE RATIO 20; CALCIUM 9.3 MG/DL (8.5-10.1); CHLORIDE 104 MMOL/L (98-107); CREATININE SERUM 1.02 MG/DL (0.60-1.30); GFR ESTIMATED > 60; GLUCOSE 218 MG/DL (70-105); MAGNESIUM 2.6 MG/DL (1.8-2.4); POTASSIUM 4.8 MMOL/L (3.6-5.0); SODIUM 135 MMOL/L (135-145); TOTAL PROTEIN 8.5 GM/DL (6.4-8.2)
[2018-08-24 10:34] LABS: CARBON DIOXIDE 9 MMOL/L (21-32)
[2018-08-24 12:07] LABS: BUN/CREATININE RATIO 23; CALCIUM 8.9 MG/DL (8.5-10.1); CARBON DIOXIDE 14 MMOL/L (21-32); CHLORIDE 106 MMOL/L (98-107); CREATININE SERUM 0.77 MG/DL (0.60-1.30); GFR ESTIMATED > 60; GLUCOSE 165 MG/DL (70-105); POTASSIUM 4.6 MMOL/L (3.6-5.0); SODIUM 133 MMOL/L (135-145)
[2018-08-24 12:22] VITALS: BP 111/81
== END 2018-08-24 12:22 | disposition home or self-care (01) ==
LOC: EDUNIT# 09:55 → ER 09:57
DX: G40.909 Epilepsy, unspecified, not intractable, without status epilepticus (principal); G47.30 Sleep apnea, unspecified; E03.9 Hypothyroidism, unspecified; F41.9 Anxiety disorder, unspecified; Z87.19 Personal history of other diseases of the digestive system; Z98.890 Other specified postprocedural states; Z79.84 Long term (current) use of oral hypoglycemic drugs; Z87.891 Personal history of nicotine dependence
CPT/HCPCS: 36415; 80048; 80053; 82962; 83735; 85025; 93005

== ENCOUNTER 2018-09-12 14:20 | Emergency (ER) | payer BC ==
[~2018-09-12] VITALS: Ht 182.9 cm; Wt 124.3 kg
[2018-09-12] MEDS ORDERED: cefTRIAXone 1,000 MG/2.86 ml vial (IM ONLY) IM SCH (14:45)
[2018-09-12] MEDS ORDERED: DEXAMETHASONE 10 MG/ML (DECADRON) 1 ML VIAL IM ONE (14:45)
[2018-09-12] MEDS ORDERED: LIDOCAINE 1% INJ 20 ML 20 ML VIAL ONE (14:45)
[2018-09-12] MEDS ORDERED: cefTRIAXone 1 GM/10 ML for IV (ROCEPHIN) ONE (14:45)
[2018-09-12] MEDS ORDERED: CEPH-507 PO (14:48)
[2018-09-12] MEDS ORDERED: PRD20T PO (14:48)
--- NOTE | 2018-09-12 14:49 | ED EENT ---
History of Present Illness General Chief Complaint: Oral/Throat Problems Stated Complaint: SORE THROAT Source: patient Exam Limitations: no limitations History of Present Illness Date Seen by Provider: Sep 12, 2018 Time Seen by Provider: 14:44 Initial Comments To ER per private vehicle with reports of a sore throat 2 weeks in duration. He saw [facility] at the onset of this and was told it was likely a 5 to seven-day viral illness. However he is now 2 weeks and that this with no improvement in symptoms, he does have a cough that is productive of sputum, when he refers to his throat being sore its at the suprasternal notch that he points to. He states this pain is intermittent and most severe when he coughs. He feels the need to clear mucus from his throat at this location. The region of his tonsils and oropharynx/nasopharynx is not tender or painful. His cough is productive. Timing/Duration: abrupt Severity: moderate Location: throat Prearrival Treatment: no prearrival treatment Associated Symptoms: cough Allergies and Home Medications Allergies Coded Allergies: No Known Drug Allergies (Unverified , 03/18/14) Home Medications Clonazepam 0.5 Mg Tablet, 0.5-1 MG PO BID, (Reported) take 1 (.5mg) tab in am take 2 (.5mg) tab in pm Hydrocodone/Acetaminophen 1 Each Tablet, 1 EACH PO Q4H PRN for PAIN-MODERATE TO SEVERE Prescribed by: LUIS POWERS on 10/13/17 0026 Lamotrigine 150 Mg Tablet, 150 MG PO Q12H, (Reported) Levetiracetam 1,000 Mg Tablet, 1,000 MG PO BID, (Reported) take with 5oomg tab for 1500mg total Levothyroxine Sodium 50 Mcg Tablet, 50 MCG PO DAILY, (Reported) Metformin HCl 500 Mg Tablet, 500 MG PO BID, (Reported) [place] 3 Polyunsat Fatty Acids 1,000 Mg Cap, 1,000 MG PO BID, (Reported) Patient Home Medication List Home Medication List Reviewed: Yes Review of Systems Review of Systems Constitutional: see HPI; No chills, No fever Eyes: No Symptoms Reported Ears: No Symptoms Reported Nose: see HPI, congestion Mouth: no symptoms reported Throat: see HPI; denies neck stiffness; hoarse; denies aphonia, denies muffled , denies painful swallowing, denies difficulty with fluids, denies previous injury Respiratory: see HPI, cough Cardiovascular: no symptoms reported Musculoskeletal: no symptoms reported Past Ysxvxxb-Vxorfe-Gzoktk Hx Patient Social History Type Used: Cigarettes Former Smoker, Quit: Oct 29, 2009 Recent Foreign Travel: No Contact w/Someone Who Travel: No Recent Hopitalizations: No Immunizations Up To Date Tetanus Booster (TDap): More than 5yrs Date of Influenza Vaccine: May 30, 2015 Seasonal Allergies Seasonal Allergies: Yes Past Medical History Surgeries: Yes (hernia repair) Respiratory: Yes Sleep Apnea Currently Using CPAP: Yes Cardiac: No Neurological: Yes Seizure Disorder Reproductive Disorders: No Sexually Transmitted Disease: No Genitourinary: No Gastrointestinal: Yes (umb hernia) Musculoskeletal: No Endocrine: Yes (pre=diabetes) Hypothyroidsim, Diabetes, Non-Insulin dep HEENT: No Cancer: No Psychosocial: Yes Anxiety Integumentary: No Blood Disorders: No Family Medical History No Pertinent Family Hx Physical Exam Height, Weight, BMI Height: 6'0" Weight: 250lbs. 0.0oz. 113.525323hg; 39.5 BMI Method:Stated General Appearance: WD/WN, no apparent distress Eyes: bilateral eye normal inspection, bilateral eye PERRL, bilateral eye EOMI Ears: bilateral ear auricle normal, bilateral ear canal normal, bilateral ear TM normal Mouth/Throat: No mandibular swelling, No maxillary swelling, No pharynx swelling, No pharynx tenderness, No tongue swollen, No tonsillar exudate, No tonsillar swelling, No trismus, No uvula swelling; voice changes Neck: non-tender, full range of motion; No lymphadenopathy (R), No lymphadenopathy (L) Cardiovascular: regular rate, rhythm, no murmur Respiratory: no respiratory distress, no accessory muscle use Gastrointestinal: normal bowel sounds, non tender 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: alert, normal mood/affect, oriented x 3 Skin: normal color, warm/dry Progress/Results/Core Measures Results/Orders My Orders Orders - JAYLENE LOYA APRN Dexamethasone Injection (Decadron Inject (09/12/18 14:45) Ceftriaxone For Im Use (Rocephin For Im (09/12/18 14:45) Departure Impression Primary Impression: Acute tracheobronchitis Disposition: 01 HOME, SELF-CARE Condition: Stable Departure-Patient Inst. Decision time for Depature: 14:47 Referrals: GAVI HAAS MD (PCP/Family) Primary Care Physician Patient Instructions: Acute Bronchitis in Adults Add. Discharge Instructions: 1. Medication as directed 2. Follow-up with your doctor next week All discharge instructions reviewed with patient and/or family. Voiced understanding. Scripts Cephalexin (Keflex) 500 Mg Capsule 500 MG PO TID, #21 CAP Prov: JAYLENE LOYA APRN 09/12/18 Prednisone (Prednisone) 20 Mg Tab 40 MG PO DAILY, #6 TAB First dose on 09/13/18 Prov: JAYLENE LOYA APRN 09/12/18 JAYLENE LOYA APRN Sep 12, 2018 14:49
[2018-09-12 15:10] VITALS: BP 148/93
== END 2018-09-12 15:10 | disposition home or self-care (01) ==
LOC: EDUNIT# 14:20 → ER 14:21
DX: J20.9 Acute bronchitis, unspecified (principal); G47.30 Sleep apnea, unspecified; G40.909 Epilepsy, unspecified, not intractable, without status epilepticus; E03.9 Hypothyroidism, unspecified; E11.9 Type 2 diabetes mellitus without complications; F41.9 Anxiety disorder, unspecified; Z79.84 Long term (current) use of oral hypoglycemic drugs; Z87.891 Personal history of nicotine dependence; Z98.890 Other specified postprocedural states
CPT/HCPCS: 99284

== ENCOUNTER 2018-09-23 11:12 | Emergency (ER) | payer BC ==
[~2018-09-23] VITALS: Ht 182.9 cm; Wt 122.5 kg
[~2018-09-23 11:12] MED LIST changes: +CEPH-507 PO; +PRD20T PO
[2018-09-23] MEDS ORDERED: NS IV 1000 ML 1,000 ML IV ONE (11:19)
[2018-09-23 11:25] LABS: BASOPHILS % (AUTO) 0 % (0-10); EOSINOPHILS # (AUTO) 0.2 10^3/uL (0.0-0.3); EOSINOPHILS % (AUTO) 2 % (0-10); HEMATOCRIT 42 % (40-54); HEMOGLOBIN 14.2 G/DL (13.3-17.7); LYMPHOCYTES # (AUTO) 3.7 X 10^3 (1.0-4.0); LYMPHOCYTES % (AUTO) 35 % (12-44); MEAN CORPUSCULAR HEMOGLOBIN 29 PG (25-34); MEAN CORPUSCULAR HGB CONC 34 G/DL (32-36); MEAN CORPUSCULAR VOLUME 85 FL (80-99); MEAN PLATELET VOLUME 9.8 FL (7.4-10.4); MONOCYTES # (AUTO) 0.8 X 10^3 (0.0-1.0); MONOCYTES % (AUTO) 8 % (0-12); NEUTROPHILS # (AUTO) 5.7 X 10^3 (1.8-7.8); NEUTROPHILS % (AUTO) 55 % (42-75); PLATELET COUNT 400 10^3/uL (130-400); RED BLOOD COUNT 4.93 10^6/uL (4.35-5.85); WHITE BLOOD COUNT 10.4 10^3/uL (4.3-11.0)
--- NOTE | 2018-09-23 11:40 | Diagnostic Imaging Report ---
INDICATION: Seizure. TIME OF EXAMINATION: 11:25 a.m. COMPARISON: Correlation is made with prior chest from 06/02/2018. FINDINGS: The heart size is normal. The pulmonary vascularity is unremarkable. The lungs are clear. No infiltrate, effusion or pneumothorax is detected. IMPRESSION: No acute cardiopulmonary process is detected. Dictated by: Dictated on workstation # [id number]
[2018-09-23 11:53] LABS: ALANINE AMINOTRANSFERASE 41 U/L (0-55); ALBUMIN 4.6 GM/DL (3.2-4.5); ALKALINE PHOSPHATASE 79 U/L (40-136); BILIRUBIN,TOTAL 0.4 MG/DL (0.1-1.0); BUN/CREATININE RATIO 17; CALCIUM 9.6 MG/DL (8.5-10.1); CARBON DIOXIDE 10 MMOL/L (21-32); CHLORIDE 104 MMOL/L (98-107); CREATININE SERUM 1.03 MG/DL (0.60-1.30); GFR ESTIMATED > 60; GLUCOSE 240 MG/DL (70-105); MAGNESIUM 3.1 MG/DL (1.8-2.4); SODIUM 138 MMOL/L (135-145); TOTAL PROTEIN 8.5 GM/DL (6.4-8.2)
[2018-09-23 13:26] LABS: BILIRUBIN,URINE NEGATIVE (NEGATIVE); CLARITY,URINE SLIGHTLY CLOUDY; COLOR,URINE YELLOW; GLUCOSE, URINE (UA) 2+ (NEGATIVE); KETONES,URINE 1+ (NEGATIVE); LEUKOCYTE ESTERASE ,URINE NEGATIVE (NEGATIVE); NITRITE,URINE NEGATIVE (NEGATIVE); PH,URINE 5 (5-9); PROTEIN,URINE 3+ (NEGATIVE); UROBILINOGEN,URINE NORMAL (NORMAL)
[2018-09-23 13:33] LABS: AMORPHOUS SEDIMENT,UR RARE AMOR URATES /LPF; BACTERIA,URINE NEGATIVE /HPF; HYALINE CASTS, URINE 0-2 /LPF; RBC,URINE RARE /HPF; WBC,URINE RARE /HPF
--- NOTE | 2018-09-23 13:58 | ED Neurological Problem ---
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 POSTICTAL ON ADMIT. Nursing Sepsis Screen: No Definite Risk Source: patient, old records Exam Limitations: no limitations Allergies and Home Medications Allergies Coded Allergies: No Known Drug Allergies (Unverified , 03/18/14) Home Medications Amoxicillin 500 Mg Capsule, 1,000 MG PO BID Prescribed by: CHAPO GORDILLO on 09/23/18 1444 Cephalexin 500 Mg Capsule, 500 MG PO TID Prescribed by: JAYLENE LOYA on 09/12/18 1448 Clonazepam 0.5 Mg Tablet, 0.5-1 MG PO BID, (Reported) take 1 (.5mg) tab in am take 2 (.5mg) tab in pm Hydrocodone/Acetaminophen 1 Each Tablet, 1 EACH PO Q4H PRN for PAIN-MODERATE TO SEVERE Prescribed by: LUIS POWERS on 10/13/17 0026 Lamotrigine 150 Mg Tablet, 150 MG PO Q12H, (Reported) Levetiracetam 1,000 Mg Tablet, 1,000 MG PO BID, (Reported) take with 5oomg tab for 1500mg total Levothyroxine Sodium 50 Mcg Tablet, 50 MCG PO DAILY, (Reported) Metformin HCl 500 Mg Tablet, 500 MG PO BID, (Reported) [place] 3 Polyunsat Fatty Acids 1,000 Mg Cap, 1,000 MG PO BID, (Reported) Prednisone 20 Mg Tab, 40 MG PO DAILY First dose on 09/13/18 Prescribed by: JAYLENE LOYA on 09/12/18 1448 Past Hqxcwlm-Hvwddb-Caaykm Hx Patient Social History Alcohol Use: Denies Use Recreational Drug Use: No Smoking Status: Former Smoker Type Used: Cigarettes Former Smoker, Quit: Oct 29, 2009 Recent Foreign Travel: No Contact w/Someone Who Travel: No Recent Infectious Disease Expo: No Recent Hopitalizations: No Immunizations Up To Date Tetanus Booster (TDap): More than 5yrs Date of Influenza Vaccine: May 30, 2015 Seasonal Allergies Seasonal Allergies: Yes Past Medical History Surgeries: Yes (hernia repair) Respiratory: Yes Sleep Apnea Currently Using CPAP: Yes Cardiac: No Neurological: Yes Seizure Disorder Reproductive Disorders: No Sexually Transmitted Disease: No Genitourinary: No Gastrointestinal: Yes (umb hernia) Musculoskeletal: No Endocrine: Yes (pre=diabetes) Hypothyroidsim, Diabetes, Non-Insulin dep HEENT: No Cancer: No Psychosocial: Yes Anxiety Integumentary: No Blood Disorders: No Family Medical History No Pertinent Family Hx Physical Exam Vital Signs Vital Signs - First Documented 09/23/18 11:15 Temp 98.0 Pulse 99 Resp 18 B/P (MAP) 132/88 (103) Pulse Ox 96 O2 Delivery Room Air Capillary Refill : Less Than 3 Seconds Height, Weight, BMI Height: 6'" Weight: 270lbs. 0.0oz. 122.159692tm; 39.5 BMI Method:Stated Progress/Results/Core Measures Results/Orders Lab Results Laboratory Tests Test 09/23/18 11:15 09/23/18 13:14 Range/Units White Blood Count 10.4 4.3-11.0 10^3/uL Red Blood Count 4.93 4.35-5.85 10^6/uL Hemoglobin 14.2 13.3-17.7 G/DL Hematocrit 42 40-54 % Mean Corpuscular Volume 85 80-99 FL Mean Corpuscular Hemoglobin 29 25-34 PG Mean Corpuscular Hemoglobin Concent 34 32-36 G/DL Red Cell Distribution Width 13.0 10.0-14.5 % Platelet Count 400 130-400 10^3/uL Mean Platelet Volume 9.8 7.4-10.4 FL Neutrophils (%) (Auto) 55 42-75 % Lymphocytes (%) (Auto) 35 12-44 % Monocytes (%) (Auto) 8 0-12 % Eosinophils (%) (Auto) 2 0-10 % Basophils (%) (Auto) 0 0-10 % Neutrophils # (Auto) 5.7 1.8-7.8 X 10^3 Lymphocytes # (Auto) 3.7 1.0-4.0 X 10^3 Monocytes # (Auto) 0.8 0.0-1.0 X 10^3 Eosinophils # (Auto) 0.2 0.0-0.3 10^3/uL Basophils # (Auto) 0.0 0.0-0.1 10^3/uL Sodium Level 138 135-145 MMOL/L Potassium Level 3.6-5.0 MMOL/L Chloride Level 104 98-107 MMOL/L Carbon Dioxide Level 10 L 21-32 MMOL/L Anion Gap 24 H 5-14 MMOL/L Blood Urea Nitrogen 18 7-18 MG/DL Creatinine 1.03 0.60-1.30 MG/DL Estimat Glomerular Filtration Rate > 60 BUN/Creatinine Ratio 17 Glucose Level 240 H 70-105 MG/DL Calcium Level 9.6 8.5-10.1 MG/DL Corrected Calcium 8.5-10.1 MG/DL Magnesium Level 3.1 H 1.8-2.4 MG/DL Total Bilirubin 0.4 0.1-1.0 MG/DL Aspartate Amino Transf (AST/SGOT) 33 5-34 U/L Alanine Aminotransferase (ALT/SGPT) 41 0-55 U/L Alkaline Phosphatase 79 40-136 U/L Total Protein 8.5 H 6.4-8.2 GM/DL Albumin 4.6 H 3.2-4.5 GM/DL Urine Color YELLOW Urine Clarity SLIGHTLY CLOUDY Urine pH 5 5-9 Urine Specific Stark 1.025 H 1.016-1.022 Urine Protein 3+ H NEGATIVE Urine Glucose (UA) 2+ H NEGATIVE Urine Ketones 1+ H NEGATIVE Urine Nitrite NEGATIVE NEGATIVE Urine Bilirubin NEGATIVE NEGATIVE Urine Urobilinogen NORMAL NORMAL MG/DL Urine Leukocyte Esterase NEGATIVE NEGATIVE Urine RBC (Auto) 2+ H NEGATIVE Urine RBC RARE /HPF Urine WBC RARE /HPF Urine Crystals PRESENT H /LPF Urine Amorphous Sediment RARE CAMERON URATES H /LPF Urine Bacteria NEGATIVE /HPF Urine Casts PRESENT /LPF Urine Hyaline Casts 0-2 H /LPF Urine Mucus SMALL H /LPF Urine Culture Indicated NO My Orders Orders - CHAPO ESCALANTE MD Cbc With Automated Diff (09/23/18 11:19) Comprehensive Metabolic Panel (09/23/18 11:19) Magnesium (09/23/18 11:19) Saline Lock/Iv-Start (09/23/18 11:19) Ns Iv 1000 Ml (Sodium Chloride 0.9%) (09/23/18 11:19) Ua Culture If Indicated (09/23/18 11:19) Chest 1 View, Ap/Pa Only (09/23/18 11:19) Medications Given in ED Current Medications Medications Dose Ordered Sig/Warren Route Start Time Stop Time Status Last Admin Dose Admin Sodium Chloride 1,000 ml @ 0 mls/hr Q0M ONCE IV 09/23/18 11:19 09/23/18 11:20 DC 09/23/18 11:35 1,000 MLS/HR Vital Signs/I&O 09/23/18 11:15 Temp 98.0 Pulse 99 Resp 18 B/P (MAP) 132/88 (103) Pulse Ox 96 O2 Delivery Room Air Blood Pressure Mean: 103 Progress Progress Note : Progress Note Labs were reviewed and patient was hydrated with 1 L of IV normal saline. There was possibility of left otitis media. Amoxicillin was prescribed. Patient was found to be hyperglycemic. He admitted he has not been taking metformin as prescribed. I advised him to restart metformin. Patient was discharged in stable condition and advised to follow up closely with Dr. Haas. Departure Impression Primary Impression: Seizure Additional Impressions: Hyperglycemia Left otitis media Qualified Codes: H66.92 - Otitis media, unspecified, left ear Disposition: HOME, SELF-CARE Condition: Improved Departure-Patient Inst. Decision time for Depature: 13:56 Referrals: GAVI HAAS MD (PCP/Family) Primary Care Physician Patient Instructions: Seizures, Adult (DC) Add. Discharge Instructions: Follow-up with Dr. Haas as soon as possible. Please call today for an appointment. Until then stay on your usual doses of seizure medications. Return to care if you have further problems or concerns. All discharge instructions reviewed with patient and/or family. Voiced understanding. Scripts Amoxicillin (Amoxicillin) 500 Mg Capsule 1000 MG PO BID, #40 CAP Prov: CHAPO ESCALANTE MD 09/23/18 Copy Copies To 1: GAVI HAAS MD, JOSHUA T MD Sep 23, 2018 13:58
[2018-09-23 14:08] VITALS: BP 130/74
--- OUTSIDE RECORDS SUMMARY | 2018-09-23 14:21 | XMS REPORT | Continuity of Care Document ---
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 [id number] 08/23/2017 13:58:00 08/23/2017 16:00:00 DIS Emergency ASHU MATSON MD [facility] ER SEIZURE [id number] 06/22/2017 16:39:00 06/22/2017 18:07:00 DIS Emergency CARLOS MEDLEY MD [facility] ER SEIZURE [id number] 05/06/2017 21:56:00 05/06/2017 23:30:00 DIS Emergency ASHU MATSON MD [facility] ER SEIZURE-FALL [id number] 12/12/2016 20:25:00 12/12/2016 22:02:00 DIS Emergency CHAPITO DELGADO, EDUAR Iqbal [facility] ER POSSIBLE SEIZURE [id number] 10/31/2016 09:27:00 10/31/2016 14:50:00 DIS Outpatient CLARIBEL ROBERTS ROMERO D [facility] SDC UMBILICAL HERNIA [id number] 10/29/2016 08:37:00 10/29/2016 09:05:00 DIS Outpatient CLARIBEL ROBERTSROMERO [facility] PREOP UMBILICAL HERNIA [id number] 08/19/2016 11:19:00 08/19/2016 14:50:00 DIS Emergency DANO DELGADO, ASHU Alan [facility] ER LIGHTHEADED NAUSEA [id number] 02/02/2016 20:45:00 02/03/2016 06:40:00 DIS Outpatient DANNA DELGADO, SAYDA Jimenez [facility] SLEEP OBSTRUCTIVE SLEEP APNEA [id number] 01/27/2016 21:02:00 01/27/2016 22:31:00 DIS Emergency CECILE DELGADO, JAYSHREE An [facility] ER SEIZURE/FALL [id number] 12/19/2015 21:50:00 12/19/2015 23:31:00 DIS Emergency BORIS DELGADO, CHAPO T [facility] ER SEIZURE [id number] 11/17/2015 20:50:00 11/18/2015 06:50:00 DIS Outpatient DANNA DELGADO, SAYDA Jimenez [facility] SLEEP OBSERVED APNEAS,SNORING ,SEIZURE,ABN LIMB MOVEMENT [id number] 10/04/2015 13:44:00 10/04/2015 23:59:59 CLS Outpatient KAREN HUNTER DO [facility] LAB INFERTILITY [id number] 09/12/2015 20:42:00 09/12/2015 21:58:00 DIS Emergency MAMI ACEVEDO DO [facility] ER CONGESTION [id number] 03/18/2014 20:01:00 03/18/2014 22:13:00 DIS Emergency KITA OSCAR DO [facility] ER [id number] 05/04/2015 22:47:00 Document Registration [id number] 12/13/2016 14:44:00 12/13/2016 23:59:00 DIS Outpatient Mami Terry [id number] 09/02/2018 08:30:00 09/02/2018 23:59:59 [facility] [id number] 05/04/2015 22:47:00 05/05/2015 01:01:00 DIS Emergency BORIS DELGADO, CHAPO [facility] ER
[2018-09-23] MEDS ORDERED: AMOX500C2 PO (14:44)
== END 2018-09-23 14:08 | disposition home or self-care (01) ==
LOC: EDUNIT# 11:12 → ER 11:13
DX: G40.909 Epilepsy, unspecified, not intractable, without status epilepticus (principal); H66.92 Otitis media, unspecified, left ear; E11.65 Type 2 diabetes mellitus with hyperglycemia; E03.9 Hypothyroidism, unspecified; F41.9 Anxiety disorder, unspecified; Z79.84 Long term (current) use of oral hypoglycemic drugs; Z87.891 Personal history of nicotine dependence
CPT/HCPCS: 36415; 71045; 80053; 81000; 83735; 85025; 96360; 99283

== ENCOUNTER 2018-09-29 13:15 | Emergency (ER) | payer BC ==
[~2018-09-29] VITALS: Ht 182.9 cm; Wt 122.5 kg
[~2018-09-29 13:15] MED LIST changes: +AMOX500C2 PO
--- NOTE | 2018-09-29 13:35 | ED Upper Extremity ---
General Chief Complaint: Upper Extremity Stated Complaint: RT SHOULDER PAIN Nursing Triage Note: PT FELL WHEN HE HAD A SEIZURE LAST WEEK ET THINKS HIS SHOULDER HIT THE SINK WITH THE FALL. Nursing Sepsis Screen: No Definite Risk Source: patient Exam Limitations: no limitations History of Present Illness Date Seen by Provider: Sep 29, 2018 Time Seen by Provider: 13:34 Initial Comments 33-year-old male patient presents to the emergency department complaints of right shoulder pain after falling a one week ago during a seizure. He thinks he may have hit the shoulder on the sink during the fall, but is unsure. Denies any improvement and pain. States he has taken 2 Advil earlier today without improvement in symptoms. Location Injury Occurred: home Onset: last week Pain/Injury Location: right shoulder Method of Injury: fell Modifying Factors: Improves With Immobilization; Worse With Movement Allergies and Home Medications Allergies Coded Allergies: No Known Drug Allergies (Unverified , 03/18/14) Home Medications Amoxicillin 500 Mg Capsule, 1,000 MG PO BID Prescribed by: CHAPO GORDILLO on 09/23/18 1444 Cephalexin 500 Mg Capsule, 500 MG PO TID Prescribed by: JAYLENE LOYA on 09/12/18 1448 Clonazepam 0.5 Mg Tablet, 0.5-1 MG PO BID, (Reported) take 1 (.5mg) tab in am take 2 (.5mg) tab in pm Hydrocodone/Acetaminophen 1 Each Tablet, 1 EACH PO Q4H PRN for PAIN-MODERATE TO SEVERE Prescribed by: LUIS POWERS on 10/13/17 0026 Lamotrigine 150 Mg Tablet, 150 MG PO Q12H, (Reported) Levetiracetam 1,000 Mg Tablet, 1,000 MG PO BID, (Reported) take with 5oomg tab for 1500mg total Levothyroxine Sodium 50 Mcg Tablet, 50 MCG PO DAILY, (Reported) Metformin HCl 500 Mg Tablet, 500 MG PO BID, (Reported) [place] 3 Polyunsat Fatty Acids 1,000 Mg Cap, 1,000 MG PO BID, (Reported) Orphenadrine Citrate 100 Mg Tablet.er, 100 MG PO BID PRN for SPASMS Prescribed by: LUIS POWERS on 09/29/18 1405 Prednisone 20 Mg Tab, 40 MG PO DAILY First dose on 09/13/18 Prescribed by: JAYLENE LOYA on 09/12/18 1448 Prednisone 20 Mg Tab, 2 TAB PO DAILY Prescribed by: LUIS POWERS on 09/29/18 1405 Patient Home Medication List Home Medication List Reviewed: Yes Review of Systems Constitutional: no symptoms reported Respiratory: No cough, No dyspnea on exertion, No short of breath Cardiovascular: No chest pain, No palpitations Musculoskeletal: see HPI; No back pain; joint pain; No joint swelling, No neck pain Skin: No change in color, No lumps Psychiatric/Neurological: See HPI; Denies Headache, Denies Numbness, Denies Paresthesia, Denies Tingling, Denies Weakness All Other Systems Reviewed Negative Unless Noted: Yes (Negative excepted noted.) Past Yhzlblh-Nyxanu-Nqikei Hx Past Med/Social Hx: Reviewed Nursing Past Med/Soc Hx Patient Social History Alcohol Use: Denies Use Recreational Drug Use: No Smoking Status: Never a Smoker Type Used: Cigarettes Former Smoker, Quit: Oct 29, 2009 Recent Foreign Travel: No Contact w/Someone Who Travel: No Recent Infectious Disease Expo: No Recent Hopitalizations: No Immunizations Up To Date Tetanus Booster (TDap): More than 5yrs Date of Influenza Vaccine: May 30, 2015 Seasonal Allergies Seasonal Allergies: Yes Past Medical History Surgeries: Yes (hernia repair) Respiratory: Yes Sleep Apnea Currently Using CPAP: Yes Cardiac: No Neurological: Yes Seizure Disorder Reproductive Disorders: No Sexually Transmitted Disease: No Genitourinary: No Gastrointestinal: Yes (umb hernia) Musculoskeletal: No Endocrine: Yes (pre=diabetes) Hypothyroidsim, Diabetes, Non-Insulin dep HEENT: No Cancer: No Psychosocial: Yes Anxiety Integumentary: No Blood Disorders: No Family Medical History Reviewed Nursing Family Hx No Pertinent Family Hx Physical Exam Vital Signs Vital Signs - First Documented 09/29/18 13:15 Temp 96.2 Pulse 79 Resp 16 B/P (MAP) 161/82 (108) Pulse Ox 97 O2 Delivery Room Air Capillary Refill : Less Than 3 Seconds Height, Weight, BMI Height: 6'" Weight: 270lbs. 0.0oz. 122.185789ge; 39.5 BMI Method:Stated General Appearance: WD/WN, no apparent distress Neck: non-tender, full range of motion, supple, normal inspection Cardiovascular: normal peripheral pulses, regular rate, rhythm, no murmur Respiratory: chest non-tender, lungs clear, normal breath sounds, no respiratory distress, no accessory muscle use Back: normal inspection, no vertebral tenderness; No decreased range of motion Shoulder: No bone tenderness, No deformity, No ecchymosis; limited ROM (0-85 degrees abduction to the right shoulder), pain (rt shoulder), soft tissue tenderness (rt shoulder generalized soft tissue tenderness.) Elbow/Forearm: normal inspection, non-tender, no evidence of injury, normal ROM , Right Wrist: Yes normal inspection, Yes non-tender, Yes no evidence of injury, Yes normal ROM Hand: normal inspection, non-tender, no evidence of injury, normal ROM, Right Neurologic/Tendon: normal sensation, normal motor functions, normal tendon functions, responds to pain, no evidence tendon injury 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: no motor/sensory deficits, alert, normal mood/affect, oriented x 3 Skin: normal color, warm/dry Progress/Results/Core Measures Results/Orders My Orders Orders - LUIS POWERS Shoulder, Right, 3 Views (09/29/18 13:41) Hydrocodone/Apap 5/325 Tablet (Lortab 5 (09/29/18 13:41) Vital Signs/I&O 09/29/18 13:15 Temp 96.2 Pulse 79 Resp 16 B/P (MAP) 161/82 (108) Pulse Ox 97 O2 Delivery Room Air Blood Pressure Mean: 108 Diagnostic Imaging Diagonstic Imaging: Xray Plain Films/CT/US/NM/MRI: other (right shoulder) Comments SHOULDER, RIGHT, 3 VIEWS PATIENT HISTORY: Right shoulder pain, seizure last week with fall. TECHNIQUE: 3 views of the right shoulder. COMPARISON: None FINDINGS: No acute fracture or dislocation is seen in the right shoulder. Alignment appears normal. Joint spaces are preserved. IMPRESSION: No acute osseous abnormality seen in the right shoulder. Dictated on workstation # [id number] Reviewed: Reviewed by Me (radiology report reviewed by me) Departure Communication (Admissions) Patient seen and evaluated. xray findings discussed with the patient. plan for dsch to home. Impression Primary Impression: Sprain of shoulder, right Qualified Codes: S43.401A - Unspecified sprain of right shoulder joint, initial encounter Disposition: 01 HOME, SELF-CARE Condition: Improved Departure-Patient Inst. Decision time for Depature: 14:03 Referrals: GAVI HAAS MD (PCP/Family) Primary Care Physician Patient Instructions: Shoulder Sprain (DC) Add. Discharge Instructions: All discharge instructions reviewed with patient and/or family. Voiced understanding. Medications as instructed. Tylenol extra strength over-the- counter as directed for pain. Ibuprofen 800 mg by mouth every 8 hours as needed for pain. You may use an ice pack or heating pad as needed for pain. Avoid heavy lifting, pushing, or pulling with the right upper extremity 5-7 days. Then increase activity as tolerated. Follow-up with your primary care provider for recheck if no improvement in symptoms in 7-10 days for possible need of an MRI of the right shoulder. Return to the emergency department for worsened symptoms or any other concerns. Scripts Prednisone (Prednisone) 20 Mg Tab 2 TAB PO DAILY, #10 TAB 0 Refills Prov: LUIS POWERS 09/29/18 Orphenadrine Citrate (Orphenadrine Citrate) 100 Mg Tablet.er 100 MG PO BID PRN for SPASMS, #6 TAB 0 Refills Prov: LUIS POWERS 09/29/18 Work/School Note: Work Release Form Date Seen in the Emergency Department: Sep 29, 2018 Return to Work: Sep 29, 2018 Other Restrictions Listed Below: Avoid heavy lifting, pushing, or pulling with the right arm 5-7days LUIS POWERS Sep 29, 2018 13:35
[2018-09-29] MEDS ORDERED: HYDROcodone/APAP 5 MG/325 MG (LORTAB) TAB PO STA (13:41)
--- NOTE | 2018-09-29 13:57 | Diagnostic Imaging Report ---
PATIENT HISTORY: Right shoulder pain, seizure last week with fall. TECHNIQUE: 3 views of the right shoulder. COMPARISON: None FINDINGS: No acute fracture or dislocation is seen in the right shoulder. Alignment appears normal. Joint spaces are preserved. IMPRESSION: No acute osseous abnormality seen in the right shoulder. Dictated by: Dictated on workstation # [id number]
[2018-09-29] MEDS ORDERED: PRD20T PO (14:05)
[2018-09-29] MEDS ORDERED: ORPH100T PO (14:05)
[2018-09-29 14:27] VITALS: BP 161/82
--- OUTSIDE RECORDS SUMMARY | 2018-09-29 14:36 | XMS REPORT | Continuity of Care Document ---
Author Author [facility] Organization [facility] Address Unknown Phone Unavailable Allergies Active Description Code Type Severity Reaction Onset Reported/Identified Relationship to Patient Clinical Status Yes No Known Drug Allergies [id number] Drug Allergy Unknown N/A 03/18/2014 Yes No Known Drug Allergies [id number] Drug Allergy Unknown N/A 05/04/2015 Medications There [...] BORIS DELGADO, CHAPO [place] Ot Z79.899 OTHER NURSING HOME (CURRENT) DRUG [...] ORAL CAVITY, INITIAL ENCOUNT 01/29/2016 CECILE DELGADO JAYSHREE A Ot S00.81XA ABRASION OF OTHER [...] ASHU MATSON MD J Ot Z79.899 OTHER HEALTH/SAFETY JOB TITLES (CURRENT) DRUG THERAPY 08/21/2016 ASHU MATSON MD [...] KALI MATSON MDUS J Ot Z79.899 OTHER HEALTH/SAFETY JOB TITLES (CURRENT) DRUG THERAPY 10/29/2016 ROMERO SANFORD DO [...] 10/31/2016 SANFORD DO, ROMERO D Ot Z79.84 NURSING HOME (CURRENT) USE OF ORAL HYPOGLYC 11/04/2016 SANFORD DO, ROMERO D Ot E11.9 TYPE 2 DIABETES MELLITUS WITHOUT COMPLIC 11/04/2016 SANFORD DO, ROMERO D Ot K42.9 UMBILICAL HERNIA WITHOUT OBSTRUCTION OR 11/04/2016 SANFROD DO, ROMERO D Ot Z79.84 NURSING HOME (CURRENT) USE OF ORAL HYPOGLYC 11/05/2016 SANFORD DO, ROMERO D Ot E11.9 TYPE 2 DIABETES MELLITUS WITHOUT COMPLIC 11/05/2016 SANFORD DO, ROMERO D Ot K42.9 UMBILICAL HERNIA WITHOUT OBSTRUCTION OR 11/05/2016 SANFORD DO, ROMERO D Ot Z79.84 HEALTH/SAFETY JOB TITLES (CURRENT) USE OF ORAL HYPOGLYC 11/22/2016 FRANKLIN [...] WITHOUT 12/12/2016 EDUAR URIARTE MD Ot Z79.84 HEALTH/SAFETY JOB TITLES (CURRENT) USE OF ORAL HYPOGLYC 12/12/2016 EDUAR URIARTE MD Ot Z79.899 OTHER HEALTH/SAFETY JOB TITLES (CURRENT) DRUG THERAPY 12/16/2016 EDUAR URIARTE MD, Ot E11.9 TYPE 2 DIABETES MELLITUS WITHOUT COMPLIC 12/16/2016 EDUAR URIARTE MD, Ot G40.909 EPILEPSY, UNSP, NOT INTRACTABLE, WITHOUT 12/16/2016 EDUAR URIARTE MD Ot Z79.84 HEALTH/SAFETY JOB TITLES (CURRENT) USE OF ORAL HYPOGLYC 12/16/2016 EDUAR URIARTE MD Ot Z79.899 OTHER HEALTH/SAFETY JOB TITLES (CURRENT) DRUG THERAPY 02/03/2017 FRANKLIN HUNTER DOA [...] 05/06/2017 DANO DELGADO, ASHU Alan Ot Z79.84 HEALTH/SAFETY JOB TITLES (CURRENT) USE OF ORAL HYPOGLYC 05/06/2017 ASHU [...] 06/22/2017 GALINDO DELGADO, CARLOS [place] Ot Z79.84 NURSING HOME (CURRENT) USE OF ORAL HYPOGLYC 06/22/2017 [...] FUNCT 08/23/2017 ASHU MATSON MD Ot Z79.84 HEALTH/SAFETY JOB TITLES (CURRENT) USE OF ORAL HYPOGLYC 08/26/2017 ASHU [...] CONVULSIONS 09/10/2017 CHAPO ESCALANTE MD Ot Z79.84 HEALTH/SAFETY JOB TITLES (CURRENT) USE OF ORAL HYPOGLYC 09/10/2017 CHAPO [...] OR PAY 10/13/2017 LUIS GATES Ot Z79.84 HEALTH/SAFETY JOB TITLES (CURRENT) USE OF ORAL HYPOGLYC 10/13/2017 LUIS [...] INVOLVING OT 10/14/2017 LUIS GATES Ot Y92.59 [facility] 10/14/2017 LUIS GATES Ot Y99.0 CIVILIAN ACTIVITY DONE FOR INCOME OR PAY 10/14/2017 LUIS GATES Ot Z79.84 HEALTH/SAFETY JOB TITLES (CURRENT) USE OF ORAL HYPOGLYC 10/14/2017 LUIS [...] UNSPECIFIED 10/30/2017 JAYLENE LOYA APRN Ot Z79.84 HEALTH/SAFETY JOB TITLES (CURRENT) USE OF ORAL HYPOGLYC 10/30/2017 JAYLENE [...] CONVULSIONS 11/20/2017 JAYLENE LOYA APRN Ot Z79.84 NURSING HOME (CURRENT) USE OF ORAL HYPOGLYC 11/20/2017 [...] CONVULSIONS 11/24/2017 JAYLENE LOYA APRN Ot Z79.84 HEALTH/SAFETY JOB TITLES (CURRENT) USE OF ORAL HYPOGLYC 11/24/2017 JAYLENE [...] INI 12/02/2017 JAYLENE LOYA APRN Ot Z79.84 HEALTH/SAFETY JOB TITLES (CURRENT) USE OF ORAL HYPOGLYC 12/02/2017 JAYLENE [...] AG 12/27/2017 EDUAR URIARTE MD Ot Z79.84 NURSING HOME (CURRENT) USE OF ORAL HYPOGLYC 12/27/2017 [...] AG 12/29/2017 EDUAR URIARTE MD, Ot Z79.84 HEALTH/SAFETY JOB TITLES (CURRENT) USE OF ORAL HYPOGLYC 12/29/2017 EDUAR [...] AG 01/02/2018 EDUAR URIARTE MD Ot Z79.84 HEALTH/SAFETY JOB TITLES (CURRENT) USE OF ORAL HYPOGLYC 01/02/2018 EDUAR URIARTE MD Ot Z87.891 PERSONAL HISTORY OF NICOTINE DEPENDENCE 01/14/2018 KAREN HUNTER DO Ot N46.9 MALE INFERTILITY, UNSPECIFIED 02/07/2018 KAREN HUNTER DO Ot N46.9 MALE INFERTILITY, UNSPECIFIED 02/07/2018 JAYLENE LOYA APRN Ot E03.9 HYPOTHYROIDISM, UNSPECIFIED 02/07/2018 JAYLENE LOYA APRN Ot E11.9 TYPE 2 DIABETES MELLITUS WITHOUT COMPLIC 02/07/2018 LOYA, PETER J FABRIC INSPECTOR Ot F41.9 ANXIETY DISORDER, UNSPECIFIED 02/07/2018 JAYLENE LOYA FABRIC INSPECTOR Ot G40.909 EPILEPSY, UNSP, NOT INTRACTABLE, WITHOUT 02/07/2018 JAYLENE LOYA APRN Ot Z79.84 NURSING HOME (CURRENT) USE OF ORAL HYPOGLYC 02/07/2018 JAYLENE LOYA FABRIC INSPECTOR Ot Z87.891 PERSONAL HISTORY OF NICOTINE DEPENDENCE 02/09/2018 JAYLENE LOYA FABRIC INSPECTOR Ot E03.9 HYPOTHYROIDISM, UNSPECIFIED 02/09/2018 JAYLENE LOYA FABRIC INSPECTOR Ot E11.9 TYPE 2 DIABETES MELLITUS WITHOUT COMPLIC 02/09/2018 JAYLENE LOYA APRN Ot F41.9 ANXIETY DISORDER, UNSPECIFIED 02/09/2018 JAYLENE LOYA APRN Ot G40.909 EPILEPSY, UNSP, NOT INTRACTABLE, WITHOUT 02/09/2018 JAYLENE LOYA APRN Ot Z79.84 HEALTH/SAFETY JOB TITLES (CURRENT) USE OF ORAL HYPOGLYC 02/09/2018 JAYLENE [...] UNSPECIFIED 03/01/2018 ASHU MATSON MD Ot Z79.84 HEALTH/SAFETY JOB TITLES (CURRENT) USE OF ORAL HYPOGLYC 03/01/2018 ASHU [...] UNSPECIFIED 03/03/2018 ASHU MATSON MD Ot Z79.84 NURSING HOME (CURRENT) USE OF ORAL HYPOGLYC 03/03/2018 [...] INI 05/29/2018 CHAPO ESCALANTE MD Ot Z79.84 NURSING HOME (CURRENT) USE OF ORAL HYPOGLYC 05/29/2018 [...] INI 06/02/2018 CHAPO ESCALANTE MD Ot Z79.84 NURSING HOME (CURRENT) USE OF ORAL HYPOGLYC 06/02/2018 [...] CONVULSIONS 06/02/2018 ASHU MATSON MD Ot Z79.84 NURSING HOME (CURRENT) USE OF ORAL HYPOGLYC 06/02/2018 [...] CONVULSIONS 06/04/2018 ASHU MATSON MD Ot Z79.84 HEALTH/SAFETY JOB TITLES (CURRENT) USE OF ORAL HYPOGLYC 06/04/2018 ASHU [...] APNEA, UNSPECIFIED 07/06/2018 BERNOT, JAZMINE Ot Z79.84 NURSING HOME (CURRENT) USE OF ORAL HYPOGLYC 07/06/2018 [...] APNEA, UNSPECIFIED 07/08/2018 JAZMINE AMBRIZ Ot Z79.84 HEALTH/SAFETY JOB TITLES (CURRENT) USE OF ORAL HYPOGLYC 07/08/2018 JAZMINE [...] CONVULSIONS 08/24/2018 EDUAR URIARTE MD Ot Z79.84 HEALTH/SAFETY JOB TITLES (CURRENT) USE OF ORAL HYPOGLYC 08/24/2018 EDUAR [...] Automated blood platelet mean volume measurement 9.3 [[facility]] 7.4-10.4 Automated blood neutrophils/100 leukocytes 66 % [...] FOR INFLUENZA A AND B ANTIGENS BY [facility] Comprehensive metabolic panel - 08/19/16 [...] or plasma urea nitrogen/creatinine mass ratio 16 [facility] Serum or plasma creatinine measurement with calculation of estimated glomerular filtration rate > [facility] Serum or plasma glucose measurement (mass/volume) 167 [...] NR Blood erythrocyte morphology finding identification NORMAL [facility] Comprehensive metabolic panel - 10/30/17 21:34 Serum [...] Status Pt. Type Provider Facility Loc./Unit Complaint [id number] 09/12/2018 14:21:00 09/12/2018 15:10:00 DIS Emergency JAYLENE LOYA APRN [facility] ER SORE THROAT [id number] 08/24/2018 09:57:00 08/24/2018 12:22:00 DIS Emergency EDUAR URIARTE MD [facility] ER SEIZURE [id number] 07/06/2018 21:57:00 07/06/2018 23:20:00 DIS Emergency JAZMINE AMBRIZ [facility] ER SEIZURE [id number] 06/02/2018 12:50:00 06/02/2018 14:06:00 DIS Emergency ASHU MATSON MD [facility] ER SEIZURE [id number] 05/29/2018 11:52:00 05/29/2018 13:30:00 DIS Emergency BORIS DELGADO, CHAPO [place] [facility] ER SEIZURE [id number] 03/01/2018 21:50:00 03/01/2018 22:41:00 DIS Emergency ASHU MATSON MD [facility] ER SEIZURE [id number] 02/07/2018 22:44:00 02/07/2018 23:16:00 DIS Emergency JAYLENE LOYA APRN [facility] ER SEIZURE [id number] 12/27/2017 20:58:00 12/27/2017 23:12:00 DIS Emergency EDUAR URIARTE MD [facility] ER INJ FROM SEIZURE [id number] 12/02/2017 13:31:00 12/02/2017 15:07:00 DIS Emergency JAYLENE LOYA APRN [facility] ER HEAD PAIN,HIP PAIN [id number] 11/20/2017 14:07:00 11/20/2017 15:47:00 DIS Emergency JAYLENE LOYA APRN [facility] ER SEIZURE [id number] 10/30/2017 21:28:00 10/30/2017 23:42:00 DIS Emergency JAYLENE LOYA APRN [facility] ER SEIZURE [id number] 10/12/2017 20:39:00 10/13/2017 00:36:00 DIS Emergency LUIS GATES [facility] ER R FOOT INJ [id number] 09/10/2017 10:31:00 09/10/2017 13:45:00 DIS Emergency CHAPO ESCALANTE MD [facility] ER SEIZURE [id number] 08/23/2017 13:58:00 08/23/2017 16:00:00 DIS Emergency ASHU MATSON MD [facility] ER SEIZURE [id number] 06/22/2017 16:39:00 06/22/2017 18:07:00 DIS Emergency CARLOS MEDLEY MD [facility] ER SEIZURE [id number] 05/06/2017 21:56:00 05/06/2017 23:30:00 DIS Emergency ASHU MATSON MD [facility] ER SEIZURE-FALL [id number] 12/12/2016 20:25:00 12/12/2016 22:02:00 DIS Emergency CHAPITO DELGADO, EDUAR Iqbal [facility] ER POSSIBLE SEIZURE [id number] 10/31/2016 09:27:00 10/31/2016 14:50:00 DIS Outpatient CLARIBEL ROBERTS ROMERO D [facility] SDC UMBILICAL HERNIA [id number] 10/29/2016 08:37:00 10/29/2016 09:05:00 DIS Outpatient CLARIBEL ROBERTSROMERO [facility] PREOP UMBILICAL HERNIA [id number] 08/19/2016 11:19:00 08/19/2016 14:50:00 DIS Emergency DANO DELGADO, ASHU Alan [facility] ER LIGHTHEADED NAUSEA [id number] 02/02/2016 20:45:00 02/03/2016 06:40:00 DIS Outpatient DANNA DELGADO, SAYDA Jimenez [facility] SLEEP OBSTRUCTIVE SLEEP APNEA [id number] 01/27/2016 21:02:00 01/27/2016 22:31:00 DIS Emergency CECILE DELGADO, JAYSHREE An [facility] ER SEIZURE/FALL [id number] 12/19/2015 21:50:00 12/19/2015 23:31:00 DIS Emergency BORIS DELGADO, CHAPO T [facility] ER SEIZURE [id number] 11/17/2015 20:50:00 11/18/2015 06:50:00 DIS Outpatient DANNA DELGADO, SAYDA Jimenez [facility] SLEEP OBSERVED APNEAS,SNORING ,SEIZURE,ABN LIMB MOVEMENT [id number] 10/04/2015 13:44:00 10/04/2015 23:59:59 CLS Outpatient KAREN HUNTER DO [facility] LAB INFERTILITY [id number] 09/12/2015 20:42:00 09/12/2015 21:58:00 DIS Emergency MAMI ACEVEDO DO [facility] ER CONGESTION [id number] 03/18/2014 20:01:00 03/18/2014 22:13:00 DIS Emergency KITA OSCAR DO [facility] ER [id number] 05/04/2015 22:47:00 Document Registration [id number] 12/13/2016 14:44:00 12/13/2016 23:59:00 DIS Outpatient Mami Terry [id number] 09/02/2018 08:30:00 09/02/2018 23:59:59 [facility] [id number] 05/04/2015 22:47:00 05/05/2015 01:01:00 DIS Emergency BORIS DELGADO, CHAPO [facility] ER
== END 2018-09-29 14:27 | disposition home or self-care (01) ==
LOC: EDUNIT# 13:15 → ER 13:16
DX: S43.401A Unspecified sprain of right shoulder joint, initial encounter (principal); G47.30 Sleep apnea, unspecified; G40.909 Epilepsy, unspecified, not intractable, without status epilepticus; E03.9 Hypothyroidism, unspecified; E11.9 Type 2 diabetes mellitus without complications; F41.9 Anxiety disorder, unspecified; Z79.52 Long term (current) use of systemic steroids; Z79.84 Long term (current) use of oral hypoglycemic drugs; Z87.19 Personal history of other diseases of the digestive system; Z87.891 Personal history of nicotine dependence; Z98.890 Other specified postprocedural states; W01.198A Fall on same level from slipping, tripping and stumbling with subsequent striking against other object, initial encounter; Y92.009 Unspecified place in unspecified non-institutional (private) residence as the place of occurrence of the external cause
CPT/HCPCS: 73030

== ENCOUNTER 2018-10-03 12:29 | Emergency (ER) | payer BC ==
[~2018-10-03] VITALS: Ht 182.9 cm; Wt 122.5 kg
[~2018-10-03 12:29] MED LIST changes: +ORPH100T PO
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
--- NOTE | 2018-10-03 12:54 | ED Neurological Problem ---
General Chief Complaint: Neurological Problems Stated Complaint: SEIZURE Source: patient Exam Limitations: no limitations History of Present Illness Date Seen by Provider: Oct 03, 2018 Time Seen by Provider: 12:50 Initial Comments The patient is a 33-year-old white male who presents by ambulance after a seizure at his residence. Review of his contact log shows that he has been here 17 times since September 2016 for seizures. He sees Dr. Domingo Vazquez a neurologist from [place] in the treatment of these. He had a seizure about 2 weeks ago and contacted him relative to new instructions. He states that the dose of Keppra was increased and he is to see Dr. Vazquez in October as an outpatient. After helping him I was able to ascertain that he had been told that these were complex partial seizures. He states his first seizure occurred at about age 26. Timing/Duration: 1-3 hours Allergies and Home Medications Allergies Coded Allergies: No Known Drug Allergies (Unverified , 03/18/14) Home Medications Clonazepam 0.5 Mg Tablet, 0.5-1 MG PO BID, (Reported) take 1 (.5mg) tab in am take 2 (.5mg) tab in pm Hydrocodone/Acetaminophen 1 Each Tablet, 1 EACH PO Q4H PRN for PAIN-MODERATE TO SEVERE Prescribed by: LUIS POWERS on 10/13/17 0026 Lamotrigine 150 Mg Tablet, 150 MG PO Q12H, (Reported) Levetiracetam 1,000 Mg Tablet, 1,000 MG PO BID, (Reported) take with 5oomg tab for 1500mg total Levothyroxine Sodium 50 Mcg Tablet, 50 MCG PO DAILY, (Reported) Metformin HCl 500 Mg Tablet, 500 MG PO BID, (Reported) [place] 3 Polyunsat Fatty Acids 1,000 Mg Cap, 1,000 MG PO BID, (Reported) Orphenadrine Citrate 100 Mg Tablet.er, 100 MG PO BID PRN for SPASMS Prescribed by: LUIS POWERS on 09/29/18 1405 Patient Home Medication List Home Medication List Reviewed: Yes Review of Systems Review of Systems Constitutional: see HPI Eyes: No Symptoms Reported Ears, Nose, Mouth, Throat: no symptoms reported Respiratory: no symptoms reported Cardiovascular: no symptoms reported Gastrointestinal: no symptoms reported Genitourinary: no symptoms reported Musculoskeletal: no symptoms reported Skin: no symptoms reported Psychiatric/Neurological: Tonic Clonic Seizures Endocrine: No Symptoms Reported Hematologic/Lymphatic: No Symptoms Reported Past Jyudzfz-Qexugi-Ymazit Hx Patient Social History Alcohol Use: Denies Use Recreational Drug Use: No Smoking Status: Former Smoker Type Used: Cigarettes Former Smoker, Quit: Oct 29, 2009 Recent Hopitalizations: No Immunizations Up To Date Tetanus Booster (TDap): More than 5yrs Date of Influenza Vaccine: May 30, 2015 Seasonal Allergies Seasonal Allergies: Yes Past Medical History Surgeries: Yes (hernia repair) Respiratory: Yes Sleep Apnea Currently Using CPAP: Yes Cardiac: No Neurological: Yes Seizure Disorder Reproductive Disorders: No Sexually Transmitted Disease: No Genitourinary: No Gastrointestinal: Yes (umb hernia) Musculoskeletal: No Endocrine: Yes (pre=diabetes) Hypothyroidsim, Diabetes, Non-Insulin dep HEENT: No Cancer: No Psychosocial: Yes Anxiety Integumentary: No Blood Disorders: No Family Medical History No Pertinent Family Hx Physical Exam Vital Signs Vital Signs - First Documented 10/03/18 12:31 Temp 98.4 Pulse 85 Resp 18 B/P (MAP) 139/92 (108) Pulse Ox 95 O2 Delivery Room Air Capillary Refill : Height, Weight, BMI Height: 6'" Weight: 270lbs. 0.0oz. 122.830150eq; 39.5 BMI Method:Stated General Appearance: no apparent distress, other (responds slowly but clearly to questioning) HEENT: normal ENT inspection Neck: full range of motion Respiratory: chest non-tender, lungs clear, normal breath sounds, no respiratory distress, no accessory muscle use, respiratory distress Cardiovascular: normal peripheral pulses, regular rate, rhythm, no edema, no gallop, no JVD, no murmur Gastrointestinal: normal bowel sounds Back: normal inspection, no CVA tenderness, no vertebral tenderness, CVA tenderness (R), CVA tenderness (L) Extremities: normal range of motion 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: 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-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 nml as tested, no motor/sensory deficits, alert, normal mood/affect, oriented x 3, abnormal cerebellar tests Skin: normal color, warm/dry Lymphatic: no adenopathy Progress/Results/Core Measures Results/Orders Lab Results Laboratory Tests Test 10/03/18 12:01 Range/Units My Orders Orders - LAUREN LOU MD Levetiracetam Level (Keppra) (10/03/18 12:56) Vital Signs/I&O 10/03/18 12:31 Temp 98.4 Pulse 85 Resp 18 B/P (MAP) 139/92 (108) Pulse Ox 95 O2 Delivery Room Air Departure Impression Primary Impression: complex partial seizure Disposition: HOME, SELF-CARE Condition: Stable/Unchanged Departure-Patient Inst. Decision time for Depature: 14:01 Referrals: GAVI HAAS MD (PCP/Family) Primary Care Physician Add. Discharge Instructions: All discharge instructions reviewed with patient and/or family. Voiced understanding. Resume Keppra at present level. The blood level should be available to Dr. Haas by Friday. LAUREN LOU MD Oct 03, 2018 12:54
--- NOTE | 2018-10-03 13:11 | NUR ---
PATIENT INFORMED THAT WE WILL WATCH FOR 1 HR.
[2018-10-03 14:15] VITALS: BP 125/85
== END 2018-10-03 14:15 | disposition home or self-care (01) ==
LOC: ER 12:29 → EDUNIT# 12:29 → ER 14:15
DX: G40.209 Localization-related (focal) (partial) symptomatic epilepsy and epileptic syndromes with complex partial seizures, not intractable, without status epilepticus (principal); G47.30 Sleep apnea, unspecified; E03.9 Hypothyroidism, unspecified; E11.9 Type 2 diabetes mellitus without complications; F41.9 Anxiety disorder, unspecified; Z79.84 Long term (current) use of oral hypoglycemic drugs; Z87.891 Personal history of nicotine dependence; Z98.890 Other specified postprocedural states
CPT/HCPCS: 36415; 80177

== ENCOUNTER 2018-10-26 21:44 | Emergency (ER) | payer BC ==
[~2018-10-26] VITALS: Ht 182.9 cm; Wt 122.5 kg
[2018-10-26 22:03] LABS: BASOPHILS % (AUTO) 0 % (0-10); EOSINOPHILS # (AUTO) 0.2 10^3/uL (0.0-0.3); EOSINOPHILS % (AUTO) 2 % (0-10); HEMATOCRIT 41 % (40-54); HEMOGLOBIN 14.2 G/DL (13.3-17.7); LYMPHOCYTES # (AUTO) 4.1 X 10^3 (1.0-4.0); LYMPHOCYTES % (AUTO) 43 % (12-44); MEAN CORPUSCULAR HEMOGLOBIN 29 PG (25-34); MEAN CORPUSCULAR HGB CONC 35 G/DL (32-36); MEAN CORPUSCULAR VOLUME 85 FL (80-99); MEAN PLATELET VOLUME 9.7 FL (7.4-10.4); MONOCYTES # (AUTO) 0.8 X 10^3 (0.0-1.0); MONOCYTES % (AUTO) 8 % (0-12); NEUTROPHILS # (AUTO) 4.4 X 10^3 (1.8-7.8); NEUTROPHILS % (AUTO) 46 % (42-75); PLATELET COUNT 432 10^3/uL (130-400); RED CELL DISTRIBUTION WIDTH 13.3 % (10.0-14.5); WHITE BLOOD COUNT 9.5 10^3/uL (4.3-11.0)
[2018-10-26 22:19] LABS: ALANINE AMINOTRANSFERASE 48 U/L (0-55); ALBUMIN 4.8 GM/DL (3.2-4.5); ALKALINE PHOSPHATASE 98 U/L (40-136); BILIRUBIN,TOTAL 0.4 MG/DL (0.1-1.0); BUN/CREATININE RATIO 14; CALCIUM 9.9 MG/DL (8.5-10.1); CARBON DIOXIDE 10 MMOL/L (21-32); CHLORIDE 103 MMOL/L (98-107); CREATININE SERUM 1.09 MG/DL (0.60-1.30); GFR ESTIMATED > 60; GLUCOSE 230 MG/DL (70-105); POTASSIUM 4.1 MMOL/L (3.6-5.0); SODIUM 138 MMOL/L (135-145); TOTAL PROTEIN 8.5 GM/DL (6.4-8.2)
--- NOTE | 2018-10-26 22:57 | ED Neurological Problem ---
General Chief Complaint: Neurological Problems Stated Complaint: SEIZURE Source: patient, EMS Exam Limitations: no limitations History of Present Illness Date Seen by Provider: Oct 26, 2018 Time Seen by Provider: 21:50 Allergies and Home Medications Allergies Coded Allergies: No Known Drug Allergies (Unverified , 03/18/14) Home Medications Clonazepam 0.5 Mg Tablet, 0.5-1 MG PO BID, (Reported) take 1 (.5mg) tab in am take 2 (.5mg) tab in pm Hydrocodone/Acetaminophen 1 Each Tablet, 1 EACH PO Q4H PRN for PAIN-MODERATE TO SEVERE Prescribed by: LUIS POWERS on 10/13/17 0026 Lamotrigine 150 Mg Tablet, 150 MG PO Q12H, (Reported) Levetiracetam 1,000 Mg Tablet, 1,000 MG PO BID, (Reported) take with 5oomg tab for 1500mg total Levothyroxine Sodium 50 Mcg Tablet, 50 MCG PO DAILY, (Reported) Metformin HCl 500 Mg Tablet, 500 MG PO BID, (Reported) [place] 3 Polyunsat Fatty Acids 1,000 Mg Cap, 1,000 MG PO BID, (Reported) Orphenadrine Citrate 100 Mg Tablet.er, 100 MG PO BID PRN for SPASMS Prescribed by: LUIS POWERS on 09/29/18 1405 Past Qciuqps-Dpiajl-Vkfxrn Hx Patient Social History Type Used: Cigarettes Former Smoker, Quit: Oct 29, 2009 Recent Foreign Travel: No Contact w/Someone Who Travel: No Recent Hopitalizations: No Immunizations Up To Date Tetanus Booster (TDap): More than 5yrs Date of Influenza Vaccine: May 30, 2015 Seasonal Allergies Seasonal Allergies: Yes Past Medical History Surgeries: Yes (hernia repair) Respiratory: Yes Sleep Apnea Currently Using CPAP: Yes Cardiac: No Neurological: Yes Seizure Disorder Reproductive Disorders: No Sexually Transmitted Disease: No Genitourinary: No Gastrointestinal: Yes (umb hernia) Musculoskeletal: No Endocrine: Yes (pre=diabetes) Hypothyroidsim, Diabetes, Non-Insulin dep HEENT: No Cancer: No Psychosocial: Yes Anxiety Integumentary: No Blood Disorders: No Family Medical History No Pertinent Family Hx Physical Exam Vital Signs Capillary Refill : Height, Weight, BMI Height: 6'0" Weight: 270lbs. 0.0oz. 122.518970jk; 39.5 BMI Method:Stated Progress/Results/Core Measures Results/Orders Lab Results Laboratory Tests Test 10/26/18 21:50 Range/Units White Blood Count 9.5 4.3-11.0 10^3/uL Red Blood Count 4.83 4.35-5.85 10^6/uL Hemoglobin 14.2 13.3-17.7 G/DL Hematocrit 41 40-54 % Mean Corpuscular Volume 85 80-99 FL Mean Corpuscular Hemoglobin 29 25-34 PG Mean Corpuscular Hemoglobin Concent 35 32-36 G/DL Red Cell Distribution Width 13.3 10.0-14.5 % Platelet Count 432 H 130-400 10^3/uL Mean Platelet Volume 9.7 7.4-10.4 FL Neutrophils (%) (Auto) 46 42-75 % Lymphocytes (%) (Auto) 43 12-44 % Monocytes (%) (Auto) 8 0-12 % Eosinophils (%) (Auto) 2 0-10 % Basophils (%) (Auto) 0 0-10 % Neutrophils # (Auto) 4.4 1.8-7.8 X 10^3 Lymphocytes # (Auto) 4.1 H 1.0-4.0 X 10^3 Monocytes # (Auto) 0.8 0.0-1.0 X 10^3 Eosinophils # (Auto) 0.2 0.0-0.3 10^3/uL Basophils # (Auto) 0.0 0.0-0.1 10^3/uL Prothrombin Time 13.0 12.2-14.7 SEC INR Comment 1.0 0.8-1.4 Activated Partial Thromboplast Time 28 24-35 SEC Sodium Level 138 135-145 MMOL/L Potassium Level 4.1 3.6-5.0 MMOL/L Chloride Level 103 98-107 MMOL/L Carbon Dioxide Level 10 L 21-32 MMOL/L Anion Gap 25 H 5-14 MMOL/L Blood Urea Nitrogen 15 7-18 MG/DL Creatinine 1.09 0.60-1.30 MG/DL Estimat Glomerular Filtration Rate > 60 BUN/Creatinine Ratio 14 Glucose Level 230 H 70-105 MG/DL Calcium Level 9.9 8.5-10.1 MG/DL Corrected Calcium 8.5-10.1 MG/DL Total Bilirubin 0.4 0.1-1.0 MG/DL Aspartate Amino Transf (AST/SGOT) 38 H 5-34 U/L Alanine Aminotransferase (ALT/SGPT) 48 0-55 U/L Alkaline Phosphatase 98 40-136 U/L Total Protein 8.5 H 6.4-8.2 GM/DL Albumin 4.8 H 3.2-4.5 GM/DL My Orders Orders - JAZMINE AMBRIZ Comprehensive Metabolic Panel (10/26/18 21:55) Saline Lock/Iv-Start (10/26/18 21:55) Cbc With Automated Diff (10/26/18 21:55) Protime With Inr (10/26/18 21:55) Partial Thromboplastin Time (10/26/18 21:55) Ct Head/Cervical Spine Wo (10/26/18 21:57) Departure Impression Primary Impression: Seizure Disposition: 01 HOME, SELF-CARE Condition: Stable/Unchanged Departure-Patient Inst. Decision time for Depature: 22:57 Referrals: GAVI HAAS MD (PCP/Family) Primary Care Physician Patient Instructions: Seizures, Adult (DC) Add. Discharge Instructions: Resume your home medications as previously prescribed. Follow-up with your neurologist within 1 week for recheck. Return back to the emergency room for worsening symptoms or concerns as needed. All discharge instructions reviewed with patient and/or family. Voiced understanding. JAZMINE AMBRIZ Oct 26, 2018 22:57
[2018-10-26 23:16] VITALS: BP 134/94
--- NOTE | 2018-10-27 07:38 | Diagnostic Imaging Report ---
PROCEDURE: CT head and CT cervical spine without contrast. TECHNIQUE: Multiple contiguous axial images were obtained through the brain and cervical spine without the use of intravenous contrast. Sagittal and coronal reformations through the cervical spine were then performed. INDICATION: Seizure. COMPARISON: 07/06/2018 FINDINGS: Head: No hyperdense hemorrhage or space-occupying mass. No hydrocephalus or midline shift. No evidence of territorial infarct. Basilar cisterns are patent. No focal scalp swelling. No skull fracture. The paranasal sinuses and mastoid air cells are clear. Cervical spine: No acute fracture or traumatic malalignment. Intervertebral disc spaces are normal. Airway is patent. No cervical lymphadenopathy. Visualized thyroid is normal. IMPRESSION: 1. No acute intracranial process. 2. No acute fracture or traumatic malalignment of the cervical spine. 3. Findings are in agreement with the preliminary report. Dictated by: Dictated on workstation # [id number]
== END 2018-10-26 23:16 | disposition home or self-care (01) ==
LOC: EDUNIT# 21:44 → ER 21:46
DX: G40.909 Epilepsy, unspecified, not intractable, without status epilepticus (principal); G47.30 Sleep apnea, unspecified; E03.9 Hypothyroidism, unspecified; E11.9 Type 2 diabetes mellitus without complications; F41.9 Anxiety disorder, unspecified; Z79.84 Long term (current) use of oral hypoglycemic drugs; Z87.19 Personal history of other diseases of the digestive system; Z87.891 Personal history of nicotine dependence
CPT/HCPCS: 36415; 70450; 72125; 80053; 85025; 85610; 85730

== ENCOUNTER 2018-11-05 09:45 | Emergency (ER) | payer BC ==
[~2018-11-05] VITALS: Ht 180.3 cm; Wt 122.5 kg
--- NOTE | 2018-11-05 11:12 | ED Neurological Problem ---
General Chief Complaint: Neurological Problems Stated Complaint: SEIZURE Nursing Triage Note: PT ARRIVED PER EMS, PT HAD SEIZURE, GRAND MAL, PT IS AWAKE AND ALERT SL SLOW TO ANSWER, PT HAS SEIZURE HX. LAST ONE APPROX 3 WEEKS AGO, PT STATES TAKING MEDS DIRECTED Nursing Sepsis Screen: No Definite Risk Source: patient Exam Limitations: no limitations History of Present Illness Date Seen by Provider: Nov 05, 2018 Time Seen by Provider: 11:09 Initial Comments To ER with reports of a seizure. He has a known seizure disorder. He takes Keppra, Lamictal, clonazepam. States that he missed one dose of clonazepam yesterday because he misplaced the bottle but then found it. He felt fine before the seizure and feels fine now. He was sitting in a chair when this happened and did not fall or injure himself. Timing/Duration: 1/2 hour Severity: mild Associated Symptoms: seizures Allergies and Home Medications Allergies Coded Allergies: No Known Drug Allergies (Unverified , 03/18/14) Home Medications Clonazepam 0.5 Mg Tablet, 0.5-1 MG PO BID, (Reported) take 1 (.5mg) tab in am take 2 (.5mg) tab in pm Hydrocodone/Acetaminophen 1 Each Tablet, 1 EACH PO Q4H PRN for PAIN-MODERATE TO SEVERE Prescribed by: LUIS POWERS on 10/13/17 0026 Lamotrigine 150 Mg Tablet, 150 MG PO Q12H, (Reported) Levetiracetam 1,000 Mg Tablet, 1,000 MG PO BID, (Reported) take with 5oomg tab for 1500mg total Levothyroxine Sodium 50 Mcg Tablet, 50 MCG PO DAILY, (Reported) Metformin HCl 500 Mg Tablet, 500 MG PO BID, (Reported) [place] 3 Polyunsat Fatty Acids 1,000 Mg Cap, 1,000 MG PO BID, (Reported) Orphenadrine Citrate 100 Mg Tablet.er, 100 MG PO BID PRN for SPASMS Prescribed by: LUIS POWERS on 09/29/18 1405 Patient Home Medication List Home Medication List Reviewed: Yes Review of Systems Review of Systems Constitutional: see HPI; No chills, No fever Eyes: No Symptoms Reported Ears, Nose, Mouth, Throat: no symptoms reported Respiratory: no symptoms reported Cardiovascular: no symptoms reported Genitourinary: no symptoms reported Musculoskeletal: no symptoms reported Skin: no symptoms reported Psychiatric/Neurological: No Symptoms Reported Endocrine: No Symptoms Reported Hematologic/Lymphatic: No Symptoms Reported Past Deppqja-Iqwlbs-Jlqsxb Hx Patient Social History Alcohol Use: Denies Use Recreational Drug Use: No Smoking Status: Former Smoker Type Used: Cigarettes Former Smoker, Quit: Oct 29, 2009 Recent Foreign Travel: No Contact w/Someone Who Travel: No Recent Infectious Disease Expo: No Recent Hopitalizations: No Immunizations Up To Date Tetanus Booster (TDap): More than 5yrs Date of Influenza Vaccine: May 30, 2015 Seasonal Allergies Seasonal Allergies: Yes Past Medical History Surgeries: Yes (hernia repair) Respiratory: Yes Sleep Apnea Currently Using CPAP: Yes Cardiac: No Neurological: Yes Seizure Disorder Reproductive Disorders: No Sexually Transmitted Disease: No Genitourinary: No Gastrointestinal: Yes (umb hernia) Musculoskeletal: No Endocrine: Yes (pre=diabetes) Hypothyroidsim, Diabetes, Non-Insulin dep HEENT: No Cancer: No Psychosocial: Yes Anxiety Integumentary: No Blood Disorders: No Family Medical History No Pertinent Family Hx Physical Exam Vital Signs Vital Signs - First Documented 11/05/18 09:45 Temp 98.8 Pulse 90 Resp 18 B/P (MAP) 132/86 (101) Pulse Ox 95 Capillary Refill : Less Than 3 Seconds Height, Weight, BMI Height: 5'11.00" Weight: 270lbs. 0.0oz. 122.255989mk; 39.5 BMI Method:Stated General Appearance: WD/WN, no apparent distress HEENT: PERRL/EOMI, normal ENT inspection Neck: non-tender, full range of motion Respiratory: no respiratory distress, no accessory muscle use Gastrointestinal: normal bowel sounds, non tender, soft Extremities: normal range of motion, non-tender 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: alert, normal mood/affect, oriented x 3 Skin: normal color, warm/dry Progress/Results/Core Measures Results/Orders Vital Signs/I&O 11/05/18 09:45 Temp 98.8 Pulse 90 Resp 18 B/P (MAP) 132/86 (101) Pulse Ox 95 Blood Pressure Mean: 101 Departure Impression Primary Impression: Seizure Disposition: 01 HOME, SELF-CARE Condition: Stable Departure-Patient Inst. Decision time for Depature: 11:11 Referrals: GAVI HAAS MD (PCP/Family) Primary Care Physician Patient Instructions: Seizures, Adult (DC) Add. Discharge Instructions: 1. No driving for 6 months. Return to ER for any concerns. Follow-up with your neurologist. All discharge instructions reviewed with patient and/or family. Voiced understanding. JAYLENE LOYA APRN Nov 05, 2018 11:12
[2018-11-05 11:19] VITALS: BP 127/91
== END 2018-11-05 11:19 | disposition home or self-care (01) ==
LOC: ER 09:45 → EDUNIT# 09:54 → ER 11:19
DX: G40.909 Epilepsy, unspecified, not intractable, without status epilepticus (principal); G47.30 Sleep apnea, unspecified; E03.9 Hypothyroidism, unspecified; E11.9 Type 2 diabetes mellitus without complications; F41.9 Anxiety disorder, unspecified; Z87.19 Personal history of other diseases of the digestive system; Z98.890 Other specified postprocedural states; Z79.84 Long term (current) use of oral hypoglycemic drugs; Z87.891 Personal history of nicotine dependence

== ENCOUNTER 2019-01-17 06:21 | Emergency (ER) | payer SELFPAY ==
[~2019-01-17] VITALS: Ht 180.3 cm; Wt 116.6 kg
[2019-01-17] MEDS ORDERED: TETANUS,DIPTH,PERTUSS P/F (BOOSTRIX) 0.5 ML VIAL IM ONE (06:30)
[2019-01-17] MEDS ORDERED: LEVETIRACETAM 500 MG (KEPPRA) TAB PO ONE (06:30)
[2019-01-17] MEDS ORDERED: L.E.T. SYRINGE 5 ML TOP ONE (06:30)
--- OUTSIDE RECORDS SUMMARY | 2019-01-17 06:30 | XMS REPORT | Continuity of Care Document ---
Author Organization Unknown Address Unknown Allergies Active Description Code Type Severity Reaction Onset Reported/Identified Relationship to Patient Clinical Status Yes NO KNOWN DRUG ALLERGIES UNKNOWN NO KNOWN DRUG ALLERG Yes No Known Drug Allergies [id number] Drug Allergy Unknown N/A 03/18/2014 Yes No Known Drug Allergies [id number] Drug Allergy Unknown N/A 05/04/2015 Medications There is no data. Problems Date Dx Coded Attending Type Code Diagnosis Diagnosed By 03/18/2014 KITA OSCAR DO Ot 780.39 OTHER CONVULSIONS 05/05/2015 Ot 246.9 DISORDER OF THYROID NOS [...] BORIS DELGADO, CHAPO Dover Ot Z79.899 OTHER ALF (CURRENT) DRUG THERAPY 12/19/2015 KAREN HUNTER DO Ot N46.9 12/20/2015 BORIS DELGADO, CHAPO T Ot E03.9 12/20/2015 BORIS DELGADO, CHAPO T Ot G40.909 12/20/2015 BORIS DELGADO, CHAPO T Ot Z79.899 12/21/2015 BORIS DELGADO, CHAPO T Ot E03.9 12/21/2015 BORIS DELGADO, CHAPO T Ot G40.909 12/21/2015 BORIS DELGADO, CHAPO T Ot Z79.899 01/27/2016 CECILE DELGADO, JAYSHREE An Ot G40.409 OTH GENERALIZED EPILEPSY, NOT INTRACTABL [...] OF OTHER PART OF HEAD, INITIAL 01/29/2016 DESI HUBER MDNT A Ot W19.XXXA UNSPECIFIED FALL, INITIAL ENCOUNTER 01/29/2016 JAYSHREE HUBER MD A Ot Y92.[address] TO SINGLE-FAMILY (PRIVA 01/29/2016 JAYSHREE HUBER MD A Ot Y99.8 OTHER EXTERNAL CAUSE STATUS 02/03/2016 DANNA DELGADO, SAYDA Jimenez Ot G47.33 OBSTRUCTIVE SLEEP APNEA (ADULT) (PEDIATR 02/07/2016 DANNA DELGADO, SAYDA Jimenez Ot G47.33 OBSTRUCTIVE SLEEP APNEA (ADULT) (PEDIATR 02/10/2016 DANNA DELGADO, SAYDA Jimenez Ot G47.33 OBSTRUCTIVE SLEEP APNEA (ADULT) (PEDIATR 08/19/2016 KAREN HUNTER DO Ot N46.9 MALE INFERTILITY, UNSPECIFIED 08/19/2016 ASHU MATSON MD J Ot E03.9 HYPOTHYROIDISM, UNSPECIFIED 08/19/2016 DANO DELGADO, ASHU J Ot E78.5 HYPERLIPIDEMIA, UNSPECIFIED 08/19/2016 DANO DELGADO, ASHU J Ot G40.909 EPILEPSY, UNSP, NOT INTRACTABLE, WITHOUT 08/19/2016 KALI MATSON MDUS J Ot G47.30 SLEEP APNEA, UNSPECIFIED 08/19/2016 ASHU MATSON MD J Ot R11.2 NAUSEA WITH VOMITING, UNSPECIFIED 08/19/2016 ASHU MATSON MD J Ot R73.03 PREDIABETES 08/19/2016 ASHU MATSON MD J Ot Z79.899 OTHER ALF (CURRENT) DRUG THERAPY 08/21/2016 ASHU MATSON MD J Ot E03.9 HYPOTHYROIDISM, UNSPECIFIED 08/21/2016 KALI MATSON MDUS J Ot E78.5 HYPERLIPIDEMIA, UNSPECIFIED 08/21/2016 DANO DELGADO, ASHU J Ot G40.909 EPILEPSY, UNSP, NOT INTRACTABLE, WITHOUT 08/21/2016 KALI MATSON MDUS J Ot G47.30 SLEEP APNEA, UNSPECIFIED 08/21/2016 ASHU MATSON MD Ot R11.2 NAUSEA WITH VOMITING, UNSPECIFIED 08/21/2016 KALI MATSON MDUS Waqas Ot R73.03 PREDIABETES 08/21/2016 ASHU MATSON MD Ot Z79.899 OTHER ALF (CURRENT) DRUG THERAPY 10/29/2016 ROMERO SANFORD DO [...] 10/31/2016 SANFORD DO, ROMERO D Ot Z79.84 HEAD GOLF PROFESSIONAL (CURRENT) USE OF ORAL HYPOGLYC 11/04/2016 SANFORD DO, ROMERO D Ot E11.9 TYPE 2 DIABETES MELLITUS WITHOUT COMPLIC 11/04/2016 SANFORD DO, ROMERO D Ot K42.9 UMBILICAL HERNIA WITHOUT OBSTRUCTION OR 11/04/2016 SANFORD DO, ROMERO D Ot Z79.84 HEAD [employer] PROFESSIONAL (CURRENT) USE OF ORAL HYPOGLYC 11/05/2016 SANFORD DO, ROMERO D Ot E11.9 TYPE 2 DIABETES MELLITUS WITHOUT COMPLIC 11/05/2016 SANFORD DO, ROMERO D Ot K42.9 UMBILICAL HERNIA WITHOUT OBSTRUCTION OR 11/05/2016 SANFORD DO, ROMERO D Ot Z79.84 HEAD [employer]ESSIONAL (CURRENT) USE OF ORAL HYPOGLYC 11/22/2016 KAREN HUNTER DO Ot N46.9 MALE INFERTILITY, UNSPECIFIED 12/11/2016 DALE ROBERTS KAREN C Ot N46.9 MALE INFERTILITY, UNSPECIFIED 12/12/2016 DALE DO KAREN C Ot N46.9 MALE INFERTILITY, UNSPECIFIED 12/12/2016 EDUAR URIARTE MD Ot E11.9 TYPE 2 DIABETES MELLITUS WITHOUT COMPLIC 12/12/2016 EDUAR URIARTE MD Ot G40.909 EPILEPSY, UNSP, NOT INTRACTABLE, WITHOUT 12/12/2016 EDUAR URIARTE MD Ot Z79.84 HEAD [employer]ESSIONAL (CURRENT) USE OF ORAL HYPOGLYC 12/12/2016 EDUAR URIARTE MD Ot Z79.899 OTHER ALF (CURRENT) DRUG THERAPY 12/16/2016 EDUAR URIARTE MD Ot E11.9 TYPE 2 DIABETES MELLITUS WITHOUT COMPLIC 12/16/2016 EDUAR URIARTE MD Ot G40.909 EPILEPSY, UNSP, NOT INTRACTABLE, WITHOUT 12/16/2016 EDUAR URIARTE MD Ot Z79.84 ALF (CURRENT) USE OF ORAL HYPOGLYC 12/16/2016 EDUAR URIRATE MD Ot Z79.899 OTHER HEAD [employer]ESSIONAL (CURRENT) DRUG THERAPY 02/03/2017 HUNTER DO, KAREN [...] 05/06/2017 DANO DELGADO, ASHU Alan Ot Z79.84 HEAD [employer] PROFESSIONAL (CURRENT) USE OF ORAL HYPOGLYC 05/06/2017 DANO DELGADO, ASHU Alan Ot Z87.891 PERSONAL HISTORY OF NICOTINE DEPENDENCE 05/06/2017 DALE DO, KAREN C Ot N46.9 MALE INFERTILITY, UNSPECIFIED 05/11/2017 HUNTER DO, KAREN C Ot N46.9 MALE INFERTILITY, UNSPECIFIED 05/26/2017 HUNTER DO, KAREN C Ot N46.9 MALE INFERTILITY, UNSPECIFIED 06/22/2017 HUNTER DO, KAREN C Ot N46.9 MALE [...] 06/22/2017 GALINDO DELGADO, CARLOS Tavera Ot Z79.84 HEAD [employer] (CURRENT) USE OF ORAL HYPOGLYC 06/22/2017 GALINDO [...] FUNCT 08/23/2017 ASHU MATSON MD Ot Z79.84 HEAD [employer]ESSION[employer] (CURRENT) USE OF ORAL HYPOGLYC 08/26/2017 ASHU [...] FUNCT 08/26/2017 ASHU MATSON MD Ot Z79.84 ALF (CURRENT) USE OF ORAL HYPOGLYC 09/10/2017 CHAPO [...] CONVULSIONS 09/10/2017 CHAPO ESCALANTE MD Ot Z79.84 ALF (CURRENT) USE OF ORAL HYPOGLYC 09/10/2017 CHAPO ESCALANTE MD Ot Z87.19 PERSONAL HISTORY OF OTHER DISEASES OF TH 09/10/2017 CHAPO ESCALANTE MD Ot Z87.891 PERSONAL HISTORY OF NICOTINE DEPENDENCE 09/10/2017 DALE ROBERTS KAREN C Ot N46.9 MALE INFERTILITY, UNSPECIFIED 10/13/2017 LUIS [...] OR PAY 10/13/2017 LUIS GATES Ot Z79.84 HEAD [employer]ESSION[employer] (CURRENT) USE OF ORAL HYPOGLYC 10/13/2017 LUIS [...] INVOLVING OTH 10/14/2017 LUIS GATES Ot Y92.59 [facility] 10/14/2017 LUIS GATES Ot Y99.0 CIVILIAN ACTIVITY DONE FOR INCOME OR PAY 10/14/2017 LUIS GATES Ot Z79.84 HEAD [employer] PROFESSIONAL (CURRENT) USE OF ORAL HYPOGLYC 10/14/2017 LUIS [...] UNSPECIFIED 10/30/2017 JAYLENE LOYA APRN Ot Z79.84 ALF (CURRENT) USE OF ORAL HYPOGLYC 10/30/2017 JAYLENE [...] CONVULSIONS 11/20/2017 JAYLENE LOYA APRN Ot Z79.84 HEAD [employer]ESSION[employer] (CURRENT) USE OF ORAL HYPOGLYC 11/20/2017 JAYLENE [...] CONVULSIONS 11/24/2017 JAYLENE LOYA APRN Ot Z79.84 ALF (CURRENT) USE OF ORAL HYPOGLYC 11/24/2017 JAYLENE [...] INI 12/02/2017 JAYLENE LOYA APRN Ot Z79.84 ALF (CURRENT) USE OF ORAL HYPOGLYC 12/02/2017 JAYLENE [...] AG 12/27/2017 EDUAR URIARTE MD Ot Z79.84 ALF (CURRENT) USE OF ORAL HYPOGLYC 12/27/2017 EDUAR [...] AG 12/29/2017 EDUAR URIARTE MD Ot Z79.84 HEAD [employer] PROFESSION[employer] (CURRENT) USE OF ORAL HYPOGLYC 12/29/2017 EDUAR [...] AG 01/02/2018 EDUAR URIARTE MD Ot Z79.84 ALF (CURRENT) USE OF ORAL HYPOGLYC 01/02/2018 EDUAR [...] WITHOUT 02/07/2018 JAYLENE LOYA APRN Ot Z79.84 ALF (CURRENT) USE OF ORAL HYPOGLYC 02/07/2018 JAYLENE LOYA APRN Ot Z87.891 PERSONAL HISTORY OF NICOTINE DEPENDENCE 02/09/2018 JAYLENE LOYA APRN Ot E03.9 HYPOTHYROIDISM, UNSPECIFIED 02/09/2018 JAYLENE LOYA APRN Ot E11.9 TYPE 2 DIABETES MELLITUS WITHOUT COMPLIC 02/09/2018 JAYLENE LOYA APRN Ot F41.9 ANXIETY DISORDER, UNSPECIFIED 02/09/2018 JAYLENE LOYA APRN Ot G40.909 EPILEPSY, UNSP, NOT INTRACTABLE, WITHOUT 02/09/2018 JAYLENE LOYA APRN Ot Z79.84 HEAD [employer] PROFESSIONAL (CURRENT) USE OF ORAL HYPOGLYC 02/09/2018 JAYLENE [...] UNSPECIFIED 03/01/2018 ASHU MATSON MD Ot Z79.84 HEAD [employer]ESSIONAL (CURRENT) USE OF ORAL HYPOGLYC 03/01/2018 ASHU [...] UNSPECIFIED 03/03/2018 ASHU MATSON MD Ot Z79.84 HEAD [employer] PROFESSIONAL (CURRENT) USE OF ORAL HYPOGLYC 03/03/2018 ASHU MATSON MD Ot Z87.19 PERSONAL HISTORY OF OTHER DISEASES OF 03/03/2018 ASHU MATSON MD, Ot Z87.891 PERSONAL HISTORY OF NICOTINE DEPENDENCE 05/29/2018 CHAPO ESCALANTE MD, Ot E03.9 HYPOTHYROIDISM, UNSPECIFIED 05/29/2018 CHAPO ESCALANTE MD Ot E11.9 TYPE 2 DIABETES MELLITUS WITHOUT COMPLIC 05/29/2018 CHAPO ESCALANTE MD, Ot F41.9 ANXIETY DISORDER, UNSPECIFIED 05/29/2018 CHAPO ESCALANTE MD, Ot G40.909 EPILEPSY, UNSP, NOT INTRACTABLE, WITHOUT 05/29/2018 CHAPO ESCALANTE MD Ot G47.30 SLEEP APNEA, UNSPECIFIED 05/29/2018 CHAPO ESCALANTE MD Ot R56.9 UNSPECIFIED CONVULSIONS 05/29/2018 CHAPO ESCALANTE MD Ot S91.111A LAC W/O FB OF RIGHT GREAT TOE W/O DAMAGE 05/29/2018 CHAPO ESCALANTE MD Ot X58.XXXA EXPOSURE TO OTHER SPECIFIED FACTORS, INI 05/29/2018 CHAPO ESCALANTE MD Ot Z79.84 HEAD [employer]OL[employer] PROFESSIONAL (CURRENT) USE OF ORAL HYPOGLYC 05/29/2018 CHAPO [...] GREAT TOE W/O DAMAGE 06/02/2018 CHAPO ESCALANTE MD, Ot X58.XXXA EXPOSURE TO OTHER SPECIFIED FACTORS, INI 06/02/2018 CHAPO ESCALANTE MD Ot Z79.84 ALF (CURRENT) USE OF ORAL HYPOGLYC 06/02/2018 CHAPO ESCALANTE MD Ot Z87.19 PERSONAL HISTORY OF OTHER DISEASES OF TH 06/02/2018 CHAPO ESCALANTE MD Ot Z87.891 PERSONAL [...] CONVULSIONS 06/02/2018 ASHU MATSON MD Ot Z79.84 ALF (CURRENT) USE OF ORAL HYPOGLYC 06/02/2018 ASHU [...] CONVULSIONS 06/04/2018 ASHU MATSON MD Ot Z79.84 ALF (CURRENT) USE OF ORAL HYPOGLYC 06/04/2018 ASHU MATSON MD Ot Z87.19 PERSONAL HISTORY OF OTHER DISEASES OF TH 07/06/2018 BERNOT, JAZMINE Ot E03.9 HYPOTHYROIDISM, UNSPECIFIED 07/06/2018 BERNOT, JAZMINE Ot E11.9 TYPE 2 DIABETES MELLITUS WITHOUT COMPLIC 07/06/2018 BERNOT, JAZMINE Ot F41.9 ANXIETY DISORDER, UNSPECIFIED 07/06/2018 BERNOT, JAZMINE Ot G40.909 EPILEPSY, UNSP, NOT INTRACTABLE, WITHOUT 07/06/2018 BERNOT, JAZMINE Ot G47.30 SLEEP APNEA, UNSPECIFIED 07/06/2018 BERNOT, JAZMINE Ot Z79.84 HEAD [employer] PROFESSIONAL (CURRENT) USE OF ORAL HYPOGLYC 07/06/2018 BERNOT, JAZMINE Ot Z87.19 PERSONAL HISTORY OF OTHER DISEASES OF TH 07/06/2018 BERNOT, JAZMINE Ot Z87.891 PERSONAL HISTORY OF NICOTINE DEPENDENCE 07/06/2018 BERNOT, JAZMINE Ot Z98.890 OTHER SPECIFIED POSTPROCEDURAL STATES 07/08/2018 BERNSYLVIA JAZMNIE Ot E03.9 HYPOTHYROIDISM, UNSPECIFIED 07/08/2018 BERNOT, JAZMINE Ot E11.9 TYPE 2 DIABETES MELLITUS WITHOUT COMPLIC 07/08/2018 BERNSYLVIA JAZMINE Ot F41.9 ANXIETY DISORDER, UNSPECIFIED 07/08/2018 BERNDEWAYNE WARDIS Ot G40.909 EPILEPSY, UNSP, NOT INTRACTABLE, WITHOUT 07/08/2018 BERNDEWAYNE WARDIS Ot G47.30 SLEEP APNEA, UNSPECIFIED 07/08/2018 BERNDEWAYNE WARDIS Ot Z79.84 HEAD [employer]OL[employer] PROFESSIONAL (CURRENT) USE OF ORAL HYPOGLYC 07/08/2018 BERNDEWAYNE WARDIS Ot Z87.19 PERSONAL HISTORY OF OTHER DISEASES OF 07/08/2018 JAZMINE AMBRIZ Ot Z87.891 PERSONAL HISTORY OF NICOTINE DEPENDENCE 07/08/2018 BERNDEWAYNE WARDIS Ot Z98.890 OTHER SPECIFIED POSTPROCEDURAL STATES 07/15/2018 DALE ROBERTS KAREN Frank Ot N46.9 MALE INFERTILITY, UNSPECIFIED 08/24/2018 EDUAR URIARTE MD Ot E03.9 HYPOTHYROIDISM, UNSPECIFIED 08/24/2018 EDUAR URIARTE MD, Ot F41.9 ANXIETY DISORDER, UNSPECIFIED 08/24/2018 EDUAR URIARTE MD Ot G40.909 EPILEPSY, UNSP, NOT INTRACTABLE, WITHOUT 08/24/2018 EDUAR URIARTE MD Ot G47.30 SLEEP APNEA, UNSPECIFIED 08/24/2018 EDUAR URIARTE MD Ot R56.9 UNSPECIFIED CONVULSIONS 08/24/2018 EDUAR URIARTE MD Ot Z79.84 HEAD [employer]OL[employer] PROFESSIONAL (CURRENT) USE OF ORAL HYPOGLYC 08/24/2018 EDUAR [...] G47.30 SLEEP APNEA, UNSPECIFIED 09/12/2018 JAYLENE LOYA REMEDIAL MASSEUR Ot J02.9 ACUTE PHARYNGITIS, UNSPECIFIED 09/12/2018 JAYLENE LOYA REMEDIAL MASSEUR Ot J20.9 ACUTE BRONCHITIS, UNSPECIFIED 09/12/2018 JAYLENE LOYA REMEDIAL MASSEUR Ot Z79.84 HEAD GOL[employer] PROFESSIONAL (CURRENT) USE OF ORAL HYPOGLYC 09/12/2018 JAYLENE LOYA REMEDIAL MASSEUR Ot Z87.891 PERSONAL HISTORY OF NICOTINE DEPENDENCE 09/12/2018 JAYLENE LOYA REMEDIAL MASSEUR Ot Z98.890 OTHER SPECIFIED POSTPROCEDURAL STATES 09/23/2018 CHAPO ESCALANTE MD T Ot E03.9 HYPOTHYROIDISM, UNSPECIFIED 09/23/2018 CHAPO ESCALANTE MD T Ot E11.65 TYPE 2 DIABETES MELLITUS WITH HYPERGLYCE 09/23/2018 CHAPO ESCALANTE MD T Ot F41.9 ANXIETY DISORDER, UNSPECIFIED 09/23/2018 CHAPO ESCALANTE MD T Ot G40.909 EPILEPSY, UNSP, NOT INTRACTABLE, WITHOUT 09/23/2018 CHAPO ESCALANTE MD T Ot H66.92 OTITIS MEDIA, UNSPECIFIED, LEFT EAR 09/23/2018 CHAPO ESCALANTE MD T Ot R56.9 UNSPECIFIED CONVULSIONS 09/23/2018 CHAPO ESCALANTE MD T Ot Z79.84 HEAD [employer] PROFESSIONAL (CURRENT) USE OF ORAL HYPOGLYC 09/23/2018 CHAPO ESCALANTE MD T Ot Z87.891 PERSONAL HISTORY OF NICOTINE DEPENDENCE 09/25/2018 CHAPO ESCALANTE MD T Ot E03.9 HYPOTHYROIDISM, UNSPECIFIED 09/25/2018 HCAPO ESCALANTE MD T Ot E11.65 TYPE 2 DIABETES MELLITUS WITH HYPERGLYCE 09/25/2018 CHAPO ESCALANTE MD T Ot F41.9 ANXIETY DISORDER, UNSPECIFIED 09/25/2018 CHAPO ESCALANTE MD T Ot G40.909 EPILEPSY, UNSP, NOT INTRACTABLE, WITHOUT 09/25/2018 CHAPO ESCALANTE MD T Ot H66.92 OTITIS MEDIA, UNSPECIFIED, LEFT EAR 09/25/2018 CHAPO ESCALANTE MD T Ot R56.9 UNSPECIFIED CONVULSIONS 09/25/2018 CHAPO ESCALANTE MD T Ot Z79.84 ALF (CURRENT) USE OF ORAL HYPOGLYC 09/25/2018 CHAPO ESCALANTE MD Ot Z87.891 PERSONAL HISTORY OF NICOTINE DEPENDENCE 09/26/2018 CHAPO ESCALANTE MD Ot E03.9 HYPOTHYROIDISM, UNSPECIFIED 09/26/2018 CHAPO ESCALANTE MD Ot E11.65 TYPE 2 DIABETES MELLITUS WITH HYPERGLYCE 09/26/2018 CHAPO ESCALANTE MD Ot F41.9 ANXIETY DISORDER, UNSPECIFIED 09/26/2018 CHAPO ESCALANTE MD Ot G40.909 EPILEPSY, UNSP, NOT INTRACTABLE, WITHOUT 09/26/2018 CHAPO ESCALANTE MD Ot H66.92 OTITIS MEDIA, UNSPECIFIED, LEFT EAR 09/26/2018 CHAPO ESCALANTE MD Ot R56.9 UNSPECIFIED CONVULSIONS 09/26/2018 CHAPO ESCALANTE MD Ot Z79.84 ALF (CURRENT) USE OF ORAL HYPOGLYC 09/26/2018 CHAPO ESCALANTE MD Ot Z87.891 PERSONAL HISTORY OF NICOTINE DEPENDENCE 09/29/2018 Ot E03.9 HYPOTHYROIDISM, UNSPECIFIED 09/29/2018 Ot E11.9 TYPE 2 DIABETES MELLITUS WITHOUT COMPLIC 09/29/2018 Ot F41.9 ANXIETY DISORDER, UNSPECIFIED 09/29/2018 Ot G40.909 EPILEPSY, UNSP, NOT INTRACTABLE, WITHOUT 09/29/2018 Ot G47.30 SLEEP APNEA , UNSPECIFIED 09/29/2018 Ot M25.511 PAIN IN RIGHT SHOULDER 09/29/2018 Ot S43.401A UNSPECIFIED SPRAIN OF RIGHT SHOULDER DIANA 09/29/2018 Ot W01.198A FALL SAME LEV FROM SLIP/TRIP W STRIKE AG 09/29/[address] IN UNSP NON-INSTITUT (PRIVATE 09/29/2018 Ot Z79.52 HEAD [employer]OLF PROFESSIONAL ( CURRENT) USE OF SYSTEMIC STER 09/29/2018 Ot Z79.84 ALF ( CURRENT) USE OF ORAL HYPOGLYC 09/29/2018 Ot Z87.19 PERSONAL HISTORY OF OTHER DISEASES OF TH 09/29/2018 Ot Z87.891 PERSONAL HISTORY OF NICOTINE DEPENDENCE 09/29/2018 Ot Z98.890 OTHER SPECIFIED POSTPROCEDURAL STATES 10/01/2018 Ot E03.9 HYPOTHYROIDISM, UNSPECIFIED 10/01/2018 Ot [...] AG 10/01/[address] IN UNSP NON-INSTITUT (PRIVATE 10/01/2018 Ot Z79.52 HEAD [employer]OL[employer] PROFESSIONAL ( CURRENT) USE OF SYSTEMIC STER 10/01/2018 Ot Z79.84 ALF ( CURRENT) USE OF ORAL HYPOGLYC 10/01/2018 Ot Z87.19 PERSONAL HISTORY OF OTHER DISEASES OF TH 10/01/2018 Ot Z87.891 PERSONAL HISTORY OF NICOTINE DEPENDENCE 10/01/2018 Ot Z98.890 OTHER SPECIFIED POSTPROCEDURAL STATES 10/03/2018 KAREN HUNTER DO Frank Ot N46.9 MALE INFERTILITY, UNSPECIFIED 10/03/2018 LAUREN LOU MD Ot E03.9 HYPOTHYROIDISM, UNSPECIFIED 10/03/2018 LAUREN LOU MD Ot E11.9 TYPE 2 DIABETES MELLITUS WITHOUT COMPLIC 10/03/2018 LAUREN LOU MD Ot F41.9 ANXIETY DISORDER, UNSPECIFIED 10/03/2018 LAUREN LOU MD Ot G40.209 LOCAL-REL SYMPTC EPI W CMPLX PRT SEIZ,NO 10/03/2018 LAUREN LOU MD Ot G47.30 SLEEP APNEA, UNSPECIFIED 10/03/2018 LAUREN LOU MD Ot R56.9 UNSPECIFIED CONVULSIONS 10/03/2018 LAUREN LOU MD Ot Z79.84 ALF (CURRENT) USE OF ORAL HYPOGLYC 10/03/2018 LAUREN LOU MD Ot Z87.891 PERSONAL HISTORY OF NICOTINE DEPENDENCE 10/03/2018 LAUREN LOU MD Ot Z98.890 OTHER SPECIFIED POSTPROCEDURAL STATES 10/05/2018 Ot E03.9 HYPOTHYROIDISM, UNSPECIFIED 10/05/2018 Ot E11.9 TYPE 2 DIABETES MELLITUS WITHOUT COMPLIC 10/05/2018 Ot F41.9 ANXIETY DISORDER, UNSPECIFIED 10/05/2018 Ot G40.909 EPILEPSY, UNSP, NOT INTRACTABLE, WITHOUT 10/05/2018 Ot G47.30 SLEEP APNEA , UNSPECIFIED 10/05/2018 Ot M25.511 PAIN IN RIGHT SHOULDER 10/05/2018 Ot S43.401A UNSPECIFIED SPRAIN OF RIGHT SHOULDER DIANA 10/05/2018 Ot W01.198A FALL SAME LEV FROM SLIP/TRIP W STRIKE AG 10/05/[address] IN UNSP NON-INSTITUT (PRIVATE 10/05/2018 Ot Z79.52 HEAD [employer] PROFESSIONAL ( CURRENT) USE OF SYSTEMIC STER 10/05/2018 Ot Z79.84 ALF ( CURRENT) USE OF ORAL HYPOGLYC 10/05/2018 Ot Z87.19 PERSONAL HISTORY OF OTHER DISEASES OF TH 10/05/2018 Ot Z87.891 PERSONAL HISTORY OF NICOTINE DEPENDENCE 10/05/2018 Ot Z98.890 OTHER SPECIFIED POSTPROCEDURAL STATES 10/06/2018 LAUREN LOU MD Ot E03.9 HYPOTHYROIDISM, UNSPECIFIED 10/06/2018 LAUREN LOU MD Ot E11.9 TYPE 2 DIABETES MELLITUS WITHOUT COMPLIC 10/06/2018 LAUREN LOU MD Ot F41.9 ANXIETY DISORDER, UNSPECIFIED 10/06/2018 LAUREN LOU MD Ot G40.209 LOCAL-REL SYMPTC EPI W CMPLX PRT SEIZ,NO 10/06/2018 LAUREN LOU MD Ot G47.30 SLEEP APNEA, UNSPECIFIED 10/06/2018 LAUREN LOU MD Ot R56.9 UNSPECIFIED CONVULSIONS 10/06/2018 LAUREN LOU MD Ot Z79.84 HEAD GOL[employer] PROFESSIONAL (CURRENT) USE OF ORAL HYPOGLYC 10/06/2018 LAUREN LOU MD Ot Z87.891 PERSONAL HISTORY OF NICOTINE DEPENDENCE 10/06/2018 LAUREN LOU MD Ot Z98.890 OTHER SPECIFIED POSTPROCEDURAL STATES 10/26/2018 JAZMINE AMBRIZ Ot E03.9 HYPOTHYROIDISM, UNSPECIFIED 10/26/2018 JAZMINE AMBRIZ Ot E11.9 TYPE 2 DIABETES MELLITUS WITHOUT COMPLIC 10/26/2018 BERNOT, JAZMINE Ot F41.9 ANXIETY DISORDER, UNSPECIFIED 10/26/2018 BERNOT, JAZMINE Ot G40.909 EPILEPSY, UNSP, NOT INTRACTABLE, WITHOUT 10/26/2018 BERNOT, JAZMINE Ot G47.30 SLEEP APNEA, UNSPECIFIED 10/26/2018 BERNOT, JAZMINE Ot R56.9 UNSPECIFIED CONVULSIONS 10/26/2018 BERNOT, JAZMINE Ot Z79.84 HEAD GOL[employer] PROFESSIONAL (CURRENT) USE OF ORAL HYPOGLYC 10/26/2018 BERNOT, JAZMINE Ot Z87.19 PERSONAL HISTORY OF OTHER DISEASES OF 10/26/2018 BERNOT, JAZMINE Ot Z87.891 PERSONAL HISTORY OF NICOTINE DEPENDENCE 10/28/2018 BERNOT, JAZMINE Ot E03.9 HYPOTHYROIDISM, UNSPECIFIED 10/28/2018 BERNOT, JAZMINE Ot E11.9 TYPE 2 DIABETES MELLITUS WITHOUT COMPLIC 10/28/2018 BERNOT, JAZMINE Ot F41.9 ANXIETY DISORDER, UNSPECIFIED 10/28/2018 BERNOT, JAZMINE Ot G40.909 EPILEPSY, UNSP, NOT INTRACTABLE, WITHOUT 10/28/2018 BERNOT, JAZMINE Ot G47.30 SLEEP APNEA, UNSPECIFIED 10/28/2018 BERNOT, JAZMINE Ot R56.9 UNSPECIFIED CONVULSIONS 10/28/2018 BERNOT, JAZMINE Ot Z79.84 HEAD GOL[employer] PROFESSIONAL (CURRENT) USE OF ORAL HYPOGLYC 10/28/2018 BERNOT, JAZMINE Ot Z87.19 PERSONAL HISTORY OF OTHER DISEASES OF 10/28/2018 BERNOT, JAZMINE Ot Z87.891 PERSONAL HISTORY OF NICOTINE DEPENDENCE 11/01/2018 BERNOT, JAZMINE Ot E03.9 HYPOTHYROIDISM, UNSPECIFIED 11/01/2018 BERNOT, JAZMINE Ot E11.9 TYPE 2 DIABETES MELLITUS WITHOUT COMPLIC 11/01/2018 BERNOT, JAZMINE Ot F41.9 ANXIETY DISORDER, UNSPECIFIED 11/01/2018 BERNOT, JAZMINE Ot G40.909 EPILEPSY, UNSP, NOT INTRACTABLE, WITHOUT 11/01/2018 BERNOT, JAZMINE Ot G47.30 SLEEP APNEA, UNSPECIFIED 11/01/2018 BERNOT, JAZMINE Ot R56.9 UNSPECIFIED CONVULSIONS 11/01/2018 BERNOT, JAZMINE Ot Z79.84 HEAD GOL[employer] PROFESSIONAL (CURRENT) USE OF ORAL HYPOGLYC 11/01/2018 BERNOT, JAZMINE Ot Z87.19 PERSONAL HISTORY OF OTHER DISEASES OF 11/01/2018 JAZMINE AMBRIZ Ot Z87.891 PERSONAL HISTORY OF NICOTINE DEPENDENCE 11/05/2018 JAYLENE LOYA APRN Ot E03.9 HYPOTHYROIDISM, UNSPECIFIED 11/05/2018 JAYLENE LOYA APRN Ot E11.9 TYPE 2 DIABETES MELLITUS WITHOUT COMPLIC 11/05/2018 JAYLENE LOYA APRN Ot F41.9 ANXIETY DISORDER, UNSPECIFIED 11/05/2018 JAYLENE LOYA APRN Ot G40.909 EPILEPSY, UNSP, NOT INTRACTABLE, WITHOUT 11/05/2018 JAYLENE LOYA APRN Ot G47.30 SLEEP APNEA, UNSPECIFIED 11/05/2018 JAYLENE LOYA APRN Ot R56.9 UNSPECIFIED CONVULSIONS 11/05/2018 JAYLENE LOYA APRN Ot Z79.84 HEAD GOLF PROFESSIONAL (CURRENT) USE OF ORAL HYPOGLYC 11/05/2018 JAYLENE LOYA APRN Ot Z87.19 PERSONAL HISTORY OF OTHER DISEASES OF 11/05/2018 JAYLENE LOYA APRN Ot Z87.891 PERSONAL HISTORY OF NICOTINE DEPENDENCE 11/05/2018 JAYLENE LOYA APRN Ot Z98.890 OTHER SPECIFIED POSTPROCEDURAL STATES 11/09/2018 JAYLENE LOYA APRN Ot E03.9 HYPOTHYROIDISM, UNSPECIFIED 11/09/2018 JAYLENE LOYA APRN Ot E11.9 TYPE 2 DIABETES MELLITUS WITHOUT COMPLIC 11/09/2018 JAYLENE LOYA APRN Ot F41.9 ANXIETY DISORDER, UNSPECIFIED 11/09/2018 JAYLENE LOYA APRN Ot G40.909 EPILEPSY, UNSP, NOT INTRACTABLE, WITHOUT 11/09/2018 JAYLENE LOYA APRN Ot G47.30 SLEEP APNEA, UNSPECIFIED 11/09/2018 JAYLENE LOYA APRN Ot R56.9 UNSPECIFIED CONVULSIONS 11/09/2018 JAYLENE LOYA APRN Ot Z79.84 [employer] (CURRENT) USE OF ORAL HYPOGLYC 11/09/2018 JAYLENE LOYA APRN Ot Z87.19 PERSONAL HISTORY OF OTHER DISEASES OF 11/09/2018 JAYLENE LOYA APRN Ot Z87.891 PERSONAL HISTORY OF NICOTINE DEPENDENCE 11/09/2018 JAYLENE LOYA APRN Ot Z98.890 OTHER SPECIFIED POSTPROCEDURAL STATES Procedures [...] NRG Blood band neutrophils/100 leukocytes 2 % NR Manual blood lymphocytes/100 leukocytes 24 % NR Manual eosinophils/100 leukocytes in nose 1 % NR Manual blood basophils/100 leukocytes 1 % NR Blood erythrocyte morphology finding identification [facility] Comprehensive metabolic panel - 10/30/17 21:34 Serum [...] urine sediment by light microscopy 0-2 NRG LEVETIRACETAM LEVEL (KEPPRA) - 10/03/18 12:01 LEVETIRACETAM LEVEL 11 % NRG Complete blood count (CBC) with automated white blood cell (WBC) differential - 10/26/18 21:50 Blood leukocytes automated count (number/volume) 9.5 10*3/uL 4.3-11.0 Blood erythrocytes automated count (number/volume) 4.83 10*6/uL 4.35-5.85 Venous blood hemoglobin measurement (mass/volume) 14.2 g/dL 13.3-17.7 Blood hematocrit (volume fraction) 41 % 40-54 Automated erythrocyte mean corpuscular volume 85 [foz_us] 80-99 Automated erythrocyte mean corpuscular hemoglobin (mass per erythrocyte) 29 pg 25-34 Automated erythrocyte mean corpuscular hemoglobin concentration measurement ( mass/volume) 35 g/dL 32-36 Automated erythrocyte distribution width ratio 13.3 % 10.0-14.5 Automated blood platelet count (count/volume) 432 10*3/uL 130-400 Automated blood platelet mean volume measurement 9.7 [foz_us] 7.4-10.4 Automated blood neutrophils/100 leukocytes 46 % 42-75 Automated blood lymphocytes/100 leukocytes 43 % 12-44 Blood monocytes/100 leukocytes 8 % 0-12 Automated blood eosinophils/100 leukocytes 2 % 0-10 Automated blood basophils/100 leukocytes 0 % 0-10 Blood neutrophils automated count (number/volume) 4.4 10*3 1.8-7.8 Blood lymphocytes automated count (number/volume) 4.1 10*3 1.0-4.0 Blood monocytes automated count (number/volume) 0.8 10*3 0.0-1.0 Automated eosinophil count 0.2 10*3/uL 0.0-0.3 Automated blood basophil count (count/volume) 0.0 10*3/uL 0.0-0.1 PT panel in platelet poor plasma by coagulation assay - 10/26/18 21:50 Prothrombin time (PT) in platelet poor plasma by coagulation assay 13.0 s 12.2-14.7 INR in platelet poor plasma or blood by coagulation assay 1.0 0.8-1.4 Activated partial thromboplastin time (aPTT) in platelet poor plasma bycoagulation assay - 10/26/18 21:50 Activated partial thromboplastin time (aPTT) in platelet poor plasma bycoagulation assay 28 s 24-35 Comprehensive metabolic panel - 10/26/18 21:50 Serum or plasma sodium measurement (moles/volume) 138 mmol/L 135-145 Serum or plasma potassium measurement (moles/volume) 4.1 mmol/L 3.6-5.0 Serum or plasma chloride measurement (moles/volume) 103 mmol/L 98-107 Carbon dioxide 10 mmol/L 21-32 Serum or plasma anion gap determination (moles/volume) 25 mmol/L 5-14 Serum or plasma urea nitrogen measurement (mass/volume) 15 mg/dL 7-18 Serum or plasma creatinine measurement (mass/volume) 1.09 mg/dL 0.60-1.30 Serum or plasma urea nitrogen/creatinine mass ratio 14 NRG Serum or plasma creatinine measurement with calculation of estimated glomerular filtration rate > NRG Serum or plasma glucose measurement (mass/volume) 230 mg/dL 70-105 Serum or plasma calcium measurement (mass/volume) 9.9 mg/dL 8.5-10.1 Serum or plasma total bilirubin measurement (mass/volume) 0.4 mg/dL 0.1-1.0 Serum or plasma alkaline phosphatase measurement (enzymatic activity/volume) 98 U/L 40-136 Serum or plasma aspartate aminotransferase measurement (enzymatic activity/ volume) 38 U/L 5-34 Serum or plasma alanine aminotransferase measurement (enzymatic activity/volume ) 48 U/L 0-55 Serum or plasma protein measurement (mass/volume) 8.5 g/dL 6.4-8.2 Serum or plasma albumin measurement (mass/volume) 4.8 g/dL 3.2-4.5 Encounters ACCT No. Visit Date/Time Discharge Status Pt. Type Provider Facility Loc./Unit Complaint [id number] 11/05/2018 09:45:00 11/05/2018 11:19:00 DIS Emergency JAYLENE LOYA APRN [facility] ER SEIZURE [id number] 10/26/2018 21:46:00 10/26/2018 23:16:00 DIS Emergency JAZMINE AMBRIZ [facility] ER SEIZURE [id number] 10/03/2018 12:29:00 10/03/2018 14:15:00 DIS Emergency LAUREN LOU MD [facility] ER SEIZURE [id number] 09/23/2018 11:13:00 09/23/2018 14:08:00 DIS Emergency CHAPO ESCALANTE MD [facility] ER SEIZURE [id number] 09/12/2018 14:21:00 09/12/2018 15:10:00 DIS Emergency JAYLENE LOYA APRN [facility] ER SORE THROAT [id number] 08/24/2018 09:57:00 08/24/2018 12:22:00 DIS Emergency EDUAR URIARTE MD [facility] ER SEIZURE [id number] 07/06/2018 21:57:00 07/06/2018 23:20:00 DIS Emergency JAZMINE AMBRIZ [facility] ER SEIZURE [id number] 06/02/2018 12:50:00 06/02/2018 14:06:00 DIS Emergency ASHU MATSON MD [facility] ER SEIZURE [id number] 05/29/2018 11:52:00 05/29/2018 13:30:00 DIS Emergency CHAPO ESCALANTE MD [facility] ER SEIZURE [id number] 03/01/2018 21:50:00 03/01/2018 22:41:00 DIS Emergency ASHU MATSON MD [facility] ER SEIZURE [id number] 02/07/2018 22:44:00 02/07/2018 23:16:00 DIS Emergency JAYLENE LOYA REMEDIAL MASSEUR [facility] ER SEIZURE [id number] 12/27/2017 20:58:00 12/27/2017 23:12:00 DIS Emergency EDUAR URIARTE MD [facility] ER INJ FROM SEIZURE [id number] 12/02/2017 13:31:00 12/02/2017 15:07:00 DIS Emergency JAYLENE LOYA APRN [facility] ER HEAD PAIN,HIP PAIN [id number] 11/20/2017 14:07:00 11/20/2017 15:47:00 DIS Emergency JAYLENE LOYA APRN [facility] ER SEIZURE [id number] 10/30/2017 21:28:00 10/30/2017 23:42:00 DIS Emergency JAYLENE LOYA APRN [facility] ER SEIZURE [id number] 10/12/2017 20:39:00 10/13/2017 00:36:00 DIS Emergency LUIS GATES [facility] ER R FOOT INJ [id number] 09/10/2017 10:31:00 09/10/2017 13:45:00 DIS Emergency CHAPO ESCALANTE MD [facility] ER SEIZURE [id number] 08/23/2017 13:58:00 08/23/2017 16:00:00 DIS Emergency ASHU MATSON MD [facility] ER SEIZURE [id number] 06/22/2017 16:39:00 06/22/2017 18:07:00 DIS Emergency GALINDO DELGADO, CARLOS Tavera [facility] ER SEIZURE [id number] 05/06/2017 21:56:00 05/06/2017 23:30:00 DIS Emergency ASHU MATSON MD [facility] ER SEIZURE-FALL [id number] 12/12/2016 20:25:00 12/12/2016 22:02:00 DIS Emergency EDUAR URIARTE MD [facility] ER POSSIBLE SEIZURE [id number] 10/31/2016 09:27:00 10/31/2016 14:50:00 DIS Outpatient ROMERO SANFORD DO [facility] SDC UMBILICAL HERNIA [id number] 10/29/2016 08:37:00 10/29/2016 09:05:00 DIS Outpatient ROMERO SANFORD DO [facility] PREOP UMBILICAL HERNIA [id number] 08/19/2016 11:19:00 08/19/2016 14:50:00 DIS Emergency ASHU MATSON MD [facility] ER LIGHTHEADED NAUSEA [id number] 02/02/2016 20:45:00 02/03/2016 06:40:00 DIS Outpatient SAYDA CLAY MD [facility] SLEEP OBSTRUCTIVE SLEEP APNEA [id number] 01/27/2016 21:02:00 01/27/2016 22:31:00 DIS Emergency CECILE DELGADO, JAYSHREE An [facility] ER SEIZURE/FALL [id number] 12/19/2015 21:50:00 12/19/2015 23:31:00 DIS Emergency CHAPO ESCALANTE MD [facility] ER SEIZURE [id number] 11/17/2015 20:50:00 11/18/2015 06:50:00 DIS Outpatient DANNA DELGADO, SAYDA Jimenez [facility] SLEEP OBSERVED APNEAS,SNORING ,SEIZURE,ABN LIMB MOVEMENT [id number] 10/04/2015 13:44:00 10/04/2015 23:59:59 CLS Outpatient KAREN HUNTER DO [facility] LAB INFERTILITY [id number] 09/12/2015 20:42:00 09/12/2015 21:58:00 DIS Emergency MAMI ACEVEDO DO [facility] ER CONGESTION [id number] 03/18/2014 20:01:00 03/18/2014 22:13:00 DIS Emergency KITA OSCAR DO [facility] ER SEIZURE [id number] 01/17/2019 06:24:00 ACT Emergency CHAPO ESCALANTE MD [facility] ER SEIZURE [id number] 09/29/2018 13:16:00 Document Registration [id number] 05/04/2015 22:47:00 Document Registration [id number] 09/21/2018 11:52:00 09/21/2018 23:59:00 DIS Outpatient Mami Terry [id number] 12/13/2016 14:44:00 12/13/2016 23:59:00 DIS Outpatient Mami Terry [id number] 11/25/2018 10:50:00 11/25/2018 23:59:59 [facility] Outpatient NI WATSON [facility] [id number] 05/04/2015 22:47:00 05/05/2015 01:01:00 DIS Emergency BORIS DELGADO, CHAPO [facility] [id number] 09/24/2018 14:12:00 Document Registration
[2019-01-17 06:48] LABS: BASOPHILS % (AUTO) 0 % (0-10); EOSINOPHILS # (AUTO) 0.1 10^3/uL (0.0-0.3); EOSINOPHILS % (AUTO) 2 % (0-10); HEMATOCRIT 39 % (40-54); HEMOGLOBIN 13.4 G/DL (13.3-17.7); LYMPHOCYTES # (AUTO) 2.2 X 10^3 (1.0-4.0); LYMPHOCYTES % (AUTO) 28 % (12-44); MEAN CORPUSCULAR HEMOGLOBIN 29 PG (25-34); MEAN CORPUSCULAR HGB CONC 34 G/DL (32-36); MEAN CORPUSCULAR VOLUME 84 FL (80-99); MEAN PLATELET VOLUME 9.8 FL (7.4-10.4); MONOCYTES # (AUTO) 0.8 X 10^3 (0.0-1.0); MONOCYTES % (AUTO) 10 % (0-12); NEUTROPHILS # (AUTO) 4.6 X 10^3 (1.8-7.8); NEUTROPHILS % (AUTO) 60 % (42-75); PLATELET COUNT 358 10^3/uL (130-400); RED CELL DISTRIBUTION WIDTH 12.7 % (10.0-14.5); WHITE BLOOD COUNT 7.8 10^3/uL (4.3-11.0)
--- NOTE | 2019-01-17 06:51 | ED Neurological Problem ---
General Chief Complaint: Neurological Problems Stated Complaint: SEIZURE Nursing Triage Note: seizure, laceration Nursing Sepsis Screen: No Definite Risk Source: patient Exam Limitations: no limitations History of Present Illness Date Seen by Provider: Jan 17, 2019 Time Seen by Provider: 06:24 Initial Comments This 33-year-old young man presents to the emergency room via EMS with a seizure. He has known seizure disorder. He was in the kitchen at the time and presents with a laceration medial and superior to the left eye. He is alert and oriented but mildly somnolent. He denies any recent acute illness or symptoms of infection but states he has difficulty sleeping. He also has been out of his Keppra but takes his limit total and clonazepam. He took both of those medications this morning. The laceration medial and superior to his left eye is about 2 cm in depth and is minimally bleeding. He has petechiae on his skin, especially on the face after the seizure. The seizure may have lasted 2 or more minutes. Patient also reports he has not been compliant with his levothyroxine. He takes inconsistently and it may have been as long as a month since he has last taken it. He denies any recent drug or alcohol use. Patient denies any pain except at the site of the laceration. He does not know when his last tetanus immunization was. Allergies and Home Medications Allergies Coded Allergies: No Known Drug Allergies (Unverified , 03/18/14) Home Medications Clonazepam 0.5 Mg Tablet, 0.5-1 MG PO BID, (Reported) take 1 (.5mg) tab in am take 2 (.5mg) tab in pm Hydrocodone/Acetaminophen 1 Each Tablet, 1 EACH PO Q4H PRN for PAIN-MODERATE TO SEVERE Prescribed by: LUIS POWERS on 10/13/17 0026 Lamotrigine 150 Mg Tablet, 150 MG PO Q12H, (Reported) Levetiracetam 1,000 Mg Tablet, 1,000 MG PO BID, (Reported) take with 5oomg tab for 1500mg total Levothyroxine Sodium 50 Mcg Tablet, 50 MCG PO DAILY, (Reported) Metformin HCl 500 Mg Tablet, 500 MG PO BID, (Reported) [place] 3 Polyunsat Fatty Acids 1,000 Mg Cap, 1,000 MG PO BID, (Reported) Orphenadrine Citrate 100 Mg Tablet.er, 100 MG PO BID PRN for SPASMS Prescribed by: LUIS POWERS on 09/29/18 4824 Patient Home Medication List Home Medication List Reviewed: Yes Review of Systems Review of Systems Constitutional: no symptoms reported Eyes: No Symptoms Reported Ears, Nose, Mouth, Throat: no symptoms reported Respiratory: no symptoms reported Cardiovascular: no symptoms reported Gastrointestinal: no symptoms reported Genitourinary: no symptoms reported Musculoskeletal: no symptoms reported Skin: see HPI Psychiatric/Neurological: See HPI Endocrine: No Symptoms Reported Hematologic/Lymphatic: No Symptoms Reported Past Smasfko-Xrqhod-Cowokc Hx Past Med/Social Hx: Reviewed Nursing Past Med/Soc Hx Patient Social History Alcohol Use: Denies Use Recreational Drug Use: No Smoking Status: Former Smoker Type Used: Cigarettes Former Smoker, Quit: Oct 29, 2009 Recent Foreign Travel: No Contact w/Someone Who Travel: No Recent Infectious Disease Expo: No Recent Hopitalizations: No Immunizations Up To Date Tetanus Booster (TDap): More than 5yrs Date of Influenza Vaccine: May 30, 2015 Seasonal Allergies Seasonal Allergies: Yes Past Medical History Surgeries: Yes (hernia repair) Respiratory: Yes Sleep Apnea Currently Using CPAP: Yes Cardiac: No Neurological: Yes Seizure Disorder Reproductive Disorders: No Sexually Transmitted Disease: No Genitourinary: No Gastrointestinal: Yes (umb hernia) Musculoskeletal: No Endocrine: Yes (pre=diabetes) Hypothyroidsim, Diabetes, Non-Insulin dep HEENT: No Cancer: No Psychosocial: Yes Anxiety Integumentary: No Blood Disorders: No Family Medical History No Pertinent Family Hx Physical Exam Vital Signs Vital Signs - First Documented 01/17/19 06:21 Temp 97.7 Pulse 88 Resp 16 B/P (MAP) 107/61 (76) Pulse Ox 94 O2 Delivery Room Air Capillary Refill : Less Than 3 Seconds Height, Weight, BMI Height: 5'11.00" Weight: 257lbs. 0.0oz. 116.022260ac; 39.5 BMI Method:Stated General Appearance: WD/WN, no apparent distress HEENT: PERRL/EOMI, pharynx normal, other (no new dental injury. 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 as tested, no motor/sensory deficits, alert, normal mood/affect, oriented x 3 Crainal Nerves: normal hearing, normal speech, PERRL Motor/Sensory: no motor deficit, no sensory deficit Skin: normal color, warm/dry, other (2 cm laceration superior and medial to the left eye) Procedures/Interventions Wound Location: Face Other Wound Location Medial and superior to the left eye Wound Length (cm): 2 Wound's Depth, Shape: superficial, linear Wound Explored: clean Irrigated w/ Saline (ccs): 100 Betadine Prep?: Yes Suture: Prolene Suture Size: 6-0 Number of Sutures: 3 Sterile Dressing Applied?: No Progress Wound was anesthetized with LET. Was irrigated with normal saline. Betadine prep was applied and wound was repaired with 6-0 Prolene suture. Patient tolerated the procedure well. Progress/Results/Core Measures Results/Orders Lab Results Laboratory Tests Test 01/17/19 06:40 Range/Units White Blood Count 7.8 4.3-11.0 10^3/uL Red Blood Count 4.67 4.35-5.85 10^6/uL Hemoglobin 13.4 13.3-17.7 G/DL Hematocrit 39 L 40-54 % Mean Corpuscular Volume 84 80-99 FL Mean Corpuscular Hemoglobin 29 25-34 PG Mean Corpuscular Hemoglobin Concent 34 32-36 G/DL Red Cell Distribution Width 12.7 10.0-14.5 % Platelet Count 358 130-400 10^3/uL Mean Platelet Volume 9.8 7.4-10.4 FL Neutrophils (%) (Auto) 60 42-75 % Lymphocytes (%) (Auto) 28 12-44 % Monocytes (%) (Auto) 10 0-12 % Eosinophils (%) (Auto) 2 0-10 % Basophils (%) (Auto) 0 0-10 % Neutrophils # (Auto) 4.6 1.8-7.8 X 10^3 Lymphocytes # (Auto) 2.2 1.0-4.0 X 10^3 Monocytes # (Auto) 0.8 0.0-1.0 X 10^3 Eosinophils # (Auto) 0.1 0.0-0.3 10^3/uL Basophils # (Auto) 0.0 0.0-0.1 10^3/uL Sodium Level 140 135-145 MMOL/L Potassium Level 3.7 3.6-5.0 MMOL/L Chloride Level 105 98-107 MMOL/L Carbon Dioxide Level 20 L 21-32 MMOL/L Anion Gap 15 H 5-14 MMOL/L Blood Urea Nitrogen 16 7-18 MG/DL Creatinine 1.12 0.60-1.30 MG/DL Estimat Glomerular Filtration Rate > 60 BUN/Creatinine Ratio 14 Glucose Level 155 H 70-105 MG/DL Calcium Level 10.0 8.5-10.1 MG/DL Corrected Calcium 9.7 8.5-10.1 MG/DL Total Bilirubin 0.3 0.1-1.0 MG/DL Aspartate Amino Transf (AST/SGOT) 19 5-34 U/L Alanine Aminotransferase (ALT/SGPT) 28 0-55 U/L Alkaline Phosphatase 86 40-136 U/L Total Protein 7.5 6.4-8.2 GM/DL Albumin 4.4 3.2-4.5 GM/DL Thyroid Stimulating Hormone (TSH) 6.19 H 0.35-4.94 UIU/ML Free Thyroxine 1.16 0.70-1.48 NG/DL My Orders Orders - CHAPO ESCALANTE MD Let Solution (Let Solution) (01/17/19 06:30) Dipht,Pertuss(Acell),Tet Adult (Boostrix (01/17/19 06:30) Cbc With Automated Diff (01/17/19 06:29) Comprehensive Metabolic Panel (01/17/19 06:29) Thyroid Stimulating Hormone (01/17/19 06:29) Free T4 (Free Thyroxine) (01/17/19 06:29) Levetiracetam Tablet (Keppra Tablet) (01/17/19 06:30) Ed Iv/Invasive Line Start (01/17/19 06:29) Medications Given in ED Current Medications Medications Dose Ordered Sig/Warren Route Start Time Stop Time Status Last Admin Dose Admin Diphtheria/ Tetanus/Acell Pertussis 0.5 ml ONCE ONCE IM 01/17/19 06:30 01/17/19 06:31 DC 01/17/19 06:37 0.5 ML Levetiracetam 1,500 mg ONCE ONCE PO 01/17/19 06:30 01/17/19 06:32 DC 01/17/19 06:37 1,500 MG Tetracaine/ Epinephrine/ Lidocaine 1 ea ONCE ONCE TOP 01/17/19 06:30 01/17/19 06:31 DC 01/17/19 06:37 1 EA Vital Signs/I&O 01/17/19 06:21 Temp 97.7 Pulse 88 Resp 16 B/P (MAP) 107/61 (76) Pulse Ox 94 O2 Delivery Room Air Blood Pressure Mean: 76 Progress Progress Note : Time: 06:49 Progress Note Patient was seen and examined. He is alert and oriented at this time but little bit somnolent. He reports noncompliance with his Keppra due to unavailability and noncompliance with his levothyroxin. We are checking blood work including thyroid labs. His Keppra 1500 mg is being given now. Laceration will be sewn and tetanus booster will be administered. Departure Impression Primary Impression: Seizure Additional Impressions: Laceration of face Qualified Codes: S01.81XA - Laceration without foreign body of other part of head, initial encounter Noncompliance with medication regimen Hypothyroidism Qualified Codes: E03.9 - Hypothyroidism, unspecified Sleeping difficulty Disposition: 01 HOME, SELF-CARE Condition: Improved Departure-Patient Inst. Decision time for Depature: 07:10 Referrals: GAVI HAAS MD (PCP/Family) Primary Care Physician Patient Instructions: Seizures, Adult (DC), Laceration Repair With Stitches (DC ) Add. Discharge Instructions: Resume your Keppra as soon as possible. Call the pharmacy this morning to make arrangements to have your Keppra filled. Continue with your other prescribed medications. It is very important that you take your thyroid medication every day and as prescribed. Failure to do so can affect the way your medications are metabolized and predispose you to more seizures. You should also be having your thyroid levels checked on a regular basis, preferably at least every 6 months. Your thyroid levels are near normal today despite your inconsistent use of levothyroxin. Discuss whether your thyroid medication is truly needed when you visit with your primary care provider. Drink plenty of clear liquids. Follow-up with your primary care provider soon as possible. At your follow-up appointment discuss your difficulty sleeping and your seizure medications. Return to the emergency room if you have worsening symptoms. Keep your wound clean and dry except for normal showering. You may allow soapy water to run over the wound. Have your sutures removed in 5-7 days. Do not submerge until sutures are removed. Monitor your wound for signs of infection including increasing redness, increasing swelling, puslike drainage, or fever. Return to care if you notice these symptoms. All discharge instructions reviewed with patient and/or family. Voiced understanding. Copy Copies To 1: GAVI HAAS MD, JOSHUA T MD Jan 17, 2019 06:50
[2019-01-17 07:09] LABS: ALANINE AMINOTRANSFERASE 28 U/L (0-55); ALBUMIN 4.4 GM/DL (3.2-4.5); ALKALINE PHOSPHATASE 86 U/L (40-136); BILIRUBIN,TOTAL 0.3 MG/DL (0.1-1.0); BUN/CREATININE RATIO 14; CARBON DIOXIDE 20 MMOL/L (21-32); CHLORIDE 105 MMOL/L (98-107); CREATININE SERUM 1.12 MG/DL (0.60-1.30); GFR ESTIMATED > 60; GLUCOSE 155 MG/DL (70-105); POTASSIUM 3.7 MMOL/L (3.6-5.0); SODIUM 140 MMOL/L (135-145); TOTAL PROTEIN 7.5 GM/DL (6.4-8.2)
[2019-01-17 08:21] LABS: FREE T4 (FREE THYROXINE) 1.16 NG/DL (0.70-1.48)
[2019-01-17 08:57] VITALS: BP 120/75
== END 2019-01-17 08:57 | disposition home or self-care (01) ==
LOC: EDUNIT# 06:21 → ER 06:24
DX: S01.81XA Laceration without foreign body of other part of head, initial encounter (principal); G40.909 Epilepsy, unspecified, not intractable, without status epilepticus; E03.9 Hypothyroidism, unspecified; G47.9 Sleep disorder, unspecified; E11.9 Type 2 diabetes mellitus without complications; G47.30 Sleep apnea, unspecified; F41.9 Anxiety disorder, unspecified; Z23 Encounter for immunization; Z98.890 Other specified postprocedural states; Z87.19 Personal history of other diseases of the digestive system; Z91.14 Patient's other noncompliance with medication regimen; Z79.84 Long term (current) use of oral hypoglycemic drugs; Z87.891 Personal history of nicotine dependence
CPT/HCPCS: 12011; 36415; 80053; 84439; 84443; 85025; 90715

== ENCOUNTER 2019-02-04 02:32 | Emergency (ER) | payer SELFPAY ==
[~2019-02-04] VITALS: Ht 180.3 cm; Wt 116.6 kg
--- OUTSIDE RECORDS SUMMARY | 2019-02-04 02:41 | XMS REPORT | Continuity of Care Document ---
Author Organization Unknown Address Unknown Allergies Active Description Code Type Severity Reaction Onset Reported/Identified Relationship to Patient Clinical Status Yes NO KNOWN DRUG ALLERGIES UNKNOWN NO KNOWN DRUG ALLERG Yes No Known Drug Allergies [id number] Drug Allergy Unknown N/A 03/18/2014 Yes No Known Drug Allergies [id number] Drug Allergy Unknown N/A 05/04/2015 Medications There [...] NOT SPECIFIED ACUTE OR CH 10/06/2015 KAREN HNUTER DO Ot N46.9 10/18/2015 KAREN HUNTER DO [...] BORIS DELGADO, CHAPO T Ot Z79.899 12/21/2015 BOIRS DELGADO, CHAPO T Ot E03.9 12/21/2015 BORIS [...] ASHU MATSON MD J Ot Z79.899 OTHER NURSING HOME (CURRENT) DRUG THERAPY 08/21/2016 ASHU MATSON MD [...] 08/21/2016 ASHU MATSON MD Ot Z79.899 OTHER NURSING HOME (CURRENT) DRUG THERAPY 10/29/2016 ROMERO SANFORD DO [...] 10/31/2016 SANFORD DO, ROMERO D Ot Z79.84 FINISHER MACHINE (CURRENT) USE OF ORAL HYPOGLYC 11/04/2016 SANFORD DO, ROMERO D Ot E11.9 TYPE 2 DIABETES MELLITUS WITHOUT COMPLIC 11/04/2016 SANFORD DO, ROMERO D Ot K42.9 UMBILICAL HERNIA WITHOUT OBSTRUCTION OR 11/04/2016 SANFORD DO, ROMERO D Ot Z79.84 FINISHER MACHINE (CURRENT) USE OF ORAL HYPOGLYC 11/05/2016 SANFORD DO, ROMERO D Ot E11.9 TYPE 2 DIABETES MELLITUS WITHOUT COMPLIC 11/05/2016 SANFORD DO, ROMERO D Ot K42.9 UMBILICAL HERNIA WITHOUT OBSTRUCTION OR 11/05/2016 SANFORD DO, ROMERO D Ot Z79.84 FINISHER MACHINE (CURRENT) USE OF ORAL HYPOGLYC 11/22/2016 KAREN HUNTER DO Ot N46.9 MALE INFERTILITY, UNSPECIFIED 12/11/2016 DALE ROBERTS KAREN C Ot N46.9 MALE INFERTILITY, UNSPECIFIED 12/12/2016 DALE DO KAREN C Ot N46.9 MALE INFERTILITY, UNSPECIFIED 12/12/2016 EDUAR URIARTE MD Ot E11.9 TYPE 2 DIABETES MELLITUS WITHOUT COMPLIC 12/12/2016 EDUAR URIARTE MD Ot G40.909 EPILEPSY, UNSP, NOT INTRACTABLE, WITHOUT 12/12/2016 EDUAR URIARTE MD Ot Z79.84 FINISHER MACHINE (CURRENT) USE OF ORAL HYPOGLYC 12/12/2016 EDUAR URIARTE MD Ot Z79.899 OTHER NURSING HOME (CURRENT) DRUG THERAPY 12/16/2016 EDUAR URIARTE MD Ot E11.9 TYPE 2 DIABETES MELLITUS WITHOUT COMPLIC 12/16/2016 EDUAR URIARTE MD Ot G40.909 EPILEPSY, UNSP, NOT INTRACTABLE, WITHOUT 12/16/2016 EDUAR URIARTE MD Ot Z79.84 NURSING HOME (CURRENT) USE OF ORAL HYPOGLYC 12/16/2016 EDUAR URIARTE MD Ot Z79.899 OTHER FINISHER MACHINE (CURRENT) DRUG THERAPY 02/03/2017 HUNTER DO, KAREN C Ot N46.9 MALE INFERTILITY, UNSPECIFIED 03/21/2017 HUNTER DO, KAREN C Ot N46.9 MALE INFERTILITY, UNSPECIFIED 05/06/2017 HUNTER DO, KAREN C Ot N46.9 MALE INFERTILITY, UNSPECIFIED 05/06/2017 DAON DELGADO, ASHU Alan Ot E03.9 HYPOTHYROIDISM, UNSPECIFIED [...] 05/06/2017 DANO DELGADO, ASHU Alan Ot Z79.84 FINISHER MACHINE (CURRENT) USE OF ORAL HYPOGLYC 05/06/2017 DANO [...] 06/22/2017 GALINDO DELGADO, CARLOS Tavera Ot Z79.84 FINISHER MACHINE (CURRENT) USE OF ORAL HYPOGLYC 06/22/2017 GALINDO [...] FUNCT 08/23/2017 ASHU MATSON MD Ot Z79.84 FINISHER MACHINE (CURRENT) USE OF ORAL HYPOGLYC 08/26/2017 ASHU [...] CONVULSIONS 09/10/2017 CHAPO ESCALANTE MD Ot Z79.84 NURSING HOME [...] OR PAY 10/13/2017 LUIS GATES Ot Z79.84 FINISHER MACHINE (CURRENT) USE OF ORAL HYPOGLYC 10/13/2017 LUIS [...] INVOLVING OTH 10/14/2017 LUIS GATES Ot Y92.59 [facility] 10/14/2017 LUIS GATES Ot Y99.0 CIVILIAN ACTIVITY DONE FOR INCOME OR PAY 10/14/2017 LUIS GATES Ot Z79.84 FINISHER MACHINE (CURRENT) USE OF ORAL HYPOGLYC 10/14/2017 LUIS [...] UNSPECIFIED 10/30/2017 JAYLENE LOYA APRN Ot Z79.84 NURSING HOME (CURRENT) USE OF ORAL HYPOGLYC 10/30/2017 JAYLENE [...] CONVULSIONS 11/20/2017 JAYLENE LOYA APRN Ot Z79.84 FINISHER MACHINE (CURRENT) USE OF ORAL HYPOGLYC 11/20/2017 JAYLENE [...] CONVULSIONS 11/24/2017 JAYLENE LOYA APRN Ot Z79.84 NURSING HOME (CURRENT) USE OF ORAL HYPOGLYC 11/24/2017 JAYLENE [...] INI 12/02/2017 JAYLENE LOYA APRN Ot Z79.84 NURSING HOME (CURRENT) USE OF ORAL HYPOGLYC 12/02/2017 JAYLENE [...] AG 12/29/2017 EDUAR URIARTE MD Ot Z79.84 FINISHER MACHINE (CURRENT) USE OF ORAL HYPOGLYC 12/29/2017 EDUAR [...] AG 01/02/2018 EDUAR URIARTE MD Ot Z79.84 NURSING HOME (CURRENT) USE OF ORAL HYPOGLYC 01/02/2018 EDUAR [...] WITHOUT 02/09/2018 JAYLENE LOYA APRN Ot Z79.84 FINISHER MACHINE (CURRENT) USE OF ORAL HYPOGLYC 02/09/2018 JAYLENE [...] UNSPECIFIED 03/01/2018 ASHU MATSON MD Ot Z79.84 FINISHER MACHINE (CURRENT) USE OF ORAL HYPOGLYC 03/01/2018 ASHU [...] UNSPECIFIED 03/03/2018 ASHU MATSON MD Ot Z79.84 FINISHER MACHINE (CURRENT) USE OF ORAL HYPOGLYC 03/03/2018 ASHU [...] INI 05/29/2018 CHAPO ESCALANTE MD Ot Z79.84 FINISHER MACHINE (CURRENT) USE OF ORAL HYPOGLYC 05/29/2018 CHAPO [...] CONVULSIONS 06/04/2018 ASHU MATSON MD Ot Z79.84 NURSING HOME (CURRENT) USE OF ORAL HYPOGLYC 06/04/2018 ASHU [...] APNEA, UNSPECIFIED 07/06/2018 BERNOT, JAZMINE Ot Z79.84 FINISHER MACHINE (CURRENT) USE OF ORAL HYPOGLYC 07/06/2018 BERNOT, [...] APNEA, UNSPECIFIED 07/08/2018 BERNDEWAYNE WARDIS Ot Z79.84 FINISHER MACHINE (CURRENT) USE OF ORAL HYPOGLYC 07/08/2018 BERNDEWAYNE WARDIS Ot Z87.19 PERSONAL HISTORY OF OTHER DISEASES OF 07/08/2018 JAZMNIE AMBRIZ Ot Z87.891 PERSONAL HISTORY OF NICOTINE [...] CONVULSIONS 08/24/2018 EDUAR URIARTE MD Ot Z79.84 FINISHER MACHINE (CURRENT) USE OF ORAL HYPOGLYC 08/24/2018 EDUAR [...] G47.30 SLEEP APNEA, UNSPECIFIED 09/12/2018 JAYLENE LOYA DAYLIGHT DRILLER Ot J02.9 ACUTE PHARYNGITIS, UNSPECIFIED 09/12/2018 JAYLENE LOYA DAYLIGHT DRILLER Ot J20.9 ACUTE BRONCHITIS, UNSPECIFIED 09/12/2018 JAYLENE LOYA DAYLIGHT DRILLER Ot Z79.84 FINISHER MACHINE (CURRENT) USE OF ORAL HYPOGLYC 09/12/2018 JAYLENE LOYA DAYLIGHT DRILLER Ot Z87.891 PERSONAL HISTORY OF NICOTINE DEPENDENCE 09/12/2018 JAYLENE LOYA DAYLIGHT DRILLER Ot Z98.890 OTHER SPECIFIED POSTPROCEDURAL STATES 09/23/2018 [...] 09/23/2018 CHAPO ESCALANTE MD T Ot Z79.84 FINISHER MACHINE (CURRENT) USE OF ORAL HYPOGLYC 09/23/2018 CHAPO ESCALANTE MD T Ot Z87.891 PERSONAL HISTORY OF NICOTINE DEPENDENCE 09/25/2018 CHAPO ESCALANTE MD T Ot E03.9 HYPOTHYROIDISM, UNSPECIFIED 09/25/2018 CAHPO ESCALANTE MD T Ot E11.65 TYPE 2 DIABETES MELLITUS WITH HYPERGLYCE 09/25/2018 CHAPO ESCALANTE MD T Ot F41.9 ANXIETY DISORDER, UNSPECIFIED 09/25/2018 CHAPO ESCALANTE MD T Ot G40.909 EPILEPSY, UNSP, NOT INTRACTABLE, WITHOUT 09/25/2018 CHAPO ESCALANTE MD T Ot H66.92 OTITIS MEDIA, UNSPECIFIED, LEFT EAR 09/25/2018 CHAPO ESCALANTE MD T Ot R56.9 UNSPECIFIED CONVULSIONS 09/25/2018 CHAPO ESCALANTE MD T Ot Z79.84 NURSING HOME (CURRENT) USE OF ORAL HYPOGLYC 09/25/2018 CHAPO [...] CONVULSIONS 09/26/2018 CHAPO ESCALANTE MD Ot Z79.84 NURSING HOME (CURRENT) USE OF ORAL HYPOGLYC 09/26/2018 CHAPO [...] IN UNSP NON-INSTITUT (PRIVATE 09/29/2018 Ot Z79.52 FINISHER MACHINE ( CURRENT) USE OF SYSTEMIC STER 09/29/2018 Ot Z79.84 NURSING HOME ( CURRENT) USE OF ORAL HYPOGLYC 09/29/2018 [...] IN UNSP NON-INSTITUT (PRIVATE 10/01/2018 Ot Z79.52 FINISHER MACHINE ( CURRENT) USE OF SYSTEMIC STER 10/01/2018 Ot Z79.84 NURSING HOME ( CURRENT) USE OF ORAL HYPOGLYC 10/01/2018 [...] CONVULSIONS 10/03/2018 LAUREN LOU MD Ot Z79.84 NURSING HOME (CURRENT) USE OF ORAL HYPOGLYC 10/03/2018 LAUREN [...] IN UNSP NON-INSTITUT (PRIVATE 10/05/2018 Ot Z79.52 FINISHER MACHINE ( CURRENT) USE OF SYSTEMIC STER 10/05/2018 Ot Z79.84 NURSING HOME ( CURRENT) USE OF ORAL HYPOGLYC 10/05/2018 [...] CONVULSIONS 10/06/2018 LAUREN LOU MD Ot Z79.84 FINISHER MACHINE (CURRENT) USE OF ORAL HYPOGLYC 10/06/2018 LAUREN [...] UNSPECIFIED CONVULSIONS 10/26/2018 BERNOT, JAZMINE Ot Z79.84 FINISHER MACHINE (CURRENT) USE OF ORAL HYPOGLYC 10/26/2018 BERNOT, [...] UNSPECIFIED CONVULSIONS 10/28/2018 BERNOT, JAZMINE Ot Z79.84 FINISHER MACHINE (CURRENT) USE OF ORAL HYPOGLYC 10/28/2018 BERNOT, [...] UNSPECIFIED CONVULSIONS 11/01/2018 BERNOT, JAZMINE Ot Z79.84 FINISHER MACHINE (CURRENT) USE OF ORAL HYPOGLYC 11/01/2018 BERNOT, [...] CONVULSIONS 11/05/2018 JAYLENE LOYA APRN Ot Z79.84 FINISHER MACHINE (CURRENT) USE OF ORAL HYPOGLYC 11/05/2018 JAYLENE [...] CONVULSIONS 11/09/2018 JAYLENE LOYA APRN Ot Z79.84 FINISHER MACHINE (CURRENT) USE OF ORAL HYPOGLYC 11/09/2018 JAYLENE LOYA APRN Ot Z87.19 PERSONAL HISTORY OF OTHER DISEASES OF 11/09/2018 JAYLENE LOYA APRN Ot Z87.891 PERSONAL HISTORY OF NICOTINE DEPENDENCE 11/09/2018 JAYLENE LOYA APRN Ot Z98.890 OTHER SPECIFIED POSTPROCEDURAL STATES 01/20/2019 CHAPO ESCALANTE MD, Ot E03.9 HYPOTHYROIDISM, UNSPECIFIED 01/20/2019 CHAPO ESCALANTE MD, Ot E11.9 TYPE 2 DIABETES MELLITUS WITHOUT COMPLIC 01/20/2019 CHAPO ESCALANTE MD, Ot F41.9 ANXIETY DISORDER, UNSPECIFIED 01/20/2019 CHAPO ESCALANTE MD, Ot G40.909 EPILEPSY, UNSP, NOT INTRACTABLE, WITHOUT 01/20/2019 CHAPO ESCALANTE MD, Ot G47.30 SLEEP APNEA, UNSPECIFIED 01/20/2019 CHAPO ESCALANTE MD, Ot G47.9 SLEEP DISORDER, UNSPECIFIED 01/20/2019 CHAPO ESCALANTE MD, Ot S01.81XA LACERATION W/O FOREIGN BODY OF OTH PART 01/20/2019 CHAPO ESCALANTE MD, Ot Z23 ENCOUNTER FOR IMMUNIZATION 01/20/2019 CHAPO ESCALANTE MD, Ot Z79.84 FINISHER MACHINE (CURRENT) USE OF ORAL HYPOGLYC 01/20/2019 CHAPO ESCALANTE MD, Ot Z87.19 PERSONAL HISTORY OF OTHER DISEASES OF TH 01/20/2019 CHAPO ESCALANTE MD, Ot Z87.891 PERSONAL HISTORY OF NICOTINE DEPENDENCE 01/20/2019 CHAPO ESCALANTE MD, Ot Z91.14 PATIENT'S OTHER NONCOMPLIANCE WITH MEDIC 01/20/2019 CHAPO ESCALANTE MD, Ot Z98.890 OTHER SPECIFIED POSTPROCEDURAL STATES Procedures [...] INFLUENZA A AND B ANTIGENS BY IA [facility] Comprehensive metabolic panel - 08/19/16 12:57 Serum [...] calculation of estimated glomerular filtration rate > [facility] Serum or plasma glucose measurement (mass/volume) 167 [...] detection limit <=0.05 miu/l (units/ volume) - 12/13/17 10:34 Serum or plasma thyrotropin measurement by [...] NRG Blood erythrocyte morphology finding identification NORMAL [facility] Comprehensive metabolic panel - 10/30/17 21:34 Serum [...] automated white blood cell (WBC) differential - 01/17/19 06:40 Blood leukocytes automated count (number/volume) 7.8 10*3/uL 4.3-11.0 Blood erythrocytes automated count (number/volume) 4.67 10*6/uL 4.35-5.85 Venous blood hemoglobin measurement (mass/volume) 13.4 g/dL 13.3-17.7 Blood hematocrit (volume fraction) 39 % 40-54 Automated erythrocyte mean corpuscular volume 84 [foz_us] 80-99 Automated erythrocyte mean corpuscular hemoglobin (mass per erythrocyte) 29 pg 25-34 Automated erythrocyte mean corpuscular hemoglobin concentration measurement ( mass/volume) 34 g/dL 32-36 Automated erythrocyte distribution width ratio 12.7 % 10.0-14.5 Automated blood platelet count (count/volume) 358 10*3/uL 130-400 Automated blood platelet mean volume measurement 9.8 [foz_us] 7.4-10.4 Automated blood neutrophils/100 leukocytes 60 % 42-75 Automated blood lymphocytes/100 leukocytes 28 % 12-44 Blood monocytes/100 leukocytes 10 % 0-12 Automated blood eosinophils/100 leukocytes 2 % 0-10 Automated blood basophils/100 leukocytes 0 % 0-10 Blood neutrophils automated count (number/volume) 4.6 10*3 1.8-7.8 Blood lymphocytes automated count (number/volume) 2.2 10*3 1.0-4.0 Blood monocytes automated count (number/volume) 0.8 10*3 0.0-1.0 Automated eosinophil count 0.1 10*3/uL 0.0-0.3 Automated blood basophil count (count/volume) 0.0 10*3/uL 0.0-0.1 Comprehensive metabolic panel - 01/17/19 06:40 Serum or plasma sodium measurement (moles/volume) 140 mmol/L 135-145 Serum or plasma potassium measurement (moles/volume) 3.7 mmol/L 3.6-5.0 Serum or plasma chloride measurement (moles/volume) 105 mmol/L 98-107 Carbon dioxide 20 mmol/L 21-32 Serum or plasma anion gap determination (moles/volume) 15 mmol/L 5-14 Serum or plasma urea nitrogen measurement (mass/volume) 16 mg/dL 7-18 Serum or plasma creatinine measurement (mass/volume) 1.12 mg/dL 0.60-1.30 Serum or plasma urea nitrogen/creatinine mass ratio 14 NRG Serum or plasma creatinine measurement with calculation of estimated glomerular filtration rate > NRG Serum or plasma glucose measurement (mass/volume) 155 mg/dL 70-105 Serum or plasma calcium measurement (mass/volume) 10.0 mg/dL 8.5-10.1 Serum or plasma total bilirubin measurement (mass/volume) 0.3 mg/dL 0.1-1.0 Serum or plasma alkaline phosphatase measurement (enzymatic activity/volume) 86 U/L 40-136 Serum or plasma aspartate aminotransferase measurement (enzymatic activity/ volume) 19 U/L 5-34 Serum or plasma alanine aminotransferase measurement (enzymatic activity/volume ) 28 U/L 0-55 Serum or plasma protein measurement (mass/volume) 7.5 g/dL 6.4-8.2 Serum or plasma albumin measurement (mass/volume) 4.4 g/dL 3.2-4.5 CALCIUM CORRECTED 9.7 mg/dL 8.5-10.1 THYROID STIMULATING HORMONE - 01/17/19 06:40 THYROID STIMULATING HORMONE 6.19 u[iU]/mL 0.35-4.94 Serum or plasma thyroxine (T4) free measurement (mass/volume) - 01/17/19 06:40 Serum or plasma thyroxine (T4) free measurement (mass/volume) 1.16 ng/dL 0.70-1.48 Encounters ACCT No. Visit Date/Time Discharge Status Pt. Type Provider Facility Loc./Unit Complaint [id number] 01/17/2019 06:24:00 01/17/2019 08:57:00 DIS Outpatient CHAPO ESCALANTE MD [facility] ER SEIZURE [id number] 11/05/2018 09:45:00 11/05/2018 11:19:00 DIS Emergency JAYLENE LOYA APRN [facility] ER SEIZURE [id number] 10/26/2018 21:46:00 10/26/2018 23:16:00 DIS Emergency JAZMINE AMBRIZ [facility] ER SEIZURE [id number] 10/03/2018 12:29:00 10/03/2018 14:15:00 DIS Emergency LAUREN LOU MD [facility] ER SEIZURE [id number] 09/23/2018 11:13:00 09/23/2018 14:08:00 DIS Emergency CHAPO ESCALANTE MD [facility] ER SEIZURE [id number] 09/12/2018 14:21:00 09/12/2018 15:10:00 DIS Emergency JAYLENE LOYA APRN [facility] ER SORE THROAT [id number] 08/24/2018 09:57:00 08/24/2018 12:22:00 DIS Emergency CHAPITO DELGADO, EDUAR Iqbal [facility] ER SEIZURE [id number] 07/06/2018 21:57:00 07/06/2018 23:20:00 DIS Emergency JAZMINE AMBRIZ [facility] ER SEIZURE [id number] 06/02/2018 12:50:00 06/02/2018 14:06:00 DIS Emergency DANO DELGADO, ASHU Alan [facility] ER SEIZURE [id number] 05/29/2018 11:52:00 05/29/2018 13:30:00 DIS Emergency BORIS DELGADO, CHAPO [place] [facility] ER SEIZURE [id number] 03/01/2018 21:50:00 03/01/2018 22:41:00 DIS Emergency DANO DELGADO, ASHU Alan [facility] ER SEIZURE [id number] 02/07/2018 22:44:00 02/07/2018 23:16:00 DIS Emergency JAYLENE LOYA APRN [facility] ER SEIZURE [id number] 12/27/2017 20:58:00 12/27/2017 23:12:00 DIS Emergency CHAPITO DELGADO, EDUAR Iqbal [facility] ER INJ FROM SEIZURE [id number] 12/02/2017 13:31:00 12/02/2017 15:07:00 DIS Emergency JAYLENE LOYA APRN [facility] ER HEAD PAIN,HIP PAIN [id number] 11/20/2017 14:07:00 11/20/2017 15:47:00 DIS Emergency JAYLENE LOYA DAYLIGHT DRILLER [facility] ER SEIZURE [id number] 10/30/2017 21:28:00 10/30/2017 23:42:00 DIS Emergency JAYLENE LOYA DAYLIGHT DRILLER [facility] ER SEIZURE [id number] 10/12/2017 20:39:00 10/13/2017 00:36:00 DIS Emergency LUIS GATES [facility] ER R FOOT INJ [id number] 09/10/2017 10:31:00 09/10/2017 13:45:00 DIS Emergency BORIS DELGADO, CHAPO [place] [facility] ER SEIZURE [id number] 08/23/2017 13:58:00 08/23/2017 16:00:00 DIS Emergency DANO DELGADO, ASHU Alan [facility] ER SEIZURE [id number] 06/22/2017 16:39:00 06/22/2017 18:07:00 DIS Emergency GALINDO DELGADO, CARLOS S [facility] ER SEIZURE [id number] 05/06/2017 21:56:00 05/06/2017 23:30:00 DIS Emergency DANO DELGADO, ASHU Alan [facility] ER SEIZURE-FALL [id number] 12/12/2016 20:25:00 12/12/2016 22:02:00 DIS Emergency CHAPITO DELGADO, EDUAR Iqbal [facility] ER POSSIBLE SEIZURE [id number] 10/31/2016 09:27:00 10/31/2016 14:50:00 DIS Outpatient ROMERO SANFORD DO [facility] SDC UMBILICAL HERNIA [id number] 10/29/2016 08:37:00 10/29/2016 09:05:00 DIS Outpatient SANFORD ROMERO ROBERTS [facility] PREOP UMBILICAL HERNIA [id number] 08/19/2016 11:19:00 08/19/2016 14:50:00 DIS Emergency DANO DELGADO, ASHU Alan [facility] ER LIGHTHEADED NAUSEA [id number] 02/02/2016 20:45:00 02/03/2016 06:40:00 DIS Outpatient SAYDA CLAY MD [facility] SLEEP OBSTRUCTIVE SLEEP APNEA [id number] 01/27/2016 21:02:00 01/27/2016 22:31:00 DIS Emergency JAYSHREE HUBER MD [facility] ER SEIZURE/FALL [id number] 12/19/2015 21:50:00 12/19/2015 23:31:00 DIS Emergency BORIS DELGADO, CHAPO [place] [facility] ER SEIZURE [id number] 11/17/2015 20:50:00 11/18/2015 06:50:00 DIS Outpatient SAYDA CLAY MD [facility] SLEEP OBSERVED APNEAS,SNORING ,SEIZURE,ABN LIMB MOVEMENT [id number] 10/04/2015 13:44:00 10/04/2015 23:59:59 CLS Outpatient DALE ROBERTS KAREN C [facility] LAB INFERTILITY [id number] 09/12/2015 20:42:00 09/12/2015 21:58:00 DIS Emergency CURTIS ROBERTSMAMI [facility] ER CONGESTION [id number] 03/18/2014 20:01:00 03/18/2014 22:13:00 DIS Emergency KITA OSCAR DO Rasheed [facility] ER SEIZURE [id number] 09/29/2018 13:16:00 Document Registration [id number] 05/04/2015 22:47:00 Document Registration [id number] 09/21/2018 11:52:00 09/21/2018 23:59:00 DIS Outpatient Mami Terry [id number] 12/13/2016 14:44:00 12/13/2016 23:59:00 DIS Outpatient Mami Terry [id number] 11/25/2018 10:50:00 11/25/2018 23:59:59 [facility] [id number] 05/04/2015 22:47:00 05/05/2015 01:01:00 DIS Emergency CHAPO ESCALANTE MD [facility] ER [id number] 09/24/2018 14:12:00 Document Registration
[2019-02-04] MEDS ORDERED: LACTATED RINGERS 1,000 ML IV ONE (02:42)
[2019-02-04 02:48] LABS: BASOPHILS % (AUTO) 0 % (0-10); EOSINOPHILS # (AUTO) 0.2 10^3/uL (0.0-0.3); EOSINOPHILS % (AUTO) 3 % (0-10); HEMATOCRIT 42 % (40-54); LYMPHOCYTES # (AUTO) 3.2 X 10^3 (1.0-4.0); LYMPHOCYTES % (AUTO) 37 % (12-44); MEAN CORPUSCULAR HEMOGLOBIN 28 PG (25-34); MEAN CORPUSCULAR HGB CONC 34 G/DL (32-36); MEAN CORPUSCULAR VOLUME 84 FL (80-99); MEAN PLATELET VOLUME 9.4 FL (7.4-10.4); MONOCYTES # (AUTO) 0.8 X 10^3 (0.0-1.0); MONOCYTES % (AUTO) 9 % (0-12); NEUTROPHILS # (AUTO) 4.4 X 10^3 (1.8-7.8); NEUTROPHILS % (AUTO) 51 % (42-75); PLATELET COUNT 420 10^3/uL (130-400); RED CELL DISTRIBUTION WIDTH 12.9 % (10.0-14.5); WHITE BLOOD COUNT 8.6 10^3/uL (4.3-11.0)
[2019-02-04 03:02] LABS: BILIRUBIN,URINE NEGATIVE (NEGATIVE); CLARITY,URINE CLEAR; COLOR,URINE YELLOW; GLUCOSE, URINE (UA) 3+ (NEGATIVE); KETONES,URINE 1+ (NEGATIVE); LEUKOCYTE ESTERASE ,URINE NEGATIVE (NEGATIVE); NITRITE,URINE NEGATIVE (NEGATIVE); PH,URINE 5 (5-9); PROTEIN,URINE 3+ (NEGATIVE); UROBILINOGEN,URINE NORMAL (NORMAL)
[2019-02-04 03:07] LABS: BACTERIA,URINE NEGATIVE /HPF; HYALINE CASTS, URINE RARE /LPF; RBC,URINE RARE /HPF; SQUAMOUS EPITHELIAL CELL,UR RARE /HPF
[2019-02-04 03:09] LABS: ALANINE AMINOTRANSFERASE 29 U/L (0-55); ALBUMIN 4.5 GM/DL (3.2-4.5); ALKALINE PHOSPHATASE 96 U/L (40-136); BILIRUBIN,TOTAL 0.2 MG/DL (0.1-1.0); BUN/CREATININE RATIO 13; CALCIUM 9.7 MG/DL (8.5-10.1); CARBON DIOXIDE 13 MMOL/L (21-32); CHLORIDE 106 MMOL/L (98-107); CREATINE KINASE 80 U/L (30-200); CREATININE SERUM 0.87 MG/DL (0.60-1.30); GFR ESTIMATED > 60; GLUCOSE 204 MG/DL (70-105); MAGNESIUM 2.3 MG/DL (1.8-2.4); POTASSIUM 4.2 MMOL/L (3.6-5.0); SODIUM 139 MMOL/L (135-145)
[2019-02-04 03:13] LABS: AMPHETAMINE SCREEN, URINE NEGATIVE (NEGATIVE); BARBITURATE SCREEN URINE NEGATIVE (NEGATIVE); BENZODIAZEPINES SCREEN URINE NEGATIVE (NEGATIVE); CANNABINOID SCREEN, URINE NEGATIVE (NEGATIVE); COCAINE SCREEN URINE NEGATIVE (NEGATIVE); METHAMPHETAMINE SCREEN URINE S NEGATIVE (NEGATIVE); OPIATE SCREEN URINE NEGATIVE (NEGATIVE); TRICYCLIC ANTIDEPRESSANTS SCRE NEGATIVE (NEGATIVE)
[2019-02-04 03:14] LABS: METHADONE STAT NEGATIVE (NEGATIVE); OXYCODONE STAT NEGATIVE (NEGATIVE); PROPOXYPHENE STAT NEGATIVE (NEGATIVE)
[2019-02-04 03:17] LABS: CREATINE KINASE MB 1.1 NG/ML (<6.6); VALPROIC ACID < 2.0 UG/ML (50.0-100.0)
--- NOTE | 2019-02-04 03:18 | ED Neurological Problem ---
General Chief Complaint: Neurological Problems Stated Complaint: SEIZURE Nursing Triage Note: TO ED [facility]IA [facility] AFTER HAVING SEIZURE AT HOME FOR UNKNOWN AMOUNT OF TIME. PER EMS FEMALE ON SCENE STATES HE WAS OUT OF DEPAKOTE. PT STATES HE THINKS HE TAKES DILANTIN, DEPAKOTE, AND LIMICTAL BUT UNSURE AND UNSURE IF HE TOOK IT YESTERDAY BECAUSE "I WAS AFRAID TO OVERDOSE ON IT". Nursing Sepsis Screen: No Definite Risk Source: patient, EMS, old records, spouse Exam Limitations: other (BOTH PT AND ARE LIMITED HISTORIANS) History of Present Illness Date Seen by Provider: February 04, 2019 Time Seen by Provider: 02:25 Initial Comments PT ARRIVES VIA EMS FROM HOME CALLED EMS BECAUSE PT HAD A SEIZURE PT HAS LONGSTANDING HISTORY OF SEIZURES, AND THIS IS NO DIFFERENT THAN NORMAL. CALLS EMS EVERY TIME HE HAS A SEIZURE PT WAS SITTING IN KITCHEN AND FELL OUT OF CHAIR, BUT NO REPORTED INJURIES AND PT DENIES PAIN ANYWHERE PT WAS ABLE TO WALK TO EMS CART ON HIS OWN SEIZURE LASTED 30 SECONDS, PER EMS EMS REPORT THAT PT APPEARED SOMEWHAT POST-ICTAL, BUT IS IMPROVED ON ARRIVAL. PT HAS BEEN OUT OF DEPAKOTE "FOR A COUPLE OF MONTHS" PT WITH LONGSTANDING HISTORY OF NON-COMPLIANCE WITH MEDICATIONS PT IS NOT SURE WHAT MEDICATIONS HE IS TAKING OR IS SUPPOSED TO TAKE,AND NEITHER DOES . ( PER MED RECONCILIATION, PT IS SUPPOSED TO BE ON KEPPRA, LAMICTAL, CLONAZEPAM ) PT DOES NOT KNOW IF OR WHEN HE HAS TAKEN HIS MEDICATIONS. STATES AT ONE POINT THAT HE DID NOT TAKE HIS MEDICATION "BECAUSE HE DIDN'T WANT TO OVERDOSE ON IT AND WAS AFRAID OF TAKING TOO MUCH" PT WAS SEEN HERE ON 01/17/19 FOR SAME COMPLAINT--PT DID HAVE A BROW/FOREHEAD AT THAT TIME, WHICH IS WELL HEALED NOW PT HAS BEEN HERE A MULTITUDE OF TIMES FOR THIS SAME PROBLEM PT IS ALSO A DIABETIC, AND DOES NOT CHECK HIS BLOOD SUGAR AND DOES NOT KNOW IF/ WHEN HE LAST TOOK HIS MEDICATION PCP: DR. HAAS NEUROLOGIST: DR. CLAY--HAS NOT SEEN FOR A COUPLE OF MONTHS Allergies and Home Medications Allergies Coded Allergies: No Known Drug Allergies (Unverified , 03/18/14) Home Medications Clonazepam 0.5 Mg Tablet, 0.5-1 MG PO BID, (Reported) take 1 (.5mg) tab in am take 2 (.5mg) tab in pm Hydrocodone/Acetaminophen 1 Each Tablet, 1 EACH PO Q4H PRN for PAIN-MODERATE TO SEVERE Prescribed by: LUIS POWERS on 10/13/17 0026 Lamotrigine 150 Mg Tablet, 150 MG PO Q12H, (Reported) Levetiracetam 1,000 Mg Tablet, 1,000 MG PO BID, (Reported) take with 5oomg tab for 1500mg total Levothyroxine Sodium 50 Mcg Tablet, 50 MCG PO DAILY, (Reported) Metformin HCl 500 Mg Tablet, 500 MG PO BID, (Reported) [place] 3 Polyunsat Fatty Acids 1,000 Mg Cap, 1,000 MG PO BID, (Reported) Orphenadrine Citrate 100 Mg Tablet.er, 100 MG PO BID PRN for SPASMS Prescribed by: LUIS POWERS on 09/29/18 1405 Patient Home Medication List Home Medication List Reviewed: Yes Review of Systems Review of Systems Constitutional: no symptoms reported Eyes: No Symptoms Reported Ears, Nose, Mouth, Throat: no symptoms reported (DENIES BITING TONGUE OR ANY FACIAL INJURY, BUT HAS A VERY SMALL TRICKLE OF DRIED BLOOD FROM RIGHT NARE) Respiratory: no symptoms reported Cardiovascular: no symptoms reported Gastrointestinal: no symptoms reported Genitourinary: no symptoms reported Musculoskeletal: no symptoms reported Skin: no symptoms reported Psychiatric/Neurological: See HPI; Denies Headache, Denies Numbness, Denies Tingling, Denies Tonic Clonic Seizures, Denies Weakness Endocrine: No Symptoms Reported Hematologic/Lymphatic: No Symptoms Reported Past Usqgamx-Bpddyc-Jsbrdo Hx Patient Social History Alcohol Use: Denies Use Recreational Drug Use: No Type Used: Cigarettes Former Smoker, Quit: Oct 29, 2009 Recent Foreign Travel: No Contact w/Someone Who Travel: No Recent Infectious Disease Expo: No Recent Hopitalizations: No Immunizations Up To Date Tetanus Booster (TDap): More than 5yrs Date of Influenza Vaccine: May 30, 2015 Seasonal Allergies Seasonal Allergies: Yes Past Medical History Surgeries: Yes (UMBILICAL HERNIA REPAIR) Respiratory: Yes Sleep Apnea Currently Using CPAP: Yes Cardiac: No Neurological: Yes (NON-COMPLIANT WITH MEDICATIONS) Seizure Disorder Reproductive Disorders: No Sexually Transmitted Disease: No Genitourinary: No Gastrointestinal: Yes (UMBILICAL HERNIA REPAIR) Musculoskeletal: No Endocrine: Yes (NON COMPLIANT WITH MEDICATIONS AND CHECKING BLOOD GLUCOSE) Hypothyroidsim, Diabetes, Non-Insulin dep HEENT: No Cancer: No Psychosocial: Yes Anxiety Integumentary: No Blood Disorders: No Family Medical History No Pertinent Family Hx Physical Exam Vital Signs Vital Signs - First Documented 02/04/19 02:39 Temp 97.0 Pulse 89 Resp 18 B/P (MAP) 140/69 (92) Capillary Refill : Less Than 3 Seconds Height, Weight, BMI Height: 5'11.00" Weight: 257lbs. 0.0oz. 116.034127hr; 39.5 BMI Method:Stated General Appearance: WD/WN, no apparent distress HEENT: PERRL/EOMI, TMs normal, pharynx normal, other (TRICKLE OF DRIED BLOOD IN RIGHT NARE. NO TENDERNESS OR SWELLING OR BRUISING TO NOSE OR FACE. NO INTRA- ORAL INJURY) Neck: non-tender, full range of motion, supple, normal inspection Respiratory: chest non-tender, normal breath sounds, no respiratory distress, no accessory muscle use Cardiovascular: normal peripheral pulses, regular rate, rhythm, no edema, no JVD, no murmur Gastrointestinal: normal bowel sounds, non tender, soft Back: normal inspection, no CVA tenderness Extremities: normal range of motion, non-tender, normal inspection, no pedal edema, no calf tenderness, normal capillary refill 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: technology director II-XII nml as tested, no motor/sensory deficits, alert, oriented x 3, other (SLIGHTLY SLOW MENTATION/SLIGHTLY DROWSY, PT IS POOR HISTORIAN) Crainal Nerves: normal hearing, normal speech, PERRL Coordination/Gait: normal gait Motor/Sensory: no motor deficit, no sensory deficit Skin: normal color, warm/dry Procedures/Interventions Suture Size: 6-0 Progress/Results/Core Measures Results/Orders Lab Results Laboratory Tests Test 02/04/19 02:40 02/04/19 02:49 02/04/19 02:55 Range/Units White Blood Count 8.6 4.3-11.0 10^3/uL Red Blood Count 4.96 4.35-5.85 10^6/uL Hemoglobin 14.0 13.3-17.7 G/DL Hematocrit 42 40-54 % Mean Corpuscular Volume 84 80-99 FL Mean Corpuscular Hemoglobin 28 25-34 PG Mean Corpuscular Hemoglobin Concent 34 32-36 G/DL Red Cell Distribution Width 12.9 10.0-14.5 % Platelet Count 420 H 130-400 10^3/uL Mean Platelet Volume 9.4 7.4-10.4 FL Neutrophils (%) (Auto) 51 42-75 % Lymphocytes (%) (Auto) 37 12-44 % Monocytes (%) (Auto) 9 0-12 % Eosinophils (%) (Auto) 3 0-10 % Basophils (%) (Auto) 0 0-10 % Neutrophils # (Auto) 4.4 1.8-7.8 X 10^3 Lymphocytes # (Auto) 3.2 1.0-4.0 X 10^3 Monocytes # (Auto) 0.8 0.0-1.0 X 10^3 Eosinophils # (Auto) 0.2 0.0-0.3 10^3/uL Basophils # (Auto) 0.0 0.0-0.1 10^3/uL Sodium Level 139 135-145 MMOL/L Potassium Level 4.2 3.6-5.0 MMOL/L Chloride Level 106 98-107 MMOL/L Carbon Dioxide Level 13 L 21-32 MMOL/L Anion Gap 20 H 5-14 MMOL/L Blood Urea Nitrogen 11 7-18 MG/DL Creatinine 0.87 0.60-1.30 MG/DL Estimat Glomerular Filtration Rate > 60 BUN/Creatinine Ratio 13 Glucose Level 204 H 70-105 MG/DL Calcium Level 9.7 8.5-10.1 MG/DL Corrected Calcium 9.3 8.5-10.1 MG/DL Magnesium Level 2.3 1.8-2.4 MG/DL Total Bilirubin 0.2 0.1-1.0 MG/DL Aspartate Amino Transf (AST/SGOT) 13 5-34 U/L Alanine Aminotransferase (ALT/SGPT) 29 0-55 U/L Alkaline Phosphatase 96 40-136 U/L Total Creatine Kinase 80 30-200 U/L Creatine Kinase MB 1.1 <6.6 NG/ML Myoglobin 61.4 10.0-92.0 NG/ML Total Protein 8.0 6.4-8.2 GM/DL Albumin 4.5 3.2-4.5 GM/DL Valproic Acid (Depakene) Level < 2.0 L 50.0-100.0 UG/ML Serum Alcohol < 10 <10 MG/DL Urine Color YELLOW Urine Clarity CLEAR Urine pH 5 5-9 Urine Specific Burt 1.025 H 1.016-1.022 Urine Protein 3+ H NEGATIVE Urine Glucose (UA) 3+ H NEGATIVE Urine Ketones 1+ H NEGATIVE Urine Nitrite NEGATIVE NEGATIVE Urine Bilirubin NEGATIVE NEGATIVE Urine Urobilinogen NORMAL NORMAL MG/DL Urine Leukocyte Esterase NEGATIVE NEGATIVE Urine RBC (Auto) 1+ H NEGATIVE Urine RBC RARE /HPF Urine WBC NONE /HPF Urine Squamous Epithelial Cells RARE /HPF Urine Crystals NONE /LPF Urine Bacteria NEGATIVE /HPF Urine Casts PRESENT /LPF Urine Hyaline Casts RARE /LPF Urine Mucus NEGATIVE /LPF Urine Culture Indicated NO Urine Opiates Screen NEGATIVE NEGATIVE Urine Oxycodone Screen NEGATIVE NEGATIVE Urine Methadone Screen NEGATIVE NEGATIVE Urine Propoxyphene Screen NEGATIVE NEGATIVE Urine Barbiturates Screen NEGATIVE NEGATIVE Ur Tricyclic Antidepressants Screen NEGATIVE NEGATIVE Urine Phencyclidine Screen NEGATIVE NEGATIVE Urine Amphetamines Screen NEGATIVE NEGATIVE Urine Methamphetamines Screen NEGATIVE NEGATIVE Urine Benzodiazepines Screen NEGATIVE NEGATIVE Urine Cocaine Screen NEGATIVE NEGATIVE Urine Cannabinoids Screen NEGATIVE NEGATIVE My Orders Orders - GAVI ACEVEDO DO Ed Iv/Invasive Line Start (02/04/19 02:42) Monitor-Rhythm Ecg Trace Only (02/04/19 02:42) Alcohol (02/04/19 02:42) Cbc With Automated Diff (02/04/19 02:42) Comprehensive Metabolic Panel (02/04/19 02:42) Creatine Kinase (02/04/19 02:42) Creatine Kinase Mb (02/04/19 02:42) Dilantin (Phenytoin) (02/04/19 02:42) Drug Screen Stat (Urine) (02/04/19 02:42) Magnesium (02/04/19 02:42) Ua Culture If Indicated (02/04/19 02:42) Valproic Acid (02/04/19 02:42) Myoglobin Serum (02/04/19 02:42) Ed Iv/Invasive Line Start (02/04/19 02:42) Lactated Ringers (Lr 1000 Ml Iv Solution (02/04/19 02:42) Thyroid Analyzer (02/04/19 02:47) Medications Given in ED Current Medications Medications Dose Ordered Sig/Warren Route Start Time Stop Time Status Last Admin Dose Admin Lactated Ringer's 1,000 ml @ 0 mls/hr Q0M ONCE IV 5/9/19 02:42 02/04/19 02:45 DC 02/04/19 02:49 999 MLS/HR Vital Signs/I&O 02/04/19 02:39 Temp 97.0 Pulse 89 Resp 18 B/P (MAP) 140/69 (92) Blood Pressure Mean: 92 Progress Progress Note : Progress Note UNEVENTFUL ER STAY PT HAD NO COMPLAINTS DURING ENTIRE ER STAY DISCUSSED WITH PT AND THE IMPORTANCE OF SETTING UP A PILL ORGANIZER EVERY WEEK, AND HAVING A RESPONSIBLE PERSON FILL IT EVERY WEEK, AND SET REMINDERS/ ALARMS FOR WHEN HE IS SUPPOSED TO TAKE HIS MEDICATIONS. ALSO STRESSED THE IMPORTANCE OF KNOWING WHAT MEDICATIONS HE IS TAKING, AND KEEPING A LIST OF MEDICATIONS WITH HIM AT ALL TIMES ALSO STRESSED THE IMPORTANCE OF MONITORING HIS BLOOD SUGARS AT HOME. Departure Impression Primary Impression: Seizure Additional Impressions: NIDDM Hypothyroidism Disposition: HOME, SELF-CARE Condition: Stable Departure-Patient Inst. Referrals: GAVI HAAS MD (PCP/Family) Primary Care Physician Patient Instructions: Blood Glucose Monitoring, Diabetes Type 2 (DC), Seizures , Adult (DC) Add. Discharge Instructions: TAKE YOUR MEDICATIONS PRESCRIBED. DO NOT MISS DOSES PUT YOUR PILLS IN A PILL ORGANIZER AND SET A REMINDER OR ALARM TO REMIND YOU TO TAKE YOUR PILLS AT THE SAME TIME EVERY DAY INCREASE YOUR FLUID INTAKE CHECK YOUR BLOOD SUGAR 3 TIMES A DAY AND KEEP A DIARY AND TAKE WITH YOU TO YOUR DR'S OFFICE. FOLLOW UP WITH YOUR DR THIS WEEK FOR FURTHER CARE NO DRIVING All discharge instructions reviewed with patient and/or family. Voiced understanding. GAVI ACEVEDO DO February 04, 2019 03:18
[2019-02-04 03:28] LABS: TSH (THYROID ANALYZER) 7.99 UIU/ML (0.35-4.94)
[2019-02-04 03:30] VITALS: BP 157/90
[2019-02-04 04:05] LABS: FREE T4 (FREE THYROXINE) 0.85 NG/DL (0.70-1.48)
== END 2019-02-04 03:31 | disposition home or self-care (01) ==
LOC: EDUNIT# 02:32 → ER 02:35
DX: R56.9 Unspecified convulsions (principal); E11.9 Type 2 diabetes mellitus without complications; E03.9 Hypothyroidism, unspecified; G47.30 Sleep apnea, unspecified; G40.909 Epilepsy, unspecified, not intractable, without status epilepticus; F41.9 Anxiety disorder, unspecified; Z98.890 Other specified postprocedural states; Z91.14 Patient's other noncompliance with medication regimen; Z79.84 Long term (current) use of oral hypoglycemic drugs; Z87.891 Personal history of nicotine dependence
CPT/HCPCS: 36415; 80053; 80164; 80185; 80306; 80320; 81000; 82550; 82553; 83735; 83874; 84439; 84443; 85025; 93041; 96360

== ENCOUNTER 2019-03-14 22:42 | Emergency (ER) | payer SELFPAY ==
[~2019-03-14] VITALS: Ht 182.2 cm; Wt 112.5 kg
[2019-03-14 22:44] VITALS: BP 145/79
--- NOTE | 2019-03-14 22:50 | NUR ---
patient girlfriend to room.
--- NOTE | 2019-03-14 22:53 | ED Neurological Problem ---
General Stated Complaint: SEIZURE Source: patient, EMS Exam Limitations: no limitations History of Present Illness Date Seen by Provider: Mar 14, 2019 Time Seen by Provider: 22:40 Initial Comments Patient presents to ER by EMS from home with chief complaint that he had a seizure lasting approximately 3 minutes per his roommate. By the time EMS arrived he was still quite postictal and he requested to be brought to the ER. He has a history of epilepsy and says he's been taking his medications on time routinely. He is on levetiracetam, the Motrin [place] and clonazepam twice a day. Fairly certain that he took his evening meds at 9:30. He's not had any recent health changes fevers chills cough shortness of breath dysuria diarrhea or constipation. No abdominal pain. Allergies and Home Medications Allergies Coded Allergies: No Known Drug Allergies (Unverified , 03/18/14) Home Medications Clonazepam 0.5 Mg Tablet, 0.5-1 MG PO BID, (Reported) take 1 (.5mg) tab in am take 2 (.5mg) tab in pm Hydrocodone/Acetaminophen 1 Each Tablet, 1 EACH PO Q4H PRN for PAIN-MODERATE TO SEVERE Prescribed by: LUIS POWERS on 10/13/17 0026 Lamotrigine 150 Mg Tablet, 150 MG PO Q12H, (Reported) Levetiracetam 1,000 Mg Tablet, 1,000 MG PO BID, (Reported) take with 5oomg tab for 1500mg total Levothyroxine Sodium 50 Mcg Tablet, 50 MCG PO DAILY, (Reported) Metformin HCl 500 Mg Tablet, 500 MG PO BID, (Reported) [place] 3 Polyunsat Fatty Acids 1,000 Mg Cap, 1,000 MG PO BID, (Reported) Orphenadrine Citrate 100 Mg Tablet.er, 100 MG PO BID PRN for SPASMS Prescribed by: LUIS POWERS on 09/29/18 1405 Patient Home Medication List Home Medication List Reviewed: Yes Review of Systems Review of Systems Constitutional: No chills, No diaphoresis Eyes: Denies Blindness, Denies Blurred Vision Ears, Nose, Mouth, Throat: denies ear pain, denies nose pain Respiratory: No cough, No short of breath Cardiovascular: No chest pain, No edema Gastrointestinal: No abdominal pain, No nausea Past Ijwrmqj-Wjyuxp-Rygjwt Hx Patient Social History Alcohol Use: Denies Use Recreational Drug Use: No Smoking Status: Former Smoker Type Used: Cigarettes Former Smoker, Quit: Oct 29, 2009 Recent Hopitalizations: No Immunizations Up To Date Tetanus Booster (TDap): More than 5yrs Date of Influenza Vaccine: May 30, 2015 Seasonal Allergies Seasonal Allergies: Yes Past Medical History Surgeries: Yes (UMBILICAL HERNIA REPAIR) Respiratory: Yes Sleep Apnea Currently Using CPAP: Yes Cardiac: No Neurological: Yes (NON-COMPLIANT WITH MEDICATIONS) Seizure Disorder Reproductive Disorders: No Sexually Transmitted Disease: No Genitourinary: No Gastrointestinal: Yes (UMBILICAL HERNIA REPAIR) Musculoskeletal: No Endocrine: Yes (NON COMPLIANT WITH MEDICATIONS AND CHECKING BLOOD GLUCOSE) Hypothyroidsim, Diabetes, Non-Insulin dep HEENT: No Cancer: No Psychosocial: Yes Anxiety Integumentary: No Blood Disorders: No Family Medical History No Pertinent Family Hx Physical Exam Vital Signs Capillary Refill : Height, Weight, BMI Height: 5'11.00" Weight: 257lbs. 0.0oz. 116.739023zq; 39.5 BMI Method:Stated General Appearance: WD/WN, no apparent distress HEENT: PERRL/EOMI, normal ENT inspection, TMs normal, pharynx normal, other (tongue has some mild, superficial lacerations.) Neck: non-tender, full range of motion, supple, normal inspection Respiratory: chest non-tender, lungs clear, normal breath sounds, no respiratory distress, no accessory muscle use Cardiovascular: normal peripheral pulses, regular rate, rhythm, no edema 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: alert, normal mood/affect, oriented x 3, other (mildly postictal) Procedures/Interventions Suture Size: 6-0 Progress/Results/Core Measures Results/Orders My Orders Orders - ASHU MATSON Stat ONCE (03/14/19 22:46) Progress Progress Note : Time: 22:52 Progress Note No acute constitutional symptoms. We'll allow him to wake up little while to go home with his roommate. Blood sugar was okay. Departure Impression Primary Impression: Seizure Additional Impression: Epilepsy Qualified Codes: G40.909 - Epilepsy, unspecified, not intractable, without status epilepticus Disposition: 01 HOME, SELF-CARE Condition: Improved Departure-Patient Inst. Decision time for Depature: 23:01 Referrals: GAVI HAAS MD (PCP/Family) Primary Care Physician Patient Instructions: Epilepsy in Adults DANO,ASHU J Mar 14, 2019 22:53
[2019-03-14 23:06] VITALS: BP 145/79
== END 2019-03-14 23:06 | disposition home or self-care (01) ==
LOC: EDUNIT# 22:42 → ER 22:45
DX: G40.909 Epilepsy, unspecified, not intractable, without status epilepticus (principal); G47.30 Sleep apnea, unspecified; E03.9 Hypothyroidism, unspecified; E11.9 Type 2 diabetes mellitus without complications; F41.9 Anxiety disorder, unspecified; Z91.14 Patient's other noncompliance with medication regimen; Z79.84 Long term (current) use of oral hypoglycemic drugs; Z87.891 Personal history of nicotine dependence; Z98.890 Other specified postprocedural states
CPT/HCPCS: 82962

== ENCOUNTER 2019-03-25 17:12 | Emergency (ER) | payer OTHER ==
[~2019-03-25] VITALS: Ht 182.2 cm; Wt 112.5 kg
[2019-03-25] MEDS ORDERED: LEVETIRACETAM 500 MG (KEPPRA) TAB PO ONE (17:14)
[2019-03-25 17:22] VITALS: BP 134/84
--- NOTE | 2019-03-25 17:23 | ED Neurological Problem ---
General Chief Complaint: Neurological Problems Stated Complaint: SEIZURE Source: patient, EMS Exam Limitations: no limitations History of Present Illness Date Seen by Provider: Mar 25, 2019 Time Seen by Provider: 17:20 Initial Comments Review EMS reported that he was initially a little bit postictal but upon arrival to the emergency room is back to normal. Denies any complaints, states that he's been out of his clonazepam and Lamictal and Keppra for about 4 days but states "they're filled I just need to pick them up". He has multiple emergency room visits for seizures many of which are prompted by noncompliance with medication regimen. Timing/Duration: 1 hour Severity: mild Associated Symptoms: denies symptoms Allergies and Home Medications Allergies Coded Allergies: No Known Drug Allergies (Unverified , 03/18/14) Home Medications Clonazepam 0.5 Mg Tablet, 0.5-1 MG PO BID, (Reported) take 1 (.5mg) tab in am take 2 (.5mg) tab in pm Hydrocodone/Acetaminophen 1 Each Tablet, 1 EACH PO Q4H PRN for PAIN-MODERATE TO SEVERE Prescribed by: LUIS POWERS on 10/13/17 0026 Lamotrigine 150 Mg Tablet, 150 MG PO Q12H, (Reported) Levetiracetam 1,000 Mg Tablet, 1,000 MG PO BID, (Reported) take with 5oomg tab for 1500mg total Levothyroxine Sodium 50 Mcg Tablet, 50 MCG PO DAILY, (Reported) Metformin HCl 500 Mg Tablet, 500 MG PO BID, (Reported) [place] 3 Polyunsat Fatty Acids 1,000 Mg Cap, 1,000 MG PO BID, (Reported) Orphenadrine Citrate 100 Mg Tablet.er, 100 MG PO BID PRN for SPASMS Prescribed by: LUIS POWERS on 09/29/18 1405 Patient Home Medication List Home Medication List Reviewed: Yes Review of Systems Review of Systems Constitutional: see HPI Eyes: No Symptoms Reported Ears, Nose, Mouth, Throat: no symptoms reported Respiratory: no symptoms reported Cardiovascular: no symptoms reported Genitourinary: no symptoms reported Musculoskeletal: no symptoms reported Skin: no symptoms reported Psychiatric/Neurological: See HPI, Tonic Clonic Seizures Endocrine: No Symptoms Reported Past Qaxnnke-Plnvok-Inxwyh Hx Patient Social History Type Used: Cigarettes Former Smoker, Quit: Oct 29, 2009 Recent Foreign Travel: No Contact w/Someone Who Travel: No Recent Hopitalizations: No Immunizations Up To Date Tetanus Booster (TDap): More than 5yrs Date of Influenza Vaccine: May 30, 2015 Seasonal Allergies Seasonal Allergies: Yes Past Medical History Surgeries: Yes (UMBILICAL HERNIA REPAIR) Respiratory: Yes Sleep Apnea Currently Using CPAP: Yes Cardiac: No Neurological: Yes (NON-COMPLIANT WITH MEDICATIONS) Seizure Disorder Reproductive Disorders: No Sexually Transmitted Disease: No Genitourinary: No Gastrointestinal: Yes (UMBILICAL HERNIA REPAIR) Musculoskeletal: No Endocrine: Yes (NON COMPLIANT WITH MEDICATIONS AND CHECKING BLOOD GLUCOSE) Hypothyroidsim, Diabetes, Non-Insulin dep HEENT: No Cancer: No Psychosocial: Yes Anxiety Integumentary: No Blood Disorders: No Family Medical History No Pertinent Family Hx Physical Exam Vital Signs Vital Signs - First Documented 03/25/19 17:18 Temp 98.2 Pulse 102 Resp 18 B/P (MAP) 134/84 (101) Pulse Ox 94 O2 Delivery Room Air Capillary Refill : Height, Weight, BMI Height: 5'11.75" Weight: 248lbs. 0oz. 112.963614kq; 39.5 BMI Method:Stated General Appearance: WD/WN, no apparent distress, other HEENT: PERRL/EOMI, normal ENT inspection, other (ecchymosis to the left side of the tongue without laceration or active bleeding) Neck: non-tender, full range of motion Respiratory: no respiratory distress, no accessory muscle use Gastrointestinal: normal bowel sounds, non tender 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: alert, normal mood/affect, oriented x 3 Crainal Nerves: normal hearing, normal speech Skin: normal color, warm/dry Procedures/Interventions Suture Size: 6-0 Progress/Results/Core Measures Results/Orders My Orders Orders - JAYLENE LOYA APRN Levetiracetam Tablet (Keppra Tablet) (03/25/19 17:30) Clonazepam Tablet (Klonopin Tablet) (03/25/19 17:30) Levetiracetam Tablet (Keppra Tablet) (03/25/19 17:14) Medications Given in ED Current Medications Medications Dose Ordered Sig/Warren Route Start Time Stop Time Status Last Admin Dose Admin Clonazepam 1 mg ONCE ONCE PO 03/25/19 17:30 03/25/19 17:31 DC 03/25/19 17:33 1 MG Levetiracetam 1,000 mg ONCE ONCE PO 03/25/19 17:30 03/25/19 17:31 DC 03/25/19 17:23 1,000 MG Vital Signs/I&O 03/25/19 03/25/19 03/25/19 17:18 17:22 17:50 Temp 98.2 98.2 98.2 Pulse 102 102 96 Resp 18 18 18 B/P (MAP) 134/84 (101) 134/84 (101) 127/69 (88) Pulse Ox 94 94 94 O2 Delivery Room Air Room Air Departure Impression Primary Impression: epilepsy Additional Impression: Drug noncompliance Disposition: HOME, SELF-CARE Condition: Improved Departure-Patient Inst. Decision time for Depature: 17:22 Referrals: GAVI HAAS MD (PCP) Primary Care Physician Patient Instructions: Epilepsy in Adults Add. Discharge Instructions: 1. It should come as no surprise at this point in your life that if you do not take your medication you will have seizures. Fill them and take them as directed. Return to the emergency room for any concerns such as fevers, severe headache, seizure that last longer than 5 minutes All discharge instructions reviewed with patient and/or family. Voiced understanding. JAYLENE LOYA APRN Mar 25, 2019 17:23
[2019-03-25] MEDS ORDERED: clonazePAM 1 MG (KlonoPIN) TAB PO ONE (17:30)
[2019-03-25] MEDS ORDERED: LEVETIRACETAM 1,000 MG (KEPPRA) TABLET PO ONE (17:30)
[2019-03-25 17:50] VITALS: BP 127/69
== END 2019-03-25 17:50 | disposition home or self-care (01) ==
LOC: EDUNIT# 17:12 → ER 17:13
DX: G40.909 Epilepsy, unspecified, not intractable, without status epilepticus (principal); G47.30 Sleep apnea, unspecified; E03.9 Hypothyroidism, unspecified; E11.9 Type 2 diabetes mellitus without complications; F41.9 Anxiety disorder, unspecified; Z91.14 Patient's other noncompliance with medication regimen; Z79.84 Long term (current) use of oral hypoglycemic drugs; Z87.891 Personal history of nicotine dependence; Z98.890 Other specified postprocedural states

== ENCOUNTER 2019-05-17 19:42 | Emergency (ER) | payer OTHER ==
[~2019-05-17] VITALS: Ht 182.2 cm; Wt 127.0 kg
[~2019-05-17 19:42] MED LIST changes: -D-ME118S7 PO; +PROM118S4 PO
[2019-05-17] MEDS ORDERED: NS IV 1000 ML 1,000 ML IV SCH (19:49)
[2019-05-17] MEDS ORDERED: LEVETIRACETAM INJECTION 1,000 MG in NS (IVPB) 100 ML IV STA (19:49)
--- NOTE | 2019-05-17 19:53 | ED General ---
General Stated Complaint: SEIZURE Source of Information: Patient, EMS Exam Limitations: No Limitations History of Present Illness Date Seen by Provider: May 17, 2019 Time Seen by Provider: 19:38 Initial Comments Patient presents to ER by EMS from home where his roommate witnessed him have about a 2 minute seizure which she has a history of epilepsy. He fell from standing and hit his nose and has low blood on his upper lip. He denies having any pain nausea vomiting fever chills cough sweats or feeling sick lately. His roommate and EMS felt that he was being postictal for about 45 minutes which was unusual for him. He says is not been taking Keppra because of financial reasons. His been using Klonopin 1 mg twice a day routinely which has been working her him. He typically follows with [facility]. He denies dysuria abdominal pain chest pain cough shortness of breath runny nose sore throat earache. Allergies and Home Medications Allergies Coded Allergies: No Known Drug Allergies (Unverified , 03/18/14) Home Medications Clonazepam 0.5 Mg Tablet, 0.5-1 MG PO BID, (Reported) take 1 (.5mg) tab in am take 2 (.5mg) tab in pm Hydrocodone/Acetaminophen 1 Each Tablet, 1 EACH PO Q4H PRN for PAIN-MODERATE TO SEVERE Prescribed by: LUIS POWERS on 10/13/17 0026 Lamotrigine 150 Mg Tablet, 150 MG PO Q12H, (Reported) Levetiracetam 1,000 Mg Tablet, 1,000 MG PO BID, (Reported) take with 5oomg tab for 1500mg total Levothyroxine Sodium 50 Mcg Tablet, 50 MCG PO DAILY, (Reported) Metformin HCl 500 Mg Tablet, 500 MG PO BID, (Reported) [place] 3 Polyunsat Fatty Acids 1,000 Mg Cap, 1,000 MG PO BID, (Reported) Orphenadrine Citrate 100 Mg Tablet.er, 100 MG PO BID PRN for SPASMS Prescribed by: LUIS POWERS on 09/29/18 1405 Patient Home Medication List Home Medication List Reviewed: Yes Review of Systems Review of Systems Constitutional: No chills, No diaphoresis, No fever, No malaise EENTM: No ear discharge, No ear pain Respiratory: No cough, No phlegm Cardiovascular: No chest pain, No edema Gastrointestinal: No abdominal pain, No constipation, No diarrhea Genitourinary: No discharge, No dysuria Musculoskeletal: No back pain, No joint pain Past Mgrnhfk-Bnncxh-Cgfhpw Hx Patient Social History Alcohol Use: Denies Use Recreational Drug Use: No Smoking Status: Former Smoker Type Used: Cigarettes Former Smoker, Quit: Oct 29, 2009 Recent Foreign Travel: No Contact w/Someone Who Travel: No Recent Hopitalizations: No Immunizations Up To Date Tetanus Booster (TDap): More than 5yrs Date of Influenza Vaccine: May 30, 2015 Seasonal Allergies Seasonal Allergies: Yes Past Medical History Surgeries: Yes (UMBILICAL HERNIA REPAIR) Respiratory: Yes Sleep Apnea Currently Using CPAP: Yes Cardiac: No Neurological: Yes (NON-COMPLIANT WITH MEDICATIONS) Seizure Disorder Reproductive Disorders: No Sexually Transmitted Disease: No Genitourinary: No Gastrointestinal: Yes (UMBILICAL HERNIA REPAIR) Musculoskeletal: No Endocrine: Yes (NON COMPLIANT WITH MEDICATIONS AND CHECKING BLOOD GLUCOSE) Hypothyroidsim, Diabetes, Non-Insulin dep HEENT: No Cancer: No Psychosocial: Yes Anxiety Integumentary: No Blood Disorders: No Family Medical History No Pertinent Family Hx Physical Exam-Suspected Sepsis Physical Exam Vital Signs Capillary Refill : Height, Weight, BMI Height: 5'11.75" Weight: 248lbs. 0oz. [id number]; 39.5 BMI Method:Stated General Appearance: No Apparent Distress, WD/WN Eyes: Bilateral Eye Normal Inspection, Bilateral Eye PERRL, Bilateral Eye EOMI HEENT: PERRL/EOMI, TMs Normal, Normal ENT Inspection, Pharynx Normal, Moist Mucous Membranes Neck: Full Range of Motion, Normal Inspection Respiratory: Chest Non Tender, Lungs Clear, Normal Breath Sounds, No Accessory Muscle Use, No Respiratory Distress Cardiovascular: Regular Rate, Rhythm, No Edema, Normal Peripheral Pulses Gastrointestinal: Normal Bowel Sounds, Non Tender, Soft Extremity: Normal Capillary Refill, Normal Inspection 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: Alert, Oriented x3, No Motor/Sensory Deficits, Other (Mildly slow and postictal) Skin: normal color, warm/dry Focused Exam Lactate Level 05/17/19 19:49: Lactic Acid Level 7.11*H 05/17/19 21:52: Lactic Acid Level 1.51 Lactic Acid Level Laboratory Tests Test 05/17/19 19:49 05/17/19 21:52 Lactic Acid Level 7.11 MMOL/L (0.50-2.00) *H 1.51 MMOL/L (0.50-2.00) Procedures/Interventions Suture Size: 6-0 Progress/Results/Core Measures Suspected Sepsis SIRS Temperature: Pulse: Respiratory Rate: Laboratory Tests 05/17/19 19:49: White Blood Count 10.0 Blood Pressure / Mean: 05/17/19 19:49: Lactic Acid Level 7.11*H 05/17/19 21:52: Lactic Acid Level 1.51 Laboratory Tests 05/17/19 19:49: Creatinine 0.85, INR Comment 0.9, Platelet Count 376, Total Bilirubin 0.3 Results/Orders Lab Results Laboratory Tests Test 05/17/19 19:49 05/17/19 20:35 05/17/19 21:52 Range/Units White Blood Count 10.0 4.3-11.0 10^3/uL Red Blood Count 4.81 4.35-5.85 10^6/uL Hemoglobin 13.9 13.3-17.7 G/DL Hematocrit 41 40-54 % Mean Corpuscular Volume 84 80-99 FL Mean Corpuscular Hemoglobin 29 25-34 PG Mean Corpuscular Hemoglobin Concent 34 32-36 G/DL Red Cell Distribution Width 13.2 10.0-14.5 % Platelet Count 376 130-400 10^3/uL Mean Platelet Volume 10.0 7.4-10.4 FL Neutrophils (%) (Auto) 69 42-75 % Lymphocytes (%) (Auto) 22 12-44 % Monocytes (%) (Auto) 8 0-12 % Eosinophils (%) (Auto) 1 0-10 % Basophils (%) (Auto) 0 0-10 % Neutrophils # (Auto) 6.9 1.8-7.8 X 10^3 Lymphocytes # (Auto) 2.2 1.0-4.0 X 10^3 Monocytes # (Auto) 0.8 0.0-1.0 X 10^3 Eosinophils # (Auto) 0.1 0.0-0.3 10^3/uL Basophils # (Auto) 0.0 0.0-0.1 10^3/uL Prothrombin Time 12.6 12.2-14.7 SEC INR Comment 0.9 0.8-1.4 Activated Partial Thromboplast Time 27 24-35 SEC Sodium Level 140 135-145 MMOL/L Potassium Level 4.3 3.6-5.0 MMOL/L Chloride Level 103 98-107 MMOL/L Carbon Dioxide Level 23 21-32 MMOL/L Anion Gap 14 5-14 MMOL/L Blood Urea Nitrogen 17 7-18 MG/DL Creatinine 0.85 0.60-1.30 MG/DL Estimat Glomerular Filtration Rate > 60 BUN/Creatinine Ratio 20 Glucose Level 144 H 70-105 MG/DL Lactic Acid Level 7.11 *H 1.51 0.50-2.00 MMOL/L Calcium Level 10.3 H 8.5-10.1 MG/DL Corrected Calcium 8.5-10.1 MG/DL Total Bilirubin 0.3 0.1-1.0 MG/DL Aspartate Amino Transf (AST/SGOT) 20 5-34 U/L Alanine Aminotransferase (ALT/SGPT) 21 0-55 U/L Alkaline Phosphatase 99 40-136 U/L Troponin I < 0.028 <0.028 NG/ML Total Protein 8.0 6.4-8.2 GM/DL Albumin 4.6 H 3.2-4.5 GM/DL Urine Color YELLOW Urine Clarity CLEAR Urine pH 5 5-9 Urine Specific [place] 1.025 H 1.016-1.022 Urine Protein 3+ H NEGATIVE Urine Glucose (UA) NEGATIVE NEGATIVE Urine Ketones 1+ H NEGATIVE Urine Nitrite NEGATIVE NEGATIVE Urine Bilirubin NEGATIVE NEGATIVE Urine Urobilinogen NORMAL NORMAL MG/DL Urine Leukocyte Esterase NEGATIVE NEGATIVE Urine RBC (Auto) 2+ H NEGATIVE Urine RBC RARE /HPF Urine WBC 0-2 /HPF Urine Squamous Epithelial Cells RARE /HPF Urine Crystals NONE /LPF Urine Bacteria TRACE /HPF Urine Casts PRESENT /LPF Urine Hyaline Casts 5-10 H /LPF Urine Mucus SMALL H /LPF Urine Culture Indicated CULTURE PENDING My Orders Orders - ASHU MATSON Cbc With Automated Diff (05/17/19 19:49) Comprehensive Metabolic Panel (05/17/19 19:49) Blood Culture (05/17/19 19:49) Sputum Culture (05/17/19 19:49) Urinalysis (05/17/19 19:49) Urine Culture (05/17/19 19:49) Protime With Inr (05/17/19 19:49) Partial Thromboplastin Time (05/17/19 19:49) Chest 1 View, Ap/Pa Only (05/17/19 19:49) Acetaminophen Tablet (Tylenol Tablet) (05/17/19 20:00) Ed Iv/Invasive Line Start (05/17/19 19:49) Ed Iv/Invasive Line Start (05/17/19 19:49) Ekg Tracing (05/17/19 19:49) Troponin I (05/17/19 19:49) Vital Signs Adult Sepsis Patie Q15M (05/17/19 19:49) O2 (05/17/19 19:49) Remove Rings In Anticipation O (05/17/19 19:49) Lactic Acid Analyzer (05/17/19 19:49) Ns Iv 1000 Ml (Sodium Chloride 0.9%) (05/17/19 19:49) Cefepime Injection (Maxipime Injection) (05/17/19 20:00) Levetiracetam Injection (Keppra Injectio (05/17/19 19:49) Medications Given in ED Current Medications Medications Dose Ordered Sig/Warren Route Start Time Stop Time Status Last Admin Dose Admin Cefepime HCl 1000 mg/Sterile Water 10 ml @ 200 mls/hr ONCE ONCE IV 05/17/19 20:00 05/17/19 20:02 DC 05/17/19 20:09 200 MLS/HR Vital Signs/I&O Capillary Refill : Progress Note : Time: 22:20 Progress Note Patient had a borderline temperature which had just been from his recent seizure activity however that was 45 minutes ago so we went ahead and obtain labs urine chest x-ray looking for any evidence of bacterial infection. No lesions were nor mal. He was given Keppra and took his own dose 1 mg of Klonopin that he typically takes at night. He's been resting peacefully ever since. We are going to allow him to go home And follow up outpatient. Elevated lactate and temperature are due to the seizure activity. ECG Initial ECG Impression Date: May 17, 2019 Initial ECG Impression Time: 19:51 Initial ECG Rate: 99 Initial ECG Rhythm: Normal Sinus Initial ECG Intervals: CT (212) Initial ECG Impression: Normal, 1st Degree AV Block Comment First-degree AV block but no acute ST elevation or depression. Diagnostic Imaging Diagonstic Imaging: Xray Plain Films/CT/US/NM/MRI: chest Comments NAME: HAFSA GOSS [employer] REC#: [id number] PT STATUS: REG ER : 1985 PHYSICIAN: ASHU MATSON MD ADMIT DATE: 05/17/19/ER Signed Date of Exam:05/17/19 CHEST 1 VIEW, AP/PA ONLY INDICATION: Seizure COMPARISON: 09/23/2018 FINDINGS: Single view of the chest demonstrates clear lungs bilaterally. The heart size is normal. There is no pneumothorax. Osseous structures are normal. IMPRESSION: No acute findings. Normal chest. Dictated by: Dictated on workstation # [id number] Dict: 05/17/192024 Trans: 05/17/192025 [facility] [id number] Interpreted by: YVAN EKYS Electronically signed by: YVAN KEYS 05/17/192025 Reviewed: Reviewed by Me Departure Impression Primary Impression: Seizure Additional Impressions: Post-ictal confusion Epilepsy Qualified Codes: G40.909 - Epilepsy, unspecified, not intractable, without status epilepticus Disposition: 01 HOME, SELF-CARE Condition: Stable Departure-Patient Inst. Decision time for Depature: 22:26 Referrals: GAVI HAAS MD (PCP/Family) Primary Care Physician Patient Instructions: Seizures, Adult (DC) Add. Discharge Instructions: Keep your scheduled follow-up appointment with neurology and primary care. If you begin to have more frequent seizures then you need to follow-up sooner for reevaluation of your medications. Work/School Note: Work Release Form Date Seen in the Emergency Department: May 17, 2019 Return to Work: May 18, 2019 Restrictions: No Restrictions ASHU MATSON May 17, 2019 19:53
[2019-05-17 19:58] LABS: BASOPHILS % (AUTO) 0 % (0-10); EOSINOPHILS # (AUTO) 0.1 10^3/uL (0.0-0.3); EOSINOPHILS % (AUTO) 1 % (0-10); HEMATOCRIT 41 % (40-54); HEMOGLOBIN 13.9 G/DL (13.3-17.7); LYMPHOCYTES # (AUTO) 2.2 X 10^3 (1.0-4.0); LYMPHOCYTES % (AUTO) 22 % (12-44); MEAN CORPUSCULAR HEMOGLOBIN 29 PG (25-34); MEAN CORPUSCULAR HGB CONC 34 G/DL (32-36); MEAN CORPUSCULAR VOLUME 84 FL (80-99); MONOCYTES # (AUTO) 0.8 X 10^3 (0.0-1.0); MONOCYTES % (AUTO) 8 % (0-12); NEUTROPHILS # (AUTO) 6.9 X 10^3 (1.8-7.8); NEUTROPHILS % (AUTO) 69 % (42-75); PLATELET COUNT 376 10^3/uL (130-400); RED CELL DISTRIBUTION WIDTH 13.2 % (10.0-14.5)
[2019-05-17] MEDS ORDERED: CEFEPIME INJECTION 1,000 MG in WATER (STERILE) FOR INJECTION 10 ML IV ONE (20:00)
[2019-05-17] MEDS ORDERED: ACETAMINOPHEN 500 MG TAB (TYLENOL) PO PRN (20:00)
[2019-05-17 20:14] LABS: INR 0.9 (0.8-1.4); PROTHROMBIN TIME PATIENT 12.6 SEC (12.2-14.7)
[2019-05-17 20:20] LABS: ALANINE AMINOTRANSFERASE 21 U/L (0-55); ALBUMIN 4.6 GM/DL (3.2-4.5); ALKALINE PHOSPHATASE 99 U/L (40-136); BILIRUBIN,TOTAL 0.3 MG/DL (0.1-1.0); CALCIUM 10.3 MG/DL (8.5-10.1); CARBON DIOXIDE 23 MMOL/L (21-32); GLUCOSE 144 MG/DL (70-105)
--- NOTE | 2019-05-17 20:28 | Diagnostic Imaging Report ---
INDICATION: Seizure COMPARISON: 09/23/2018 FINDINGS: Single view of the chest demonstrates clear lungs bilaterally. The heart size is normal. There is no pneumothorax. Osseous structures are normal. IMPRESSION: No acute findings. Normal chest. Dictated by: Dictated on workstation # [id number]
[2019-05-17 20:42] LABS: BILIRUBIN,URINE NEGATIVE (NEGATIVE); CLARITY,URINE CLEAR; COLOR,URINE YELLOW; GLUCOSE, URINE (UA) NEGATIVE (NEGATIVE); KETONES,URINE 1+ (NEGATIVE); LEUKOCYTE ESTERASE ,URINE NEGATIVE (NEGATIVE); NITRITE,URINE NEGATIVE (NEGATIVE); PH,URINE 5 (5-9); PROTEIN,URINE 3+ (NEGATIVE); UROBILINOGEN,URINE NORMAL (NORMAL)
[2019-05-17 20:42] LABS: BUN/CREATININE RATIO 20; CHLORIDE 103 MMOL/L (98-107); CREATININE SERUM 0.85 MG/DL (0.60-1.30); GFR ESTIMATED > 60; POTASSIUM 4.3 MMOL/L (3.6-5.0); SODIUM 140 MMOL/L (135-145)
[2019-05-17 20:51] LABS: BACTERIA,URINE TRACE /HPF; RBC,URINE RARE /HPF; SQUAMOUS EPITHELIAL CELL,UR RARE /HPF; WBC,URINE 0-2 /HPF
[2019-05-17 22:35] VITALS: BP 114/69
== END 2019-05-17 22:36 | disposition home or self-care (01) ==
LOC: EDUNIT# 19:42 → ER 19:43
DX: G40.909 Epilepsy, unspecified, not intractable, without status epilepticus (principal); R41.0 Disorientation, unspecified; G47.30 Sleep apnea, unspecified; E03.9 Hypothyroidism, unspecified; E11.9 Type 2 diabetes mellitus without complications; F41.9 Anxiety disorder, unspecified; Z87.891 Personal history of nicotine dependence; Z91.120 Patient's intentional underdosing of medication regimen due to financial hardship; Z79.84 Long term (current) use of oral hypoglycemic drugs; Z98.890 Other specified postprocedural states; W01.198A Fall on same level from slipping, tripping and stumbling with subsequent striking against other object, initial encounter
CPT/HCPCS: 36415; 71045; 80053; 81000; 83605; 84484; 85025; 85610; 85730; 87040; 87088; 93005

== ENCOUNTER 2019-07-21 20:53 | Emergency (ER) | payer SELFPAY ==
[~2019-07-21] VITALS: Ht 180 cm; Wt 121.0 kg
--- NOTE | 2019-07-21 21:15 | NUR ---
C COLLAR REMOVED BY Kenn LOYA APRN AT THIS TIME.
--- NOTE | 2019-07-21 21:18 | ED Neurological Problem ---
General Chief Complaint: Neurological Problems Stated Complaint: SEIZURE Source: patient Exam Limitations: no limitations History of Present Illness Date Seen by Provider: Jul 21, 2019 Time Seen by Provider: 21:15 Initial Comments To ER with reports of seizure. Patient has known seizure disorder and takes medication for this, despite that he still has frequent seizures. He had one this evening and was brought to the emergency room by EMS. He denies neck pain, any extremity pain, denies back pain, denies chest or abdomen pain. He has no headache no nausea no vomiting. Timing/Duration: 1 hour Severity: moderate Associated Symptoms: denies symptoms Allergies and Home Medications Allergies Coded Allergies: No Known Drug Allergies (Unverified , 03/18/14) Home Medications Clonazepam 0.5 Mg Tablet, 0.5-1 MG PO BID, (Reported) take 1 (.5mg) tab in am take 2 (.5mg) tab in pm Hydrocodone/Acetaminophen 1 Each Tablet, 1 EACH PO Q4H PRN for PAIN-MODERATE TO SEVERE Prescribed by: LUIS POWERS on 10/13/17 0026 Lamotrigine 150 Mg Tablet, 150 MG PO Q12H, (Reported) Levetiracetam 1,000 Mg Tablet, 1,000 MG PO BID, (Reported) take with 5oomg tab for 1500mg total Levothyroxine Sodium 50 Mcg Tablet, 50 MCG PO DAILY, (Reported) Metformin HCl 500 Mg Tablet, 500 MG PO BID, (Reported) [place] 3 Polyunsat Fatty Acids 1,000 Mg Cap, 1,000 MG PO BID, (Reported) Orphenadrine Citrate 100 Mg Tablet.er, 100 MG PO BID PRN for SPASMS Prescribed by: LUIS POWERS on 09/29/18 1405 Patient Home Medication List Home Medication List Reviewed: Yes Review of Systems Review of Systems Constitutional: see HPI Eyes: No Symptoms Reported Ears, Nose, Mouth, Throat: no symptoms reported Respiratory: no symptoms reported Cardiovascular: no symptoms reported Genitourinary: no symptoms reported Musculoskeletal: no symptoms reported Skin: no symptoms reported Psychiatric/Neurological: No Symptoms Reported Endocrine: No Symptoms Reported Hematologic/Lymphatic: No Symptoms Reported Past Udyvjiy-Lxlvgk-Ffadin Hx Patient Social History Alcohol Beverage of Choice: Beer Type Used: Cigarettes Former Smoker, Quit: Oct 29, 2009 Recent Foreign Travel: No Contact w/Someone Who Travel: No Recent Hopitalizations: No Immunizations Up To Date Tetanus Booster (TDap): More than 5yrs PED Vaccines UTD: No Date of Influenza Vaccine: May 30, 2015 Seasonal Allergies Seasonal Allergies: Yes Past Medical History Surgeries: Yes (UMBILICAL HERNIA REPAIR) Respiratory: Yes Sleep Apnea Currently Using CPAP: Yes Cardiac: No Neurological: Yes (NON-COMPLIANT WITH MEDICATIONS) Seizure Disorder Reproductive Disorders: No Sexually Transmitted Disease: No Genitourinary: No Gastrointestinal: Yes (UMBILICAL HERNIA REPAIR) Musculoskeletal: No Endocrine: Yes (NON COMPLIANT WITH MEDICATIONS AND CHECKING BLOOD GLUCOSE) Hypothyroidsim, Diabetes, Non-Insulin dep HEENT: No Cancer: No Psychosocial: Yes Anxiety Integumentary: No Blood Disorders: No Family Medical History No Pertinent Family Hx Physical Exam Vital Signs Capillary Refill : Height, Weight, BMI Height: 5'11.75" Weight: 280lbs. 0oz. 127.974260bw; 39.5 BMI Method:Stated General Appearance: WD/WN, no apparent distress HEENT: PERRL/EOMI, normal ENT inspection Neck: non-tender, full range of motion Respiratory: no respiratory distress, no accessory muscle use Cardiovascular: regular rate, rhythm, no murmur Gastrointestinal: normal bowel sounds, non tender, soft Extremities: normal range of motion, non-tender 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: alert, normal mood/affect, oriented x 3 Crainal Nerves: normal hearing, normal speech, PERRL Skin: normal color, warm/dry; No cyanosis, No cool, No diaphoresis, No damp, No ecchymosis, No jaundice, No mottled, No pallor, No rash, No tattoos/piercings, No other Does have a few petechiae about the face and forehead. No hemotympanum no Rankin's sign or raccoon eyes no epistaxis, GCS 15 alert and oriented states he feels well. Procedures/Interventions Suture Size: 6-0 Departure Impression Primary Impression: Seizure Disposition: 01 HOME, SELF-CARE Condition: Stable Departure-Patient Inst. Decision time for Depature: 21:17 Referrals: GAVI HAAS MD (PCP/Family) Primary Care Physician Patient Instructions: Seizures, Adult (DC), Paresthesias (DC), Hemorrhagic Stroke, Stroke (DC) JAYLENE LOYA APRN Jul 21, 2019 21:18
[2019-07-21 21:27] VITALS: BP 145/77
== END 2019-07-21 21:28 | disposition home or self-care (01) ==
LOC: EDUNIT# 20:53 → ER 20:54
DX: G40.909 Epilepsy, unspecified, not intractable, without status epilepticus (principal); E11.9 Type 2 diabetes mellitus without complications; E03.9 Hypothyroidism, unspecified; F41.9 Anxiety disorder, unspecified; G47.30 Sleep apnea, unspecified; Z99.89 Dependence on other enabling machines and devices; Z79.84 Long term (current) use of oral hypoglycemic drugs; Z87.891 Personal history of nicotine dependence

== ENCOUNTER 2019-07-31 11:25 | Emergency (ER) | payer OTHER ==
[~2019-07-31] VITALS: Ht 180 cm; Wt 119.0 kg
[~2019-07-31 11:25] MED LIST changes: -CLON0.5T13 PO; +CLON0.5T4 PO
[2019-07-31] MEDS ORDERED: clonazePAM 1 MG (KlonoPIN) TAB PO ONE (11:30)
--- NOTE | 2019-07-31 11:30 | ED Neurological Problem ---
General Chief Complaint: Neurological Problems Stated Complaint: SEIZURE Source: patient Exam Limitations: no limitations History of Present Illness Date Seen by Provider: Jul 31, 2019 Time Seen by Provider: 11:27 Initial Comments To ER per EMS from home with reports of seizure. He has known epilepsy and comes to ER about once a week for a seizure. He takes clonazepam, cannot remember whether or not he's missed any doses. At this time he feels back to normal, no complaints. He denies headache, denies any complaints at all at this time and feels back to normal. Timing/Duration: 1/2 hour Severity: mild Associated Symptoms: seizures Allergies and Home Medications Allergies Coded Allergies: No Known Drug Allergies (Unverified , 03/18/14) Home Medications Clonazepam 0.5 Mg Tablet, 0.5-1 MG PO BID, (Reported) take 1 (.5mg) tab in am take 2 (.5mg) tab in pm Hydrocodone/Acetaminophen 1 Each Tablet, 1 EACH PO Q4H PRN for PAIN-MODERATE TO SEVERE Prescribed by: LUIS POWERS on 10/13/17 0026 Lamotrigine 150 Mg Tablet, 150 MG PO Q12H, (Reported) Levetiracetam 1,000 Mg Tablet, 1,000 MG PO BID, (Reported) take with 5oomg tab for 1500mg total Levothyroxine Sodium 50 Mcg Tablet, 50 MCG PO DAILY, (Reported) Metformin HCl 500 Mg Tablet, 500 MG PO BID, (Reported) [place] 3 Polyunsat Fatty Acids 1,000 Mg Cap, 1,000 MG PO BID, (Reported) Orphenadrine Citrate 100 Mg Tablet.er, 100 MG PO BID PRN for SPASMS Prescribed by: LUIS POWERS on 09/29/18 1405 Patient Home Medication List Home Medication List Reviewed: Yes Review of Systems Review of Systems Constitutional: see HPI Eyes: No Symptoms Reported Ears, Nose, Mouth, Throat: no symptoms reported Respiratory: no symptoms reported Cardiovascular: no symptoms reported Genitourinary: no symptoms reported Musculoskeletal: no symptoms reported Skin: no symptoms reported Psychiatric/Neurological: Tonic Clonic Seizures Past Kdccztt-Bagttj-Etejnq Hx Patient Social History Alcohol Beverage of Choice: Beer Type Used: Cigarettes Former Smoker, Quit: Oct 29, 2009 Recent Foreign Travel: No Contact w/Someone Who Travel: No Recent Hopitalizations: No Immunizations Up To Date Tetanus Booster (TDap): More than 5yrs PED Vaccines UTD: No Date of Influenza Vaccine: May 30, 2015 Seasonal Allergies Seasonal Allergies: Yes Past Medical History Surgeries: Yes (UMBILICAL HERNIA REPAIR) Respiratory: Yes Sleep Apnea Currently Using CPAP: Yes Cardiac: No Neurological: Yes (NON-COMPLIANT WITH MEDICATIONS) Seizure Disorder Reproductive Disorders: No Sexually Transmitted Disease: No Genitourinary: No Gastrointestinal: Yes (UMBILICAL HERNIA REPAIR) Musculoskeletal: No Endocrine: Yes (NON COMPLIANT WITH MEDICATIONS AND CHECKING BLOOD GLUCOSE) Hypothyroidsim, Diabetes, Non-Insulin dep HEENT: No Cancer: No Psychosocial: Yes Anxiety Integumentary: No Blood Disorders: No Family Medical History No Pertinent Family Hx Physical Exam Vital Signs Vital Signs - First Documented 07/31/19 11:26 Temp 37.0 Pulse 89 Resp 16 B/P (MAP) 125/85 (98) Pulse Ox 93 Capillary Refill : Height, Weight, BMI Height: 5'11.75" Weight: 280lbs. 0oz. 127.683273ng; 37.00 BMI Method:Stated General Appearance: WD/WN, no apparent distress, other (no confusion GCS 15 alert and oriented) HEENT: PERRL/EOMI, normal ENT inspection Neck: non-tender, full range of motion Respiratory: no respiratory distress, no accessory muscle use Gastrointestinal: normal bowel sounds, soft Extremities: normal range of motion, non-tender 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: alert, normal mood/affect, oriented x 3 Crainal Nerves: normal hearing, normal speech, PERRL Skin: normal color, warm/dry Procedures/Interventions Suture Size: 6-0 Progress/Results/Core Measures Results/Orders My Orders Orders - JAYLENE LOYA APRN Clonazepam Tablet (Klonopin Tablet) (07/31/19 11:30) Vital Signs/I&O 07/31/19 11:26 Temp 37.0 Pulse 89 Resp 16 B/P (MAP) 125/85 (98) Pulse Ox 93 Departure Impression Primary Impression: Seizure Disposition: 01 HOME, SELF-CARE Condition: Stable Departure-Patient Inst. Decision time for Depature: 11:29 Referrals: GAVI HAAS MD (PCP/Family) Primary Care Physician Patient Instructions: Seizures, Adult (DC) Add. Discharge Instructions: 1. return to er for any concerns All discharge instructions reviewed with patient and/or family. Voiced understanding. JAYLENE LOYA APRN Jul 31, 2019 11:30 POS
[2019-07-31 11:58] VITALS: BP 126/67
== END 2019-07-31 11:58 | disposition home or self-care (01) ==
LOC: EDUNIT# 11:25 → ER 11:26
DX: G40.909 Epilepsy, unspecified, not intractable, without status epilepticus (principal); G47.30 Sleep apnea, unspecified; E11.9 Type 2 diabetes mellitus without complications; E03.9 Hypothyroidism, unspecified; F41.9 Anxiety disorder, unspecified; Z99.89 Dependence on other enabling machines and devices; Z91.14 Patient's other noncompliance with medication regimen; Z79.84 Long term (current) use of oral hypoglycemic drugs; Z87.891 Personal history of nicotine dependence
CPT/HCPCS: 99283